=== PATIENT | female | born 1965 | race Caucasian/White ===

== ENCOUNTER → 2016-10-10 | Outpatient (CLI) | payer OTHER ==
[~2016-10-10] MED LIST: ADVAIR INH; ALBU17IN INH; ALBUTEROL NEB NEB; ALEVE OR; AMBI10TA OR; BACLOFEN; BENA25CA2 PO; BENA5TA PO; BREO1INH INH; CLAR10CA3 PO; CLAR5CHW OR; CYCL10TA PO; DARV100T OR; DARVOCET; DICL13PA TD; DIPHENHYDRAMINE HCL OR; FERROUS SULFATE; FLEX10TA2 PO; FLEXERIL PO; FLON0.05; FLON1SPR; FLOV50AE; GABA300C2 PO; HYDR-3716 PO; NEUR600T PO; OMEP40CA2 PO; PERCOCET PO; PROV90AE INH; SING10TA31 OR; SING10TA32 PO; SKEL800T5; SKEL800T5 OR; VICO5TAB PO; VICO5TAB16 PO; VITA-113 SC; VOLT1GEL EX; VOLT1GEL24 TOP; ZANA4CAP OR; talwin OR
--- NOTE | 2016-10-10 16:32 | REP ---
MRI left hip and femur without and with IV gadolinium: History: Dense foot drop clinically since ipsilateral left-sided hip replacement. MRI lumbar spine shows only minimal changes. 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 Visualization of the sciatic nerves requested. Technique: The scan range is from the presacral soft-tissues to the fibular head in the left lower extremity. Axial, sagittal, and coronal imaging planes are utilized. T1 and T2-weighted scans were obtained. Sequences include spin echo and STIR imaging sequences. MRI findings: There is some magnetic field susceptibility artifact emanating from the metallic prosthetic hip components. However, despite this, axial T1 and T2-weighted scans show good visualization of the sciatic nerve coursing through the sciatic notch and posterior to the left hip and femur. There is no visible nerve impingement or accessory muscle in the left hip or thigh region. On axial T2-weighted scans just beyond the sciatic notch at the level of the ischium there is equivocal increased signal intensity in the sciatic nerve. There is still magnetic field susceptibility artifact in the images at this level and this is an equivocal finding as a result. Otherwise signal intensity and contour and caliber of the nerve are felt to be normal. In the distal thigh there is abnormal signal intensity in the distal portion of the biceps femoris muscle just above its insertion. There is abnormal edematous signal intensity in the muscles in the proximal calf involving the anterolateral compartment. These are consistent with denervation changes. Peroneal nerve distribution. Also noted is a para meniscal cyst at the medial aspect of the knee on the left side. This cyst measures 3.7 cm x 2.2 cm. Post-contrast enhanced study shows no abnormal gadolinium enhancement. Impression: Abnormal skeletal muscle signal intensity in the distal belly of the biceps femoris as well as in the anterolateral compartment musculature of the proximal calf on the left side consistent with peroneal nerve distribution denervation change. No nerve impingement or compression is appreciated. Equivocal increased signal intensity in the sciatic nerve at the level of the ischium. There is some magnetic field susceptibility artifact here attributable to the left hip prosthesis. Signed by Melchor Rolon MD 10/11/2016 07:59 A
== END ==
LOC: M RAD 10:00
PROVIDERS: ATTEND Neurological Surgery
DX: M21.372 Foot drop, left foot (principal); G60.3 Idiopathic progressive neuropathy
CPT/HCPCS: 73723; A9576

== ENCOUNTER → 2016-10-11 | Day surgery (SDC) | payer OTHER ==
[~2016-10-11] VITALS: Ht 172.7 cm; Wt 111.0 kg
[~2016-10-11] MED LIST changes: +CLINDAMYCIN 900 MG in APPROPRIATE DILUENT 1 EA IV ONE; +CLINDAMYCIN 900 MG/50 ML PREMIX BAG As Ordered ONE; +LIDOCAINE 1% SDV INJ 30 ML VIAL As Ordered ONE; +LIDOCAINE 2% INJ 100 MG/5 ML SDV (FOR ANES.) As Ordered ONE; +LR 1,000 ML IV SCH; +MIDAZOLAM INJ 2 MG/2 ML VIAL (J2250) As Ordered ONE; +ONDANSETRON 4MG/2ML VIAL (J2405) As Ordered ONE; +ONDANSETRON 4MG/2ML VIAL (J2405) IV PRN; +PERCOCET 5MG/325MG TAB PO PRN; +PROPOFOL 200 MG/20 ML VIAL As Ordered ONE; +ROCURONIUM BROMIDE 50 MG/5 ML VIAL As Ordered ONE; +SUCCINYLCHOLINE 100 MG/5 ML SYRINGE (J0330) As Ordered ONE; +dexameTHASONE 4 MG/ML 1ML VIAL (J1100) As Ordered ONE; +fentaNYL 100 MCG/2 ML INJECTION (J3010) As Ordered ONE; +fentaNYL 100 MCG/2 ML INJECTION (J3010) IV PRN; +methylPREDNISolone SUSP 40 MG/ML (DEPO-medrol) VIAL (J1030) As Ordered ONE; +methylPREDNISolone SUSP 40 MG/ML (DEPO-medrol) VIAL (J1030) XX ONE
[2016-10-11] MEDS: LR 1,000 ML IV SCH ×2 (07:10→07:39)
[2016-10-11 12:00] VITALS: BP 119/82
--- NOTE | 2016-10-11 12:26 | RO ---
DATE OF PROCEDURE: 10/11/2016 PREOPERATIVE DIAGNOSES: Left peroneal neuropathy, neuropathy, lumbar spondylosis with radiculopathy, morbid obesity. POSTOPERATIVE DIAGNOSES: Left peroneal neuropathy, neuropathy, lumbar spondylosis with radiculopathy, morbid obesity. PROCEDURE: Release of left peroneal nerve at the fibular head and the knee with external neurolysis. SURGEON: Cynthia Bergman MD POLISHER DIAL: ANESTHESIA: General. FINDINGS: Please see my office notes for detailed preoperative evaluation and discussions. The patient was seen in the preoperative area, and there was no change in dense footdrop on the left. Workup suggested peroneal neuropathy, including the MRI, which showed pertinent changes in the peroneal nerve in the muscles. Further workup suggested peripheral neuropathy, as well as lumbar radiculopathy, as well as lumbar spondylosis, although it was difficult to explain her dense footdrop on any of the above abnormalities. She understood the salvage nature of the procedure and understood that at best she has only 10% chance of getting any benefit. By any benefit, she clearly understands I clearly meant less symptoms and/or deficits. She once again stated there is no way she can live with this footdrop and is ready to take any risks for any possible or remote chance of getting any improvement. She understood the risk of surgery includes but not limited to , paralysis, persistence or worsening of symptoms, development of reflex sympathetic dystrophy, infection, bleeding, failure of surgery, need for multiple surgeries, loss of vital bodily function, deep venous thrombosis (DVT), myocardial infarction (OK), and/or any catastrophic sequelae. Once again, she wished to proceed with the salvage surgery; and after all matters pertaining to surgery, anesthesia, and followup care had been discussed with her, she wished to proceed with surgery. DESCRIPTION OF PROCEDURE: Once in the operating room, general anesthesia was given by the anesthesia service, and the patient was positioned in a semilateral position. After adequate prep and drape, a skin incision was given medial to the fibular head. Alveolar layer was reached and incised. Cut edges of the blood vessels were coagulated with bipolar cautery and plasma blade. The deep fascia was opened, and peroneal nerve was then identified. It had significant peroneal scarring. External neurolysis of the nerve was achieved several centimeters proximally to the fibular head and near the medial border of the biceps femoris, where it appeared to be compressed by the edge of the biceps femoris near its insertion. Further compression was seen between the two heads of the peroneus longus muscle. The septum between the two heads were quite thick. Complete decompression of the peroneal nerve was achieved. Also, external neurolysis was performed on the proximal sural nerve. Blood loss was negligible. At this time, the wound was closed in two layers, and a sterile 1-inch band-aid was applied at site of surgery. The patient tolerated the procedure well and was sent to the recovery room in stable condition. Operative finding was discussed with her son, who had the followup instructions, as well.
== END | disposition home or self-care (01) ==
LOC: M SDC 06:34
PROVIDERS: ATTEND Neurological Surgery
DX: G57.32 Lesion of lateral popliteal nerve, left lower limb (principal); G62.9 Polyneuropathy, unspecified; M47.26 Other spondylosis with radiculopathy, lumbar region; I10 Essential (primary) hypertension; J45.909 Unspecified asthma, uncomplicated; M54.2 Cervicalgia; M79.603 Pain in arm, unspecified; M79.605 Pain in left leg; R20.2 Paresthesia of skin; D64.9 Anemia, unspecified; M12.9 Arthropathy, unspecified; E78.5 Hyperlipidemia, unspecified; G43.909 Migraine, unspecified, not intractable, without status migrainosus; G89.29 Other chronic pain; R06.83 Snoring; K21.9 Gastro-esophageal reflux disease without esophagitis; Z91.040 Latex allergy status; Z88.1 Allergy status to other antibiotic agents; Z88.6 Allergy status to analgesic agent; Z79.899 Other long term (current) drug therapy; Z96.642 Presence of left artificial hip joint; Z90.710 Acquired absence of both cervix and uterus; Z96.659 Presence of unspecified artificial knee joint; Z98.51 Tubal ligation status
CPT/HCPCS: 64708; J0330; J1030; J1100; J2250; J2405; J3010

== ENCOUNTER → 2016-10-30 | Outpatient (REF) | payer OTHER ==
[~2016-10-30] MED LIST changes: -CLINDAMYCIN 900 MG in APPROPRIATE DILUENT 1 EA IV ONE; -CLINDAMYCIN 900 MG/50 ML PREMIX BAG As Ordered ONE; -LIDOCAINE 1% SDV INJ 30 ML VIAL As Ordered ONE; -LIDOCAINE 2% INJ 100 MG/5 ML SDV (FOR ANES.) As Ordered ONE; -LR 1,000 ML IV SCH; -MIDAZOLAM INJ 2 MG/2 ML VIAL (J2250) As Ordered ONE; -ONDANSETRON 4MG/2ML VIAL (J2405) As Ordered ONE; -ONDANSETRON 4MG/2ML VIAL (J2405) IV PRN; -PERCOCET 5MG/325MG TAB PO PRN; -PROPOFOL 200 MG/20 ML VIAL As Ordered ONE; -ROCURONIUM BROMIDE 50 MG/5 ML VIAL As Ordered ONE; -SUCCINYLCHOLINE 100 MG/5 ML SYRINGE (J0330) As Ordered ONE; -dexameTHASONE 4 MG/ML 1ML VIAL (J1100) As Ordered ONE; -fentaNYL 100 MCG/2 ML INJECTION (J3010) As Ordered ONE; -fentaNYL 100 MCG/2 ML INJECTION (J3010) IV PRN; -methylPREDNISolone SUSP 40 MG/ML (DEPO-medrol) VIAL (J1030) As Ordered ONE; -methylPREDNISolone SUSP 40 MG/ML (DEPO-medrol) VIAL (J1030) XX ONE
== END ==
LOC: M SFHCPLAZ 09:30
PROVIDERS: ATTEND Physician Assistant Medical
DX: E78.2 Mixed hyperlipidemia (principal); E55.9 Vitamin D deficiency, unspecified; E53.8 Deficiency of other specified B group vitamins

== ENCOUNTER → 2016-11-01 | Outpatient (CLI) | payer OTHER ==
--- NOTE | 2016-11-14 01:44 | ECWPNPC ---
PATIENT NAME: AKBAR MOODY : 1965 GENDER: FEMALE VISIT DATE: 11/01/2016 DISCHARGE DATE: 11/01/16 1612 VISIT LOCKED DATE TIME: PHYSICIAN: RABIA WATTERS RESOURCE: RABIA WATTERS REASON FOR APPOINTMENT 1. UPPER NECK & LOW BACK HISTORY OF PRESENT ILLNESS HISTORY OF PRESENT ILLNESS: HERE FOR F/U OF NECK AND LOW BACK PAIN.LAST VISIT WAS IN DECEMBER.WAS DOING WELL AFTER TPI UNTIL ABOUT ONE MONTH AGO.HAD LEFT HIP REPLACEMENT IN JANUARY AND DEVELOPED COMPLICATIONS.DR BARNETT DID A MUSCLE RELEASE TO TRY TO FIX PROBLEM ON 10-11-16 BUT THIS FAILED.PATIENT SUFFERS FROM LEFT HIP PAIN AND LEFT LEG PARATHESIAS WORSE AFTER SURGERY.UPPER BACK AND NECK PEREIRA RSTED 3/10 VAS.DESCRIBES PAIN INTERMITTENT ACHING AND TENDERNESS. FALL RISK SCREENING: SCREENING :NO FALLS IN THE PAST YEAR CURRENT MEDICATIONS TAKING NYSTATIN 466654 UNIT/GM CREAM 1 APPLICATION TO AFFECTED AREA EXTERNALLY UNDER BREASTS TWICE DAILY NEEDED, NOTES: 2 MONTHS AGO TAKING VENTOLIN HFA 108 (90 BASE) MCG/ACT AEROSOL SOLUTION 2 PUFFS NEEDED INHALATION EVERY 4 HRS, NOTES: 01/25 TAKING FLONASE 50 MCG/ACT SUSPENSION 2 SPRAYS IN EACH NOSTRIL NASALLY ONCE DAILY NEEDED, NOTES: 01/26 7AM TAKING LORATADINE 10 MG TABLET 1 TABLET ORALLY ONCE A DAY, NOTES: 01/26 7AM TAKING SINGULAIR 10 MG TABLET 1 TABLET IN THE EVENING ORALLY ONCE A DAY, NOTES: 01/26 9PM TAKING BREO ELLIPTA 100 MCG/25 MCG INHALATION POWDER ONE INHALATION ORALLY ONCE DAILY, NOTES: 01/26 9PM TAKING BENADRYL 25 MG CAPSULE 1 CAPSULE NEEDED ORALLY EVERY 6 HRS/ NEEDED FOR HIVES, NOTES: 1 MONTH AGO TAKING NEBULIZER/TUBING/MOUTHPIECE _ KIT DIRECTED DX:[id number] DIRECTED TAKING OMEPRAZOLE 40 MG CAPSULE DELAYED RELEASE 1 CAPSULE ORALLY BID, NOTES: 01/26 7AM TAKING DRISDOL 16446 UNIT CAPSULE 1 CAPSULE ORALLY WEEKLY TAKING CYCLOBENZAPRINE HCL 10 MG TABLET 1 TABLET ORALLY THREE TIMES A DAY, NOTES: 01/27 9PM TAKING HYDROCODONE-ACETAMINOPHEN 5-325 MG TABLET 1 TABLET NEEDED ORALLY EVERY 6 HRS, NOTES: 01/26 9PM TAKING GABAPENTIN 600 MG TABLET 1 CAPSULE ORALLY BID, NOTES: 4/29 M9PM TAKING TYLENOL EXTRA STRENGTH 500 MG TABLET 2 TABLETS NEEDED ORALLY EVERY 6 HRS TAKING ALBUTEROL SULFATE (2.5 MG/3ML) 0.083% NEBULIZATION SOLUTION 3 ML INHALATION THREE TIMES A DAY NEEDED TAKING BENAZEPRIL HCL 5 MG TABLET DIRECTED ORALLY DAILY TAKING VITAMIN B-12 1000 MCG/ML SOLUTION 1 ML INJECTION MONTHLY TAKING MIRALAX SUSPENSION 17 GRAMS ORALLY 1 TO 3X/DAY PRN NOT-TAKING ALEVE 220 MG TABLET 1 TABLET NEEDED ORALLY EVERY 12 HRS, NOTES: 01/26 0700 DISCONTINUED BREO ELLIPTA 100-25 MCG/INH AEROSOL POWDER BREATH ACTIVATED INHALE ONE PUFF BY MOUTH EVERY DAY DISCONTINUED VITAMIN B1-B12 MEDICATION LIST REVIEWED AND RECONCILED WITH THE PATIENT PAST MEDICAL HISTORY ASTHMA, MILD INTERMITTENT OSTEOARTHRITIS - DDD - FOLLOWS WITH NCOG ENVIRONMENTAL ALLERGIES HYPERLIPIDEMIA VIT D DEF OBESITY B HIP OA S/P COLONOSCOPY NEG. 01/07/2016-DR. CHAPMAN F/U 10YR.S ALLERGIES LATEX (FOR ALLERGY USE ONLY): HIVES: ALLERGY KEFLEX: ANAPHYLAXIS: ALLERGY NSAIDS: KIDNEY ISSUES: ALLERGY SOCIAL HISTORY GENERAL: TOBACCO USE ARE YOU A:NONSMOKER LEARNING BARRIERS / SPECIAL NEEDS ORIENTED TO PLAN OF CARE: PATIENT, PAIN MANAGEMENT PATIENT, ORIENTED TO PLAN OF CARE: PATIENT, PAIN MANAGEMENT PATIENT. NEW PATIENT PAIN DIARY TODAY'S VISITNOTES FROM 0-10, WHAT LEVEL IS YOUR PAIN TODAY?0 PAIN CLINIC PFS, CLERGY, PUBLIC HEALTH REFERRALS PFS REFERRAL NEEDED?NO CLERGY REFERRAL NEEDED?NO PUBLIC HEALTH REFERRAL NEEDED?NO WAS THE PROVIDER NOTIFIED OF ANY PERTINENT INFO?NO PFS REFERRAL NEEDED?NO CLERGY REFERRAL NEEDED?NO PUBLIC HEALTH REFERRAL NEEDED?NO WAS THE PROVIDER NOTIFIED OF ANY PERTINENT INFO?NO REVIEW OF SYSTEMS CONSTITUTIONAL: ANY CHANGE IN YOUR MEDICAL CONDITION? YES TOTAL LEFT HIP 01/2016 , WITH COMPLICATIONS(THE NEW HIP PINCHED NERVES AFFECTING THE MUSCLES--SHE NUMBNESS FROM HER KNEE DOWN. 10/11/16 DR. BARNETT RELEASED NERVES LOWER LEFT LEG--FROM KNEE DOWN . CHILLS NO . FEVER NO . INFECTION: DO YOU HAVE NEW INFECTIONS? NO . DO YOU HAVE HISTORY OF MRSA? NO . MUSCULOSKELETAL: ANY NEW PATTERNS OF PAIN OR NUMBNESS? YES LEFT LEG DUE TO COMPLICATIONS FROM SURGERY LEFT HIP . GASTROENTEROLOGY: ANY NEW CHANGE IN BOWEL CONTROL? NO . GENITOURINARY: ANY NEW CHANGE IN BLADDER CONTROL? NO . IS THERE A CHANCE YOU COULD BE ? NO . HEMATOLOGY/LYMPH: DO YOU TAKE ANY BLOOD THINNERS? (FOR EXAMPLE- COUMADIN, PLAVIX, AGGRENOX, PLATEL, PRADAXA, OR XARELTO) NO . WHEN WAS YOUR LAST DOSE? DATE: TIME: . NEUROLOGY: HAVE YOU FALLEN IN THE PAST 6 MONTHS? NO . ANY NEW EXTREMITY NUMBNESS OR WEAKNESS? NO . CARDIOLOGY: DO YOU HAVE A PACEMAKER OR DEFIBRILLATOR? NO . RESPIRATORY: HAVE YOU BEEN SICK IN THE PAST WEEK? NO . FEVER NO . FLU LIKE SYMPTOMS? NO . COUGH NO . INTEGUMENTARY: DO YOU HAVE ANY RASHES OR OPEN SORES? YES SCAB LEFT OUT LEG JUST BELOW KNEE--FROM SURGERY 10/11/16 . ALLERGIC/IMMUNO: ARE YOU ALLERGIC TO SHELLFISH OR IV DYE? NO . ANY NEW ALLERGIES? NO . PSYCHIATRIC: DO YOU HAVE THOUGHTS OF HURTING YOURSELF OR SOMEONE ELSE? NO . ARE YOU ABUSED, NEGLECTED, OR IN AN UNSAFE ENVIRONMENT? NO . ENDOCRINOLOGY: ARE YOU DIABETIC? NO . OTHER: DO YOU NEED ANY PRESCRIPTIONS? YES FLEXERIL . IF YES, PLEASE LIST: ____ . ANY NEW PROBLEMS WITH YOUR MEDICATIONS? NO . WHEN DID YOU LAST EAT? ____ . WHEN DID YOU LAST DRINK? ____ . WHAT DID YOU LAST DRINK? ____ . NAME OF PERSON DRIVING YOU HOME? ____ . DO YOU HAVE ANY OTHER QUESTIONS OR CONCERNS NO . REVIEWED BY: PROVIDER: RABIA CARRERO . VITAL SIGNS WT 245 LBS, HT 68 IN, BMI 37.25 INDEX, BP 126/88 MM HG, HR 87 /MIN, RR 16 /MIN, TEMP 98.5 F, OXYGEN SAT % 98, REVIEWED BY: AD. EXAMINATION GENERAL EXAMINATION: LUNGS:LUNG SOUNDS ARE CLEAR. HEART:HEART RATE REGULAR. MUSCULOSKELETAL:*, TRIGGER POINTS:, ELICITED WITH PALPATION OVER CERVICAL SPINOUS PROCESSES AND ACROSS THE TRAPEZIUS MUSCLES BILATERALLY. RESTRICTION OF ROM IS NOTED. , MUSCLE STRENGTH TESTING 5/5 BILATERAL UPPER EXTREMITIES. ASSESSMENTS CERVICALGIA - M54.2 (PRIMARY) MYALGIA - M79.1 TREATMENT CERVICALGIA REFILL CYCLOBENZAPRINE HCL TABLET, 10 MG, 1 TABLET, ORALLY, THREE TIMES A DAY, 30 DAY(S), 90 TABLET, REFILLS 2, NOTES: 01/27 9PM TRIGGER POINT 1-2 AREAS MYALGIA TRIGGER POINT 1-2 AREAS PROCEDURE CODES FA211 ESTABILISHED PATIENT [facility] CHARGE FOLLOW UP 2WK POST (REASON: TPI UPPER BACK /NECK) ELECTRONICALLY SIGNED BY MAGAN ESCALANTE ON 11/13/2016 AT 07:21 PM EST DISCLAIMER : THIS IS A VISIT SUMMARY EXTRACTED FROM THE [employer] CHART. IT IS NOT A COPY OF THE [employer] PROGRESS NOTE. GEGE
== END ==
LOC: M PAIN 14:40
PROVIDERS: ATTEND Nurse Practitioner Family
DX: M54.2 Cervicalgia (principal); M79.1 Myalgia; M54.5 Low back pain; G89.29 Other chronic pain; M25.552 Pain in left hip; Z79.891 Long term (current) use of opiate analgesic; Z79.899 Other long term (current) drug therapy; M19.90 Unspecified osteoarthritis, unspecified site; E55.9 Vitamin D deficiency, unspecified; E66.9 Obesity, unspecified; Z91.040 Latex allergy status; Z88.1 Allergy status to other antibiotic agents; Z88.8 Allergy status to other drugs, medicaments and biological substances

== ENCOUNTER → 2016-11-29 | Outpatient (CLI) | payer OTHER ==
--- NOTE | 2016-11-29 23:59 | ECWPNPC ---
PATIENT NAME: AKBAR MOODY : 1965 GENDER: FEMALE VISIT DATE: 11/29/2016 DISCHARGE DATE: 11/29/16 1009 VISIT LOCKED DATE TIME: PHYSICIAN: RABIA WATTERS RESOURCE: RABIA WATTERS REASON FOR APPOINTMENT 1. POST PROCEDURE HISTORY OF PRESENT ILLNESS HISTORY OF PRESENT ILLNESS: HERE FOR FOR POST PROC. F/U.HAD TPI NECK/OCCIPITAL REGION ON 11-15-16.REPORTS 2WK IMPROVEMENT IN PAIN AND HEADACHES POST PROCEDURE.PAIN HAS RETURNED.RATING PAIN VAS 2/10.DESCRIBES PAIN SORE AND TENDERNESS BASE OF NECK THAT EVOLVES INTO HEADACHE.DISCUSSED TREATMENT OPTIONS. FALL RISK SCREENING: SCREENING :NO FALLS IN THE PAST YEAR CURRENT MEDICATIONS TAKING DRISDOL 70225 UNIT CAPSULE 1 CAPSULE ORALLY WEEKLY TAKING POLYETHYLENE GLYCOL 3350 - POWDER 17G IN 8 OZ OF WATER ORALLY 1-2 TIMES DAILY NEEDED TAKING LIPITOR 10 MG TABLET 1 TABLET ORALLY ONCE A DAY TAKING OMEPRAZOLE 40 MG CAPSULE DELAYED RELEASE 1 CAPSULE ORALLY BID TAKING NYSTATIN [id number] UNIT/GM CREAM 1 APPLICATION TO AFFECTED AREA EXTERNALLY UNDER BREASTS TWICE DAILY NEEDED TAKING FLONASE 50 MCG/ACT SUSPENSION 2 SPRAYS IN EACH NOSTRIL NASALLY ONCE DAILY NEEDED TAKING BREO ELLIPTA 100 MCG/25 MCG INHALATION POWDER ONE INHALATION ORALLY ONCE DAILY TAKING BENADRYL 25 MG CAPSULE 1 CAPSULE NEEDED ORALLY EVERY 6 HRS/ NEEDED FOR HIVES TAKING NEBULIZER/TUBING/MOUTHPIECE _ KIT DIRECTED DX:[id number] DIRECTED TAKING HYDROCODONE-ACETAMINOPHEN 5-325 MG TABLET 1 TABLET NEEDED ORALLY EVERY 6 HRS, NOTES: 11/14/162329 TAKING GABAPENTIN 600 MG TABLET 1 CAPSULE ORALLY BID, NOTES: 11/14/162329 TAKING TYLENOL EXTRA STRENGTH 500 MG TABLET 2 TABLETS NEEDED ORALLY EVERY 6 HRS, NOTES: 11/13/16 0800 TAKING ALBUTEROL SULFATE (2.5 MG/3ML) 0.083% NEBULIZATION SOLUTION 3 ML INHALATION THREE TIMES A DAY NEEDED, NOTES: 2 WEEKS AGO TAKING BENAZEPRIL HCL 5 MG TABLET DIRECTED ORALLY DAILY, NOTES: 11/14/16 0830 TAKING CYCLOBENZAPRINE HCL 10 MG TABLET 1 TABLET ORALLY THREE TIMES A DAY, NOTES: 11/14/16 233 TAKING VITAMIN B-12 1000 MCG/ML SOLUTION 1 ML INJECTION ONCE A MONTH, NOTES: 11/01/16 TAKING SINGULAIR 10 MG TABLET 1 TABLET IN THE EVENING ORALLY ONCE A DAY TAKING LORATADINE 10 MG TABLET 1 TABLET ORALLY ONCE A DAY TAKING VENTOLIN HFA 108 (90 BASE) MCG/ACT AEROSOL SOLUTION 2 PUFFS NEEDED INHALATION EVERY 4 HRS NOT-TAKING ALEVE 220 MG TABLET 1 TABLET NEEDED ORALLY EVERY 12 HRS, NOTES: 01/26 0700 MEDICATION LIST REVIEWED AND RECONCILED WITH THE PATIENT PAST MEDICAL HISTORY ASTHMA, MILD INTERMITTENT OSTEOARTHRITIS - DDD - FOLLOWS WITH NCOG ENVIRONMENTAL ALLERGIES HYPERLIPIDEMIA VIT D DEF OBESITY B HIP OA S/P COLONOSCOPY NEG. 01/07/2016-DR. CHAPMAN F/U 10YR.S ALLERGIES LATEX (FOR ALLERGY USE ONLY): HIVES: ALLERGY KEFLEX: ANAPHYLAXIS: ALLERGY NSAIDS: KIDNEY ISSUES: ALLERGY SOCIAL HISTORY GENERAL: TOBACCO USE ARE YOU A:NONSMOKER LEARNING BARRIERS / SPECIAL NEEDS ORIENTED TO PLAN OF CARE: PATIENT, PAIN MANAGEMENT PATIENT, ORIENTED TO PLAN OF CARE: PATIENT, PAIN MANAGEMENT PATIENT. NEW PATIENT PAIN DIARY TODAY'S VISITNOTES FROM 0-10, WHAT LEVEL IS YOUR PAIN TODAY?0 PAIN CLINIC PFS, CLERGY, PUBLIC HEALTH REFERRALS PFS REFERRAL NEEDED?NO CLERGY REFERRAL NEEDED?NO PUBLIC HEALTH REFERRAL NEEDED?NO WAS THE PROVIDER NOTIFIED OF ANY PERTINENT INFO?NO PFS REFERRAL NEEDED?NO CLERGY REFERRAL NEEDED?NO PUBLIC HEALTH REFERRAL NEEDED?NO WAS THE PROVIDER NOTIFIED OF ANY PERTINENT INFO?NO REVIEW OF SYSTEMS CONSTITUTIONAL: ANY CHANGE IN YOUR MEDICAL CONDITION? NO . CHILLS NO . FEVER NO . INFECTION: DO YOU HAVE NEW INFECTIONS? NO . DO YOU HAVE HISTORY OF MRSA? NO . MUSCULOSKELETAL: ANY NEW PATTERNS OF PAIN OR NUMBNESS? NO . GASTROENTEROLOGY: ANY NEW CHANGE IN BOWEL CONTROL? NO . GENITOURINARY: ANY NEW CHANGE IN BLADDER CONTROL? NO . IS THERE A CHANCE YOU COULD BE ? NO . HEMATOLOGY/LYMPH: DO YOU TAKE ANY BLOOD THINNERS? (FOR EXAMPLE- COUMADIN, PLAVIX, AGGRENOX, PLATEL, PRADAXA, OR XARELTO) NO . WHEN WAS YOUR LAST DOSE? DATE: TIME: . NEUROLOGY: HAVE YOU FALLEN IN THE PAST 6 MONTHS? NO . ANY NEW EXTREMITY NUMBNESS OR WEAKNESS? NO . CARDIOLOGY: DO YOU HAVE A PACEMAKER OR DEFIBRILLATOR? NO . RESPIRATORY: HAVE YOU BEEN SICK IN THE PAST WEEK? NO . FEVER NO . FLU LIKE SYMPTOMS? NO . COUGH NO . INTEGUMENTARY: DO YOU HAVE ANY RASHES OR OPEN SORES? NO . ALLERGIC/IMMUNO: ARE YOU ALLERGIC TO SHELLFISH OR IV DYE? NO . ANY NEW ALLERGIES? NO . PSYCHIATRIC: DO YOU HAVE THOUGHTS OF HURTING YOURSELF OR SOMEONE ELSE? NO . ARE YOU ABUSED, NEGLECTED, OR IN AN UNSAFE ENVIRONMENT? NO . ENDOCRINOLOGY: ARE YOU DIABETIC? NO . OTHER: DO YOU NEED ANY PRESCRIPTIONS? NO . IF YES, PLEASE LIST: ____ . ANY NEW PROBLEMS WITH YOUR MEDICATIONS? NO . WHEN DID YOU LAST EAT? ____ . WHEN DID YOU LAST DRINK? ____ . WHAT DID YOU LAST DRINK? ____ . NAME OF PERSON DRIVING YOU HOME? ____ . DO YOU HAVE ANY OTHER QUESTIONS OR CONCERNS NO . REVIEWED BY: PROVIDER: RABIA CARRERO . VITAL SIGNS WT 256 LBS, HT 68 IN, BMI 38.92 INDEX, BP 147/93 MM HG, HR 93 /MIN, RR 16 /MIN, TEMP 98.1 F, OXYGEN SAT % 96, NA INITIALS TL 0914. EXAMINATION GENERAL EXAMINATION: LUNGS:LUNG SOUNDS ARE CLEAR. HEART:HEART RATE REGULAR. MUSCULOSKELETAL:*, TRIGGER POINTS:, ELICITED WITH PALPATION OVER CERVICAL SPINOUS PROCESSES AND ACROSS THE TRAPEZIUS MUSCLES BILATERALLY. RESTRICTION OF ROM IS NOTED. , MUSCLE STRENGTH TESTING 5/5 BILATERAL UPPER EXTREMITIES. ASSESSMENTS CERVICALGIA - M54.2 (PRIMARY) MYALGIA - M79.1 TREATMENT CERVICALGIA TRIGGER POINT 1-2 AREAS PROCEDURE CODES FA211 ESTABILISHED PATIENT [facility] CHARGE DISPOSITION & COMMUNICATION FOLLOW UP 2WK POST (REASON: TRIGGER POINT CERVICAL) ELECTRONICALLY SIGNED BY MAGAN ESCALANTE ON 11/29/2016 AT 01:21 PM EST DISCLAIMER : THIS IS A VISIT SUMMARY EXTRACTED FROM THE [employer] CHART. IT IS NOT A COPY OF THE [employer] PROGRESS NOTE. GEGE
== END ==
LOC: M PAIN 09:00
PROVIDERS: ATTEND Nurse Practitioner Family
DX: M54.2 Cervicalgia (principal); M79.1 Myalgia; Z79.899 Other long term (current) drug therapy; Z79.891 Long term (current) use of opiate analgesic; I10 Essential (primary) hypertension; M47.816 Spondylosis without myelopathy or radiculopathy, lumbar region; M47.817 Spondylosis without myelopathy or radiculopathy, lumbosacral region; K21.9 Gastro-esophageal reflux disease without esophagitis; J45.20 Mild intermittent asthma, uncomplicated; E66.01 Morbid (severe) obesity due to excess calories; E55.9 Vitamin D deficiency, unspecified; E78.2 Mixed hyperlipidemia; E53.8 Deficiency of other specified B group vitamins; Z96.642 Presence of left artificial hip joint

== ENCOUNTER → 2016-12-27 | Outpatient (CLI) | payer OTHER ==
[~2016-12-27] MED LIST changes: +BUPIVACAINE HCL 0.25% 10 ML VIAL As Ordered ONE; +BUPIVACAINE HCL 0.25% 30 ML VIAL As Ordered ONE; +TRIAMCINOLONE ACETONIDE SUSP 40 MG/ML VIAL (J3301) As Ordered ONE
--- NOTE | 2017-01-03 01:53 | ECWPNPC ---
PATIENT NAME: AKBAR MOODY : 1965 GENDER: FEMALE VISIT DATE: 12/27/2016 DISCHARGE DATE: 12/27/16 1439 VISIT LOCKED DATE TIME: PHYSICIAN: HAIDER COSTELLO RESOURCE: HAIDER COSTELLO REASON FOR APPOINTMENT 1. CERVICAL, TPI HISTORY OF PRESENT ILLNESS HISTORY OF PRESENT ILLNESS: PAIN THE PATIENT DESCRIBES THE PAIN... FALL RISK SCREENING: SCREENING :NO FALLS IN THE PAST YEAR CURRENT MEDICATIONS TAKING NYSTATIN [id number] UNIT/GM CREAM 1 APPLICATION TO AFFECTED AREA EXTERNALLY UNDER BREASTS TWICE DAILY NEEDED, NOTES: NONE RECENT TAKING BREO ELLIPTA 100 MCG/25 MCG INHALATION POWDER ONE INHALATION ORALLY ONCE DAILY, NOTES: 12/25/162229 TAKING BENADRYL 25 MG CAPSULE 1 CAPSULE NEEDED ORALLY EVERY 6 HRS/ NEEDED FOR HIVES, NOTES: NONE RECENT TAKING NEBULIZER/TUBING/MOUTHPIECE _ KIT DIRECTED DX:493 DIRECTED TAKING HYDROCODONE-ACETAMINOPHEN 5-325 MG TABLET 1 TABLET NEEDED ORALLY EVERY 6 HRS, NOTES: 12/27/16699 TAKING GABAPENTIN 600 MG TABLET 1 CAPSULE ORALLY BID, NOTES: 12/27/16699 TAKING TYLENOL EXTRA STRENGTH 500 MG TABLET 2 TABLETS NEEDED ORALLY EVERY 6 HRS, NOTES: 12/24/16 TAKING CYCLOBENZAPRINE HCL 10 MG TABLET 1 TABLET ORALLY THREE TIMES A DAY, NOTES: 11/2916 TAKING LORATADINE 10 MG TABLET 1 TABLET ORALLY ONCE A DAY, NOTES: 12/27/16699 TAKING VENTOLIN HFA 108 (90 BASE) MCG/ACT AEROSOL SOLUTION 2 PUFFS NEEDED INHALATION EVERY 4 HRS, NOTES: 12/21/16 TAKING FLONASE 50 MCG/ACT SUSPENSION 2 SPRAYS IN EACH NOSTRIL NASALLY ONCE A DAY, NOTES: 12/23/16 TAKING SINGULAIR 10 MG TABLET 1 TABLET IN THE EVENING ORALLY ONCE A DAY, NOTES: 12/26/16 220 TAKING OMEPRAZOLE 40 MG CAPSULE DELAYED RELEASE 1 CAPSULE ORALLY BID, NOTES: 12/27/16699 TAKING LIPITOR 10 MG TABLET 1 TABLET ORALLY ONCE A DAY, NOTES: 12/27/16699 TAKING POLYETHYLENE GLYCOL 3350 - POWDER 17G IN 8 OZ OF WATER ORALLY 1-2 TIMES DAILY NEEDED, NOTES: 1 WEEK AGO TAKING DRISDOL 08919 UNIT CAPSULE 1 CAPSULE ORALLY WEEKLY, NOTES: 12/25/16 TAKING BENAZEPRIL HCL 5 MG TABLET 1 TAB ORALLY DAILY, NOTES: 12/27/16 0700 TAKING ALBUTEROL SULFATE (2.5 MG/3ML) 0.083% NEBULIZATION SOLUTION 3 ML INHALATION THREE TIMES A DAY NEEDED, NOTES: NONE RECENT TAKING CYANOCOBALAMIN 1000 MCG/ML SOLUTION 1 ML INJECTION MONTHLY, NOTES: HASN'T STARTED NOT-TAKING ALEVE 220 MG TABLET 1 TABLET NEEDED ORALLY EVERY 12 HRS, NOTES: 01/26 0700 MEDICATION LIST REVIEWED AND RECONCILED WITH THE PATIENT PAST MEDICAL HISTORY ASTHMA, MILD INTERMITTENT OSTEOARTHRITIS - DDD - [facility] HYPERLIPIDEMIA VIT D DEF OBESITY B HIP OA S/P COLONOSCOPY NEG. 01/07/2016-DR. CHAPMAN F/U 10YR.S ALLERGIES LATEX (FOR ALLERGY USE ONLY): HIVES: ALLERGY KEFLEX: ANAPHYLAXIS: ALLERGY NSAIDS: KIDNEY ISSUES: CONTRAINDICATION REVIEW OF SYSTEMS CONSTITUTIONAL: ANY CHANGE IN YOUR MEDICAL CONDITION? NO . CHILLS NO . FEVER NO . INFECTION: DO YOU HAVE NEW INFECTIONS? NO . DO YOU HAVE HISTORY OF MRSA? NO . MUSCULOSKELETAL: ANY NEW PATTERNS OF PAIN OR NUMBNESS? NO . GASTROENTEROLOGY: ANY NEW CHANGE IN BOWEL CONTROL? NO . GENITOURINARY: ANY NEW CHANGE IN BLADDER CONTROL? NO . IS THERE A CHANCE YOU COULD BE ? NO . HEMATOLOGY/LYMPH: DO YOU TAKE ANY BLOOD THINNERS? (FOR EXAMPLE- COUMADIN, PLAVIX, AGGRENOX, PLATEL, PRADAXA, OR XARELTO) NO . WHEN WAS YOUR LAST DOSE? DATE: TIME: . NEUROLOGY: HAVE YOU FALLEN IN THE PAST 6 MONTHS? YES 12/08/16 WAS SEEN [facility] . ANY NEW EXTREMITY NUMBNESS OR WEAKNESS? NO . CARDIOLOGY: DO YOU HAVE A PACEMAKER OR DEFIBRILLATOR? NO . RESPIRATORY: HAVE YOU BEEN SICK IN THE PAST WEEK? NO . FEVER NO . FLU LIKE SYMPTOMS? NO . COUGH NO . INTEGUMENTARY: DO YOU HAVE ANY RASHES OR OPEN SORES? NO . ALLERGIC/IMMUNO: ARE YOU ALLERGIC TO SHELLFISH OR IV DYE? NO . ANY NEW ALLERGIES? NO . PSYCHIATRIC: DO YOU HAVE THOUGHTS OF HURTING YOURSELF OR SOMEONE ELSE? NO . ARE YOU ABUSED, NEGLECTED, OR IN AN UNSAFE ENVIRONMENT? NO . ENDOCRINOLOGY: ARE YOU DIABETIC? NO . OTHER: DO YOU NEED ANY PRESCRIPTIONS? NO . IF YES, PLEASE LIST: ____ . ANY NEW PROBLEMS WITH YOUR MEDICATIONS? NO . WHEN DID YOU LAST EAT? ____12/26/16 1900 . WHEN DID YOU LAST DRINK? ____12/27/16 0700 . WHAT DID YOU LAST DRINK? ____SIP OF WATER WITH MEDS . NAME OF PERSON DRIVING YOU HOME? ____DAUGHTER, CARLA . DO YOU HAVE ANY OTHER QUESTIONS OR CONCERNS NO . REVIEWED BY: PROVIDER: . VITAL SIGNS WT 261.0 LBS, HT 68 IN, BMI 39.68 INDEX, BP 137/86 MM HG, HR 98 /MIN, RR 16 /MIN, TEMP 98.4 F, OXYGEN SAT % 98%, NA INITIALS TL 1315, REVIEWED BY: AD. ASSESSMENTS MYALGIA - M79.1 (PRIMARY) PROCEDURES PN TRIGGER POINT INJECTION WITH STEROIDS PRE PROCEDURE DIAGNOSIS 1. MYALGIA 2. PAIN AT BILATERAL NECK AREA, BILATERAL SHOULDER AREA, AND BILATERAL THORACIC AREA. POST PROCEDURE DIAGNOSIS 1. MYALGIA 2. PAIN AT BILATERAL NECK AREA, BILATERAL SHOULDER AREA, AND BILATERAL THORACIC AREA. PROCEDURE TRIGGER POINT INJECTION AT BILATERAL NECK AREA, BILATERAL SHOULDER AREA, AND BILATERAL THORACIC AREA. SURGEON DR. HAIDER COSTELLO TUCK POINTER NONE ANESTHESIA LOCAL PRE PROCEDURE NOTE THE PATIENT HAS A HISTORY OF CHRONIC PAIN AT THE RIGHT AND LEFT NECK AREA, RIGHT AND LEFT SHOULDER AREA, AND RIGHT AND LEFT THORACIC AREA. I EVALUATE THE PATIENT AND REVIEWED THE CHART. THERE IS EVIDENCE OF BANDS OF TISSUE WITH RESTRICTION OF MOVEMENT AND PRESENCE OF TRIGGER POINT AT THE AFFECTED AREA. I WENT OVER THE RISKS, ALTERNATIVES, AND BENEFITS ASSOCIATED WITH THIS PROCEDURE. THE PATIENT WOULD LIKE TO PROCEED AND GIVE CONSENT TO PERFORMED THE PROCEDURE. THE PATIENT DENIES UNEXPLAINABLE WEIGHT LOSS, FEVER, CHILLS, OR NEW CHANGES IN URINARY OR BOWEL CONTROL DESCRIPTION OF PROCEDURE THE PATIENT WAS BROUGHT TO THE PROCEDURE ROOM AND PLACED IN THE SITTING POSITION. THE AREA WAS CLEANED WITH ALCOHOL. THE PROCEDURE WAS DONE USING ASEPTIC STERILE TECHNIQUE. I CHECKED LATERALITY AND THE LEVEL WHERE THE PROCEDURE WAS GOING TO BE PERFORMED WITH THE PATIENT AND THE SUPPORTING STAFF AT THE MOMENT OF THE TIME OUT IN THE PROCEDURE ROOM. USING A 25-GAUGE NEEDLE, TRIGGER POINTS WERE INJECTED AT THE RIGHT AND LEFT NECK AREA, RIGHT AND LEFT SHOULDER AREA, AND RIGHT AND LEFT THORACIC AREA WITH A TOTAL OF 40 ML OF BUPIVACAINE 0.25% AND KENALOG 40 MG. THERE WAS NO EVIDENCE OF BLOOD, PARESTHESIA OR CEREBROSPINAL FLUID DURING THE PROCEDURE. THE PATIENT WAS SENT TO THE RECOVERY ROOM. THE PATIENT WAS MOVING THE EXTREMITIES AND DOING WELL. THERE WAS NO COMPLICATION DURING THE PROCEDURE POST PROCEDURE NOTE THE PATIENT WILL BE SEEN IN A FOLLOW UP IN THE NEXT FEW WEEKS. INSTRUCTIONS WERE GIVEN, QUESTIONS WERE ANSWERED, AND THE PATIENT EXPRESSED UNDERSTANDING AND AGREES WITH THE PLAN. I, TRACI POLANCO, DOCUMENTED THE ABOVE INFORMATION ACTING A SCRIBE FOR DR. COSTELLO. I HAVE REVIEWED THE ABOVE DOCUMENT, WRITTEN BY TRACI POLANCO SCRIBMickie AND I VERIFY THAT IT IS ACCURATE. PROCEDURE CODES 44003 INJECT TRIGGER POINTS 3/> DISPOSITION & COMMUNICATION FOLLOW UP 3 WEEKS ELECTRONICALLY SIGNED BY HAIDER COSTELLO MD ON 01/02/2017 AT 01:02 PM EDT DISCLAIMER : THIS IS A VISIT SUMMARY EXTRACTED FROM THE [employer] CHART. IT IS NOT A COPY OF THE [employer] PROGRESS NOTE. [email or web address]
== END ==
LOC: M PAIN 13:20
PROVIDERS: ATTEND Anesthesiology
DX: G89.29 Other chronic pain (principal); M79.1 Myalgia; M54.2 Cervicalgia; M25.511 Pain in right shoulder; M25.512 Pain in left shoulder; M54.6 Pain in thoracic spine; J45.909 Unspecified asthma, uncomplicated; M47.819 Spondylosis without myelopathy or radiculopathy, site unspecified; E55.9 Vitamin D deficiency, unspecified; E78.5 Hyperlipidemia, unspecified; E66.9 Obesity, unspecified; Z68.39 Body mass index [BMI] 39.0-39.9, adult; M16.0 Bilateral primary osteoarthritis of hip; Z91.040 Latex allergy status; Z88.8 Allergy status to other drugs, medicaments and biological substances; Z88.6 Allergy status to analgesic agent; Z79.51 Long term (current) use of inhaled steroids; Z79.899 Other long term (current) drug therapy
CPT/HCPCS: 20553; J3301

== ENCOUNTER → 2017-01-23 | Outpatient (CLI) | payer OTHER ==
[~2017-01-23] MED LIST changes: -BUPIVACAINE HCL 0.25% 10 ML VIAL As Ordered ONE; -BUPIVACAINE HCL 0.25% 30 ML VIAL As Ordered ONE; -TRIAMCINOLONE ACETONIDE SUSP 40 MG/ML VIAL (J3301) As Ordered ONE
--- NOTE | 2017-01-30 01:25 | ECWPNPC ---
PATIENT NAME: AKBAR MOODY : 1965 GENDER: FEMALE VISIT DATE: 01/23/2017 DISCHARGE DATE: 01/23/17 1155 VISIT LOCKED DATE TIME: PHYSICIAN: RABIA WATTERS RESOURCE: RABIA WATTERS REASON FOR APPOINTMENT 1. POST PROCEDURE HISTORY OF PRESENT ILLNESS HISTORY OF PRESENT ILLNESS: HERE FOR POST PROCEDURE F/U.HAD TPI NECK AND UPPER BACK ON 12-27-16.RATING PAIN VAS 3/10.STATES SHE HASNT HAD ANY PAIN UNTIL LAST NIGHT.SHE SLEPT FUNNY ON COUCH LAST NIGHT AND RAIN AGGREVATES PAIN.REPORTS IMPROVED ACTIVITY TOLERANCE SINCE INJECTIONS.COMPLAINING OF LOW BACK PAIN.CURRENTLY USING HYDROCODONE 5/325 TWO TAB BID AND CYCLOBENZAPRINE 10MG PRN.DISCUSSED MEDICATION MANAGEMENT AND WE WILL BE TAKING OVER HER MEDICATION MANAGEMENT. PAIN THE PATIENT DESCRIBES THE PAIN... FALL RISK SCREENING: SCREENING :NO FALLS IN THE PAST YEAR CURRENT MEDICATIONS TAKING NYSTATIN 000230 UNIT/GM CREAM 1 APPLICATION TO AFFECTED AREA EXTERNALLY UNDER BREASTS TWICE DAILY NEEDED TAKING BREO ELLIPTA 100 MCG/25 MCG INHALATION POWDER ONE INHALATION ORALLY ONCE DAILY TAKING BENADRYL 25 MG CAPSULE 1 CAPSULE NEEDED ORALLY EVERY 6 HRS/ NEEDED FOR HIVES TAKING NEBULIZER/TUBING/MOUTHPIECE _ KIT DIRECTED DX:493 DIRECTED TAKING HYDROCODONE-ACETAMINOPHEN 5-325 MG TABLET 1 TABLET NEEDED ORALLY EVERY 6 HRS TAKING GABAPENTIN 600 MG TABLET 1 CAPSULE ORALLY BID TAKING TYLENOL EXTRA STRENGTH 500 MG TABLET 2 TABLETS NEEDED ORALLY EVERY 6 HRS TAKING CYCLOBENZAPRINE HCL 10 MG TABLET 1 TABLET ORALLY THREE TIMES A DAY TAKING LORATADINE 10 MG TABLET 1 TABLET ORALLY ONCE A DAY TAKING VENTOLIN HFA 108 (90 BASE) MCG/ACT AEROSOL SOLUTION 2 PUFFS NEEDED INHALATION EVERY 4 HRS TAKING FLONASE 50 MCG/ACT SUSPENSION 2 SPRAYS IN EACH NOSTRIL NASALLY ONCE A DAY TAKING SINGULAIR 10 MG TABLET 1 TABLET IN THE EVENING ORALLY ONCE A DAY TAKING OMEPRAZOLE 40 MG CAPSULE DELAYED RELEASE 1 CAPSULE ORALLY BID TAKING LIPITOR 10 MG TABLET 1 TABLET ORALLY ONCE A DAY TAKING POLYETHYLENE GLYCOL 3350 - POWDER 17G IN 8 OZ OF WATER ORALLY 1-2 TIMES DAILY NEEDED TAKING DRISDOL 48726 UNIT CAPSULE 1 CAPSULE ORALLY WEEKLY TAKING BENAZEPRIL HCL 5 MG TABLET 1 TAB ORALLY DAILY TAKING ALBUTEROL SULFATE (2.5 MG/3ML) 0.083% NEBULIZATION SOLUTION 3 ML INHALATION THREE TIMES A DAY NEEDED TAKING CYANOCOBALAMIN 1000 MCG/ML SOLUTION 1 ML INJECTION MONTHLY NOT-TAKING ALEVE 220 MG TABLET 1 TABLET NEEDED ORALLY EVERY 12 HRS, NOTES: 01/26 0700 MEDICATION LIST REVIEWED AND RECONCILED WITH THE PATIENT PAST MEDICAL HISTORY ASTHMA, MILD INTERMITTENT OSTEOARTHRITIS - DDD - FOLLOWS WITH [facility] ENVIRONMENTAL ALLERGIES HYPERLIPIDEMIA VIT D DEF OBESITY B HIP OA S/P COLONOSCOPY NEG. 01/07/2016-DR. CHAPMAN F/U 10YR.S ALLERGIES LATEX (FOR ALLERGY USE ONLY): HIVES: ALLERGY KEFLEX: ANAPHYLAXIS: ALLERGY NSAIDS: KIDNEY ISSUES: CONTRAINDICATION SURGICAL HISTORY MADHAV DUE TO BLEEDING--- 07/2008 ARTHROSCOPIC KNEE SURGERY LEFT X 3 ARTHROSCOPIC KNEE SURGERY RIGHT X 1 CARPAL TUNNEL RELEASE BILATERAL ARTHROSCOPY SHOULDER RIGHT SHOULDER SURGERY LEFT BIOPSY MOLE- BACK LEFT HIP SURGERY 01/2016 TUBAL LIGATION HERNIA REPAIR X 5 ABDOMINAL SURGERY FOR GANGRENOUS INFECTION POST BTL BELLY [place]TON REMOVED LEFT LEG SURGERY- RELEASED NERVES 10/11/16 SOCIAL HISTORY GENERAL: PAIN CLINIC PFS, CLERGY, PUBLIC HEALTH REFERRALS CLERGY REFERRAL NEEDED?NO WAS THE PROVIDER NOTIFIED OF ANY PERTINENT INFO?NO PFS REFERRAL NEEDED?NO PUBLIC HEALTH REFERRAL NEEDED?NO PATIENT: ____. HOSPITALIZATION/MAJOR DIAGNOSTIC PROCEDURE SURGERY CHILDBIRTH X 6 REVIEW OF SYSTEMS CONSTITUTIONAL: ANY CHANGE IN YOUR MEDICAL CONDITION? NO . CHILLS NO . FEVER NO . INFECTION: DO YOU HAVE NEW INFECTIONS? NO . DO YOU HAVE HISTORY OF MRSA? NO . MUSCULOSKELETAL: ANY NEW PATTERNS OF PAIN OR NUMBNESS? NO . GASTROENTEROLOGY: ANY NEW CHANGE IN BOWEL CONTROL? NO . GENITOURINARY: ANY NEW CHANGE IN BLADDER CONTROL? NO . IS THERE A CHANCE YOU COULD BE ? NO . HEMATOLOGY/LYMPH: DO YOU TAKE ANY BLOOD THINNERS? (FOR EXAMPLE- COUMADIN, PLAVIX, AGGRENOX, PLATEL, PRADAXA, OR XARELTO) NO . WHEN WAS YOUR LAST DOSE? DATE: TIME: . NEUROLOGY: HAVE YOU FALLEN IN THE PAST 6 MONTHS? YES, NOT SINCE SHE WAS HERE LAST IN NOVEMBER . ANY NEW EXTREMITY NUMBNESS OR WEAKNESS? NO . CARDIOLOGY: DO YOU HAVE A PACEMAKER OR DEFIBRILLATOR? NO . RESPIRATORY: HAVE YOU BEEN SICK IN THE PAST WEEK? NO . FEVER NO . FLU LIKE SYMPTOMS? NO . COUGH NO . INTEGUMENTARY: DO YOU HAVE ANY RASHES OR OPEN SORES? NO . ALLERGIC/IMMUNO: ARE YOU ALLERGIC TO SHELLFISH OR IV DYE? NO . ANY NEW ALLERGIES? NO . PSYCHIATRIC: DO YOU HAVE THOUGHTS OF HURTING YOURSELF OR SOMEONE ELSE? NO . ARE YOU ABUSED, NEGLECTED, OR IN AN UNSAFE ENVIRONMENT? NO . ENDOCRINOLOGY: ARE YOU DIABETIC? NO . OTHER: DO YOU NEED ANY PRESCRIPTIONS? YES . IF YES, PLEASE LIST: FLEXERIL . ANY NEW PROBLEMS WITH YOUR MEDICATIONS? NO . WHEN DID YOU LAST EAT? ____ . WHEN DID YOU LAST DRINK? ____ . WHAT DID YOU LAST DRINK? ____ . NAME OF PERSON DRIVING YOU HOME? ____ . DO YOU HAVE ANY OTHER QUESTIONS OR CONCERNS NO . REVIEWED BY: PROVIDER: RABIA CARRERO . VITAL SIGNS WT 260 LBS, HT 68 IN, BMI 39.53 INDEX, BP 127/58 MM HG, HR 92 /MIN, RR 18 /MIN, TEMP 98.7 F, OXYGEN SAT % 94, SAFE IN ENV? (Y/N) Y, REVIEWED BY: KG. EXAMINATION GENERAL EXAMINATION: LUNGS:LUNG SOUNDS ARE CLEAR. HEART:HEART RATE REGULAR. MUSCULOSKELETAL:*, TRIGGER POINTS:, ELICITED WITH PALPATION OVER CERVICAL SPINOUS PROCESSES AND ACROSS THE TRAPEZIUS MUSCLES BILATERALLY. RESTRICTION OF ROM IS NOTED. , MUSCLE STRENGTH TESTING 5/5 BILATERAL UPPER EXTREMITIES. ASSESSMENTS CERVICALGIA - M54.2 (PRIMARY) MYALGIA - M79.1 SPONDYLOSIS OF LUMBAR REGION WITHOUT MYELOPATHY OR RADICULOPATHY - M47.816 TREATMENT CERVICALGIA REFILL HYDROCODONE-ACETAMINOPHEN TABLET, 5-325 MG, 1-2, ORALLY, EVERY 6 HRS MDD4, 30 DAY(S), 120, REFILLS 0 CONTINUE GABAPENTIN TABLET, 600 MG, 1 CAPSULE, ORALLY, BID, 30 DAY(S), 60 CAPSULE, REFILLS 2 REFILL CYCLOBENZAPRINE HCL TABLET, 10 MG, 1 TABLET, ORALLY, THREE TIMES A DAY, 30 DAY(S), 90 TABLET, REFILLS 2 NOTES: TRIGGER POINT INJECTION: YOUR EXPERIENCE MATERIAL WAS PRINTED,TRIGGER POINT INJECTION MATERIAL WAS PRINTED. MYALGIA TRIGGER POINT 1-2 RABIA NORTH 01/23/2017 11:46:02 AM > TRIGGER POINT INJECTIONS LOW BACK SPONDYLOSIS OF LUMBAR REGION WITHOUT MYELOPATHY OR RADICULOPATHY TRIGGER POINT 1-2 RABIA NORTH 01/23/2017 11:46:02 AM > TRIGGER POINT INJECTIONS LOW BACK PREVENTIVE MEDICINE DISCUSSED TPI AND PREPROCEDURE CARE. DISCUSSED NARCOTIC AGREEMENT WITH PT UNDERSTANDING EXPRESSED. PROCEDURE CODES FA211 ESTABILISHED PATIENT [facility] FACILITY CHARGE DISPOSITION & COMMUNICATION FOLLOW UP 2WK POST (REASON: TPI LOW BACK) ELECTRONICALLY SIGNED BY MAGAN ESCALANTE ON 01/29/2017 AT 02:37 PM EDT DISCLAIMER : THIS IS A VISIT SUMMARY EXTRACTED FROM THE [employer] CHART. IT IS NOT A COPY OF THE [employer] PROGRESS NOTE. GEGE
== END ==
LOC: M PAIN 10:40
PROVIDERS: ATTEND Nurse Practitioner Family
DX: G89.29 Other chronic pain (principal); M54.2 Cervicalgia; M79.1 Myalgia; M47.816 Spondylosis without myelopathy or radiculopathy, lumbar region; J45.20 Mild intermittent asthma, uncomplicated; E78.2 Mixed hyperlipidemia; E55.9 Vitamin D deficiency, unspecified; E66.9 Obesity, unspecified; Z68.39 Body mass index [BMI] 39.0-39.9, adult; M16.4 Bilateral post-traumatic osteoarthritis of hip; Z91.040 Latex allergy status; Z88.6 Allergy status to analgesic agent; Z88.8 Allergy status to other drugs, medicaments and biological substances; Z79.51 Long term (current) use of inhaled steroids; Z79.899 Other long term (current) drug therapy

== ENCOUNTER → 2017-01-29 | Outpatient (REF) | payer OTHER | LOC: M SFHCPLAZ 09:48 | PROVIDERS: ATTEND Physician Assistant Medical | DX: E78.5 Hyperlipidemia, unspecified (principal); E55.9 Vitamin D deficiency, unspecified; E53.8 Deficiency of other specified B group vitamins ==

== ENCOUNTER → 2017-01-30 | Outpatient (CLI) | payer OTHER ==
[~2017-01-30] MED LIST changes: +BUPIVACAINE HCL 0.25% 10 ML VIAL As Ordered ONE; +BUPIVACAINE HCL 0.25% 30 ML VIAL As Ordered ONE; +TRIAMCINOLONE ACETONIDE SUSP 40 MG/ML VIAL (J3301) As Ordered ONE
--- NOTE | 2017-02-04 23:40 | ECWPNPC ---
PATIENT NAME: AKBAR MOODY : 1965 GENDER: FEMALE VISIT DATE: 01/30/2017 DISCHARGE DATE: 01/30/17 1532 VISIT LOCKED DATE TIME: PHYSICIAN: HAIDER COSTELLO RESOURCE: HAIDER COSTELLO REASON FOR APPOINTMENT 1. TPI LOW BACK HISTORY OF PRESENT ILLNESS HISTORY OF PRESENT ILLNESS: PAIN THE PATIENT DESCRIBES THE PAIN... FALL RISK SCREENING: SCREENING :NO FALLS IN THE PAST YEAR CURRENT MEDICATIONS TAKING NYSTATIN [id number] UNIT/GM CREAM 1 APPLICATION TO AFFECTED AREA EXTERNALLY UNDER BREASTS TWICE DAILY NEEDED, NOTES: MONTHS AGO TAKING BREO ELLIPTA 100 MCG/25 MCG INHALATION POWDER ONE INHALATION ORALLY ONCE DAILY, NOTES: 01/29 10PM TAKING BENADRYL 25 MG CAPSULE 1 CAPSULE NEEDED ORALLY EVERY 6 HRS/ NEEDED FOR HIVES, NOTES: MONTHS AGO TAKING NEBULIZER/TUBING/MOUTHPIECE _ KIT DIRECTED DX:493 DIRECTED, NOTES: 2 MONTHS TAKING TYLENOL EXTRA STRENGTH 500 MG TABLET 2 TABLETS NEEDED ORALLY EVERY 6 HRS, NOTES: 2 WEEKS TAKING LORATADINE 10 MG TABLET 1 TABLET ORALLY ONCE A DAY, NOTES: 01/29 7AM TAKING VENTOLIN HFA 108 (90 BASE) MCG/ACT AEROSOL SOLUTION 2 PUFFS NEEDED INHALATION EVERY 4 HRS, NOTES: 01/28 TAKING FLONASE 50 MCG/ACT SUSPENSION 2 SPRAYS IN EACH NOSTRIL NASALLY ONCE A DAY, NOTES: 2 WEEKS TAKING SINGULAIR 10 MG TABLET 1 TABLET IN THE EVENING ORALLY ONCE A DAY, NOTES: 01/29 11PM TAKING OMEPRAZOLE 40 MG CAPSULE DELAYED RELEASE 1 CAPSULE ORALLY BID, NOTES: 01/29 11PM TAKING LIPITOR 10 MG TABLET 1 TABLET ORALLY ONCE A DAY, NOTES: 01/29 7AM TAKING POLYETHYLENE GLYCOL 3350 - POWDER 17G IN 8 OZ OF WATER ORALLY 1-2 TIMES DAILY NEEDED, NOTES: 3 DAYS AGO TAKING DRISDOL 21219 UNIT CAPSULE 1 CAPSULE ORALLY WEEKLY, NOTES: 01/29 7AM TAKING BENAZEPRIL HCL 5 MG TABLET 1 TAB ORALLY DAILY, NOTES: 01/29 7AM TAKING ALBUTEROL SULFATE (2.5 MG/3ML) 0.083% NEBULIZATION SOLUTION 3 ML INHALATION THREE TIMES A DAY NEEDED, NOTES: 2 WEEKS TAKING CYANOCOBALAMIN 1000 MCG/ML SOLUTION 1 ML INJECTION MONTHLY, NOTES: 01/29 1200 TAKING HYDROCODONE-ACETAMINOPHEN 5-325 MG TABLET 1-2 ORALLY EVERY 6 HRS MDD4, NOTES: 01/29 11PM TAKING GABAPENTIN 600 MG TABLET 1 CAPSULE ORALLY BID, NOTES: 01/29 11PM TAKING CYCLOBENZAPRINE HCL 10 MG TABLET 1 TABLET ORALLY THREE TIMES A DAY, NOTES: 01/29 11PM TAKING ALEVE 220 MG TABLET 1 TABLET NEEDED ORALLY EVERY 12 HRS, NOTES: 01/29 1200 MEDICATION LIST REVIEWED AND RECONCILED WITH THE PATIENT PAST MEDICAL HISTORY ASTHMA, MILD INTERMITTENT OSTEOARTHRITIS - DDD - FOLLOWS WITH [facility] ENVIRONMENTAL ALLERGIES HYPERLIPIDEMIA VIT D DEF OBESITY B HIP OA S/P COLONOSCOPY NEG. 01/07/2016-DR. CHAPMAN F/U 10YR.S ALLERGIES LATEX (FOR ALLERGY USE ONLY): HIVES: ALLERGY KEFLEX: ANAPHYLAXIS: ALLERGY NSAIDS: KIDNEY ISSUES: CONTRAINDICATION REVIEW OF SYSTEMS CONSTITUTIONAL: ANY CHANGE IN YOUR MEDICAL CONDITION? NO . CHILLS NO . FEVER NO . INFECTION: DO YOU HAVE NEW INFECTIONS? NO . DO YOU HAVE HISTORY OF MRSA? NO . MUSCULOSKELETAL: ANY NEW PATTERNS OF PAIN OR NUMBNESS? NO . GASTROENTEROLOGY: ANY NEW CHANGE IN BOWEL CONTROL? NO . GENITOURINARY: ANY NEW CHANGE IN BLADDER CONTROL? NO . IS THERE A CHANCE YOU COULD BE ? NO . HEMATOLOGY/LYMPH: DO YOU TAKE ANY BLOOD THINNERS? (FOR EXAMPLE- COUMADIN, PLAVIX, AGGRENOX, PLATEL, PRADAXA, OR XARELTO) NO . WHEN WAS YOUR LAST DOSE? DATE: TIME: . NEUROLOGY: HAVE YOU FALLEN IN THE PAST 6 MONTHS? NO . ANY NEW EXTREMITY NUMBNESS OR WEAKNESS? NO . CARDIOLOGY: DO YOU HAVE A PACEMAKER OR DEFIBRILLATOR? NO . RESPIRATORY: HAVE YOU BEEN SICK IN THE PAST WEEK? NO . FEVER NO . FLU LIKE SYMPTOMS? NO . COUGH NO . INTEGUMENTARY: DO YOU HAVE ANY RASHES OR OPEN SORES? NO . ALLERGIC/IMMUNO: ARE YOU ALLERGIC TO SHELLFISH OR IV DYE? NO . ANY NEW ALLERGIES? NO . PSYCHIATRIC: DO YOU HAVE THOUGHTS OF HURTING YOURSELF OR SOMEONE ELSE? NO . ARE YOU ABUSED, NEGLECTED, OR IN AN UNSAFE ENVIRONMENT? NO . ENDOCRINOLOGY: ARE YOU DIABETIC? YES, NO . OTHER: DO YOU NEED ANY PRESCRIPTIONS? NO . IF YES, PLEASE LIST: ____ . ANY NEW PROBLEMS WITH YOUR MEDICATIONS? NO . WHEN DID YOU LAST EAT? 01/29 7PM . WHEN DID YOU LAST DRINK? 01/29 11:30PM . WHAT DID YOU LAST DRINK? PEPSI . NAME OF PERSON DRIVING YOU HOME? DAUGHTER . DO YOU HAVE ANY OTHER QUESTIONS OR CONCERNS NO . REVIEWED BY: PROVIDER: . VITAL SIGNS WT 150.0 LBS, HT 68 IN, BMI 22.80 INDEX, BP 109/80 MM HG, HR 98 /MIN, RR 18 /MIN, TEMP 97.3 F, OXYGEN SAT % 100%, SAFE IN ENV? (Y/N) Y, NA INITIALS TL 1435, REVIEWED BY: DS. ASSESSMENTS MYALGIA - M79.1 (PRIMARY) PROCEDURES PN TRIGGER POINT INJECTION WITH STEROIDS PRE PROCEDURE DIAGNOSIS 1. MYALGIA 2. PAIN AT BILATERAL LOWER BACK AREA POST PROCEDURE DIAGNOSIS 1. MYALGIA 2. PAIN AT BILATERAL LOWER BACK AREA PROCEDURE TRIGGER POINT INJECTION AT BILATERAL LOW BACK AREA SURGEON DR. HAIDER COSTELLO CLINICAL LABORATORY TECHNICIAN NONE ANESTHESIA LOCAL PRE PROCEDURE NOTE THE PATIENT HAS A HISTORY OF CHRONIC PAIN AT THE RIGHT AND LEFT LOW BACK AREA. I EVALUATE THE PATIENT AND REVIEWED THE CHART. THERE IS EVIDENCE OF BANDS OF TISSUE WITH RESTRICTION OF MOVEMENT AND PRESENCE OF TRIGGER POINT AT THE AFFECTED AREA. I WENT OVER THE RISKS, ALTERNATIVES, AND BENEFITS ASSOCIATED WITH THIS PROCEDURE. THE PATIENT WOULD LIKE TO PROCEED AND GIVE CONSENT TO PERFORMED THE PROCEDURE. THE PATIENT DENIES UNEXPLAINABLE WEIGHT LOSS, FEVER, CHILLS, OR NEW CHANGES IN URINARY OR BOWEL CONTROL DESCRIPTION OF PROCEDURE THE PATIENT WAS BROUGHT TO THE PROCEDURE ROOM AND PLACED IN THE SITTING POSITION. THE AREA WAS CLEANED WITH ALCOHOL. THE PROCEDURE WAS DONE USING [employer] STERILE TECHNIQUE. I CHECKED LATERALITY AND THE LEVEL WHERE THE PROCEDURE WAS GOING TO BE PERFORMED WITH THE PATIENT AND THE SUPPORTING STAFF AT THE MOMENT OF THE TIME OUT IN THE PROCEDURE ROOM. USING A 25-GAUGE NEEDLE, TRIGGER POINTS WERE INJECTED AT THE RIGHT AND LEFT LOW BACK AREA WITH A TOTAL OF 40 ML OF BUPIVACAINE 0.25% AND KENALOG 40 MG. THERE WAS NO EVIDENCE OF BLOOD, PARESTHESIA OR CEREBROSPINAL FLUID DURING THE PROCEDURE. THE PATIENT WAS SENT TO THE RECOVERY ROOM. THE PATIENT WAS MOVING THE EXTREMITIES AND DOING WELL. THERE WAS NO COMPLICATION DURING THE PROCEDURE POST PROCEDURE NOTE THE PATIENT WILL BE SEEN IN A FOLLOW UP IN THE NEXT FEW WEEKS. INSTRUCTIONS WERE GIVEN, QUESTIONS WERE ANSWERED, AND THE PATIENT EXPRESSED UNDERSTANDING AND AGREES WITH THE PLAN. I, TRACI POLANCO, DOCUMENTED THE ABOVE INFORMATION ACTING A SCRIBE FOR DR. COSTELLO. I HAVE REVIEWED THE ABOVE DOCUMENT, WRITTEN BY TRACI MCKEE AND I VERIFY THAT IT IS ACCURATE. PROCEDURE CODES 69843 INJ TRIGGER POINT / MUSCL DISPOSITION & COMMUNICATION FOLLOW UP 3 WEEKS ELECTRONICALLY SIGNED BY HAIDER COSTELLO MD ON 02/04/2017 AT 05:36 PM EDT DISCLAIMER : THIS IS A VISIT SUMMARY EXTRACTED FROM THE [employer] CHART. IT IS NOT A COPY OF THE [employer] PROGRESS NOTE. GEGE
== END ==
LOC: M PAIN 14:40
PROVIDERS: ATTEND Anesthesiology
DX: G89.29 Other chronic pain (principal); M79.1 Myalgia; M54.5 Low back pain; E78.2 Mixed hyperlipidemia; E55.9 Vitamin D deficiency, unspecified; M16.0 Bilateral primary osteoarthritis of hip; Z91.040 Latex allergy status; Z88.6 Allergy status to analgesic agent; Z88.8 Allergy status to other drugs, medicaments and biological substances; Z79.51 Long term (current) use of inhaled steroids; Z79.891 Long term (current) use of opiate analgesic; Z79.899 Other long term (current) drug therapy; K21.9 Gastro-esophageal reflux disease without esophagitis; J45.20 Mild intermittent asthma, uncomplicated; E66.01 Morbid (severe) obesity due to excess calories; E53.8 Deficiency of other specified B group vitamins
CPT/HCPCS: 20552; J3301

== ENCOUNTER → 2017-02-27 | Outpatient (CLI) | payer OTHER ==
[~2017-02-27] MED LIST changes: -BUPIVACAINE HCL 0.25% 10 ML VIAL As Ordered ONE; -BUPIVACAINE HCL 0.25% 30 ML VIAL As Ordered ONE; -TRIAMCINOLONE ACETONIDE SUSP 40 MG/ML VIAL (J3301) As Ordered ONE
--- NOTE | 2017-02-28 00:02 | ECWPNPC ---
PATIENT NAME: AKBAR MOODY : 1965 GENDER: FEMALE VISIT DATE: 02/27/2017 DISCHARGE DATE: 02/27/17 1232 VISIT LOCKED DATE TIME: PHYSICIAN: RABIA WATTERS RESOURCE: RABIA WATTERS REASON FOR APPOINTMENT 1. MEDS HISTORY OF PRESENT ILLNESS HISTORY OF PRESENT ILLNESS: HERE FOR POST PROCEDURE F/U.HAD TPI BILAT. LOW BACK ON 01-30-17.REPORTS WAS DOING WELL UNTIL 2 DAYS AGO.HAS BEEN OVERDOING.CHIEF AREA OF PAIN IS LEFT HIP.RATING PAIN VAS 8/10.FORGOT HYDROCODONE TODAY.REVIEWED NEED TO EVALUATE BEFORE PRESCRIBING.AGAIN REVIEWED CLINIC RULES REGARDING SAFE OPIOD USE. PAIN THE PATIENT DESCRIBES THE PAIN... FALL RISK SCREENING: SCREENING :NO FALLS IN THE PAST YEAR CURRENT MEDICATIONS TAKING VITAMIN B-12 2500 MCG TABLET SUBLINGUAL 1 ML SUBLINGUAL ONCE DAILY TAKING CYANOCOBALAMIN 1000 MCG/ML SOLUTION 1 ML INJECTION Q 2 WEEKS, NOTES: 01/29 1200 TAKING VITAMIN D-3 1000 UNIT CAPSULE 1 CAPSULE---ERROR ON EARLIER REFILL OF DRISOL ORALLY ONCE A DAY TAKING LIPITOR 10 MG TABLET 1 TABLET ORALLY ONCE A DAY TAKING POLYETHYLENE GLYCOL 3350 - POWDER 17G IN 8 OZ OF WATER ORALLY 1-2 TIMES DAILY NEEDED TAKING OMEPRAZOLE 40 MG CAPSULE DELAYED RELEASE 1 CAPSULE ORALLY BID TAKING BENAZEPRIL HCL 5 MG TABLET 1 TAB ORALLY DAILY, NOTES: 01/29 7AM TAKING BREO ELLIPTA 100 MCG/25 MCG INHALATION POWDER ONE INHALATION ORALLY ONCE DAILY, NOTES: 01/29 10PM TAKING NEBULIZER/TUBING/MOUTHPIECE _ KIT DIRECTED DX:493 DIRECTED, NOTES: 2 MONTHS TAKING VENTOLIN HFA 108 (90 BASE) MCG/ACT AEROSOL SOLUTION 2 PUFFS NEEDED INHALATION EVERY 4 HRS, NOTES: 01/28 TAKING ALBUTEROL SULFATE (2.5 MG/3ML) 0.083% NEBULIZATION SOLUTION 3 ML INHALATION THREE TIMES A DAY NEEDED, NOTES: 2 WEEKS TAKING FLONASE 50 MCG/ACT SUSPENSION 2 SPRAYS IN EACH NOSTRIL NASALLY ONCE A DAY, NOTES: 2 WEEKS TAKING SINGULAIR 10 MG TABLET 1 TABLET IN THE EVENING ORALLY ONCE A DAY, NOTES: 01/29 11PM TAKING BENADRYL 25 MG CAPSULE 1 CAPSULE NEEDED ORALLY EVERY 6 HRS/ NEEDED FOR HIVES, NOTES: MONTHS AGO TAKING LORATADINE 10 MG TABLET 1 TABLET ORALLY ONCE A DAY, NOTES: 01/29 7AM TAKING HYDROCODONE-ACETAMINOPHEN 5-325 MG TABLET 1-2 ORALLY EVERY 6 HRS MDD4, NOTES: 01/29 11PM TAKING GABAPENTIN 600 MG TABLET 1 CAPSULE ORALLY BID, NOTES: 01/29 11PM TAKING CYCLOBENZAPRINE HCL 10 MG TABLET 1 TABLET ORALLY THREE TIMES A DAY, NOTES: 01/29 11PM TAKING ALEVE 220 MG TABLET 1 TABLET NEEDED ORALLY EVERY 12 HRS, NOTES: 01/29 1200 MEDICATION LIST REVIEWED AND RECONCILED WITH THE PATIENT PAST MEDICAL HISTORY ASTHMA, MILD INTERMITTENT OSTEOARTHRITIS - DDD - FOLL[place] WITH [facility] [place] [facility] ALL[facility] HYPERLIPIDEMIA VIT D DEF OBESITY B HIP OA S/P COLONOSCOPY NEG. 01/07/2016-DR. CHAPMAN F/U 10.S ALLERGIES LATEX (FOR ALLERGY USE ONLY): HIVES: ALLERGY KEFLEX: ANAPHYLAXIS: ALLERGY NSAIDS: KIDNEY ISSUES: CONTRAINDICATION SURGICAL HISTORY MADHAV DUE TO BLEEDING--- 07/2008 MADHAV DUE TO BLEEDING--- 07/2008 ARTHROSCOPIC KNEE SURGERY LEFT X 3 ARTHROSCOPIC KNEE SURGERY LEFT X 3 ARTHROSCOPIC KNEE SURGERY RIGHT X 1 ARTHROSCOPIC KNEE SURGERY RIGHT X 1 CARPAL TUNNEL RELEASE BILATERAL CARPAL TUNNEL RELEASE BILATERAL ARTHROSCOPY SHOULDER RIGHT ARTHROSCOPY SHOULDER RIGHT SHOULDER SURGERY LEFT SHOULDER SURGERY LEFT BIOPSY MOLE- BACK BIOPSY MOLE- BACK LEFT HIP SURGERY 01/2016 LEFT HIP SURGERY 01/2016 TUBAL LIGATION TUBAL LIGATION HERNIA REPAIR X 5 HERNIA REPAIR X 5 ABDOMINAL SURGERY FOR GANGRENOUS INFECTION POST BTL ABDOMINAL SURGERY FOR GANGRENOUS INFECTION POST BTL BELLY BUTTON REMOVED BELLY BUTTON REMOVED LEFT LEG SURGERY- RELEASED NERVES 10/11/16 LEFT LEG SURGERY- RELEASED NERVES 10/11/16 HOSPITALIZATION/MAJOR DIAGNOSTIC PROCEDURE SURGERY SURGERY CHILDBIRTH X 6 CHILDBIRTH X 6 REVIEW OF SYSTEMS CONSTITUTIONAL: ANY CHANGE IN YOUR MEDICAL CONDITION? NO . CHILLS NO . FEVER NO . INFECTION: DO YOU HAVE NEW INFECTIONS? NO . DO YOU HAVE HISTORY OF MRSA? NO . MUSCULOSKELETAL: ANY NEW PATTERNS OF PAIN OR NUMBNESS? NO. PT STATTES TPI DONE TO LOWER BACK 01/30/17. PT STATES PAIN PRE PROCEDURE WAS 6-7/10. POST PROCEDURE PAIN WAS 2-3/10. PT STATES PAIN IS PRIMARILY TO LEFT HIP, NUMBNESS IN LEFT LEG, PT STATES LEFT FOOT DROP FOOT. PT STATES THIS ALL STARTED AFTER LEFT HIP REPLACEMENT 01/2016. . GASTROENTEROLOGY: ANY NEW CHANGE IN BOWEL CONTROL? NO . GENITOURINARY: ANY NEW CHANGE IN BLADDER CONTROL? NO . IS THERE A CHANCE YOU COULD BE ? NO . HEMATOLOGY/LYMPH: DO YOU TAKE ANY BLOOD THINNERS? (FOR EXAMPLE- COUMADIN, PLAVIX, AGGRENOX, PLATEL, PRADAXA, OR XARELTO) NO . WHEN WAS YOUR LAST DOSE? DATE: TIME: . NEUROLOGY: HAVE YOU FALLEN IN THE PAST 6 MONTHS? YES, PT REPORTS THAT SHE STUMBLES ON A REGULAR BASIS. STUMBLING OVER LEFT FOOT. . ANY NEW EXTREMITY NUMBNESS OR WEAKNESS? NO . CARDIOLOGY: DO YOU HAVE A PACEMAKER OR DEFIBRILLATOR? NO . RESPIRATORY: HAVE YOU BEEN SICK IN THE PAST WEEK? NO . FEVER NO . FLU LIKE SYMPTOMS? NO . COUGH NO . INTEGUMENTARY: DO YOU HAVE ANY RASHES OR OPEN SORES? NO . ALLERGIC/IMMUNO: ARE YOU ALLERGIC TO SHELLFISH OR IV DYE? NO . ANY NEW ALLERGIES? NO . PSYCHIATRIC: DO YOU HAVE THOUGHTS OF HURTING YOURSELF OR SOMEONE ELSE? NO . ARE YOU ABUSED, NEGLECTED, OR IN AN UNSAFE ENVIRONMENT? NO . ENDOCRINOLOGY: ARE YOU DIABETIC? NO . OTHER: DO YOU NEED ANY PRESCRIPTIONS? YES, VICODIN . IF YES, PLEASE LIST: ____ . ANY NEW PROBLEMS WITH YOUR MEDICATIONS? NO . WHEN DID YOU LAST EAT? ____ . WHEN DID YOU LAST DRINK? ____ . WHAT DID YOU LAST DRINK? ____ . NAME OF PERSON DRIVING YOU HOME? ____ . DO YOU HAVE ANY OTHER QUESTIONS OR CONCERNS NO . REVIEWED BY: PROVIDER: RABIA CARRERO . VITAL SIGNS WT 268 LBS, HT 68 IN, BMI 40.74 INDEX, BP 129/78 MM HG, HR 93 /MIN, RR 16 /MIN, TEMP 98.0 F, OXYGEN SAT % 95, NA INITIALS Y, LMP: EM. EXAMINATION GENERAL EXAMINATION: GENERAL APPEARANCE:UNCOMFORTABLE. LUNGS:LUNG HANNAH ARE CLEAR TO AUSCULTATION BILATERALLY. GOOD MOVEMENT OF AIR. HEART:S1, S2 IN A REGULAR RATE AND RHYTHM. NO SIGNIFICANT MURMURS, RUBS OR GALLOPS NOTED. LUMBAR SPINE/LOWER BACK: PALPATION:VERTEBRAL SPINE TENDERNESS, PARASPINAL TENDERNESS.. MOTOR SYSTEM:5/5 RIGHT /3/5LEFT. SENSORY EXAM:NORMAL. ASSESSMENTS CERVICALGIA - M54.2 (PRIMARY) MYALGIA - M79.1 SPONDYLOSIS OF LUMBAR REGION WITHOUT MYELOPATHY OR RADICULOPATHY - M47.816 TREATMENT CERVICALGIA REFILL HYDROCODONE-ACETAMINOPHEN TABLET, 5-325 MG, 1-2, ORALLY, EVERY 6 HRS MDD4, 30 DAY(S), 120, REFILLS 0, NOTES: 01/29 11PM CONTINUE GABAPENTIN TABLET, 600 MG, 1 CAPSULE, ORALLY, BID, NOTES: 01/29 11PM CONTINUE CYCLOBENZAPRINE HCL TABLET, 10 MG, 1 TABLET, ORALLY, THREE TIMES A DAY, 30 DAY(S), 90 TABLET, REFILLS 2, NOTES: 01/29 11PM NOTES: TRIGGER POINT NECK. PROCEDURE CODES FA211 ESTABILISHED PATIENT [facility] CHARGE DISPOSITION & COMMUNICATION FOLLOW UP 2 WEEKS MED VISIT AND 2WK POST (REASON: TRIGGER POINT NECK) ELECTRONICALLY SIGNED BY MAGAN ESCALANTE ON 02/27/2017 AT 05:02 PM EDT DISCLAIMER : THIS IS A VISIT SUMMARY EXTRACTED FROM THE [facility] CHART. IT IS NOT A COPY OF THE [employer] PROGRESS NOTE. MTDD
== END ==
LOC: M PAIN 11:00
PROVIDERS: ATTEND Nurse Practitioner Family
DX: M54.2 Cervicalgia (principal); M79.1 Myalgia; M47.816 Spondylosis without myelopathy or radiculopathy, lumbar region; Z79.891 Long term (current) use of opiate analgesic; Z91.040 Latex allergy status; J30.9 Allergic rhinitis, unspecified; Z88.1 Allergy status to other antibiotic agents; Z88.8 Allergy status to other drugs, medicaments and biological substances

== ENCOUNTER → 2017-03-07 | Outpatient (CLI) | payer OTHER ==
[~2017-03-07] MED LIST changes: +BUPIVACAINE HCL 0.25% 10 ML VIAL As Ordered ONE; +BUPIVACAINE HCL 0.25% 30 ML VIAL As Ordered ONE; +TRIAMCINOLONE ACETONIDE SUSP 40 MG/ML VIAL (J3301) As Ordered ONE
--- NOTE | 2017-03-18 23:36 | ECWPNPC ---
PATIENT NAME: AKBAR MOODY : 1965 GENDER: FEMALE VISIT DATE: 03/07/2017 DISCHARGE DATE: 03/07/17 1210 VISIT LOCKED DATE TIME: PHYSICIAN: HAIDER COSTELLO RESOURCE: HAIDER COSTELLO REASON FOR APPOINTMENT 1. TPI,NECK HISTORY OF PRESENT ILLNESS HISTORY OF PRESENT ILLNESS: PAIN THE PATIENT DESCRIBES THE PAIN... FALL RISK SCREENING: SCREENING :NO FALLS IN THE PAST YEAR CURRENT MEDICATIONS TAKING VITAMIN B-12 2500 MCG TABLET SUBLINGUAL 1 ML SUBLINGUAL ONCE DAILY, NOTES: 03/06/17799 TAKING CYANOCOBALAMIN 1000 MCG/ML SOLUTION 1 ML INJECTION Q 2 WEEKS, NOTES: 03/06/17799 TAKING VITAMIN D-3 1000 UNIT CAPSULE 1 CAPSULE---ERROR ON EARLIER REFILL OF DRISOL ORALLY ONCE A DAY, NOTES: 03/06/17799 TAKING LIPITOR 10 MG TABLET 1 TABLET ORALLY ONCE A DAY, NOTES: 03/06/17799 TAKING POLYETHYLENE GLYCOL 3350 - POWDER 17G IN 8 OZ OF WATER ORALLY 1-2 TIMES DAILY NEEDED, NOTES: > 1 MONTH TAKING OMEPRAZOLE 40 MG CAPSULE DELAYED RELEASE 1 CAPSULE ORALLY BID, NOTES: 03/06/171999 TAKING BENAZEPRIL HCL 5 MG TABLET 1 TAB ORALLY DAILY, NOTES: 03/06/17799 TAKING BREO ELLIPTA 100 MCG/25 MCG INHALATION POWDER ONE INHALATION ORALLY ONCE DAILY, NOTES: 03/06/171999 TAKING NEBULIZER/TUBING/MOUTHPIECE _ KIT DIRECTED DX:493 DIRECTED, NOTES: 3 WEEKS TAKING VENTOLIN HFA 108 (90 BASE) MCG/ACT AEROSOL SOLUTION 2 PUFFS NEEDED INHALATION EVERY 4 HRS, NOTES: 03/07/17799 TAKING ALBUTEROL SULFATE (2.5 MG/3ML) 0.083% NEBULIZATION SOLUTION 3 ML INHALATION THREE TIMES A DAY NEEDED, NOTES: 3 WEEKS TAKING FLONASE 50 MCG/ACT SUSPENSION 2 SPRAYS IN EACH NOSTRIL NASALLY ONCE A DAY, NOTES: 03/03/171399 TAKING SINGULAIR 10 MG TABLET 1 TABLET IN THE EVENING ORALLY ONCE A DAY, NOTES: 03/06/171999 TAKING BENADRYL 25 MG CAPSULE 1 CAPSULE NEEDED ORALLY EVERY 6 HRS/ NEEDED FOR HIVES, NOTES: > 1 MONTH TAKING LORATADINE 10 MG TABLET 1 TABLET ORALLY ONCE A DAY, NOTES: 03/06/17 0800 TAKING ALEVE 220 MG TABLET 1 TABLET NEEDED ORALLY EVERY 12 HRS, NOTES: > 1 MONTH TAKING HYDROCODONE-ACETAMINOPHEN 5-325 MG TABLET 1-2 ORALLY EVERY 6 HRS MDD4, NOTES: 03/06/171999 TAKING GABAPENTIN 600 MG TABLET 1 CAPSULE ORALLY BID, NOTES: 03/06/171999 TAKING CYCLOBENZAPRINE HCL 10 MG TABLET 1 TABLET ORALLY THREE TIMES A DAY, NOTES: 03/06/171999 MEDICATION LIST REVIEWED AND RECONCILED WITH THE PATIENT PAST MEDICAL HISTORY ASTHMA, MILD INTERMITTENT OSTEOARTHRITIS - DDD - FOLLOWS WITH [facility] ENVIRONMENTAL ALLERGIES HYPERLIPIDEMIA VIT D DEF OBESITY B HIP OA S/P COLONOSCOPY NEG. 01/07/2016-DR. CHAPMAN F/U 10YR.S ALLERGIES LATEX (FOR ALLERGY USE ONLY): HIVES: ALLERGY KEFLEX: ANAPHYLAXIS: ALLERGY NSAIDS: KIDNEY ISSUES: CONTRAINDICATION ENVIRONMENTAL: COUGH: ALLERGY REVIEW OF SYSTEMS CONSTITUTIONAL: ANY CHANGE IN YOUR MEDICAL CONDITION? NO . CHILLS NO . FEVER NO . INFECTION: DO YOU HAVE NEW INFECTIONS? NO . DO YOU HAVE HISTORY OF MRSA? NO . MUSCULOSKELETAL: ANY NEW PATTERNS OF PAIN OR NUMBNESS? YES PT REPORTS NEW PAIN IN RIGHT HIP OVER PAST 4-5 DAYS . GASTROENTEROLOGY: ANY NEW CHANGE IN BOWEL CONTROL? NO . GENITOURINARY: ANY NEW CHANGE IN BLADDER CONTROL? NO . IS THERE A CHANCE YOU COULD BE ? NO . HEMATOLOGY/LYMPH: DO YOU TAKE ANY BLOOD THINNERS? (FOR EXAMPLE- COUMADIN, PLAVIX, AGGRENOX, PLATEL, PRADAXA, OR XARELTO) NO . WHEN WAS YOUR LAST DOSE? DATE: TIME: . NEUROLOGY: HAVE YOU FALLEN IN THE PAST 6 MONTHS? NO . ANY NEW EXTREMITY NUMBNESS OR WEAKNESS? NO . CARDIOLOGY: DO YOU HAVE A PACEMAKER OR DEFIBRILLATOR? NO . RESPIRATORY: HAVE YOU BEEN SICK IN THE PAST WEEK? NO . FEVER NO . FLU LIKE SYMPTOMS? NO . COUGH NO . INTEGUMENTARY: DO YOU HAVE ANY RASHES OR OPEN SORES? NO . ALLERGIC/IMMUNO: ARE YOU ALLERGIC TO SHELLFISH OR IV DYE? NO . ANY NEW ALLERGIES? NO . PSYCHIATRIC: DO YOU HAVE THOUGHTS OF HURTING YOURSELF OR SOMEONE ELSE? NO . ARE YOU ABUSED, NEGLECTED, OR IN AN UNSAFE ENVIRONMENT? NO . ENDOCRINOLOGY: ARE YOU DIABETIC? NO . OTHER: DO YOU NEED ANY PRESCRIPTIONS? NO . IF YES, PLEASE LIST: ____ . ANY NEW PROBLEMS WITH YOUR MEDICATIONS? NO . WHEN DID YOU LAST EAT? ____03/06/171999 . WHEN DID YOU LAST DRINK? ____03/07/17 0130 . WHAT DID YOU LAST DRINK? ____WATER . NAME OF PERSON DRIVING YOU HOME? ____DAUGHTER CARLA . DO YOU HAVE ANY OTHER QUESTIONS OR CONCERNS NO . REVIEWED BY: PROVIDER: . VITAL SIGNS WT 255 LBS, HT 68 IN, BMI 38.77 INDEX, BP 122/81 MM HG, HR 93 /MIN, RR 16 /MIN, TEMP 97.0 F, OXYGEN SAT % 99%, SAFE IN ENV? (Y/N) YES, NA INITIALS AW 1054, REVIEWED BY: ASSESSMENTS MYALGIA - M79.1 (PRIMARY) PROCEDURES PN TRIGGER POINT INJECTION WITH STEROIDS PRE PROCEDURE DIAGNOSIS 1. MYALGIA 2. PAIN AT BILATERAL NECK AREA, BILATERAL SHOULDER AREA, AND BILATERAL THORACIC AREA POST PROCEDURE DIAGNOSIS 1. MYALGIA 2. PAIN AT BILATERAL NECK AREA, BILATERAL SHOULDER AREA, AND BILATERAL THORACIC AREA PROCEDURE TRIGGER POINT INJECTION AT BILATERAL NECK AREA, BILATERAL SHOULDER AREA, AND BILATERAL THORACIC AREA SURGEON DR. HAIDER COSTELLO ALCOHOL STILL OPERATOR NONE ANESTHESIA LOCAL PRE PROCEDURE NOTE THE PATIENT HAS A HISTORY OF CHRONIC PAIN AT THE RIGHT AND LEFT NECK AREA, RIGHT AND LEFT SHOULDER AREA, AND RIGHT AND LEFT THORACIC AREA. I EVALUATE THE PATIENT AND REVIEWED THE CHART. THERE IS EVIDENCE OF BANDS OF TISSUE WITH RESTRICTION OF MOVEMENT AND PRESENCE OF TRIGGER POINT AT THE AFFECTED AREA. I WENT OVER THE RISKS, ALTERNATIVES, AND BENEFITS ASSOCIATED WITH THIS PROCEDURE. THE PATIENT WOULD LIKE TO PROCEED AND GIVE CONSENT TO PERFORMED THE PROCEDURE. THE PATIENT DENIES UNEXPLAINABLE WEIGHT LOSS, FEVER, CHILLS, OR NEW CHANGES IN URINARY OR BOWEL CONTROL DESCRIPTION OF PROCEDURE THE PATIENT WAS BROUGHT TO THE PROCEDURE ROOM AND PLACED IN THE SITTING POSITION. THE AREA WAS CLEANED WITH ALCOHOL. THE PROCEDURE WAS DONE USING ASEPTIC STERILE TECHNIQUE. I CHECKED LATERALITY AND THE LEVEL WHERE THE PROCEDURE WAS GOING TO BE PERFORMED WITH THE PATIENT AND THE SUPPORTING STAFF AT THE MOMENT OF THE TIME OUT IN THE PROCEDURE ROOM. USING A 25-GAUGE NEEDLE, TRIGGER POINTS WERE INJECTED AT THE RIGHT AND LEFT AREA WITH A TOTAL OF 40 ML OF BUPIVACAINE 0.25% AND KENALOG 40 MG. THERE WAS NO EVIDENCE OF BLOOD, PARESTHESIA OR CEREBROSPINAL FLUID DURING THE PROCEDURE. THE PATIENT WAS SENT TO THE RECOVERY ROOM. THE PATIENT WAS MOVING THE EXTREMITIES AND DOING WELL. THERE WAS NO COMPLICATION DURING THE PROCEDURE POST PROCEDURE NOTE THE PATIENT WILL BE SEEN IN A FOLLOW UP IN THE NEXT FEW WEEKS. INSTRUCTIONS WERE GIVEN, QUESTIONS WERE ANSWERED, AND THE PATIENT EXPRESSED UNDERSTANDING AND AGREES WITH THE PLAN. I, TRACI POLANCO, DOCUMENTED THE ABOVE INFORMATION ACTING A SCRIBE FOR DR. COSTELLO. I HAVE REVIEWED THE ABOVE DOCUMENT, WRITTEN BY TRACI POLANCO SCRIBE AND I VERIFY THAT IT IS ACCURATE PROCEDURE CODES 53054 INJECT TRIGGER POINTS 3/> DISPOSITION & COMMUNICATION FOLLOW UP 3 WEEKS ELECTRONICALLY SIGNED BY HAIDER COSTELLO MD ON 03/18/2017 AT 03:44 PM EDT DISCLAIMER : THIS IS A VISIT SUMMARY EXTRACTED FROM THE [employer] CHART. IT IS NOT A COPY OF THE [employer] PROGRESS NOTE. GEGE
== END ==
LOC: M PAIN 10:20
PROVIDERS: ATTEND Anesthesiology
DX: G89.29 Other chronic pain (principal); M79.1 Myalgia; M54.2 Cervicalgia; M25.511 Pain in right shoulder; M25.512 Pain in left shoulder; J45.20 Mild intermittent asthma, uncomplicated; M51.9 Unspecified thoracic, thoracolumbar and lumbosacral intervertebral disc disorder; E78.2 Mixed hyperlipidemia; E55.9 Vitamin D deficiency, unspecified; E66.9 Obesity, unspecified; Z68.38 Body mass index [BMI] 38.0-38.9, adult; M16.0 Bilateral primary osteoarthritis of hip; Z91.040 Latex allergy status; I10 Essential (primary) hypertension; E53.8 Deficiency of other specified B group vitamins; K59.00 Constipation, unspecified; Z88.6 Allergy status to analgesic agent; Z88.8 Allergy status to other drugs, medicaments and biological substances; K21.9 Gastro-esophageal reflux disease without esophagitis; Z79.51 Long term (current) use of inhaled steroids; Z79.891 Long term (current) use of opiate analgesic; Z79.899 Other long term (current) drug therapy

== ENCOUNTER → 2017-03-13 | Outpatient (CLI) | payer OTHER ==
[~2017-03-13] MED LIST changes: -BUPIVACAINE HCL 0.25% 10 ML VIAL As Ordered ONE; -BUPIVACAINE HCL 0.25% 30 ML VIAL As Ordered ONE; -TRIAMCINOLONE ACETONIDE SUSP 40 MG/ML VIAL (J3301) As Ordered ONE
--- NOTE | 2017-03-15 00:13 | ECWPNPC ---
PATIENT NAME: AKBAR MOODY : 1965 GENDER: FEMALE VISIT DATE: 03/13/2017 DISCHARGE DATE: 03/13/17 1156 VISIT LOCKED DATE TIME: PHYSICIAN: RABIA WATTERS RESOURCE: RABIA WATTERS REASON FOR APPOINTMENT 1. MEDS HISTORY OF PRESENT ILLNESS FALL RISK SCREENING: HERE FOR POST PROCEDURE F/U.HAD TPI NECK AND SHOULDERS ON 03-07-17.REPORTS >50% IMPROVEMENT IN PAIN POST PROCEDURE THAT CONTINUES TODAY.RATING PAIN PAIN VAS 2-4/10 GENERALIZED BACK PAIN.REPORTING POOR SLEEP DUE TO REDUCTION OF HYDROCODONE 5/325 FROM 6 PER DAY TO 4.HAS TRIALED MULTIPLE DIFFERENT MEDICATIONS FOR CHRONIC INFLAMMATORY ARTHROPATHY OVER THE YEARS WITH EITHER SIDE EFFECTS OR NO RELIEF OF PAIN. SCREENING :NO FALLS IN THE PAST YEAR PAIN SCREENING: PATIENT HAS A COMPLAINT OF ACUTE OR CHRONIC PAIN :YES CURRENT MEDICATIONS TAKING VITAMIN B-12 2500 MCG TABLET SUBLINGUAL 1 ML SUBLINGUAL ONCE DAILY, NOTES: 03/06/17799 TAKING CYANOCOBALAMIN 1000 MCG/ML SOLUTION 1 ML INJECTION Q 2 WEEKS, NOTES: 03/06/17799 TAKING VITAMIN D-3 1000 UNIT CAPSULE 1 CAPSULE---ERROR ON EARLIER REFILL OF DRISOL ORALLY ONCE A DAY, NOTES: 03/06/17799 TAKING LIPITOR 10 MG TABLET 1 TABLET ORALLY ONCE A DAY, NOTES: 03/06/17799 TAKING POLYETHYLENE GLYCOL 3350 - POWDER 17G IN 8 OZ OF WATER ORALLY 1-2 TIMES DAILY NEEDED, NOTES: > 1 MONTH TAKING BENAZEPRIL HCL 5 MG TABLET 1 TAB ORALLY DAILY, NOTES: 03/06/17799 TAKING BREO ELLIPTA 100 MCG/25 MCG INHALATION POWDER ONE INHALATION ORALLY ONCE DAILY, NOTES: 03/06/171999 TAKING NEBULIZER/TUBING/MOUTHPIECE _ KIT DIRECTED DX:493 DIRECTED, NOTES: 3 WEEKS TAKING VENTOLIN HFA 108 (90 BASE) MCG/ACT AEROSOL SOLUTION 2 PUFFS NEEDED INHALATION EVERY 4 HRS, NOTES: 03/07/17 08 TAKING ALBUTEROL SULFATE (2.5 MG/3ML) 0.083% NEBULIZATION SOLUTION 3 ML INHALATION THREE TIMES A DAY NEEDED, NOTES: 3 WEEKS TAKING FLONASE 50 MCG/ACT SUSPENSION 2 SPRAYS IN EACH NOSTRIL NASALLY ONCE A DAY, NOTES: 03/03/17 1400 TAKING SINGULAIR 10 MG TABLET 1 TABLET IN THE EVENING ORALLY ONCE A DAY, NOTES: 03/06/171999 TAKING BENADRYL 25 MG CAPSULE 1 CAPSULE NEEDED ORALLY EVERY 6 HRS/ NEEDED FOR HIVES, NOTES: > 1 MONTH TAKING LORATADINE 10 MG TABLET 1 TABLET ORALLY ONCE A DAY, NOTES: 03/06/17 0800 TAKING ALEVE 220 MG TABLET 1 TABLET NEEDED ORALLY EVERY 12 HRS, NOTES: > 1 MONTH TAKING HYDROCODONE-ACETAMINOPHEN 5-325 MG TABLET 1-2 ORALLY EVERY 6 HRS MDD4, NOTES: 03/06/171999 TAKING GABAPENTIN 600 MG TABLET 1 CAPSULE ORALLY BID, NOTES: 03/06/171999 TAKING CYCLOBENZAPRINE HCL 10 MG TABLET 1 TABLET ORALLY THREE TIMES A DAY, NOTES: 03/06/171999 TAKING OMEPRAZOLE 40 MG CAPSULE DELAYED RELEASE 1 CAPSULE ORALLY BID, NOTES: 03/06/171999 MEDICATION LIST REVIEWED AND RECONCILED WITH THE PATIENT PAST MEDICAL HISTORY ASTHMA, MILD INTERMITTENT OSTEOARTHRITIS - DDD - FOLLOWS WITH [facility]ON[facility] ALLERGIES HYPERLIPIDEMIA VIT D DEF OBESITY B HIP OA S/P COLONOSCOPY NEG. 01/07/2016-DR. CHAPMAN F/U 10.S ALLERGIES LATEX (FOR ALLERGY USE ONLY): HIVES: ALLERGY KEFLEX: ANAPHYLAXIS: ALLERGY NSAIDS: KIDNEY ISSUES: CONTRAINDICATION ENVIRONMENTAL: COUGH: ALLERGY SURGICAL HISTORY MADHAV DUE TO BLEEDING--- 07/2008 MADHAV DUE TO BLEEDING--- 07/2008 ARTHROSCOPIC KNEE SURGERY LEFT X 3 ARTHROSCOPIC KNEE SURGERY LEFT X 3 ARTHROSCOPIC KNEE SURGERY RIGHT X 1 ARTHROSCOPIC KNEE SURGERY RIGHT X 1 CARPAL TUNNEL RELEASE BILATERAL CARPAL TUNNEL RELEASE BILATERAL ARTHROSCOPY SHOULDER RIGHT ARTHROSCOPY SHOULDER RIGHT SHOULDER SURGERY LEFT SHOULDER SURGERY LEFT BIOPSY MOLE- BACK BIOPSY MOLE- BACK LEFT HIP SURGERY 01/2016 LEFT HIP SURGERY 01/2016 TUBAL LIGATION TUBAL LIGATION HERNIA REPAIR X 5 HERNIA REPAIR X 5 ABDOMINAL SURGERY FOR GANGRENOUS INFECTION POST BTL ABDOMINAL SURGERY FOR GANGRENOUS INFECTION POST BTL BELLY BUTTON REMOVED BELLY BUTTON REMOVED LEFT LEG SURGERY- RELEASED NERVES 10/11/16 LEFT LEG SURGERY- RELEASED NERVES 10/11/16 FAMILY HISTORY FATHER: 60 YRS, DIAGNOSED WITH CANCER MOTHER: ALIVE 64 YRS, DIAGNOSED WITH HYPERTENSION 4 BROTHER(S) , 1 SISTER(S) - HEALTHY. 2 SON(S) , 3 DAUGHTER(S) - HEALTHY. SOCIAL HISTORY GENERAL: TOBACCO USE ARE YOU A:FORMER SMOKER HOW LONG HAS IT BEEN SINCE YOU LAST SMOKED?5-10 YEARS ARE YOU A:NONSMOKER BMI CARE GOAL FOLLOW-UP ABOVE NORMAL BMI FOLLOW-UPGIVING ENCOURAGEMENT TO EXERCISE ALCOHOL SCREENING DID YOU HAVE A DRINK CONTAINING ALCOHOL IN THE PAST YEAR?YES HOW OFTEN DID YOU HAVE A DRINK CONTAINING ALCOHOL IN THE PAST YEAR?TWO TO FOUR TIMES A MONTH (2 POINTS) HOW MANY DRINKS DID YOU HAVE ON A TYPICAL DAY WHEN YOU WERE DRINKING IN THE PAST YEAR?7 TO 9 (3 POINTS) HOW OFTEN DID YOU HAVE SIX OR MORE DRINKS ON ONE OCCASION IN THE PAST YEAR?NEVER (0 POINTS) POINTS5 INTERPRETATIONPOSITIVE RECREATIONAL DRUG USE DRUG USE?NO CAFFEINE CAFFEINE USE? 1 SODA SEXUAL HX HAD SEX IN THE LAST 12 MONTHS (VAGINAL, ORAL, OR ANAL)?YES WITHMEN ONLY USE PROTECTION?YES HIV / HEP-C SCREENING HIV TEST OFFERED TO PATIENT:YES DATE OFFERED:10/09/2016 TEST ACCEPTED:NO REASON:PATIENT DECLINED HEP-C TEST OFFERED TO PATIENT:NO N/A OCCUPATION: UNEMPLOYED. DIET: REGULAR. MARITAL STATUS: SINGLE. PETS: DOG. ALEVISM [id number] NONE LANGUAGE LANGUAGES SPOKEN:KHMER EDUCATION LEVEL OF EDUCATION:NOT FINISHED HIGH SCHOOL LEARNING BARRIERS / SPECIAL NEEDS BARRIERS TO LEARNING?NO HEARING IMPAIRED?NO VISION IMPAIRED?YES :CORRECTIVE LENSES READING BARRIERS TO LEARNING?NO HEARING IMPAIRED?NO VISION IMPAIRED?YES :CORRECTIVE LENSES READING NEW PATIENT PAIN DIARY TODAY'S VISITNOTES FROM 0-10, WHAT LEVEL IS YOUR PAIN TODAY?0 PAIN CLINIC PFS, CLERGY, PUBLIC HEALTH REFERRALS PFS REFERRAL NEEDED?NO CLERGY REFERRAL NEEDED?NO PUBLIC HEALTH REFERRAL NEEDED?NO WAS THE PROVIDER NOTIFIED OF ANY PERTINENT INFO?YES HAS THE PATIENT BEEN EDUCATED REGARDING HIS/HER PLAN OF CARE?YES HAS THE PATIENT BEEN EDUCATED REGARDING PAIN, THE RISK FOR PAIN, THE IMPORTANCE OF EFFECTIVE PAIN MANAGEMENT, AND THE PAIN ASSESSMENT PROCESS?YES REVIEWED BY: DS. IS GOING TO GET LEFT HIP REPLACEMENT ON January. IS GOING TO GET LEFT HIP REPLACEMENT ON January. HOSPITALIZATION/MAJOR DIAGNOSTIC PROCEDURE SURGERY SURGERY CHILDBIRTH X 6 CHILDBIRTH X 6 REVIEW OF SYSTEMS CONSTITUTIONAL: ANY CHANGE IN YOUR MEDICAL CONDITION? NO . CHILLS NO . FEVER NO . INFECTION: DO YOU HAVE NEW INFECTIONS? NO . DO YOU HAVE HISTORY OF MRSA? NO . MUSCULOSKELETAL: ANY NEW PATTERNS OF PAIN OR NUMBNESS? NO . SYTEMIC LUPUS NO . GASTROENTEROLOGY: ANY NEW CHANGE IN BOWEL CONTROL? NO . BARRETTS ESOPHAGUS NO . CIRRHOSIS NO . HEPATITIS NO . LIVER FAILURE NO . ACID REFLUX NO . UNEXPLAINED WEIGHT LOSS NO . GENITOURINARY: ANY NEW CHANGE IN BLADDER CONTROL? NO . IS THERE A CHANCE YOU COULD BE ? NO . HEMATOLOGY/LYMPH: DO YOU TAKE ANY BLOOD THINNERS? (FOR EXAMPLE- COUMADIN, PLAVIX, AGGRENOX, PLATEL, PRADAXA, OR XARELTO) NO . WHEN WAS YOUR LAST DOSE? DATE: TIME: . LOW PLATELET COUNT NO . SICKLE CELL DISEASE NO . VON WILLIEBRANDS NO . FACTOR V LEIDEN NO . THALLASEMIA NO . ANEMIA NO . EASY BRUISING NO . NEUROLOGY: HAVE YOU FALLEN IN THE PAST 6 MONTHS? YES, PT STATES THAT SHE FELL ONE WEEK AGO AT DAUGHTERS HOUSE, TRIPPED OVER OWN FOOT, NO REPORT TO ED, NO INJURY. . ANY NEW EXTREMITY NUMBNESS OR WEAKNESS? NO . HEAD INJURY NO . DEMENTIA NO . CEREBRAL PALSY NO . MULTIPLE SCLEROSIS NO . DIZZINESS NO . HEADACHE NO . STROKES NO . VERTIGO NO . CARDIOLOGY: DO YOU HAVE A PACEMAKER OR DEFIBRILLATOR? NO . ANGINA NO . HEART ATTACK NO . HEART SURGERY NO . CONGESTIVE HEART FAILURE/FLUID OVERLOAD NO . CHEST PAIN NO . HIGH BLOOD PRESSURE NO . IRREGULAR HEART BEAT NO . RESPIRATORY: HAVE YOU BEEN SICK IN THE PAST WEEK? NO . FEVER NO . FLU LIKE SYMPTOMS? NO . CPAP NO . BYPAP NO . ASTHMA NO . EMPHYSEMA NO . CHRONIC LUNG DISEASES NO . SHORTNESS OF BREATH ON EXERTION NO . COUGH NO . SNORING NO . INTEGUMENTARY: DO YOU HAVE ANY RASHES OR OPEN SORES? NO . ALLERGIC/IMMUNO: ARE YOU ALLERGIC TO SHELLFISH OR IV DYE? NO . ANY NEW ALLERGIES? NO . PSYCHIATRIC: DO YOU HAVE THOUGHTS OF HURTING YOURSELF OR SOMEONE ELSE? NO . ARE YOU ABUSED, NEGLECTED, OR IN AN UNSAFE ENVIRONMENT? NO . ENDOCRINOLOGY: ARE YOU DIABETIC? NO . THYROID DISORDER NO . OTHER: DO YOU NEED ANY PRESCRIPTIONS? NO . IF YES, PLEASE LIST: ____ . ANY NEW PROBLEMS WITH YOUR MEDICATIONS? NO . WHEN DID YOU LAST EAT? ____ . WHEN DID YOU LAST DRINK? ____ . WHAT DID YOU LAST DRINK? ____ . NAME OF PERSON DRIVING YOU HOME? ____ . DO YOU HAVE ANY OTHER QUESTIONS OR CONCERNS NO . REVIEWED BY: PROVIDER: RABIA CARRERO . VITAL SIGNS WT 260 LBS, HT 68 IN, BMI 39.53 INDEX, BP 147/83 MM HG, HR 96 /MIN, RR 18 /MIN, TEMP 98.7 F, OXYGEN SAT % 94%, SAFE IN ENV? (Y/N) Y, NA INITIALS MA 10:58, REVIEWED BY: PRASHANT. EXAMINATION GENERAL EXAMINATION: GENERAL APPEARANCE:UNCOMFORTABLE. LUNGS:LUNG HANNAH ARE CLEAR TO AUSCULTATION BILATERALLY. GOOD MOVEMENT OF AIR. HEART:S1, S2 IN A REGULAR RATE AND RHYTHM. NO SIGNIFICANT MURMURS, RUBS OR GALLOPS NOTED. LUMBAR SPINE/LOWER BACK: PALPATION:VERTEBRAL SPINE TENDERNESS, PARASPINAL TENDERNESS. MOTOR SYSTEM:5/5 RIGHT-3/5LEFT. SENSORY EXAM:PARATHESIAS NOTED OVER LEFT LEG. ASSESSMENTS CERVICALGIA - M54.2 (PRIMARY) MYALGIA - M79.1 SPONDYLOSIS OF LUMBAR REGION WITHOUT MYELOPATHY OR RADICULOPATHY - M47.816 CHRONIC PRESCRIPTION OPIATE USE - Z79.891 TREATMENT CERVICALGIA INCREASE HYDROCODONE-ACETAMINOPHEN TABLET, 5-325 MG, 1-2, ORALLY, 1-2 TAB Q4-6HR PRN MDD6, 30 DAY(S), 180, REFILLS 0, NOTES: 03/06/171999 REFILL CYCLOBENZAPRINE HCL TABLET, 10 MG, 1 TABLET, ORALLY, THREE TIMES A DAY, 30 DAY(S), 90 TABLET, REFILLS 2, NOTES: 03/06/171999 NOTES: ISTOP REGISTRY REVIEWED AND DEMNOSTRATES COMPLLIANCE. BRINGS IN MEDICATIONS WHICH IS APPROPRIATE FOR WHAT WAS DISPENSED. URINE TOX TODAY., RISKS AND BENEFITS OF NARCOTIC/OPIOD MEDICATIONS WERE REVIEWED WITH PATIENT - THIS INCLUDES BUT IS NOT LIMITED TO RISK OF DEPENDANCE/DEVELOPMENT OF ADDICTION, MOOD DISTURBANCE AND DEPRESSION, OSTEOPOROSIS, HORMONAL AND LABIDAL CHANGES, RESPIRATORY DEPRESSION AND . PATIENT IS ADVISED NOT TO DRIVE WHILE ON THESE MEDICATIONSTPI LOW BACK. PROCEDURE CODES FA211 ESTABILISHED PATIENT [facility] CHARGE DISPOSITION & COMMUNICATION FOLLOW UP 2WK POST (REASON: TPI LOW BACK) ELECTRONICALLY SIGNED BY MAGAN ESCALANTE ON 03/14/2017 AT 03:46 PM EDT DISCLAIMER : THIS IS A VISIT SUMMARY EXTRACTED FROM THE [employer] CHART. IT IS NOT A COPY OF THE [employer] PROGRESS NOTE. MTDD
== END ==
LOC: M PAIN 10:40
PROVIDERS: ATTEND Nurse Practitioner Family
DX: G89.29 Other chronic pain (principal); M54.2 Cervicalgia; M79.1 Myalgia; M47.816 Spondylosis without myelopathy or radiculopathy, lumbar region; J45.20 Mild intermittent asthma, uncomplicated; M51.9 Unspecified thoracic, thoracolumbar and lumbosacral intervertebral disc disorder; E78.5 Hyperlipidemia, unspecified; E55.9 Vitamin D deficiency, unspecified; E66.9 Obesity, unspecified; Z68.39 Body mass index [BMI] 39.0-39.9, adult; M16.0 Bilateral primary osteoarthritis of hip; Z91.040 Latex allergy status; Z88.6 Allergy status to analgesic agent; Z88.8 Allergy status to other drugs, medicaments and biological substances; Z79.1 Long term (current) use of non-steroidal anti-inflammatories (NSAID); Z79.891 Long term (current) use of opiate analgesic; Z79.899 Other long term (current) drug therapy; Z87.891 Personal history of nicotine dependence

== ENCOUNTER → 2017-04-10 | Outpatient (CLI) | payer OTHER ==
[~2017-04-10] MED LIST changes: +ATOR1TAB19 PO; +BUPIVACAINE HCL 0.25% 10 ML VIAL As Ordered ONE; +BUPIVACAINE HCL 0.25% 30 ML VIAL As Ordered ONE; +TIZA4CAP3 PO; +TRIAMCINOLONE ACETONIDE SUSP 40 MG/ML VIAL (J3301) As Ordered ONE; +VOLT1GEL15 TOP; -VOLT1GEL24 TOP
--- NOTE | 2017-04-15 23:49 | ECWPNPC ---
PATIENT NAME: AKBAR MOODY : 1965 GENDER: FEMALE VISIT DATE: 04/10/2017 DISCHARGE DATE: 04/10/171654 VISIT LOCKED DATE TIME: PHYSICIAN: HAIDER COSTELLO RESOURCE: HAIDER COSTELLO REASON FOR APPOINTMENT 1. LOW BACK HISTORY OF PRESENT ILLNESS HISTORY OF PRESENT ILLNESS: PAIN THE PATIENT DESCRIBES THE PAIN... FALL RISK SCREENING: SCREENING :NO FALLS IN THE PAST YEAR CURRENT MEDICATIONS TAKING VITAMIN B-12 2500 MCG TABLET SUBLINGUAL 1 ML SUBLINGUAL ONCE DAILY, NOTES: 04-10-17799 TAKING CYANOCOBALAMIN 1000 MCG/ML SOLUTION 1 ML INJECTION Q 2 WEEKS, NOTES: 03-31-17 TAKING VITAMIN D-3 1000 UNIT CAPSULE 1 CAPSULE---ERROR ON EARLIER REFILL OF DRISOL ORALLY ONCE A DAY, NOTES: 04-10-17799 TAKING LIPITOR 10 MG TABLET 1 TABLET ORALLY ONCE A DAY, NOTES: 04-10-17799 TAKING POLYETHYLENE GLYCOL 3350 - POWDER 17G IN 8 OZ OF WATER ORALLY 1-2 TIMES DAILY NEEDED, NOTES: 2 WEEKS TAKING BENAZEPRIL HCL 5 MG TABLET 1 TAB ORALLY DAILY, NOTES: 04-10-17799 TAKING BREO ELLIPTA 100 MCG/25 MCG INHALATION POWDER ONE INHALATION ORALLY ONCE DAILY, NOTES: 04-09-172099 TAKING NEBULIZER/TUBING/MOUTHPIECE _ KIT DIRECTED DX:493 DIRECTED, NOTES: 3 WEEKS TAKING VENTOLIN HFA 108 (90 BASE) MCG/ACT AEROSOL SOLUTION 2 PUFFS NEEDED INHALATION EVERY 4 HRS, NOTES: 04-09-17 AM TAKING ALBUTEROL SULFATE (2.5 MG/3ML) 0.083% NEBULIZATION SOLUTION 3 ML INHALATION THREE TIMES A DAY NEEDED, NOTES: 3 WEEKS TAKING FLONASE 50 MCG/ACT SUSPENSION 2 SPRAYS IN EACH NOSTRIL NASALLY ONCE A DAY, NOTES: COUPLE DAYS AGO TAKING SINGULAIR 10 MG TABLET 1 TABLET IN THE EVENING ORALLY ONCE A DAY, NOTES: 04-09-17 2100 TAKING BENADRYL 25 MG CAPSULE 1 CAPSULE NEEDED ORALLY EVERY 6 HRS/ NEEDED FOR HIVES, NOTES: > 1 MONTH TAKING LORATADINE 10 MG TABLET 1 TABLET ORALLY ONCE A DAY, NOTES: 04-10-17 0800 TAKING ALEVE 220 MG TABLET 1 TABLET NEEDED ORALLY EVERY 12 HRS, NOTES: 04-10-17 1200 TAKING GABAPENTIN 600 MG TABLET 1 CAPSULE ORALLY BID, NOTES: 04-10-17 08 TAKING OMEPRAZOLE 40 MG CAPSULE DELAYED RELEASE 1 CAPSULE ORALLY BID, NOTES: 04-10-17799 TAKING HYDROCODONE-ACETAMINOPHEN 5-325 MG TABLET 1-2 ORALLY 1-2 TAB Q4-6HR PRN MDD6, NOTES: 04-10-17799 TAKING CYCLOBENZAPRINE HCL 10 MG TABLET 1 TABLET ORALLY THREE TIMES A DAY, NOTES: 04-10-17799 MEDICATION LIST REVIEWED AND RECONCILED WITH THE PATIENT PAST MEDICAL HISTORY ASTHMA, MILD INTERMITTENT OSTEOARTHRITIS - DDD - FOLLOWS WITH [facility] ENVIRONMENTAL ALLERGIES HYPERLIPIDEMIA VIT D DEF OBESITY B HIP OA S/P COLONOSCOPY NEG. 01/07/2016-DR. CHAPMAN F/U 10YR.S ALLERGIES LATEX (FOR ALLERGY USE ONLY): HIVES: ALLERGY KEFLEX: ANAPHYLAXIS: ALLERGY NSAIDS: KIDNEY ISSUES: CONTRAINDICATION ENVIRONMENTAL: COUGH: ALLERGY REVIEW OF SYSTEMS REVIEWED BY: PROVIDER: . CONSTITUTIONAL: ANY CHANGE IN YOUR MEDICAL CONDITION? NO . CHILLS NO . FEVER NO . INFECTION: DO YOU HAVE NEW INFECTIONS? NO . DO YOU HAVE HISTORY OF MRSA? NO . MUSCULOSKELETAL: ANY NEW PATTERNS OF PAIN OR NUMBNESS? NO . GASTROENTEROLOGY: ANY NEW CHANGE IN BOWEL CONTROL? NO . GENITOURINARY: ANY NEW CHANGE IN BLADDER CONTROL? NO . IS THERE A CHANCE YOU COULD BE ? NO . HEMATOLOGY/LYMPH: DO YOU TAKE ANY BLOOD THINNERS? (FOR EXAMPLE- COUMADIN, PLAVIX, AGGRENOX, PLATEL, PRADAXA, OR XARELTO) NO . WHEN WAS YOUR LAST DOSE? DATE: TIME: . NEUROLOGY: HAVE YOU FALLEN IN THE PAST 6 MONTHS? YES . ANY NEW EXTREMITY NUMBNESS OR WEAKNESS? NO . CARDIOLOGY: DO YOU HAVE A PACEMAKER OR DEFIBRILLATOR? NO . RESPIRATORY: HAVE YOU BEEN SICK IN THE PAST WEEK? NO . FEVER NO . FLU LIKE SYMPTOMS? NO . COUGH NO . INTEGUMENTARY: DO YOU HAVE ANY RASHES OR OPEN SORES? NO . ALLERGIC/IMMUNO: ARE YOU ALLERGIC TO SHELLFISH OR IV DYE? NO . ANY NEW ALLERGIES? NO . PSYCHIATRIC: DO YOU HAVE THOUGHTS OF HURTING YOURSELF OR SOMEONE ELSE? NO . ARE YOU ABUSED, NEGLECTED, OR IN AN UNSAFE ENVIRONMENT? NO . ENDOCRINOLOGY: ARE YOU DIABETIC? NO . OTHER: DO YOU NEED ANY PRESCRIPTIONS? NO . IF YES, PLEASE LIST: ____ . ANY NEW PROBLEMS WITH YOUR MEDICATIONS? NO . WHEN DID YOU LAST EAT? 04-09-17 8:30 PM . WHEN DID YOU LAST DRINK? 04-10-17 0600 . WHAT DID YOU LAST DRINK? WATER . NAME OF PERSON DRIVING YOU HOME? CARLA WILMA . DO YOU HAVE ANY OTHER QUESTIONS OR CONCERNS NO . VITAL SIGNS WT 250 LBS, HT 68 IN, BMI 38.01 INDEX, BP 127/83 MM HG, HR 96 /MIN, RR 16 /MIN, TEMP 98.3 F, OXYGEN SAT % 96%, NA INITIALS SC 14:45, REVIEWED BY: CM. ASSESSMENTS MYALGIA - M79.1 (PRIMARY) PROCEDURES PN TRIGGER POINT INJECTION WITH STEROIDS PRE PROCEDURE DIAGNOSIS 1. MYALGIA 2. PAIN AT BILATERAL LOWER BACK AREA POST PROCEDURE DIAGNOSIS 1. MYALGIA 2. PAIN AT BILATERAL LOWER BACK AREA PROCEDURE TRIGGER POINT INJECTION AT BILATERAL LOWER BACK AREA SURGEON DR. HAIDER COSTELLO PRECINCT I POLICE SERGEANT NONE ANESTHESIA LOCAL PRE PROCEDURE NOTE THE PATIENT HAS A HISTORY OF CHRONIC PAIN AT THE RIGHT AND LEFT LOWER BACK AREA. I EVALUATE THE PATIENT AND REVIEWED THE CHART. THERE IS EVIDENCE OF BANDS OF TISSUE WITH RESTRICTION OF MOVEMENT AND PRESENCE OF TRIGGER POINT AT THE AFFECTED AREA. I WENT OVER THE RISKS, ALTERNATIVES, AND BENEFITS ASSOCIATED WITH THIS PROCEDURE. THE PATIENT WOULD LIKE TO PROCEED AND GIVE CONSENT TO PERFORMED THE PROCEDURE. THE PATIENT DENIES UNEXPLAINABLE WEIGHT LOSS, FEVER, CHILLS, OR NEW CHANGES IN URINARY OR BOWEL CONTROL DESCRIPTION OF PROCEDURE THE PATIENT WAS BROUGHT TO THE PROCEDURE ROOM AND PLACED IN THE SITTING POSITION. THE AREA WAS CLEANED WITH ALCOHOL. THE PROCEDURE WAS DONE USING ASEPTIC STERILE TECHNIQUE. I CHECKED LATERALITY AND THE LEVEL WHERE THE PROCEDURE WAS GOING TO BE PERFORMED WITH THE PATIENT AND THE SUPPORTING STAFF AT THE MOMENT OF THE TIME OUT IN THE PROCEDURE ROOM. USING A 25-GAUGE NEEDLE, TRIGGER POINTS WERE INJECTED AT THE RIGHT AND LEFT LOWER BACK AREA WITH A TOTAL OF 40 ML OF BUPIVACAINE 0.25% AND KENALOG 40 MG. THERE WAS NO EVIDENCE OF BLOOD, PARESTHESIA OR CEREBROSPINAL FLUID DURING THE PROCEDURE. THE PATIENT WAS SENT TO THE RECOVERY ROOM. THE PATIENT WAS MOVING THE EXTREMITIES AND DOING WELL. THERE WAS NO COMPLICATION DURING THE PROCEDURE POST PROCEDURE NOTE THE PATIENT WILL BE SEEN IN A FOLLOW UP IN THE NEXT FEW WEEKS. INSTRUCTIONS WERE GIVEN, QUESTIONS WERE ANSWERED, AND THE PATIENT EXPRESSED UNDERSTANDING AND AGREES WITH THE PLAN. I, PAT BENZ, DOCUMENTED THE ABOVE INFORMATION ACTING A SCRIBE FOR DR. COSTELLO. I HAVE REVIEWED THE ABOVE DOCUMENT, WRITTEN BY PAT MCKEE AND I VERIFY THAT IT IS ACCURATE PROCEDURE CODES 33016 INJ TRIGGER POINT 1/2 MUSC DISPOSITION & COMMUNICATION FOLLOW UP 3 WEEKS ELECTRONICALLY SIGNED BY HAIDER COSTELLO MD ON 04/15/2017 AT 09:33 PM EDT DISCLAIMER : THIS IS A VISIT SUMMARY EXTRACTED FROM THE [employer] CHART. IT IS NOT A COPY OF THE [employer] PROGRESS NOTE. MAXXD
== END ==
LOC: M PAIN 14:40
PROVIDERS: ATTEND Anesthesiology
DX: G89.29 Other chronic pain (principal); M79.1 Myalgia; M54.5 Low back pain; J45.20 Mild intermittent asthma, uncomplicated; E55.9 Vitamin D deficiency, unspecified; E66.9 Obesity, unspecified; Z68.38 Body mass index [BMI] 38.0-38.9, adult; M16.0 Bilateral primary osteoarthritis of hip; Z91.040 Latex allergy status; Z88.6 Allergy status to analgesic agent; Z88.8 Allergy status to other drugs, medicaments and biological substances; Z79.51 Long term (current) use of inhaled steroids; Z79.1 Long term (current) use of non-steroidal anti-inflammatories (NSAID); Z79.891 Long term (current) use of opiate analgesic; Z79.899 Other long term (current) drug therapy

== ENCOUNTER → 2017-05-02 | Outpatient (CLI) | payer OTHER ==
[~2017-05-02] MED LIST changes: -BUPIVACAINE HCL 0.25% 10 ML VIAL As Ordered ONE; -BUPIVACAINE HCL 0.25% 30 ML VIAL As Ordered ONE; -TRIAMCINOLONE ACETONIDE SUSP 40 MG/ML VIAL (J3301) As Ordered ONE
--- NOTE | 2017-05-03 00:27 | ECWPNPC ---
PATIENT NAME: AKBAR MOODY : 1965 GENDER: FEMALE VISIT DATE: 05/02/2017 DISCHARGE DATE: 05/02/17 0952 VISIT LOCKED DATE TIME: PHYSICIAN: RABIA WATTERS RESOURCE: RABIA WATTERS REASON FOR APPOINTMENT 1. POST TPI HISTORY OF PRESENT ILLNESS GENERAL: HERE FOR POST PROCEDURE F/U.HAD TPI OF LOW BACK TWO WEEKS AGO.REPORTS SIGNIFICANT REDUCTION OF PAIN POST PROCEDURE WHICH CONTINUES TODAY.CHIEF AREA OF PAIN IS LEFT HIP ,LOW BACK AND LEG.RATING PAIN VAS 8/10.HISTORY OF LEFT HIP REPLACEMENT IN JANUARY 2016.DESCRIBES PAIN CONSTANT THROBBING AND SHOOTING PAIN. HISTORY OF PRESENT ILLNESS: PAIN THE PATIENT DESCRIBES THE PAIN... FALL RISK SCREENING: SCREENING :NO FALLS IN THE PAST YEAR CURRENT MEDICATIONS TAKING VITAMIN B-12 2500 MCG TABLET SUBLINGUAL 1 ML SUBLINGUAL ONCE DAILY TAKING CYANOCOBALAMIN 1000 MCG/ML SOLUTION 1 ML INJECTION Q 2 WEEKS TAKING VITAMIN D-3 1000 UNIT CAPSULE 1 CAPSULE---ERROR ON EARLIER REFILL OF DRISOL ORALLY ONCE A DAY TAKING LIPITOR 10 MG TABLET 1 TABLET ORALLY ONCE A DAY TAKING POLYETHYLENE GLYCOL 3350 - POWDER 17G IN 8 OZ OF WATER ORALLY 1-2 TIMES DAILY NEEDED TAKING BENAZEPRIL HCL 5 MG TABLET 1 TAB ORALLY DAILY TAKING BREO ELLIPTA 100 MCG/25 MCG INHALATION POWDER ONE INHALATION ORALLY ONCE DAILY TAKING NEBULIZER/TUBING/MOUTHPIECE _ KIT DIRECTED DX:493 DIRECTED TAKING VENTOLIN HFA 108 (90 BASE) MCG/ACT AEROSOL SOLUTION 2 PUFFS NEEDED INHALATION EVERY 4 HRS TAKING ALBUTEROL SULFATE (2.5 MG/3ML) 0.083% NEBULIZATION SOLUTION 3 ML INHALATION THREE TIMES A DAY NEEDED TAKING FLONASE 50 MCG/ACT SUSPENSION 2 SPRAYS IN EACH NOSTRIL NASALLY ONCE A DAY TAKING SINGULAIR 10 MG TABLET 1 TABLET IN THE EVENING ORALLY ONCE A DAY TAKING BENADRYL 25 MG CAPSULE 1 CAPSULE NEEDED ORALLY EVERY 6 HRS/ NEEDED FOR HIVES TAKING LORATADINE 10 MG TABLET 1 TABLET ORALLY ONCE A DAY TAKING ALEVE 220 MG TABLET 1 TABLET NEEDED ORALLY EVERY 12 HRS TAKING GABAPENTIN 600 MG TABLET 1 CAPSULE ORALLY BID TAKING OMEPRAZOLE 40 MG CAPSULE DELAYED RELEASE 1 CAPSULE ORALLY BID TAKING CYCLOBENZAPRINE HCL 10 MG TABLET 1 TABLET ORALLY THREE TIMES A DAY TAKING HYDROCODONE-ACETAMINOPHEN 5-325 MG TABLET 1-2 ORALLY 1-2 TAB Q4-6HR PRN MDD6 MEDICATION LIST REVIEWED AND RECONCILED WITH THE PATIENT PAST MEDICAL HISTORY ASTHMA, MILD INTERMITTENT OSTEOARTHRITIS - DDD - FOLLOWS WITH [facility] ENVIRONMENTAL ALLERGIES HYPERLIPIDEMIA VIT D DEF OBESITY B HIP OA S/P COLONOSCOPY NEG. 01/07/2016-DR. CHAPMAN F/U 10YR.S ALLERGIES LATEX (FOR ALLERGY USE ONLY): HIVES: ALLERGY KEFLEX: ANAPHYLAXIS: ALLERGY NSAIDS: KIDNEY ISSUES: CONTRAINDICATION ENVIRONMENTAL: COUGH: ALLERGY SURGICAL HISTORY MADHAV DUE TO BLEEDING--- 07/2008 MADHAV DUE TO BLEEDING--- 07/2008 ARTHROSCOPIC KNEE SURGERY LEFT X 3 ARTHROSCOPIC KNEE SURGERY LEFT X 3 ARTHROSCOPIC KNEE SURGERY RIGHT X 1 ARTHROSCOPIC KNEE SURGERY RIGHT X 1 CARPAL TUNNEL RELEASE BILATERAL CARPAL TUNNEL RELEASE BILATERAL ARTHROSCOPY SHOULDER RIGHT ARTHROSCOPY SHOULDER RIGHT SHOULDER SURGERY LEFT SHOULDER SURGERY LEFT BIOPSY MOLE- BACK BIOPSY MOLE- BACK LEFT HIP SURGERY 01/2016 LEFT HIP SURGERY 01/2016 TUBAL LIGATION TUBAL LIGATION HERNIA REPAIR X 5 HERNIA REPAIR X 5 ABDOMINAL SURGERY FOR GANGRENOUS INFECTION POST BTL ABDOMINAL SURGERY FOR GANGRENOUS INFECTION POST BTL BELLY BUTTON REMOVED BELLY BUTTON REMOVED LEFT LEG SURGERY- RELEASED NERVES 10/11/16 LEFT LEG SURGERY- RELEASED NERVES 10/11/16 HOSPITALIZATION/MAJOR DIAGNOSTIC PROCEDURE SURGERY SURGERY CHILDBIRTH X 6 CHILDBIRTH X 6 REVIEW OF SYSTEMS REVIEWED BY: PROVIDER: RABIA CARRERO . CONSTITUTIONAL: ANY CHANGE IN YOUR MEDICAL CONDITION? NO . CHILLS NO . FEVER NO . INFECTION: DO YOU HAVE NEW INFECTIONS? NO . DO YOU HAVE HISTORY OF MRSA? NO . MUSCULOSKELETAL: ANY NEW PATTERNS OF PAIN OR NUMBNESS? NO . GASTROENTEROLOGY: ANY NEW CHANGE IN BOWEL CONTROL? NO . GENITOURINARY: ANY NEW CHANGE IN BLADDER CONTROL? NO . IS THERE A CHANCE YOU COULD BE ? NO . HEMATOLOGY/LYMPH: DO YOU TAKE ANY BLOOD THINNERS? (FOR EXAMPLE- COUMADIN, PLAVIX, AGGRENOX, PLATEL, PRADAXA, OR XARELTO) NO . WHEN WAS YOUR LAST DOSE? DATE: TIME: . NEUROLOGY: HAVE YOU FALLEN IN THE PAST 6 MONTHS? NO . ANY NEW EXTREMITY NUMBNESS OR WEAKNESS? NO . CARDIOLOGY: DO YOU HAVE A PACEMAKER OR DEFIBRILLATOR? NO . RESPIRATORY: HAVE YOU BEEN SICK IN THE PAST WEEK? NO . FEVER NO . FLU LIKE SYMPTOMS? NO . COUGH NO . INTEGUMENTARY: DO YOU HAVE ANY RASHES OR OPEN SORES? NO . ALLERGIC/IMMUNO: ARE YOU ALLERGIC TO SHELLFISH OR IV DYE? NO . ANY NEW ALLERGIES? NO . PSYCHIATRIC: DO YOU HAVE THOUGHTS OF HURTING YOURSELF OR SOMEONE ELSE? NO . ARE YOU ABUSED, NEGLECTED, OR IN AN UNSAFE ENVIRONMENT? NO . ENDOCRINOLOGY: ARE YOU DIABETIC? NO . OTHER: DO YOU NEED ANY PRESCRIPTIONS? NO . IF YES, PLEASE LIST: ____ . ANY NEW PROBLEMS WITH YOUR MEDICATIONS? NO . WHEN DID YOU LAST EAT? ____ . WHEN DID YOU LAST DRINK? ____ . WHAT DID YOU LAST DRINK? ____ . NAME OF PERSON DRIVING YOU HOME? ____ . DO YOU HAVE ANY OTHER QUESTIONS OR CONCERNS NO . VITAL SIGNS WT 252 LBS, HT 68 IN, BMI 38.31 INDEX, BP 127/75 MM HG, HR 75 /MIN, RR 16 /MIN, TEMP 98.3 F, OXYGEN SAT % 98%, SAFE IN ENV? (Y/N) Y, NA INITIALS FL 09:10, REVIEWED BY: CECELIA. EXAMINATION GENERAL EXAMINATION: GENERAL APPEARANCE:UNCOMFORTABLE. LUNGS:LUNG HANNAH ARE CLEAR TO AUSCULTATION BILATERALLY. GOOD MOVEMENT OF AIR. HEART:S1, S2 IN A REGULAR RATE AND RHYTHM. NO SIGNIFICANT MURMURS, RUBS OR GALLOPS NOTED. LUMBAR SPINE/LOWER BACK: PALPATION:VERTEBRAL SPINE TENDERNESS, PARASPINAL TENDERNESS.SPECIFIC POINT TENDERNESS OVER LEFT SIJ. MOTOR SYSTEM:5/5 RIGHT-3/5LEFT. SENSORY EXAM:PARATHESIAS NOTED OVER LEFT LEG. ASSESSMENTS SACROILIAC INFLAMMATION - M46.1 (PRIMARY) MYALGIA - M79.1 (PRIMARY) TREATMENT SACROILIAC INFLAMMATION CONTINUE HYDROCODONE-ACETAMINOPHEN TABLET, 5-325 MG, 1-2, ORALLY, 1-2 TAB Q4-6HR PRN MDD6, 30 DAY(S), 180, REFILLS 0 NOTES: LEFT SIJ, ISTOP REGISTRY REVIEWED AND DEMNOSTRATES COMPLLIANCE. BRINGS IN MEDICATIONS WHICH IS APPROPRIATE FOR WHAT WAS DISPENSED. RECENT URINE TOXICOLOGY REVIEWED. NO UNAUTHORIZED MEDICATIONS. NO ILLICIT SUBSTANCES AND PRESCRIBED MEDICATIONS WERE PRESENT. , RISKS AND BENEFITS OF NARCOTIC/OPIOD MEDICATIONS WERE REVIEWED WITH PATIENT - THIS INCLUDES BUT IS NOT LIMITED TO RISK OF DEPENDANCE/DEVELOPMENT OF ADDICTION, MOOD DISTURBANCE AND DEPRESSION, OSTEOPOROSIS, HORMONAL AND LABIDAL CHANGES, RESPIRATORY DEPRESSION AND . PATIENT IS ADVISED NOT TO DRIVE WHILE ON THESE MEDICATIONS. PROCEDURE CODES FA211 ESTABILISHED PATIENT [facility] CHARGE DISPOSITION & COMMUNICATION FOLLOW UP POST PROCEDURE (REASON: LEFT SIJ) ELECTRONICALLY SIGNED BY MAGAN ESCALANTE ON 05/02/2017 AT 10:03 AM EDT DISCLAIMER : THIS IS A VISIT SUMMARY EXTRACTED FROM THE [employer] CHART. IT IS NOT A COPY OF THE [employer] PROGRESS NOTE. GEGE
== END ==
LOC: M PAIN 09:00
PROVIDERS: ATTEND Nurse Practitioner Family
DX: G89.29 Other chronic pain (principal); M46.1 Sacroiliitis, not elsewhere classified; M79.1 Myalgia; M19.90 Unspecified osteoarthritis, unspecified site; J45.20 Mild intermittent asthma, uncomplicated; E78.2 Mixed hyperlipidemia; I10 Essential (primary) hypertension; E55.9 Vitamin D deficiency, unspecified; E53.8 Deficiency of other specified B group vitamins; E11.9 Type 2 diabetes mellitus without complications; K21.9 Gastro-esophageal reflux disease without esophagitis; E66.01 Morbid (severe) obesity due to excess calories; Z68.38 Body mass index [BMI] 38.0-38.9, adult; Z91.040 Latex allergy status; Z88.6 Allergy status to analgesic agent; Z88.8 Allergy status to other drugs, medicaments and biological substances; Z79.51 Long term (current) use of inhaled steroids; Z79.891 Long term (current) use of opiate analgesic; Z79.899 Other long term (current) drug therapy

== ENCOUNTER → 2017-05-03 | Outpatient (REF) | payer OTHER ==
[2017-05-03 12:48] LABS: ALBUMIN 3.3 GM/DL (3.2-5.2); ALBUMIN/GLOBULIN RATIO 0.92 (1.00-1.93); ALKALINE PHOSPHATASE 107 U/L (45-117); ALT/SGPT 18 U/L (12-78); ANION GAP 7 MEQ/L (8-16); AST/SGOT 11 U/L (15-37); BILIRUBIN,DIRECT 0.1 MG/DL (0.0-0.2); BILIRUBIN,TOTAL 0.4 MG/DL (0.2-1.0); BLOOD UREA NITROGEN 13 MG/DL (7-18); CALCIUM LEVEL 8.6 MG/DL (8.5-10.1); CARBON DIOXIDE LEVEL 29 MEQ/L (21-32); CHLORIDE LEVEL 105 MEQ/L (98-107); CREATININE FOR GFR 0.75 MG/DL (0.55-1.02); GLOMERULAR FILTRATION RATE > 60.0 (>58); GLUCOSE, FASTING 91 MG/DL (70-105); POTASSIUM SERUM 4.1 MEQ/L (3.5-5.1); SODIUM LEVEL 141 MEQ/L (136-145); TOTAL PROTEIN 6.9 GM/DL (6.4-8.2)
[2017-05-03 13:11] LABS: VITAMIN B12 LEVEL 1963 PG/ML (247-911)
== END ==
LOC: M SFHCPLAZ 08:47
PROVIDERS: ATTEND Physician Assistant Medical
DX: E78.5 Hyperlipidemia, unspecified (principal); I10 Essential (primary) hypertension; E55.9 Vitamin D deficiency, unspecified; E53.8 Deficiency of other specified B group vitamins

== ENCOUNTER → 2017-05-10 | Outpatient (CLI) | payer OTHER ==
[~2017-05-10] MED LIST changes: +BUPIVACAINE HCL 0.25% 30 ML VIAL As Ordered ONE; +ISOVUE-M 300 61% 15ML VIAL (Q9967) As Ordered ONE; +LIDOCAINE 1% SDV INJ 30 ML VIAL As Ordered ONE; +TRIAMCINOLONE ACETONIDE SUSP 40 MG/ML VIAL (J3301) As Ordered ONE; +diazePAM 5 MG TAB As Ordered ONE; +oxyCODONE 5MG TAB As Ordered ONE
--- NOTE | 2017-05-10 19:20 | REP ---
FLUOROSCOPIC GUIDANCE: The images were reviewed with Dr. Kilgore. The patient has a history of low back pain. The portable C-Arm was provided in the OR for Dr. Conde for fluoroscopic guidance. One intraoperative fluoroscopic spot film was obtained for needle placement verification for left sacroiliac joint injection. The film is on the PACs system and is available for review. 11 seconds of fluoroscopy time was utilized for this procedure. Reviewed by KATARZYNA Arguelles 05/11/2017 05:13 PEdited and Signed by Max Kilgore MD 05/11/2017 05:19 P
--- NOTE | 2017-05-20 23:49 | ECWPNPC ---
PATIENT NAME: AKBAR MOODY : 1965 GENDER: FEMALE VISIT DATE: 05/10/2017 DISCHARGE DATE: 05/10/17 1231 VISIT LOCKED DATE TIME: PHYSICIAN: HAIDER COSTELLO RESOURCE: HAIDER COSTELLO REASON FOR APPOINTMENT 1. LEFT SIJ HISTORY OF PRESENT ILLNESS HISTORY OF PRESENT ILLNESS: PAIN THE PATIENT DESCRIBES THE PAIN... FALL RISK SCREENING: SCREENING :NO FALLS IN THE PAST YEAR CURRENT MEDICATIONS TAKING VITAMIN B-12 2500 MCG TABLET SUBLINGUAL 1 ML SUBLINGUAL ONCE DAILY, NOTES: 05/10 800 TAKING CYANOCOBALAMIN 1000 MCG/ML SOLUTION 1 ML INJECTION Q 2 WEEKS, NOTES: 05/08 TAKING VITAMIN D-3 1000 UNIT CAPSULE 1 CAPSULE---ERROR ON EARLIER REFILL OF DRISOL ORALLY ONCE A DAY, NOTES: 05/10 800 TAKING LIPITOR 10 MG TABLET 1 TABLET ORALLY ONCE A DAY, NOTES: 05/10 800 TAKING POLYETHYLENE GLYCOL 3350 - POWDER 17G IN 8 OZ OF WATER ORALLY 1-2 TIMES DAILY NEEDED, NOTES: 1 WEEK AGO TAKING BENAZEPRIL HCL 5 MG TABLET 1 TAB ORALLY DAILY, NOTES: 05/10 800 TAKING BREO ELLIPTA 100 MCG/25 MCG INHALATION POWDER ONE INHALATION ORALLY ONCE DAILY, NOTES: 05/09 2200 TAKING NEBULIZER/TUBING/MOUTHPIECE _ KIT DIRECTED DX:493 DIRECTED TAKING VENTOLIN HFA 108 (90 BASE) MCG/ACT AEROSOL SOLUTION 2 PUFFS NEEDED INHALATION EVERY 4 HRS, NOTES: 05/09 2300 TAKING ALBUTEROL SULFATE (2.5 MG/3ML) 0.083% NEBULIZATION SOLUTION 3 ML INHALATION THREE TIMES A DAY NEEDED, NOTES: NONE RECENT TAKING FLONASE 50 MCG/ACT SUSPENSION 2 SPRAYS IN EACH NOSTRIL NASALLY ONCE A DAY, NOTES: 1 WEEK AGO TAKING SINGULAIR 10 MG TABLET 1 TABLET IN THE EVENING ORALLY ONCE A DAY, NOTES: 05/09 2200 TAKING BENADRYL 25 MG CAPSULE 1 CAPSULE NEEDED ORALLY EVERY 6 HRS/ NEEDED FOR HIVES, NOTES: NONE RECENT TAKING LORATADINE 10 MG TABLET 1 TABLET ORALLY ONCE A DAY, NOTES: 05/10 800 TAKING ALEVE 220 MG TABLET 1 TABLET NEEDED ORALLY EVERY 12 HRS, NOTES: 05/10 800 TAKING GABAPENTIN 600 MG TABLET 1 CAPSULE ORALLY BID, NOTES: 05/10 800 TAKING OMEPRAZOLE 40 MG CAPSULE DELAYED RELEASE 1 CAPSULE ORALLY BID, NOTES: 05/10 800 TAKING HYDROCODONE-ACETAMINOPHEN 5-325 MG TABLET 1-2 ORALLY 1-2 TAB Q4-6HR PRN MDD6, NOTES: 05/09 2200 TAKING TIZANIDINE HCL 4 MG TABLET 1 TABLET NEEDED ORALLY THREE TIMES A DAY, NOTES: 05/10 800 NOT-TAKING CYCLOBENZAPRINE HCL 10 MG TABLET 1 TABLET ORALLY THREE TIMES A DAY MEDICATION LIST REVIEWED AND RECONCILED WITH THE PATIENT PAST MEDICAL HISTORY ASTHMA, MILD INTERMITTENT OSTEOARTHRITIS - DDD - FOLLOWS WITH [facility] ENVIRONMENTAL ALLERGIES HYPERLIPIDEMIA VIT D DEF OBESITY B HIP OA S/P COLONOSCOPY NEG. 01/07/2016-DR. CHAPMAN F/U 10YR.S ALLERGIES LATEX (FOR ALLERGY USE ONLY): HIVES: ALLERGY KEFLEX: ANAPHYLAXIS: ALLERGY NSAIDS: KIDNEY ISSUES: CONTRAINDICATION ENVIRONMENTAL: COUGH: ALLERGY REVIEW OF SYSTEMS REVIEWED BY: PROVIDER: . CONSTITUTIONAL: ANY CHANGE IN YOUR MEDICAL CONDITION? NO . CHILLS NO . FEVER NO . INFECTION: DO YOU HAVE NEW INFECTIONS? NO . DO YOU HAVE HISTORY OF MRSA? NO . MUSCULOSKELETAL: ANY NEW PATTERNS OF PAIN OR NUMBNESS? NO . GASTROENTEROLOGY: ANY NEW CHANGE IN BOWEL CONTROL? NO . GENITOURINARY: ANY NEW CHANGE IN BLADDER CONTROL? NO . IS THERE A CHANCE YOU COULD BE ? NO . HEMATOLOGY/LYMPH: DO YOU TAKE ANY BLOOD THINNERS? (FOR EXAMPLE- COUMADIN, PLAVIX, AGGRENOX, PLATEL, PRADAXA, OR XARELTO) NO . WHEN WAS YOUR LAST DOSE? DATE: TIME: . NEUROLOGY: HAVE YOU FALLEN IN THE PAST 6 MONTHS? NO . ANY NEW EXTREMITY NUMBNESS OR WEAKNESS? NO . CARDIOLOGY: DO YOU HAVE A PACEMAKER OR DEFIBRILLATOR? NO . RESPIRATORY: HAVE YOU BEEN SICK IN THE PAST WEEK? NO . FEVER NO . FLU LIKE SYMPTOMS? NO . COUGH NO . INTEGUMENTARY: DO YOU HAVE ANY RASHES OR OPEN SORES? NO . ALLERGIC/IMMUNO: ARE YOU ALLERGIC TO SHELLFISH OR IV DYE? NO . ANY NEW ALLERGIES? NO . PSYCHIATRIC: DO YOU HAVE THOUGHTS OF HURTING YOURSELF OR SOMEONE ELSE? NO . ARE YOU ABUSED, NEGLECTED, OR IN AN UNSAFE ENVIRONMENT? NO . ENDOCRINOLOGY: ARE YOU DIABETIC? NO . OTHER: DO YOU NEED ANY PRESCRIPTIONS? NO . IF YES, PLEASE LIST: ____ . ANY NEW PROBLEMS WITH YOUR MEDICATIONS? NO . WHEN DID YOU LAST EAT? 05/09/170 . WHEN DID YOU LAST DRINK? 05/10 0800 . WHAT DID YOU LAST DRINK? SIP OF WATER WITH MEDS . NAME OF PERSON DRIVING YOU HOME? MOM--MARTI . DO YOU HAVE ANY OTHER QUESTIONS OR CONCERNS NO . VITAL SIGNS WT 252 LBS, HT 68 IN, BMI 38.31 INDEX, BP 131/62 MM HG, HR 77 /MIN, RR 16 /MIN, TEMP 98.5 F, OXYGEN SAT % 98%, NA INITIALS SC 11:12, REVIEWED BY: AD. ASSESSMENTS SACROILIITIS, NOT ELSEWHERE CLASSIFIED - M46.1 (PRIMARY) PROCEDURES PN SI PRE PROCEDURE DIAGNOSIS SACROILIITIS, SACROILIAC JOINT DYSFUNCTION POST PROCEDURE DIAGNOSIS SACROILIITIS, SACROILIAC JOINT DYSFUNCTION PROCEDURE LEFT SACROILIAC JOINT BLOCK SURGEON DR. HAIDER COSTELLO MUSIC PROFESSOR NONE ANESTHESIA LOCAL PRE PROCEDURE NOTE PATIENT WITH HISTORY OF CHRONIC LOW BACK PAIN. I EVALUATED THE PATIENT AND REVIEWED THE CHART. I WENT OVER THE RISKS, ALTERNATIVES, AND BENEFITS ASSOCIATED WITH THIS PROCEDURE. THE PATIENT WOULD LIKE TO PROCEED AND GAVE CONSENT TO PERFORM THE PROCEDURE. THE PATIENT DENIES UNEXPLAINABLE WEIGHT LOSS, FEVER, CHILLS, OR NEW CHANGES IN URINARY OR BOWEL CONTROL DESCRIPTION OF PROCEDURE THE PATIENT WAS BROUGHT TO THE PROCEDURE ROOM AND PLACED IN THE PRONE POSITION. THE LUMBOSACRAL AREA WAS CLEANED WITH CHLORAPREP SOLUTION AND DRAPED ASEPTICALLY. THE PROCEDURE WAS DONE UNDER STERILE CONDITIONS. I CHECKED LATERALITY AND THE LEVEL WHERE THE PROCEDURE WAS GOING TO BE PERFORMED WITH THE PATIENT AND THE SUPPORTING STAFF AT THE MOMENT OF THE TIME OUT IN THE PROCEDURE ROOM. UNDER FLUOROSCOPIC GUIDANCE, TARGET POINT WAS SELECTED AT THE LOWER BORDER OF THE LEFT SACROILIAC JOINT. TARGET POINT WAS SELECTED AFTER MEDIAL ROTATION AND TILT OF THE MAGNIFIER OF THE C-ARM. LIDOCAINE WAS USED TO NUMB THE SKIN AND SUBCUTANEOUS TISSUE BELOW IT. A SPINAL NEEDLE, 22-GAUGE, WAS ADVANCED UNDER FLUOROSCOPIC GUIDANCE AND FOLLOWING PATIENT FEEDBACK UNTIL THE TARGET AREA WAS TOUCHED. THE POSITION OF THE NEEDLE WAS VERIFIED WITH AP AND LATERAL VIEWS. AFTER PROPER POSITION OF THE NEEDLE WAS ACHIEVED, ISOVUE M DYE 30%, 0.25 ML, WAS INJECTED SHOWING SPREAD OF THE DYE. THEN, A SOLUTION OF 20 MG OF KENALOG WAS INJECTED IN RIGHT JOINT WITH 3 ML OF BUPIVACAINE 0.125%. THERE WAS NO EVIDENCE OF BLOOD, PARESTHESIA OR CEREBROSPINAL FLUID DURING THE PROCEDURE. THE PATIENT WAS SENT TO THE RECOVERY ROOM. THE PATIENT WAS MOVING THE EXTREMITIES AND DOING WELL. THERE WAS NO COMPLICATION DURING THE PROCEDURE. FLUOROSCOPY TIME WAS 11 SECONDS POST PROCEDURE NOTE THE PATIENT WILL BE SEEN IN A FOLLOW UP IN THE NEXT FEW WEEKS. INSTRUCTIONS WERE GIVEN, QUESTIONS WERE ANSWERED, AND THE PATIENT EXPRESSED UNDERSTANDING AND AGREED WITH THE PLAN. I, PAT BENZ, DOCUMENTED THE ABOVE INFORMATION ACTING A SCRIBE FOR DR. COSTELLO. I HAVE REVIEWED THE ABOVE DOCUMENT, WRITTEN BY PAT BENZ SCRIBE AND I VERIFY THAT IT IS [facility] FLUORO GUIDANCE (PAIN)[id number] PROCEDURE CODES 31574 INJECT SACROILIAC JOINT 6045F RADXPS IN END [id number] PXD DISPOSITION & COMMUNICATION FOLLOW UP 3 WEEKS ELECTRONICALLY SIGNED BY HAIDER COSTELLO MD ON 05/20/2017 AT 07:13 PM EDT DISCLAIMER : THIS IS A VISIT SUMMARY EXTRACTED FROM THE [employer] CHART. IT IS NOT A COPY OF THE [employer] PROGRESS NOTE. MTDD
== END ==
LOC: M PAIN 11:15
PROVIDERS: ATTEND Anesthesiology
DX: G89.29 Other chronic pain (principal); M46.1 Sacroiliitis, not elsewhere classified; J45.20 Mild intermittent asthma, uncomplicated; E78.2 Mixed hyperlipidemia; E55.9 Vitamin D deficiency, unspecified; E53.8 Deficiency of other specified B group vitamins; E66.01 Morbid (severe) obesity due to excess calories; Z68.38 Body mass index [BMI] 38.0-38.9, adult; I10 Essential (primary) hypertension; M16.0 Bilateral primary osteoarthritis of hip; K21.9 Gastro-esophageal reflux disease without esophagitis; Z91.040 Latex allergy status; Z88.6 Allergy status to analgesic agent; Z88.8 Allergy status to other drugs, medicaments and biological substances; Z79.51 Long term (current) use of inhaled steroids; Z79.891 Long term (current) use of opiate analgesic; Z79.899 Other long term (current) drug therapy
CPT/HCPCS: 27096; J3301; Q9967

== ENCOUNTER → 2017-06-20 | Outpatient (CLI) | payer OTHER ==
[~2017-06-20] MED LIST changes: -BUPIVACAINE HCL 0.25% 30 ML VIAL As Ordered ONE; -ISOVUE-M 300 61% 15ML VIAL (Q9967) As Ordered ONE; -LIDOCAINE 1% SDV INJ 30 ML VIAL As Ordered ONE; -TRIAMCINOLONE ACETONIDE SUSP 40 MG/ML VIAL (J3301) As Ordered ONE; -diazePAM 5 MG TAB As Ordered ONE; -oxyCODONE 5MG TAB As Ordered ONE
--- NOTE | 2017-06-20 23:45 | ECWPNPC ---
PATIENT NAME: AKBAR MOODY : 1965 GENDER: FEMALE VISIT DATE: 06/20/2017 DISCHARGE DATE: 06/20/17918 VISIT LOCKED DATE TIME: PHYSICIAN: RABIA WATTERS RESOURCE: RABIA WATTERS REASON FOR APPOINTMENT 1. POST SIJ HISTORY OF PRESENT ILLNESS HISTORY OF PRESENT ILLNESS: PAIN THE PATIENT DESCRIBES THE PAIN... FALL RISK SCREENING: SCREENING :NO FALLS IN THE PAST YEAR GENERAL: HERE FOR POST PROCEDURE F/U.HAD LEFT SIJ ON 05-10-17.REPORTS SIGNIFICANT REDUCTION OF PAIN POST PROCEDURE FOR ONE MONTH THEN PAIN HAS RETURNED.REPORTING SEVERE INCREASE IN PAIN IN LEFT LOW BACK AND LEFT ANTERIOR THIGH.RATING PAIN VAS 10/10 HISTORY OF LEFT HIP REPLACEMENT IN JANUARY 2016.DESCRIBES PAIN CONSTANT THROBBING AND SHOOTING PAIN.STATES SHE IS BEING REFERRD TO [place] BY [facility] FOR LEFT HIP PAIN.CURRENTLY TAKING GABAPENTIN 300MG BID , TIZANIDINE AND HYDROCODONE 5/325 UP TO 6 TAB PER DAY.FINDS MEDICATION HELPFUL WITHOUT SIDE EFFECTS.ALSO HAS CHRONIC NECK PAIN WHICH HAS BEEN INCREASED LATELY AND RESPONDS TO TPI. CURRENT MEDICATIONS TAKING TIZANIDINE HCL 4 MG TABLET 1 TABLET NEEDED ORALLY THREE TIMES A DAY TAKING CYANOCOBALAMIN 1000 MCG/ML SOLUTION 1 ML INJECTION Q 2 WEEKS TAKING VITAMIN D-3 1000 UNIT CAPSULE 1 CAPSULE---ERROR ON EARLIER REFILL OF DRISOL ORALLY ONCE A DAY TAKING LIPITOR 10 MG TABLET 1 TABLET ORALLY ONCE A DAY TAKING POLYETHYLENE GLYCOL 3350 - POWDER 17G IN 8 OZ OF WATER ORALLY 1-2 TIMES DAILY NEEDED TAKING BENAZEPRIL HCL 5 MG TABLET 1 TAB ORALLY DAILY TAKING BREO ELLIPTA 100 MCG/25 MCG INHALATION POWDER ONE INHALATION ORALLY ONCE DAILY TAKING NEBULIZER/TUBING/MOUTHPIECE _ KIT DIRECTED DX:493 DIRECTED TAKING ALBUTEROL SULFATE (2.5 MG/3ML) 0.083% NEBULIZATION SOLUTION 3 ML INHALATION THREE TIMES A DAY NEEDED TAKING BENADRYL 25 MG CAPSULE 1 CAPSULE NEEDED ORALLY EVERY 6 HRS/ NEEDED FOR HIVES TAKING ALEVE 220 MG TABLET 1 TABLET NEEDED ORALLY EVERY 12 HRS TAKING GABAPENTIN 600 MG TABLET 1 CAPSULE ORALLY BID TAKING OMEPRAZOLE 40 MG CAPSULE DELAYED RELEASE 1 CAPSULE ORALLY BID TAKING VENTOLIN HFA 108 (90 BASE) MCG/ACT AEROSOL SOLUTION 2 PUFFS NEEDED INHALATION EVERY 4 HRS TAKING SINGULAIR 10 MG TABLET 1 TABLET IN THE EVENING ORALLY ONCE A DAY TAKING BREO ELLIPTA 100-25 MCG/INH AEROSOL POWDER BREATH ACTIVATED INHALE ONE PUFF BY MOUTH EVERY DAY TAKING LORATADINE 10 MG TABLET 1 TABLET ORALLY ONCE A DAY TAKING HYDROCODONE-ACETAMINOPHEN 5-325 MG TABLET 1-2 ORALLY 1-2 TAB Q4-6HR PRN MDD6 TAKING FLONASE 50 MCG/ACT SUSPENSION 2 SPRAYS IN EACH NOSTRIL NASALLY ONCE A DAY NOT-TAKING VITAMIN D 2000 UNIT CAPSULE 1 CAPSULE ORALLY ONCE DAILY NOT-TAKING VITAMIN B-12 2500 MCG TABLET SUBLINGUAL 1 ML SUBLINGUAL ONCE DAILY NOT-TAKING TIZANIDINE HCL 4 MG TABLET 1 TABLET NEEDED ORALLY THREE TIMES A DAY NOT-TAKING CYCLOBENZAPRINE HCL 10 MG TABLET 1 TABLET ORALLY THREE TIMES A DAY MEDICATION LIST REVIEWED AND RECONCILED WITH THE PATIENT PAST MEDICAL HISTORY ASTHMA, MILD INTERMITTENT OSTEOARTHRITIS - DDD - FOLLOWS WITH [facility] ENVIRONMENTAL ALLERGIES HYPERLIPIDEMIA VIT D DEF OBESITY B HIP OA S/P COLONOSCOPY NEG. 01/07/2016-DR. CHAPMAN F/U .S ALLERGIES LATEX (FOR ALLERGY USE ONLY): HIVES: ALLERGY KEFLEX: ANAPHYLAXIS: ALLERGY NSAIDS: KIDNEY ISSUES: CONTRAINDICATION ENVIRONMENTAL: COUGH: ALLERGY SOCIAL HISTORY GENERAL: TOBACCO USE ARE YOU A:FORMER SMOKER HOW LONG HAS IT BEEN SINCE YOU LAST SMOKED?5-10 YEARS ARE YOU A:FORMER SMOKER HOW LONG HAS IT BEEN SINCE YOU LAST SMOKED?5-10 YEARS ARE YOU A:NONSMOKER BMI CARE GOAL FOLLOW-UP ABOVE NORMAL BMI FOLLOW-UPGIVING ENCOURAGEMENT TO EXERCISE ABOVE NORMAL BMI FOLLOW-UPGIVING ENCOURAGEMENT TO EXERCISE ALCOHOL SCREENING DID YOU HAVE A DRINK CONTAINING ALCOHOL IN THE PAST YEAR?YES HOW OFTEN DID YOU HAVE A DRINK CONTAINING ALCOHOL IN THE PAST YEAR?TWO TO FOUR TIMES A MONTH (2 POINTS) HOW MANY DRINKS DID YOU HAVE ON A TYPICAL DAY WHEN YOU WERE DRINKING IN THE PAST YEAR?7 TO 9 (3 POINTS) HOW OFTEN DID YOU HAVE SIX OR MORE DRINKS ON ONE OCCASION IN THE PAST YEAR?NEVER (0 POINTS) POINTS5 INTERPRETATIONPOSITIVE DID YOU HAVE A DRINK CONTAINING ALCOHOL IN THE PAST YEAR?YES HOW OFTEN DID YOU HAVE A DRINK CONTAINING ALCOHOL IN THE PAST YEAR?TWO TO FOUR TIMES A MONTH (2 POINTS) HOW MANY DRINKS DID YOU HAVE ON A TYPICAL DAY WHEN YOU WERE DRINKING IN THE PAST YEAR?7 TO 9 (3 POINTS) HOW OFTEN DID YOU HAVE SIX OR MORE DRINKS ON ONE OCCASION IN THE PAST YEAR?NEVER (0 POINTS) POINTS5 INTERPRETATIONPOSITIVE RECREATIONAL DRUG USE DRUG USE?NO DRUG USE?NO CAFFEINE CAFFEINE USE? 1 SODA CAFFEINE USE? 1 SODA SEXUAL HX HAD SEX IN THE LAST 12 MONTHS (VAGINAL, ORAL, OR ANAL)?YES WITHMEN ONLY USE PROTECTION?YES HAD SEX IN THE LAST 12 MONTHS (VAGINAL, ORAL, OR ANAL)?YES WITHMEN ONLY USE PROTECTION?YES HIV / HEP-C SCREENING HIV TEST OFFERED TO PATIENT:YES DATE OFFERED:10/09/2016 TEST ACCEPTED:NO REASON:PATIENT DECLINED HEP-C TEST OFFERED TO PATIENT:NO N/A HIV TEST OFFERED TO PATIENT:YES DATE OFFERED:10/09/2016 TEST ACCEPTED:NO REASON:PATIENT DECLINED HEP-C TEST OFFERED TO PATIENT:NO N/A OCCUPATION: UNEMPLOYED, UNEMPLOYED. DIET: REGULAR, REGULAR. MARITAL STATUS: SINGLE, SINGLE. PETS: DOG, DOG. 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 IS GOING TO GET LEFT HIP REPLACEMENT ON January. IS GOING TO GET LEFT HIP REPLACEMENT ON January. IS GOING TO GET LEFT HIP REPLACEMENT ON January. IS GOING TO GET LEFT HIP REPLACEMENT ON January. REVIEW OF SYSTEMS REVIEWED BY: PROVIDER: RABIA CARRERO . CONSTITUTIONAL: ANY CHANGE IN YOUR MEDICAL CONDITION? NO . CHILLS NO . FEVER NO . INFECTION: DO YOU HAVE NEW INFECTIONS? NO . DO YOU HAVE HISTORY OF MRSA? NO . MUSCULOSKELETAL: ANY NEW PATTERNS OF PAIN OR NUMBNESS? NO . GASTROENTEROLOGY: ANY NEW CHANGE IN BOWEL CONTROL? NO . GENITOURINARY: ANY NEW CHANGE IN BLADDER CONTROL? NO . IS THERE A CHANCE YOU COULD BE ? NO . HEMATOLOGY/LYMPH: DO YOU TAKE ANY BLOOD THINNERS? (FOR EXAMPLE- COUMADIN, PLAVIX, AGGRENOX, PLATEL, PRADAXA, OR XARELTO) NO . WHEN WAS YOUR LAST DOSE? DATE: TIME: . NEUROLOGY: HAVE YOU FALLEN IN THE PAST 6 MONTHS? NO . ANY NEW EXTREMITY NUMBNESS OR WEAKNESS? NO . CARDIOLOGY: DO YOU HAVE A PACEMAKER OR DEFIBRILLATOR? NO . RESPIRATORY: HAVE YOU BEEN SICK IN THE PAST WEEK? NO . FEVER NO . FLU LIKE SYMPTOMS? NO . COUGH NO . INTEGUMENTARY: DO YOU HAVE ANY RASHES OR OPEN SORES? NO . ALLERGIC/IMMUNO: ARE YOU ALLERGIC TO SHELLFISH OR IV DYE? NO . ANY NEW ALLERGIES? NO . PSYCHIATRIC: DO YOU HAVE THOUGHTS OF HURTING YOURSELF OR SOMEONE ELSE? NO . ARE YOU ABUSED, NEGLECTED, OR IN AN UNSAFE ENVIRONMENT? NO . ENDOCRINOLOGY: ARE YOU DIABETIC? NO . OTHER: DO YOU NEED ANY PRESCRIPTIONS? NO . IF YES, PLEASE LIST: ____ . ANY NEW PROBLEMS WITH YOUR MEDICATIONS? NO . WHEN DID YOU LAST EAT? ____ . WHEN DID YOU LAST DRINK? ____ . WHAT DID YOU LAST DRINK? ____ . NAME OF PERSON DRIVING YOU HOME? ____ . DO YOU HAVE ANY OTHER QUESTIONS OR CONCERNS NO . VITAL SIGNS WT 255 LBS, HT 68 IN, BMI 38.77 INDEX, BP 132/78 MM HG, HR 75 /MIN, RR 16 /MIN, TEMP 98.1 F, OXYGEN SAT % 965, NA INITIALS SC 08:57, REVIEWED BY: CS. EXAMINATION GENERAL EXAMINATION: GENERAL APPEARANCE:UNCOMFORTABLE. LUNGS:LUNG HANNAH ARE CLEAR TO AUSCULTATION BILATERALLY. GOOD MOVEMENT OF AIR. HEART:S1, S2 IN A REGULAR RATE AND RHYTHM. NO SIGNIFICANT MURMURS, RUBS OR GALLOPS NOTED. LUMBAR SPINE/LOWER BACK: PALPATION:VERTEBRAL SPINE TENDERNESS, PARASPINAL TENDERNESS.SPECIFIC POINT TENDERNESS OVER LEFT SIJ. MOTOR SYSTEM:5/5 RIGHT-3/5LEFT. SENSORY EXAM:PARATHESIAS NOTED OVER LEFT LEG. CERVICAL SPINE/NECK: TRAPEZIUS TENDERNESS:PRESENT BILATERALLY. MYOFASCIAL TRIGGER POINTS:BILAT. TRAPEZIUS. ASSESSMENTS SACROILIAC INFLAMMATION - M46.1 (PRIMARY) MYOFASCIAL PAIN - M79.1 CERVICALGIA - M54.2 CHRONIC PRESCRIPTION OPIATE USE - Z79.891 TREATMENT SACROILIAC INFLAMMATION NOTES: LEFT SIJ/TPI NECK. PREVENTIVE MEDICINE PAIN CLINIC TEACHING: PROCEDURE TEACHING PRE-PROCEDURE TEACHING DONE AND PATIENT VERBALIZES UNDERSTANDING.. PROCEDURE CODES FA211 ESTABILISHED PATIENT [facility] CHARGE DISPOSITION & COMMUNICATION FOLLOW UP 2WK POST (REASON: LEFT SIJ/TPI NECK) ELECTRONICALLY SIGNED BY MAGAN ESCALANTE ON 06/20/2017 AT 10:12 AM EDT DISCLAIMER : THIS IS A VISIT SUMMARY EXTRACTED FROM THE [employer] CHART. IT IS NOT A COPY OF THE [employer] PROGRESS NOTE. GEGE
== END ==
LOC: M PAIN 08:30
PROVIDERS: ATTEND Nurse Practitioner Family
DX: G89.29 Other chronic pain (principal); M46.1 Sacroiliitis, not elsewhere classified; M79.1 Myalgia; M54.2 Cervicalgia; J45.20 Mild intermittent asthma, uncomplicated; E78.2 Mixed hyperlipidemia; E55.9 Vitamin D deficiency, unspecified; M16.0 Bilateral primary osteoarthritis of hip; Z91.040 Latex allergy status; Z88.6 Allergy status to analgesic agent; Z88.8 Allergy status to other drugs, medicaments and biological substances; Z79.51 Long term (current) use of inhaled steroids; Z88.1 Allergy status to other antibiotic agents; Z79.899 Other long term (current) drug therapy; Z87.891 Personal history of nicotine dependence

== ENCOUNTER 2017-06-21 14:08 | Emergency (ER) | payer OTHER ==
[~2017-06-21] VITALS: Ht 172.7 cm; Wt 113.6 kg
--- NOTE | 2017-06-21 13:46 | REP ---
Single PA view of the chest: Comparison is 09/27/2016. The lung ballard are clear. The cardiac size is normal The jazlyn, mediastinum, and bony thorax are unremarkable. Impression: Negative PA chest. Signed by Max Mckeon MD 06/21/2017 01:37 P
[~2017-06-21 14:08] MED LIST changes: -BUPIVACAINE HCL 0.25% 30 ML VIAL As Ordered ONE; -ISOVUE-M 300 61% 15ML VIAL (Q9967) As Ordered ONE; -LIDOCAINE 1% SDV INJ 30 ML VIAL As Ordered ONE; -TRIAMCINOLONE ACETONIDE SUSP 40 MG/ML VIAL (J3301) As Ordered ONE; -diazePAM 5 MG TAB As Ordered ONE; -oxyCODONE 5MG TAB As Ordered ONE
[2017-06-21 14:57] LABS: BASO % 0.3 % (0.0-1.0); EOS % 0.9 % (0.0-3.0); LARGE UNSTAINED CELL % 1.3 % (0.0-4.0); LYMPH % 22.4 % (24.0-44.0); MEAN CORPUSCULAR HEMOGLOBIN 31.1 pg (27.0-33.0); MEAN CORPUSCULAR HGB CONC 34.1 g/dl (32.0-36.5); MONO % 4.6 % (0.0-5.0); NEUTROPHILS % 70.4 % (36.0-66.0); PLATELET COUNT, AUTOMATED 199 k/mm3 (150-450); WHITE BLOOD COUNT 6.8 K/mm3 (4.0-10.0)
[2017-06-21 14:58] LABS: ADD MANUAL DIFFER NO; ADD MORPHOLOGY? NO; DIFF SLIDE NUMBER 258; EOS # 0.1 K/mm3 (0.0-0.50); INR 0.98; LARGE UNSTAINED CELL # 0.1 K/mm3 (0.0-0.4); LYMPH # 1.5 K/mm3 (1.5-4.5); MONO # 0.3 K/mm3 (0.0-0.8); NEUTROPHILS # 4.8 K/mm3 (1.8-7.7)
[2017-06-21 14:59] LABS: ANION GAP 7 MEQ/L (8-16); BLOOD UREA NITROGEN 12 MG/DL (7-18); CALCIUM LEVEL 9.3 MG/DL (8.5-10.1); CARBON DIOXIDE LEVEL 30 MEQ/L (21-32); CHLORIDE LEVEL 106 MEQ/L (98-107); CREATININE FOR GFR 0.74 MG/DL (0.55-1.02); GLOMERULAR FILTRATION RATE > 60.0 (>51); GLUCOSE, FASTING 87 MG/DL (70-105); POTASSIUM SERUM 3.9 MEQ/L (3.5-5.1); SODIUM LEVEL 143 MEQ/L (136-145)
[2017-06-21 15:00] LABS: MAGNESIUM LEVEL 1.9 MG/DL (1.8-2.4)
[2017-06-21 16:00] VITALS: BP 125/62
--- NOTE | 2017-06-21 16:12 | REP ---
Head CT without contrast: History: Syncopal episode. Comparison study: No comparison study. CT findings: Bone window settings demonstrate an intact bony calvarium. There is no evidence of skull fracture or incidental bony calvarial lesion. The visualized paranasal sinuses appear clear. No intraorbital abnormality is seen. On soft tissue window setting images; the lateral, third, and fourth ventricles are normal in size and position. Kilgore-white differentiation pattern is normal above and below the tentorium. There are is no evidence of intracranial hemorrhage. No mass, edema, infarction, or midline shift is seen. No extra-axial fluid collection is appreciated. Impression: Negative noncontrast head CT. Signed by Melchor Rolon MD 06/21/2017 03:50 P
== END 2017-06-21 16:00 | disposition home or self-care (01) ==
LOC: M ED 14:08
DX: I49.3 Ventricular premature depolarization (principal); R55 Syncope and collapse

== ENCOUNTER → 2017-06-21 | Outpatient (CLI) | payer OTHER ==
[~2017-06-21] MED LIST changes: +BUPIVACAINE HCL 0.25% 30 ML VIAL As Ordered ONE; +ISOVUE-M 300 61% 15ML VIAL (Q9967) As Ordered ONE; +LIDOCAINE 1% SDV INJ 30 ML VIAL As Ordered ONE; +TRIAMCINOLONE ACETONIDE SUSP 40 MG/ML VIAL (J3301) As Ordered ONE; +diazePAM 5 MG TAB As Ordered ONE; +oxyCODONE 5MG TAB As Ordered ONE
--- NOTE | 2017-06-21 17:02 | REP ---
Left SI joint series: Two views. History: Left SI joint injection for pain. 16 seconds of fluoroscopy time is reported. Findings: A sequence of two last image hold fluoroscopic spot radiographs of the left SI joint document needle position for injection procedure. Signed by Melchor Rolon MD 06/21/2017 06:03 P
--- NOTE | 2017-06-21 23:31 | ECWPNPC ---
PATIENT NAME: AKBAR MOODY : 1965 GENDER: FEMALE VISIT DATE: 06/21/2017 DISCHARGE DATE: 06/21/17 0000 VISIT LOCKED DATE TIME: PHYSICIAN: HAIDER COSTELLO RESOURCE: HAIDER COSTELLO REASON FOR APPOINTMENT 1. LEFT SIJ HISTORY OF PRESENT ILLNESS HISTORY OF PRESENT ILLNESS: PAIN THE PATIENT DESCRIBES THE PAIN... FALL RISK SCREENING: SCREENING :NO FALLS IN THE PAST YEAR CURRENT MEDICATIONS TAKING TIZANIDINE HCL 4 MG TABLET 1 TABLET NEEDED ORALLY THREE TIMES A DAY, NOTES: 06-21-17699 TAKING CYANOCOBALAMIN 1000 MCG/ML SOLUTION 1 ML INJECTION Q 2 WEEKS, NOTES: 3 DAYS AGO TAKING LIPITOR 10 MG TABLET 1 TABLET ORALLY ONCE A DAY, NOTES: 06-21-17699 TAKING POLYETHYLENE GLYCOL 3350 - POWDER 17G IN 8 OZ OF WATER ORALLY 1-2 TIMES DAILY NEEDED, NOTES: NONE RECENT TAKING BENAZEPRIL HCL 5 MG TABLET 1 TAB ORALLY DAILY, NOTES: 06-21-17699 TAKING BREO ELLIPTA 100 MCG/25 MCG INHALATION POWDER ONE INHALATION ORALLY ONCE DAILY, NOTES: 06-20-172099 TAKING NEBULIZER/TUBING/MOUTHPIECE _ KIT DIRECTED DX:493 DIRECTED TAKING ALBUTEROL SULFATE (2.5 MG/3ML) 0.083% NEBULIZATION SOLUTION 3 ML INHALATION THREE TIMES A DAY NEEDED, NOTES: WEEK AGO TAKING BENADRYL 25 MG CAPSULE 1 CAPSULE NEEDED ORALLY EVERY 6 HRS/ NEEDED FOR HIVES, NOTES: NONE TAKING ALEVE 220 MG TABLET 1 TABLET NEEDED ORALLY EVERY 12 HRS, NOTES: 06-21-17699 TAKING GABAPENTIN 600 MG TABLET 1 CAPSULE ORALLY BID, NOTES: 06-21-17699 TAKING OMEPRAZOLE 40 MG CAPSULE DELAYED RELEASE 1 CAPSULE ORALLY BID, NOTES: 06-21-17699 TAKING VENTOLIN HFA 108 (90 BASE) MCG/ACT AEROSOL SOLUTION 2 PUFFS NEEDED INHALATION EVERY 4 HRS, NOTES: 3 DAYS AGO TAKING SINGULAIR 10 MG TABLET 1 TABLET IN THE EVENING ORALLY ONCE A DAY, NOTES: 06-20-172099 TAKING LORATADINE 10 MG TABLET 1 TABLET ORALLY ONCE A DAY, NOTES: 06-21-17699 TAKING HYDROCODONE-ACETAMINOPHEN 5-325 MG TABLET 1-2 ORALLY 1-2 TAB Q4-6HR PRN MDD6, NOTES: 06-20-172099 TAKING FLONASE 50 MCG/ACT SUSPENSION 2 SPRAYS IN EACH NOSTRIL NASALLY ONCE A DAY, NOTES: 06-20-172099 NOT-TAKING VITAMIN D-3 1000 UNIT CAPSULE 1 CAPSULE---ERROR ON EARLIER REFILL OF DRISOL ORALLY ONCE A DAY NOT-TAKING VITAMIN D 2000 UNIT CAPSULE 1 CAPSULE ORALLY ONCE DAILY NOT-TAKING VITAMIN B-12 2500 MCG TABLET SUBLINGUAL 1 ML SUBLINGUAL ONCE DAILY NOT-TAKING TIZANIDINE HCL 4 MG TABLET 1 TABLET NEEDED ORALLY THREE TIMES A DAY NOT-TAKING CYCLOBENZAPRINE HCL 10 MG TABLET 1 TABLET ORALLY THREE TIMES A DAY DISCONTINUED BREO ELLIPTA 100-25 MCG/INH AEROSOL POWDER BREATH ACTIVATED INHALE ONE PUFF BY MOUTH EVERY DAY MEDICATION LIST REVIEWED AND RECONCILED WITH THE PATIENT PAST MEDICAL HISTORY ASTHMA, MILD INTERMITTENT OSTEOARTHRITIS - DDD - FOLLOWS WITH [facility] ENVIRONMENTAL ALLERGIES HYPERLIPIDEMIA VIT D DEF OBESITY B HIP OA S/P COLONOSCOPY NEG. 01/07/2016-DR. CHAPMAN F/U 10YR.S ALLERGIES LATEX (FOR ALLERGY USE ONLY): HIVES: ALLERGY KEFLEX: ANAPHYLAXIS: ALLERGY NSAIDS: KIDNEY ISSUES: CONTRAINDICATION ENVIRONMENTAL: COUGH: ALLERGY SOCIAL HISTORY GENERAL: TOBACCO USE ARE YOU A:FORMER SMOKER HOW LONG HAS IT BEEN SINCE YOU LAST SMOKED?5-10 YEARS BMI CARE GOAL FOLLOW-UP ABOVE NORMAL BMI FOLLOW-UPGIVING ENCOURAGEMENT TO EXERCISE ALCOHOL SCREENING DID YOU HAVE A DRINK CONTAINING ALCOHOL IN THE PAST YEAR?YES HOW OFTEN DID YOU HAVE A DRINK CONTAINING ALCOHOL IN THE PAST YEAR?TWO TO FOUR TIMES A MONTH (2 POINTS) HOW MANY DRINKS DID YOU HAVE ON A TYPICAL DAY WHEN YOU WERE DRINKING IN THE PAST YEAR?7 TO 9 (3 POINTS) HOW OFTEN DID YOU HAVE SIX OR MORE DRINKS ON ONE OCCASION IN THE PAST YEAR?NEVER (0 POINTS) POINTS5 INTERPRETATIONPOSITIVE RECREATIONAL DRUG USE DRUG USE?NO CAFFEINE CAFFEINE USE? 1 SODA SEXUAL HX HAD SEX IN THE LAST 12 MONTHS (VAGINAL, ORAL, OR ANAL)?YES WITHMEN ONLY USE PROTECTION?YES HIV / HEP-C SCREENING HIV TEST OFFERED TO PATIENT:YES DATE OFFERED:10/09/2016 TEST ACCEPTED:NO REASON:PATIENT DECLINED HEP-C TEST OFFERED TO PATIENT:NO N/A OCCUPATION: UNEMPLOYED, UNEMPLOYED. DIET: REGULAR, REGULAR. MARITAL STATUS: SINGLE, SINGLE. PETS: DOG, DOG. 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 0, TODAY'S VISIT NOTES, FROM 0-10, WHAT LEVEL IS YOUR PAIN TODAY? 0, TODAY'S VISIT NOTES, FROM 0-10, WHAT LEVEL IS YOUR PAIN TODAY? 0, TODAY'S VISIT NOTES, FROM 0-10, WHAT LEVEL IS YOUR PAIN TODAY? 0. PAIN CLINIC PFS, CLERGY, PUBLIC HEALTH REFERRALS PFS REFERRAL NEEDED?NO CLERGY REFERRAL NEEDED?NO PUBLIC HEALTH REFERRAL NEEDED?NO WAS THE PROVIDER NOTIFIED OF ANY PERTINENT INFO?NO HAS THE PATIENT BEEN EDUCATED REGARDING HIS/HER PLAN OF CARE?YES HAS THE PATIENT BEEN EDUCATED REGARDING PAIN, THE RISK FOR PAIN, THE IMPORTANCE OF EFFECTIVE PAIN MANAGEMENT, AND THE PAIN ASSESSMENT PROCESS?YES REVIEWED BY: DS. IS GOING TO GET LEFT HIP REPLACEMENT ON January. IS GOING TO GET LEFT HIP REPLACEMENT ON January. IS GOING TO GET LEFT HIP REPLACEMENT ON January. IS GOING TO GET LEFT HIP REPLACEMENT ON January. REVIEW OF SYSTEMS REVIEWED BY: PROVIDER: . CONSTITUTIONAL: ANY CHANGE IN YOUR MEDICAL CONDITION? NO . CHILLS NO . FEVER NO . INFECTION: DO YOU HAVE NEW INFECTIONS? NO . DO YOU HAVE HISTORY OF MRSA? NO . MUSCULOSKELETAL: ANY NEW PATTERNS OF PAIN OR NUMBNESS? NO . GASTROENTEROLOGY: ANY NEW CHANGE IN BOWEL CONTROL? NO . GENITOURINARY: ANY NEW CHANGE IN BLADDER CONTROL? NO . IS THERE A CHANCE YOU COULD BE ? NO . HEMATOLOGY/LYMPH: DO YOU TAKE ANY BLOOD THINNERS? (FOR EXAMPLE- COUMADIN, PLAVIX, AGGRENOX, PLATEL, PRADAXA, OR XARELTO) NO . WHEN WAS YOUR LAST DOSE? DATE: TIME: . NEUROLOGY: HAVE YOU FALLEN IN THE PAST 6 MONTHS? NO . ANY NEW EXTREMITY NUMBNESS OR WEAKNESS? NO . CARDIOLOGY: DO YOU HAVE A PACEMAKER OR DEFIBRILLATOR? NO . RESPIRATORY: HAVE YOU BEEN SICK IN THE PAST WEEK? NO . FEVER NO . FLU LIKE SYMPTOMS? NO . COUGH NO . INTEGUMENTARY: DO YOU HAVE ANY RASHES OR OPEN SORES? NO . ALLERGIC/IMMUNO: ARE YOU ALLERGIC TO SHELLFISH OR IV DYE? NO . ANY NEW ALLERGIES? NO . PSYCHIATRIC: DO YOU HAVE THOUGHTS OF HURTING YOURSELF OR SOMEONE ELSE? NO . ARE YOU ABUSED, NEGLECTED, OR IN AN UNSAFE ENVIRONMENT? NO . ENDOCRINOLOGY: ARE YOU DIABETIC? NO . OTHER: DO YOU NEED ANY PRESCRIPTIONS? NO . IF YES, PLEASE LIST: ____ . ANY NEW PROBLEMS WITH YOUR MEDICATIONS? NO . WHEN DID YOU LAST EAT? 06-20-17 7:30 PM . WHEN DID YOU LAST DRINK? 06-20-17 0630 . WHAT DID YOU LAST DRINK? WATER . NAME OF PERSON DRIVING YOU HOME? MARTI YOUSAMANTHA . DO YOU HAVE ANY OTHER QUESTIONS OR CONCERNS NO . VITAL SIGNS WT 255 LBS, HT 68 IN, BMI 38.77 INDEX, BP 117/68 MM HG, HR 62 /MIN, RR 16 /MIN, TEMP 97.2 F, OXYGEN SAT % 99%, NA INITIALS AW 0915. ASSESSMENTS SACROILIITIS, NOT ELSEWHERE CLASSIFIED - M46.1 (PRIMARY) PROCEDURES PN SI PRE PROCEDURE DIAGNOSIS SACROILIITIS, SACROILIAC JOINT DYSFUNCTION POST PROCEDURE DIAGNOSIS SACROILIITIS, SACROILIAC JOINT DYSFUNCTION PROCEDURE LEFT SACROILIAC JOINT BLOCK SURGEON DR. 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 I EVALUATED THE PATIENT AND REVIEWED THE CHART. I WENT OVER THE RISKS, ALTERNATIVES, AND BENEFITS ASSOCIATED WITH THIS PROCEDURE. THE PATIENT WOULD LIKE TO PROCEED AND GAVE CONSENT TO PERFORM THE PROCEDURE. THE PATIENT DENIES UNEXPLAINABLE WEIGHT LOSS, FEVER, CHILLS, OR NEW CHANGES IN URINARY OR BOWEL CONTROL DESCRIPTION OF PROCEDURE THE PATIENT WAS BROUGHT TO THE PROCEDURE ROOM AND PLACED IN THE PRONE POSITION. THE LUMBOSACRAL AREA WAS CLEANED WITH CHLORAPREP SOLUTION AND DRAPED ASEPTICALLY. THE PROCEDURE WAS DONE UNDER STERILE CONDITIONS. I CHECKED LATERALITY AND THE LEVEL WHERE THE PROCEDURE WAS GOING TO BE PERFORMED WITH THE PATIENT AND THE SUPPORTING STAFF AT THE MOMENT OF THE TIME OUT IN THE PROCEDURE ROOM. UNDER FLUOROSCOPIC GUIDANCE, TARGET POINT WAS SELECTED AT THE LOWER BORDER OF THE LEFT SACROILIAC JOINT. TARGET POINT WAS SELECTED AFTER MEDIAL ROTATION AND TILT OF THE MAGNIFIER OF THE C-ARM. LIDOCAINE WAS USED TO NUMB THE SKIN AND SUBCUTANEOUS TISSUE BELOW IT. A SPINAL NEEDLE, 22-GAUGE, WAS ADVANCED UNDER FLUOROSCOPIC GUIDANCE AND FOLLOWING PATIENT FEEDBACK UNTIL THE TARGET AREA WAS TOUCHED. THE POSITION OF THE NEEDLE WAS VERIFIED WITH AP AND LATERAL VIEWS. AFTER PROPER POSITION OF THE NEEDLE WAS ACHIEVED, ISOVUE M DYE 30%, 0.25 ML, WAS INJECTED SHOWING SPREAD OF THE DYE. THEN, A SOLUTION OF 20 MG OF KENALOG WAS INJECTED IN RIGHT JOINT WITH 3 ML OF BUPIVACAINE 0.125%. THERE WAS NO EVIDENCE OF BLOOD, PARESTHESIA OR CEREBROSPINAL FLUID DURING THE PROCEDURE. THE PATIENT WAS SENT TO THE RECOVERY ROOM. THE PATIENT WAS MOVING THE EXTREMITIES AND DOING WELL. PATIENT DEVELOPED PVC'S DURING PROCEDURE. PATIENT WAS SENT TO ED FOR FURTHER OBSERVATION. FLUOROSCOPY TIME WAS 16 SECONDS POST PROCEDURE NOTE THE PATIENT WILL BE SEEN IN A FOLLOW UP IN THE NEXT FEW WEEKS. INSTRUCTIONS WERE GIVEN, QUESTIONS WERE ANSWERED, AND THE PATIENT EXPRESSED UNDERSTANDING AND AGREED WITH THE PLAN. I, PAT BENZ, DOCUMENTED THE ABOVE INFORMATION ACTING A SCRIBE FOR DR. COSTELLO. I HAVE REVIEWED THE ABOVE DOCUMENT, WRITTEN BY PAT MCKEE AND I VERIFY THAT IT IS ACCURATE DIAGNOSTIC IMAG[facility] FLUORO GUIDANCE (PAIN)[id number] PROCEDURE CODES 16065 INJECT SACROILIAC JOINT 6045F RADXPS IN END [id number] PXD DISPOSITION & COMMUNICATION FOLLOW UP 3 WEEKS ELECTRONICALLY SIGNED BY HAIDER COSTELLO MD ON 06/21/2017 AT 05:10 PM EDT DISCLAIMER : THIS IS A VISIT SUMMARY EXTRACTED FROM THE [employer] CHART. IT IS NOT A COPY OF THE [employer] PROGRESS NOTE. MTDD
== END ==
LOC: M PAIN 09:30
PROVIDERS: ATTEND Anesthesiology
DX: G89.29 Other chronic pain (principal); M46.1 Sacroiliitis, not elsewhere classified; M53.88 Other specified dorsopathies, sacral and sacrococcygeal region; I49.3 Ventricular premature depolarization; J45.20 Mild intermittent asthma, uncomplicated; E78.2 Mixed hyperlipidemia; E55.9 Vitamin D deficiency, unspecified; M16.0 Bilateral primary osteoarthritis of hip; Z87.891 Personal history of nicotine dependence; Z91.040 Latex allergy status; Z88.6 Allergy status to analgesic agent; Z88.8 Allergy status to other drugs, medicaments and biological substances; Z79.51 Long term (current) use of inhaled steroids; Z79.891 Long term (current) use of opiate analgesic; Z79.899 Other long term (current) drug therapy
CPT/HCPCS: 27096; J3301; Q9967

== ENCOUNTER → 2017-07-04 | Outpatient (CLI) | payer OTHER ==
[~2017-07-04] MED LIST changes: +BUPIVACAINE HCL 0.25% 10 ML VIAL As Ordered ONE; +BUPIVACAINE HCL 0.25% 30 ML VIAL As Ordered ONE; +TRIAMCINOLONE ACETONIDE SUSP 40 MG/ML VIAL (J3301) As Ordered ONE; +diazePAM 5 MG TAB As Ordered ONE; +oxyCODONE 5MG TAB As Ordered ONE
--- NOTE | 2017-07-13 00:49 | ECWPNPC ---
PATIENT NAME: AKBAR MOODY : 1965 GENDER: FEMALE VISIT DATE: 07/04/2017 DISCHARGE DATE: 07/04/17 1343 VISIT LOCKED DATE TIME: PHYSICIAN: HAIDER COSTELLO RESOURCE: HAIDER COSTELLO REASON FOR APPOINTMENT 1. TPI-NECK HISTORY OF PRESENT ILLNESS HISTORY OF PRESENT ILLNESS: PAIN THE PATIENT DESCRIBES THE PAIN... FALL RISK SCREENING: SCREENING :NO FALLS IN THE PAST YEAR CURRENT MEDICATIONS TAKING VITAMIN D-3 1000 UNIT CAPSULE 1 CAPSULE---ERROR ON EARLIER REFILL OF DRISOL ORALLY ONCE A DAY, NOTES: 07/04/17 08 TAKING TIZANIDINE HCL 4 MG TABLET 1 TABLET NEEDED ORALLY THREE TIMES A DAY, NOTES: 07/04/17899 TAKING CYANOCOBALAMIN 1000 MCG/ML SOLUTION 1 ML INJECTION Q 2 WEEKS, NOTES: 06/16/17 TAKING LIPITOR 10 MG TABLET 1 TABLET ORALLY ONCE A DAY, NOTES: 07/04/17899 TAKING POLYETHYLENE GLYCOL 3350 - POWDER 17G IN 8 OZ OF WATER ORALLY 1-2 TIMES DAILY NEEDED, NOTES: NONE RECENT TAKING BENAZEPRIL HCL 5 MG TABLET 1 TAB ORALLY DAILY, NOTES: 07/04/17899 TAKING BREO ELLIPTA 100 MCG/25 MCG INHALATION POWDER ONE INHALATION ORALLY ONCE DAILY, NOTES: 07/03/172099 TAKING NEBULIZER/TUBING/MOUTHPIECE _ KIT DIRECTED DX:493 DIRECTED TAKING ALBUTEROL SULFATE (2.5 MG/3ML) 0.083% NEBULIZATION SOLUTION 3 ML INHALATION THREE TIMES A DAY NEEDED, NOTES: 06/30/17 TAKING BENADRYL 25 MG CAPSULE 1 CAPSULE NEEDED ORALLY EVERY 6 HRS/ NEEDED FOR HIVES, NOTES: > 2 MONTHS TAKING ALEVE 220 MG TABLET 1 TABLET NEEDED ORALLY EVERY 12 HRS, NOTES: 07/04/17899 TAKING GABAPENTIN 600 MG TABLET 1 CAPSULE ORALLY BID, NOTES: 07/04/17899 TAKING OMEPRAZOLE 40 MG CAPSULE DELAYED RELEASE 1 CAPSULE ORALLY BID, NOTES: 07/04/17899 TAKING VENTOLIN HFA 108 (90 BASE) MCG/ACT AEROSOL SOLUTION 2 PUFFS NEEDED INHALATION EVERY 4 HRS, NOTES: 3 DAYS AGO TAKING SINGULAIR 10 MG TABLET 1 TABLET IN THE EVENING ORALLY ONCE A DAY, NOTES: 07/03/172099 TAKING LORATADINE 10 MG TABLET 1 TABLET ORALLY ONCE A DAY, NOTES: 07/04/17 0900 TAKING HYDROCODONE-ACETAMINOPHEN 5-325 MG TABLET 1-2 ORALLY 1-2 TAB Q4-6HR PRN MDD6, NOTES: 07/03/17 2100 TAKING FLONASE 50 MCG/ACT SUSPENSION 2 SPRAYS IN EACH NOSTRIL NASALLY ONCE A DAY, NOTES: 07/03/17 09 TAKING ROPINIROLE HCL 0.5 MG TABLET TAKE ONE TABLET BY MOUTH THREE TIMES A DAY ORAL , NOTES: 07/04/17899 NOT-TAKING TIZANIDINE HCL 4 MG TABLET 1 TABLET NEEDED ORALLY THREE TIMES A DAY, NOTES: 07/04/17 09 NOT-TAKING CYCLOBENZAPRINE HCL 10 MG TABLET 1 TABLET ORALLY THREE TIMES A DAY NOT-TAKING VITAMIN D 2000 UNIT CAPSULE 1 CAPSULE ORALLY ONCE DAILY NOT-TAKING VITAMIN B-12 2500 MCG TABLET SUBLINGUAL 1 ML SUBLINGUAL ONCE DAILY NOT-TAKING AUGMENTIN 875-125 MG TABLET 1 TABLET ORALLY EVERY 12 HRS, NOTES: HAS NOT STARTED MEDICATION LIST REVIEWED AND RECONCILED WITH THE PATIENT PAST MEDICAL HISTORY ASTHMA, MILD INTERMITTENT OSTEOARTHRITIS - DDD - FOLLOWS WITH [facility]COG ENVIRONMENTAL ALLERGIES HYPERLIPIDEMIA VIT D DEF OBESITY B HIP OA S/P COLONOSCOPY NEG. 01/07/2016-DR. CHAPMAN F/U 10YR.S ALLERGIES LATEX (FOR ALLERGY USE ONLY): HIVES: ALLERGY KEFLEX: ANAPHYLAXIS: ALLERGY NSAIDS: KIDNEY ISSUES: CONTRAINDICATION ENVIRONMENTAL: COUGH: ALLERGY REVIEW OF SYSTEMS REVIEWED BY: PROVIDER: . CONSTITUTIONAL: ANY CHANGE IN YOUR MEDICAL CONDITION? NO . CHILLS NO . FEVER NO . INFECTION: DO YOU HAVE NEW INFECTIONS? NO . DO YOU HAVE HISTORY OF MRSA? NO . MUSCULOSKELETAL: ANY NEW PATTERNS OF PAIN OR NUMBNESS? NO . GASTROENTEROLOGY: ANY NEW CHANGE IN BOWEL CONTROL? NO . GENITOURINARY: ANY NEW CHANGE IN BLADDER CONTROL? NO . IS THERE A CHANCE YOU COULD BE ? NO . HEMATOLOGY/LYMPH: DO YOU TAKE ANY BLOOD THINNERS? (FOR EXAMPLE- COUMADIN, PLAVIX, AGGRENOX, PLATEL, PRADAXA, OR XARELTO) NO . WHEN WAS YOUR LAST DOSE? DATE: TIME: . NEUROLOGY: HAVE YOU FALLEN IN THE PAST 6 MONTHS? NO . ANY NEW EXTREMITY NUMBNESS OR WEAKNESS? NO . CARDIOLOGY: DO YOU HAVE A PACEMAKER OR DEFIBRILLATOR? NO . RESPIRATORY: HAVE YOU BEEN SICK IN THE PAST WEEK? NO . FEVER NO . FLU LIKE SYMPTOMS? NO . COUGH NO . INTEGUMENTARY: DO YOU HAVE ANY RASHES OR OPEN SORES? NO . ALLERGIC/IMMUNO: ARE YOU ALLERGIC TO SHELLFISH OR IV DYE? NO . ANY NEW ALLERGIES? NO . PSYCHIATRIC: DO YOU HAVE THOUGHTS OF HURTING YOURSELF OR SOMEONE ELSE? NO . ARE YOU ABUSED, NEGLECTED, OR IN AN UNSAFE ENVIRONMENT? NO . ENDOCRINOLOGY: ARE YOU DIABETIC? NO . OTHER: DO YOU NEED ANY PRESCRIPTIONS? NO . IF YES, PLEASE LIST: ____ . ANY NEW PROBLEMS WITH YOUR MEDICATIONS? NO . WHEN DID YOU LAST EAT? ____ . WHEN DID YOU LAST DRINK? ____ . WHAT DID YOU LAST DRINK? ____ . NAME OF PERSON DRIVING YOU HOME? ____ . DO YOU HAVE ANY OTHER QUESTIONS OR CONCERNS NO . VITAL SIGNS WT 266 LBS, HT 68 IN, BMI 40.44 INDEX, BP 123/78 MM HG, HR 77 /MIN, RR 18 /MIN, TEMP 98.5 F, OXYGEN SAT % 97, REVIEWED BY: NL. ASSESSMENTS MYALGIA - M79.1 (PRIMARY) PROCEDURES PN TRIGGER POINT INJECTION WITH STEROIDS PRE PROCEDURE DIAGNOSIS 1. MYALGIA 2. PAIN AT BILATERAL NECK AREA, BILATERAL SHOULDER AREA, AND BILATERAL THORACIC AREA POST PROCEDURE DIAGNOSIS 1. MYALGIA 2. PAIN AT BILATERAL NECK AREA, BILATERAL SHOULDER AREA, AND BILATERAL THORACIC AREA PROCEDURE TRIGGER POINT INJECTION AT BILATERAL NECK AREA, BILATERAL SHOULDER AREA, AND BILATERAL THORACIC AREA SURGEON DR. 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 I EVALUATE THE PATIENT AND REVIEWED THE CHART. THERE IS EVIDENCE OF BANDS OF TISSUE WITH RESTRICTION OF MOVEMENT AND PRESENCE OF TRIGGER POINT AT THE AFFECTED AREA. I WENT OVER THE RISKS, ALTERNATIVES, AND BENEFITS ASSOCIATED WITH THIS PROCEDURE. THE PATIENT WOULD LIKE TO PROCEED AND GIVE CONSENT TO PERFORMED THE PROCEDURE. THE PATIENT DENIES UNEXPLAINABLE WEIGHT LOSS, FEVER, CHILLS, OR NEW CHANGES IN URINARY OR BOWEL CONTROL DESCRIPTION OF PROCEDURE THE PATIENT WAS BROUGHT TO THE PROCEDURE ROOM AND PLACED IN THE SITTING POSITION. THE AREA WAS CLEANED WITH ALCOHOL. THE PROCEDURE WAS DONE USING ASEPTIC STERILE TECHNIQUE. I CHECKED LATERALITY AND THE LEVEL WHERE THE PROCEDURE WAS GOING TO BE PERFORMED WITH THE PATIENT AND THE SUPPORTING STAFF AT THE MOMENT OF THE TIME OUT IN THE PROCEDURE ROOM. USING A 25-GAUGE NEEDLE, TRIGGER POINTS WERE INJECTED AT THE RIGHT AND LEFT NECK AREA, RIGHT AND LEFT SHOULDER AREA, AND RIGHT AND LEFT THORACIC AREA WITH A TOTAL OF 40 ML OF BUPIVACAINE 0.25% AND KENALOG 40 MG. THERE WAS NO EVIDENCE OF BLOOD, PARESTHESIA OR CEREBROSPINAL FLUID DURING THE PROCEDURE. THE PATIENT WAS SENT TO THE RECOVERY ROOM. THE PATIENT WAS MOVING THE EXTREMITIES AND DOING WELL. THERE WAS NO COMPLICATION DURING THE PROCEDURE POST PROCEDURE NOTE THE PATIENT WILL BE SEEN IN A FOLLOW UP IN THE NEXT FEW WEEKS. INSTRUCTIONS WERE GIVEN, QUESTIONS WERE ANSWERED, AND THE PATIENT EXPRESSED UNDERSTANDING AND AGREES WITH THE PLAN. I, PAT BENZ, DOCUMENTED THE ABOVE INFORMATION ACTING A SCRIBE FOR DR. COSTELLO. I, DR. COSTELLO, HAVE REVIEWED THE ABOVE DOCUMENT, SCRIBED BY PAT BENZ, AND I VERIFY THAT IT IS ACCURATE PROCEDURE CODES 76886 INJECT TRIGGER POINTS 3/> DISPOSITION & COMMUNICATION FOLLOW UP 3 WEEKS ELECTRONICALLY SIGNED BY HAIDER COSTELLO MD ON 07/12/2017 AT 12:52 PM EDT DISCLAIMER : THIS IS A VISIT SUMMARY EXTRACTED FROM THE [facility] CHART. IT IS NOT A COPY OF THE [facility] PROGRESS NOTE. GEGE
== END ==
LOC: M PAIN 11:45
PROVIDERS: ATTEND Anesthesiology
DX: G89.29 Other chronic pain (principal); M79.1 Myalgia; Z79.891 Long term (current) use of opiate analgesic; Z79.899 Other long term (current) drug therapy; Z91.040 Latex allergy status; J30.9 Allergic rhinitis, unspecified; Z88.8 Allergy status to other drugs, medicaments and biological substances
CPT/HCPCS: 20553; J3301

== ENCOUNTER → 2017-07-23 | Outpatient (CLI) | payer OTHER ==
[~2017-07-23] MED LIST changes: -BUPIVACAINE HCL 0.25% 10 ML VIAL As Ordered ONE; -BUPIVACAINE HCL 0.25% 30 ML VIAL As Ordered ONE; -TRIAMCINOLONE ACETONIDE SUSP 40 MG/ML VIAL (J3301) As Ordered ONE; -diazePAM 5 MG TAB As Ordered ONE; -oxyCODONE 5MG TAB As Ordered ONE
--- NOTE | 2017-08-16 01:47 | ECWPNPC ---
PATIENT NAME: AKBAR MOODY : 1965 GENDER: FEMALE VISIT DATE: 07/23/2017 DISCHARGE DATE: 07/23/17 1102 VISIT LOCKED DATE TIME: PHYSICIAN: RABIA WATTERS RESOURCE: RABIA WATTERS REASON FOR APPOINTMENT 1. POST PROCEDURE HISTORY OF PRESENT ILLNESS GENERAL: HERE FOR POST PROCEDURE F/U.HAD TPI ,SHOULDERS AND THORACIC AREA WITH STEROIDS ON 07-04-17.REPORTS SIGNIFICANT REDUCTION OF PAIN POST PROCEDURE FOR ONE MONTH THEN PAIN HAS RETURNED.REPORTING SEVERE INCREASE IN PAIN IN LEFT LOW BACK AND LEFT ANTERIOR THIGH.RATING PAIN VAS 8/10 HISTORY OF LEFT HIP REPLACEMENT IN JANUARY 2016.DESCRIBES PAIN CONSTANT THROBBING.CURRENTLY TAKING GABAPENTIN 300MG BID , TIZANIDINE 4MG BID TO TID PRN AND HYDROCODONE 5/325 UP TO 6 TAB PER DAY.DR. LEVI IS PRESCRIBING THE GABAPENTIN AND TIZANIDINE. HISTORY OF PRESENT ILLNESS: PAIN THE PATIENT DESCRIBES THE PAIN... FALL RISK SCREENING: SCREENING :NO FALLS IN THE PAST YEAR CURRENT MEDICATIONS TAKING VITAMIN D-3 1000 UNIT CAPSULE 1 CAPSULE---ERROR ON EARLIER REFILL OF DRISOL ORALLY ONCE A DAY TAKING TIZANIDINE HCL 4 MG TABLET 1 TABLET NEEDED ORALLY THREE TIMES A DAY TAKING CYANOCOBALAMIN 1000 MCG/ML SOLUTION 1 ML INJECTION Q 2 WEEKS TAKING POLYETHYLENE GLYCOL 3350 - POWDER 17G IN 8 OZ OF WATER ORALLY 1-2 TIMES DAILY NEEDED TAKING BENAZEPRIL HCL 5 MG TABLET 1 TAB ORALLY DAILY TAKING BREO ELLIPTA 100 MCG/25 MCG INHALATION POWDER ONE INHALATION ORALLY ONCE DAILY TAKING NEBULIZER/TUBING/MOUTHPIECE _ KIT DIRECTED DX:493 DIRECTED TAKING ALBUTEROL SULFATE (2.5 MG/3ML) 0.083% NEBULIZATION SOLUTION 3 ML INHALATION THREE TIMES A DAY NEEDED TAKING BENADRYL 25 MG CAPSULE 1 CAPSULE NEEDED ORALLY EVERY 6 HRS/ NEEDED FOR HIVES TAKING ALEVE 220 MG TABLET 1 TABLET NEEDED ORALLY EVERY 12 HRS TAKING GABAPENTIN 600 MG TABLET 1 CAPSULE ORALLY BID TAKING VENTOLIN HFA 108 (90 BASE) MCG/ACT AEROSOL SOLUTION 2 PUFFS NEEDED INHALATION EVERY 4 HRS TAKING SINGULAIR 10 MG TABLET 1 TABLET IN THE EVENING ORALLY ONCE A DAY TAKING LORATADINE 10 MG TABLET 1 TABLET ORALLY ONCE A DAY TAKING ROPINIROLE HCL 0.5 MG TABLET TAKE ONE TABLET BY MOUTH THREE TIMES A DAY ORAL TAKING HYDROCODONE-ACETAMINOPHEN 5-325 MG TABLET 1-2 ORALLY 1-2 TAB Q4-6HR PRN MDD6 TAKING OMEPRAZOLE 40 MG CAPSULE DELAYED RELEASE 1 CAPSULE ORALLY BID TAKING LIPITOR 10 MG TABLET 1 TABLET ORALLY ONCE A DAY TAKING FLONASE 50 MCG/ACT SUSPENSION 2 SPRAYS IN EACH NOSTRIL NASALLY ONCE A DAY NOT-TAKING TIZANIDINE HCL 4 MG TABLET 1 TABLET NEEDED ORALLY THREE TIMES A DAY NOT-TAKING CYCLOBENZAPRINE HCL 10 MG TABLET 1 TABLET ORALLY THREE TIMES A DAY NOT-TAKING VITAMIN D 2000 UNIT CAPSULE 1 CAPSULE ORALLY ONCE DAILY NOT-TAKING VITAMIN B-12 2500 MCG TABLET SUBLINGUAL 1 ML SUBLINGUAL ONCE DAILY NOT-TAKING AUGMENTIN 875-125 MG TABLET 1 TABLET ORALLY EVERY 12 HRS, NOTES: HAS NOT STARTED MEDICATION LIST REVIEWED AND RECONCILED WITH THE PATIENT PAST MEDICAL HISTORY ASTHMA, MILD INTERMITTENT OSTEOARTHRITIS - DDD - FOLL[facility] WITH [facility] ALL[facility]GIES HYPERLIPIDEMIA VIT D DEF OBESITY B HIP OA S/P COLONOSCOPY NEG. 01/07/2016-DR. CHAPMAN F/U 10YR.S ALLERGIES LATEX (FOR ALLERGY USE ONLY): HIVES: ALLERGY KEFLEX: ANAPHYLAXIS: ALLERGY NSAIDS: KIDNEY ISSUES: CONTRAINDICATION ENVIRONMENTAL: COUGH: ALLERGY SURGICAL HISTORY MADHAV DUE TO BLEEDING--- 07/2008 ARTHROSCOPIC KNEE SURGERY LEFT X 3 ARTHROSCOPIC KNEE SURGERY RIGHT X 1 CARPAL TUNNEL RELEASE BILATERAL ARTHROSCOPY SHOULDER RIGHT SHOULDER SURGERY LEFT BIOPSY MOLE- BACK LEFT HIP SURGERY 01/2016 CARPAL TUNNEL RELEASE BILATERAL LEFT HIP SURGERY 01/2016 HERNIA REPAIR X 5 ABDOMINAL SURGERY FOR GANGRENOUS INFECTION POST BTL SHOULDER SURGERY LEFT BIOPSY MOLE- BACK LEFT LEG SURGERY- RELEASED NERVES 10/11/16 BIOPSY MOLE- BACK LEFT HIP SURGERY 01/2016 TUBAL LIGATION HERNIA REPAIR X 5 ABDOMINAL SURGERY FOR GANGRENOUS INFECTION POST BTL BELLY BUTTON REMOVED LEFT LEG SURGERY- RELEASED NERVES 10/11/16 HOSPITALIZATION/MAJOR DIAGNOSTIC PROCEDURE SURGERY CHILDBIRTH X 6 REVIEW OF SYSTEMS REVIEWED BY: PROVIDER: RABIA CARRERO . CONSTITUTIONAL: ANY CHANGE IN YOUR MEDICAL CONDITION? NO . CHILLS NO . FEVER NO . INFECTION: DO YOU HAVE NEW INFECTIONS? NO . DO YOU HAVE HISTORY OF MRSA? NO . MUSCULOSKELETAL: ANY NEW PATTERNS OF PAIN OR NUMBNESS? NO . GASTROENTEROLOGY: ANY NEW CHANGE IN BOWEL CONTROL? NO . GENITOURINARY: ANY NEW CHANGE IN BLADDER CONTROL? NO . IS THERE A CHANCE YOU COULD BE ? NO . HEMATOLOGY/LYMPH: DO YOU TAKE ANY BLOOD THINNERS? (FOR EXAMPLE- COUMADIN, PLAVIX, AGGRENOX, PLATEL, PRADAXA, OR XARELTO) NO . WHEN WAS YOUR LAST DOSE? DATE: TIME: . NEUROLOGY: HAVE YOU FALLEN IN THE PAST 6 MONTHS? NO . ANY NEW EXTREMITY NUMBNESS OR WEAKNESS? NO . CARDIOLOGY: DO YOU HAVE A PACEMAKER OR DEFIBRILLATOR? NO . RESPIRATORY: HAVE YOU BEEN SICK IN THE PAST WEEK? NO . FEVER NO . FLU LIKE SYMPTOMS? NO . COUGH NO . INTEGUMENTARY: DO YOU HAVE ANY RASHES OR OPEN SORES? NO . ALLERGIC/IMMUNO: ARE YOU ALLERGIC TO SHELLFISH OR IV DYE? NO . ANY NEW ALLERGIES? NO . PSYCHIATRIC: DO YOU HAVE THOUGHTS OF HURTING YOURSELF OR SOMEONE ELSE? NO . ARE YOU ABUSED, NEGLECTED, OR IN AN UNSAFE ENVIRONMENT? NO . ENDOCRINOLOGY: ARE YOU DIABETIC? NO . OTHER: DO YOU NEED ANY PRESCRIPTIONS? NO . IF YES, PLEASE LIST: ____ . ANY NEW PROBLEMS WITH YOUR MEDICATIONS? NO . WHEN DID YOU LAST EAT? ____ . WHEN DID YOU LAST DRINK? ____ . WHAT DID YOU LAST DRINK? ____ . NAME OF PERSON DRIVING YOU HOME? ____ . DO YOU HAVE ANY OTHER QUESTIONS OR CONCERNS NO . VITAL SIGNS WT 266 LBS, HT 68 IN, BMI 40.44 INDEX, BP 145/86 MM HG, HR 77 /MIN, RR 18 /MIN, TEMP 96.5 F, OXYGEN SAT % 97%, NA INITIALS SC 10:18, REVIEWED BY: NL. EXAMINATION GENERAL EXAMINATION: GENERAL APPEARANCE:UNCOMFORTABLE. LUNGS:LUNG HANNAH ARE CLEAR TO AUSCULTATION BILATERALLY. GOOD MOVEMENT OF AIR. HEART:S1, S2 IN A REGULAR RATE AND RHYTHM. NO SIGNIFICANT MURMURS, RUBS OR GALLOPS NOTED. LUMBAR SPINE/LOWER BACK: PALPATION:VERTEBRAL SPINE TENDERNESS, PARASPINAL TENDERNESS.SPECIFIC POINT TENDERNESS OVER LEFT SIJ. MOTOR SYSTEM:5/5 RIGHT-3/5LEFT. SENSORY EXAM:PARATHESIAS NOTED OVER LEFT LEG. CERVICAL SPINE/NECK: TRAPEZIUS TENDERNESS:PRESENT BILATERALLY. MYOFASCIAL TRIGGER POINTS:BILAT. TRAPEZIUS. ASSESSMENTS SACROILIAC INFLAMMATION - M46.1 (PRIMARY) MYOFASCIAL PAIN - M79.1 CERVICALGIA - M54.2 CHRONIC PRESCRIPTION OPIATE USE - Z79.891 TREATMENT SACROILIAC INFLAMMATION CONTINUE HYDROCODONE-ACETAMINOPHEN TABLET, 5-325 MG, 1-2, ORALLY, 1-2 TAB Q4-6HR PRN MDD6 NOTES: ISTOP REGISTRY REVIEWED [id number] RISKS AND BENEFITS OF NARCOTIC/OPIOD MEDICATIONS WERE REVIEWED WITH PATIENT - THIS INCLUDES BUT IS NOT LIMITED TO RISK OF DEPENDANCE/DEVELOPMENT OF ADDICTION, MOOD DISTURBANCE AND DEPRESSION, OSTEOPOROSIS, HORMONAL AND LABIDAL CHANGES, RESPIRATORY DEPRESSION AND . PATIENT IS ADVISED NOT TO DRIVE WHILE ON THESE MEDICATIONS, AND DEMNOSTRATES COMPLLIANCE. BRINGS IN MEDICATIONS WHICH IS APPROPRIATE FOR WHAT WAS DISPENSED. RECENT URINE TOXICOLOGY REVIEWED. NO UNAUTHORIZED MEDICATIONS. NO ILLICIT SUBSTANCES AND PRESCRIBED MEDICATIONS WERE PRESENT. LEFT SIJ. PROCEDURE CODES FA211 ESTABILISHED PATIENT [facility] FACILITY CHARGE DISPOSITION & COMMUNICATION FOLLOW UP 2WK POST (REASON: LEFT SIJ) ELECTRONICALLY SIGNED BY MAGAN ESCALANTE ON 08/15/2017 AT 05:08 PM EST DISCLAIMER : THIS IS A VISIT SUMMARY EXTRACTED FROM THE [employer] CHART. IT IS NOT A COPY OF THE [employer] PROGRESS NOTE. EGGE
== END ==
LOC: M PAIN 08:30
PROVIDERS: ATTEND Nurse Practitioner Family
DX: M46.1 Sacroiliitis, not elsewhere classified (principal); M79.1 Myalgia; M54.2 Cervicalgia; J45.909 Unspecified asthma, uncomplicated; E78.5 Hyperlipidemia, unspecified; I10 Essential (primary) hypertension; E55.9 Vitamin D deficiency, unspecified; Z79.891 Long term (current) use of opiate analgesic; Z79.899 Other long term (current) drug therapy; Z91.040 Latex allergy status; Z88.8 Allergy status to other drugs, medicaments and biological substances

== ENCOUNTER → 2017-08-13 | Outpatient (CLI) | payer OTHER ==
--- NOTE | 2017-08-14 00:39 | ECWPNPC ---
PATIENT NAME: AKBAR MOODY : 1965 GENDER: FEMALE VISIT DATE: 08/13/2017 DISCHARGE DATE: 08/13/17 0951 VISIT LOCKED DATE TIME: PHYSICIAN: RABIA WATTERS RESOURCE: RABIA WATTERS REASON FOR APPOINTMENT 1. POST SIJ HISTORY OF PRESENT ILLNESS HISTORY OF PRESENT ILLNESS: PAIN THE PATIENT DESCRIBES THE PAIN... FALL RISK SCREENING: SCREENING :NO FALLS IN THE PAST YEAR GENERAL: HERE FOR POST PROCEDURE F/U.HAD LEFT SIJ ON 07-25-17.REPORTS SIGNIFICANT REDUCTION OF PAIN POST PROCEDURE THAT CONTINUES TODAY.RATING PAIN VAS 3/10 .CHIEF AREA OF PAIN IS NECK AND SHOULDERS.CURRENTLY TAKING GABAPENTIN 300MG BID , TIZANIDINE 4MG BID TO TID PRN AND HYDROCODONE 5/325 UP TO 6 TAB PER DAY.DR. LEVI IS PRESCRIBING THE GABAPENTIN AND TIZANIDINE. CURRENT MEDICATIONS TAKING VITAMIN D-3 1000 UNIT CAPSULE 1 CAPSULE---ERROR ON EARLIER REFILL OF DRISOL ORALLY ONCE A DAY TAKING TIZANIDINE HCL 4 MG TABLET 1 TABLET NEEDED ORALLY THREE TIMES A DAY TAKING CYANOCOBALAMIN 1000 MCG/ML SOLUTION 1 ML INJECTION Q 2 WEEKS TAKING POLYETHYLENE GLYCOL 3350 - POWDER 17G IN 8 OZ OF WATER ORALLY 1-2 TIMES DAILY NEEDED TAKING BENAZEPRIL HCL 5 MG TABLET 1 TAB ORALLY DAILY TAKING BREO ELLIPTA 100 MCG/25 MCG INHALATION POWDER ONE INHALATION ORALLY ONCE DAILY TAKING NEBULIZER/TUBING/MOUTHPIECE _ KIT DIRECTED DX:493 DIRECTED TAKING ALBUTEROL SULFATE (2.5 MG/3ML) 0.083% NEBULIZATION SOLUTION 3 ML INHALATION THREE TIMES A DAY NEEDED TAKING BENADRYL 25 MG CAPSULE 1 CAPSULE NEEDED ORALLY EVERY 6 HRS/ NEEDED FOR HIVES TAKING ALEVE 220 MG TABLET 1 TABLET NEEDED ORALLY EVERY 12 HRS TAKING GABAPENTIN 600 MG TABLET 1 CAPSULE ORALLY BID TAKING VENTOLIN HFA 108 (90 BASE) MCG/ACT AEROSOL SOLUTION 2 PUFFS NEEDED INHALATION EVERY 4 HRS TAKING SINGULAIR 10 MG TABLET 1 TABLET IN THE EVENING ORALLY ONCE A DAY TAKING LORATADINE 10 MG TABLET 1 TABLET ORALLY ONCE A DAY TAKING ROPINIROLE HCL 0.5 MG TABLET TAKE ONE TABLET BY MOUTH THREE TIMES A DAY ORAL TAKING OMEPRAZOLE 40 MG CAPSULE DELAYED RELEASE 1 CAPSULE ORALLY BID TAKING LIPITOR 10 MG TABLET 1 TABLET ORALLY ONCE A DAY TAKING FLONASE 50 MCG/ACT SUSPENSION 2 SPRAYS IN EACH NOSTRIL NASALLY ONCE A DAY TAKING HYDROCODONE-ACETAMINOPHEN 5-325 MG TABLET 1-2 ORALLY 1-2 TAB Q4-6HR PRN MDD6 MEDICATION LIST REVIEWED AND RECONCILED WITH THE PATIENT PAST MEDICAL HISTORY ASTHMA, MILD INTERMITTENT OSTEOARTHRITIS - DDD - FOLLOWS WITH [facility] ENVIRONMENTAL ALLERGIES HYPERLIPIDEMIA VIT D DEF OBESITY B HIP OA S/P COLONOSCOPY NEG. 01/07/2016-DR. CHAPMAN F/U 10.S ALLERGIES LATEX (FOR ALLERGY USE ONLY): HIVES: ALLERGY KEFLEX: ANAPHYLAXIS: ALLERGY NSAIDS: KIDNEY ISSUES: CONTRAINDICATION ENVIRONMENTAL: COUGH: ALLERGY SURGICAL HISTORY MADHAV DUE TO BLEEDING--- 07/2008 ARTHROSCOPIC KNEE SURGERY LEFT X 3 ARTHROSCOPIC KNEE SURGERY RIGHT X 1 CARPAL TUNNEL RELEASE BILATERAL ARTHROSCOPY SHOULDER RIGHT SHOULDER SURGERY LEFT BIOPSY MOLE- BACK LEFT HIP SURGERY 01/2016 CARPAL TUNNEL RELEASE BILATERAL LEFT HIP SURGERY 01/2016 HERNIA REPAIR X 5 ABDOMINAL SURGERY FOR GANGRENOUS INFECTION POST BTL SHOULDER SURGERY LEFT BIOPSY MOLE- BACK LEFT LEG SURGERY- RELEASED NERVES 10/11/16 BIOPSY MOLE- BACK LEFT HIP SURGERY 01/2016 TUBAL LIGATION HERNIA REPAIR X 5 ABDOMINAL SURGERY FOR GANGRENOUS INFECTION POST BTL BELLY BUTTON REMOVED LEFT LEG SURGERY- RELEASED NERVES 10/11/16 SOCIAL HISTORY GENERAL: TOBACCO USE ARE YOU A:FORMER SMOKER HOW LONG HAS IT BEEN SINCE YOU LAST SMOKED?5-10 YEARS BMI CARE GOAL FOLLOW-UP ABOVE NORMAL BMI FOLLOW-UPGIVING ENCOURAGEMENT TO EXERCISE ALCOHOL SCREENING DID YOU HAVE A DRINK CONTAINING ALCOHOL IN THE PAST YEAR?YES HOW OFTEN DID YOU HAVE A DRINK CONTAINING ALCOHOL IN THE PAST YEAR?TWO TO FOUR TIMES A MONTH (2 POINTS) HOW MANY DRINKS DID YOU HAVE ON A TYPICAL DAY WHEN YOU WERE DRINKING IN THE PAST YEAR?7 TO 9 (3 POINTS) HOW OFTEN DID YOU HAVE SIX OR MORE DRINKS ON ONE OCCASION IN THE PAST YEAR?NEVER (0 POINTS) POINTS5 INTERPRETATIONPOSITIVE RECREATIONAL DRUG USE DRUG USE?NO CAFFEINE CAFFEINE USE? 1 SODA SEXUAL HX HAD SEX IN THE LAST 12 MONTHS (VAGINAL, ORAL, OR ANAL)?YES WITHMEN ONLY USE PROTECTION?YES HIV / HEP-C SCREENING HIV TEST OFFERED TO PATIENT:YES DATE OFFERED:10/09/2016 TEST ACCEPTED:NO REASON:PATIENT DECLINED HEP-C TEST OFFERED TO PATIENT:NO N/A OCCUPATION: UNEMPLOYED, UNEMPLOYED. DIET: REGULAR, REGULAR. MARITAL STATUS: SINGLE, SINGLE. PETS: DOG, DOG. 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 0, TODAY'S VISIT NOTES, FROM 0-10, WHAT LEVEL IS YOUR PAIN TODAY? 0, TODAY'S VISIT NOTES, FROM 0-10, WHAT LEVEL IS YOUR PAIN TODAY? 0, TODAY'S VISIT NOTES, FROM 0-10, WHAT LEVEL IS YOUR PAIN TODAY? 0. PAIN CLINIC PFS, CLERGY, PUBLIC HEALTH REFERRALS PFS REFERRAL NEEDED?NO CLERGY REFERRAL NEEDED?NO PUBLIC HEALTH REFERRAL NEEDED?NO WAS THE PROVIDER NOTIFIED OF ANY PERTINENT INFO?NO HAS THE PATIENT BEEN EDUCATED REGARDING HIS/HER PLAN OF CARE?YES HAS THE PATIENT BEEN EDUCATED REGARDING PAIN, THE RISK FOR PAIN, THE IMPORTANCE OF EFFECTIVE PAIN MANAGEMENT, AND THE PAIN ASSESSMENT PROCESS?YES REVIEWED BY: 07/25 111 AD. DOMESTIC VIOLENCE DO YOU FEEL SAFE IN YOUR ENVIRONMENT?YES IS GOING TO GET LEFT HIP REPLACEMENT ON January. IS GOING TO GET LEFT HIP REPLACEMENT ON January. IS GOING TO GET LEFT HIP REPLACEMENT ON January. IS GOING TO GET LEFT HIP REPLACEMENT ON January. HOSPITALIZATION/MAJOR DIAGNOSTIC PROCEDURE SURGERY CHILDBIRTH X 6 REVIEW OF SYSTEMS REVIEWED BY: PROVIDER: RABIA CARRERO . CONSTITUTIONAL: ANY CHANGE IN YOUR MEDICAL CONDITION? NO . CHILLS NO . FEVER NO . INFECTION: DO YOU HAVE NEW INFECTIONS? NO . DO YOU HAVE HISTORY OF MRSA? NO . MUSCULOSKELETAL: ANY NEW PATTERNS OF PAIN OR NUMBNESS? NO, PT REPORTS L SIJ DONE 07/25/17, PRE PROCEDURE PAIN WAS 8/10, TODAY PAIN IS 4/10 . GASTROENTEROLOGY: ANY NEW CHANGE IN BOWEL CONTROL? NO . GENITOURINARY: ANY NEW CHANGE IN BLADDER CONTROL? NO . IS THERE A CHANCE YOU COULD BE ? NO . HEMATOLOGY/LYMPH: DO YOU TAKE ANY BLOOD THINNERS? (FOR EXAMPLE- COUMADIN, PLAVIX, AGGRENOX, PLATEL, PRADAXA, OR XARELTO) NO . WHEN WAS YOUR LAST DOSE? DATE: TIME: . NEUROLOGY: HAVE YOU FALLEN IN THE PAST 6 MONTHS? NO . ANY NEW EXTREMITY NUMBNESS OR WEAKNESS? NO . CARDIOLOGY: DO YOU HAVE A PACEMAKER OR DEFIBRILLATOR? NO . RESPIRATORY: HAVE YOU BEEN SICK IN THE PAST WEEK? NO . FEVER NO . FLU LIKE SYMPTOMS? NO . COUGH NO . INTEGUMENTARY: DO YOU HAVE ANY RASHES OR OPEN SORES? NO . ALLERGIC/IMMUNO: ARE YOU ALLERGIC TO SHELLFISH OR IV DYE? NO . ANY NEW ALLERGIES? NO . PSYCHIATRIC: DO YOU HAVE THOUGHTS OF HURTING YOURSELF OR SOMEONE ELSE? NO . ARE YOU ABUSED, NEGLECTED, OR IN AN UNSAFE ENVIRONMENT? NO . ENDOCRINOLOGY: ARE YOU DIABETIC? NO . OTHER: DO YOU NEED ANY PRESCRIPTIONS? NO . IF YES, PLEASE LIST: ____ . ANY NEW PROBLEMS WITH YOUR MEDICATIONS? NO . WHEN DID YOU LAST EAT? ____ . WHEN DID YOU LAST DRINK? ____ . WHAT DID YOU LAST DRINK? ____ . NAME OF PERSON DRIVING YOU HOME? ____ . DO YOU HAVE ANY OTHER QUESTIONS OR CONCERNS NO . VITAL SIGNS WT 255.0 LBS, HT 68 IN, BMI 38.77 INDEX, BP 127/73 MM HG, HR 81 /MIN, RR 16 /MIN, TEMP 96.4 F, OXYGEN SAT % 98%, NA INITIALS TL 0858, REVIEWED BY: VERENICE. EXAMINATION GENERAL EXAMINATION: GENERAL APPEARANCE:UNCOMFORTABLE. LUNGS:LUNG HANNAH ARE CLEAR TO AUSCULTATION BILATERALLY. GOOD MOVEMENT OF AIR. HEART:S1, S2 IN A REGULAR RATE AND RHYTHM. NO SIGNIFICANT MURMURS, RUBS OR GALLOPS NOTED. CERVICAL SPINE/NECK: TRAPEZIUS TENDERNESS:PRESENT BILATERALLY. MYOFASCIAL TRIGGER POINTS:BILAT. TRAPEZIUS. 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 PROCEDURE CODES FA211 ESTABILISHED PATIENT [facility] FACILITY CHARGE DISPOSITION & COMMUNICATION FOLLOW UP 2WK POST (REASON: CRIS) ELECTRONICALLY SIGNED BY MAGAN ESCALANTE ON 08/13/2017 AT 09:42 AM EST DISCLAIMER : THIS IS A VISIT SUMMARY EXTRACTED FROM THE [employer] CHART. IT IS NOT A COPY OF THE [employer] PROGRESS NOTE. MTDD
== END ==
LOC: M PAIN 09:00
PROVIDERS: ATTEND Nurse Practitioner Family
DX: M46.1 Sacroiliitis, not elsewhere classified (principal); M50.20 Other cervical disc displacement, unspecified cervical region; E55.9 Vitamin D deficiency, unspecified; E78.5 Hyperlipidemia, unspecified; M16.12 Unilateral primary osteoarthritis, left hip; J45.909 Unspecified asthma, uncomplicated; Z79.891 Long term (current) use of opiate analgesic; Z79.899 Other long term (current) drug therapy; Z87.891 Personal history of nicotine dependence; Z91.040 Latex allergy status; Z88.1 Allergy status to other antibiotic agents; Z88.8 Allergy status to other drugs, medicaments and biological substances

== ENCOUNTER → 2017-08-16 | Outpatient (CLI) | payer OTHER ==
[~2017-08-16] MED LIST changes: +ISOVUE-M 300 61% 15ML VIAL (Q9967) As Ordered ONE; +LIDOCAINE 1% SDV INJ 30 ML VIAL As Ordered ONE; +diazePAM 5 MG TAB As Ordered ONE; +methylPREDNISolone SUSP 40 MG/ML (DEPO-medrol) VIAL (J1030) As Ordered ONE
--- NOTE | 2017-08-16 16:17 | REP ---
FLUOROSCOPIC GUIDED SPINAL INJECTION: The films were reviewed with Dr. Kilgore. The patient has a history of neck pain. The portable C-Arm is provided in the OR for Dr. Conde for fluoroscopic guidance. Four intraoperative fluoroscopic last minute hold films were obtained for needle placement verification for cervical epidural injection. The films are on the PACs system and are available for review. 21 seconds of fluoroscopy time was utilized for this procedure. Reviewed by KATARZYNA Arguelles 08/17/2017 03:45 PEdited and Signed by Max Kilgore MD 08/17/2017 03:54 P
--- NOTE | 2017-08-28 00:30 | ECWPNPC ---
PATIENT NAME: AKBAR MOODY : 1965 GENDER: FEMALE VISIT DATE: 08/16/2017 DISCHARGE DATE: 08/16/17 1435 VISIT LOCKED DATE TIME: PHYSICIAN: HAIDER COSTELLO RESOURCE: HAIDER COSTELLO REASON FOR APPOINTMENT 1. CRIS HISTORY OF PRESENT ILLNESS HISTORY OF PRESENT ILLNESS: PAIN THE PATIENT DESCRIBES THE PAIN... FALL RISK SCREENING: SCREENING :NO FALLS IN THE PAST YEAR CURRENT MEDICATIONS TAKING TIZANIDINE HCL 4 MG TABLET 1 TABLET NEEDED ORALLY THREE TIMES A DAY, NOTES: 0800 TAKING POLYETHYLENE GLYCOL 3350 - POWDER 17G IN 8 OZ OF WATER ORALLY 1-2 TIMES DAILY NEEDED, NOTES: 1 WEEK AGO TAKING BENADRYL 25 MG CAPSULE 1 CAPSULE NEEDED ORALLY EVERY 6 HRS/ NEEDED FOR HIVES, NOTES: NONE RECENTLY TAKING ALEVE 220 MG TABLET 1 TABLET NEEDED ORALLY EVERY 12 HRS, NOTES: 08/15/17@2100 TAKING GABAPENTIN 600 MG TABLET 1 CAPSULE ORALLY BID, NOTES: 0800 TAKING LORATADINE 10 MG TABLET 1 TABLET ORALLY ONCE A DAY, NOTES: 0800 TAKING ROPINIROLE HCL 0.5 MG TABLET TAKE ONE TABLET BY MOUTH THREE TIMES A DAY ORAL , NOTES: 0800 TAKING HYDROCODONE-ACETAMINOPHEN 5-325 MG TABLET 1-2 ORALLY 1-2 TAB Q4-6HR PRN MDD6, NOTES: 0800 TAKING FLONASE 50 MCG/ACT SUSPENSION 2 SPRAYS IN EACH NOSTRIL NASALLY ONCE A DAY, NOTES: 3-4 DAYS AGO TAKING BENAZEPRIL HCL 5 MG TABLET 1 TAB ORALLY DAILY, NOTES: 0800 TAKING LIPITOR 10 MG TABLET 1 TABLET ORALLY ONCE A DAY, NOTES: 0800 TAKING OMEPRAZOLE 40 MG CAPSULE DELAYED RELEASE 1 CAPSULE ORALLY BID, NOTES: 0800 TAKING CYANOCOBALAMIN 1000 MCG/ML SOLUTION 1 ML INJECTION Q 2 WEEKS, NOTES: 08/04/17@1600 TAKING VITAMIN D-3 1000 UNIT CAPSULE 2CAPSULE---ERROR ON EARLIER REFILL OF DRISOL ORALLY ONCE A DAY, NOTES: 0800 TAKING BREO ELLIPTA 100 MCG/25 MCG INHALATION POWDER ONE INHALATION ORALLY ONCE DAILY, NOTES: 08/15/17@2200 TAKING NEBULIZER/TUBING/MOUTHPIECE _ KIT DIRECTED DX:493 DIRECTED TAKING ALBUTEROL SULFATE (2.5 MG/3ML) 0.083% NEBULIZATION SOLUTION 3 ML INHALATION THREE TIMES A DAY NEEDED, NOTES: 1 WEEK AGO TAKING SINGULAIR 10 MG TABLET 1 TABLET IN THE EVENING ORALLY ONCE A DAY, NOTES: 08/15/17@2200 TAKING VENTOLIN HFA 108 (90 BASE) MCG/ACT AEROSOL SOLUTION 2 PUFFS NEEDED INHALATION EVERY 4 HRS, NOTES: 08/14/17@1730 DISCONTINUED AUGMENTIN 875-125 MG TABLET 1 TABLET ORALLY EVERY 12 HRS DISCONTINUED MIRALAX - POWDER DIRECTED ORALLY DAILY PAST MEDICAL HISTORY ASTHMA, MILD INTERMITTENT OSTEOARTHRITIS - DDD - FOLLOWS WITH [facility] ENVIRONMENTAL ALLERGIES HYPERLIPIDEMIA VIT D DEF OBESITY B HIP OA S/P COLONOSCOPY NEG. 01/07/2016-DR. CHAPMAN F/U 10YR.S ALLERGIES LATEX (FOR ALLERGY USE ONLY): HIVES: ALLERGY KEFLEX: ANAPHYLAXIS: ALLERGY NSAIDS: KIDNEY ISSUES: CONTRAINDICATION ENVIRONMENTAL: COUGH: ALLERGY REVIEW OF SYSTEMS REVIEWED BY: PROVIDER: . CONSTITUTIONAL: ANY CHANGE IN YOUR MEDICAL CONDITION? NO . CHILLS NO . FEVER NO . INFECTION: DO YOU HAVE NEW INFECTIONS? NO . DO YOU HAVE HISTORY OF MRSA? NO . MUSCULOSKELETAL: ANY NEW PATTERNS OF PAIN OR NUMBNESS? NO . GASTROENTEROLOGY: ANY NEW CHANGE IN BOWEL CONTROL? NO . GENITOURINARY: ANY NEW CHANGE IN BLADDER CONTROL? NO . IS THERE A CHANCE YOU COULD BE ? NO . HEMATOLOGY/LYMPH: DO YOU TAKE ANY BLOOD THINNERS? (FOR EXAMPLE- COUMADIN, PLAVIX, AGGRENOX, PLATEL, PRADAXA, OR XARELTO) NO . WHEN WAS YOUR LAST DOSE? DATE: TIME: . NEUROLOGY: HAVE YOU FALLEN IN THE PAST 6 MONTHS? NO . ANY NEW EXTREMITY NUMBNESS OR WEAKNESS? NO . CARDIOLOGY: DO YOU HAVE A PACEMAKER OR DEFIBRILLATOR? NO . RESPIRATORY: HAVE YOU BEEN SICK IN THE PAST WEEK? NO . FEVER NO . FLU LIKE SYMPTOMS? NO . COUGH NO . INTEGUMENTARY: DO YOU HAVE ANY RASHES OR OPEN SORES? NO . ALLERGIC/IMMUNO: ARE YOU ALLERGIC TO SHELLFISH OR IV DYE? NO . ANY NEW ALLERGIES? NO . PSYCHIATRIC: DO YOU HAVE THOUGHTS OF HURTING YOURSELF OR SOMEONE ELSE? NO . ARE YOU ABUSED, NEGLECTED, OR IN AN UNSAFE ENVIRONMENT? NO . ENDOCRINOLOGY: ARE YOU DIABETIC? NO . OTHER: DO YOU NEED ANY PRESCRIPTIONS? YES . IF YES, PLEASE LIST: VICODIN . ANY NEW PROBLEMS WITH YOUR MEDICATIONS? NO . WHEN DID YOU LAST EAT? 2029 . WHEN DID YOU LAST DRINK? 2329 . WHAT DID YOU LAST DRINK? WATER . NAME OF PERSON DRIVING YOU HOME? MARTI ALVARENGA - MOM . DO YOU HAVE ANY OTHER QUESTIONS OR CONCERNS NO . VITAL SIGNS WT 275.4 LBS, HT 68 IN, BMI 41.87 INDEX, BP 144/71 MM HG, HR 79 /MIN, RR 18 /MIN, TEMP 97.8 F, OXYGEN SAT % 96%, NA INITIALS TL 1115, REVIEWED BY: LS. 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 HAIDER COSTELLO DATA PROCESSING MANAGER NONE ANESTHESIA LOCAL PRE PROCEDURE NOTE THE PATIENT HAS A HISTORY OF CHRONIC CERVICAL PAIN. I EVALUATE THE PATIENT AND REVIEWED THE CHART. I WENT OVER THE RISKS, ALTERNATIVES, AND BENEFITS ASSOCIATED WITH THIS PROCEDURE. THE PATIENT WOULD LIKE TO PROCEED AND GIVE CONSENT TO PERFORMED THE PROCEDURE. THE PATIENT DENIES UNEXPLAINABLE WEIGHT LOSS, FEVER, CHILLS, OR NEW CHANGES IN URINARY OR BOWEL CONTROL DESCRIPTION OF PROCEDURE THE PATIENT WAS BROUGHT TO THE PROCEDURE ROOM AND PLACED IN THE PRONE POSITION. THE CERVICOTHORACIC AREA WAS CLEANED WITH BETADINE SOLUTION AND DRAPED ASEPTICALLY. THE PROCEDURE WAS DONE UNDER STERILE CONDITIONS. I CHECKED LATERALITY AND THE LEVEL WHERE THE PROCEDURE WAS GOING TO BE PERFORMED WITH THE PATIENT AND THE SUPPORTING STAFF AT THE MOMENT OF THE TIME OUT IN THE PROCEDURE ROOM. UNDER FLUOROSCOPIC GUIDANCE, THE TARGET WAS SELECTED AT THE INTERLAMINAR LEVEL OF C7-T1. LIDOCAINE WAS USED TO NUMB THE SKIN AND THE SUBCUTANEOUS TISSUE BELOW IT. EPIDURAL TUOHY NEEDLE 17-GAUGE WAS ADVANCED UNDER FLUOROSCOPIC GUIDANCE AND FOLLOWING PATIENT FEEDBACK UNTIL THE EPIDURAL SPACE WAS REACHED 6 CM DEEP INTO THE SKIN BY THE LOSS OF RESISTANCE TECHNIQUE. ISOVUE M DYE 30%, 0.25 ML, WAS INJECTED SHOWING ADEQUATE SPREAD OF THE DYE. THEN, A SOLUTION OF 3 ML OF NORMAL SALINE WITH DEPO-MEDROL 60 MG WAS INJECTED SLOWLY FOLLOWING PATIENT FEEDBACK. THERE WAS NO EVIDENCE OF BLOOD, PARESTHESIA OR CEREBROSPINAL FLUID DURING THE PROCEDURE. THE PATIENT WAS SENT TO THE RECOVERY ROOM. THE PATIENT WAS MOVING THE EXTREMITIES AND DOING WELL. THERE WAS NO COMPLICATION DURING THE PROCEDURE. FLUOROSCOPY TIME WAS 23 SECONDS POST PROCEDURE NOTE THE PATIENT WILL BE SEEN IN A FOLLOW UP IN THE NEXT FEW WEEKS. INSTRUCTIONS WERE GIVEN, QUESTIONS WERE ANSWERED, AND THE PATIENT EXPRESSED UNDERSTANDING AND AGREES WITH THE PLAN. I, PAT BENZ, DOCUMENTED THE ABOVE INFORMATION ACTING A SCRIBE FOR DR. COSTELLO. I, DR. COSTELLO, HAVE REVIEWED THE ABOVE DOCUMENT, SCRIBED BY PAT BENZ, AND I VERIFY THAT IT IS [facility] DI[facility]NOST[facility] IM[facility] FLUORO GUIDE SPINE INJECTION (PAIN)[id number] PROCEDURE CODES 36848 CERVICAL/THORACIC W/ IMAGING 6045F RADXPS IN END [id number] PXD DISPOSITION & COMMUNICATION FOLLOW UP 3 WEEKS ELECTRONICALLY SIGNED BY HAIDER COSTELLO MD ON 08/27/2017 AT 02:34 PM EST DISCLAIMER : THIS IS A VISIT SUMMARY EXTRACTED FROM THE [employer] CHART. IT IS NOT A COPY OF THE [employer] PROGRESS NOTE. MTDD
== END ==
LOC: M PAIN 11:15
PROVIDERS: ATTEND Anesthesiology
DX: M50.13 Cervical disc disorder with radiculopathy, cervicothoracic region (principal)
CPT/HCPCS: 62321; J1030; Q9967

== ENCOUNTER → 2017-09-11 | Outpatient (CLI) | payer OTHER | LOC: M PAIN 08:45 | DX: M46.1 Sacroiliitis, not elsewhere classified (principal); M50.20 Other cervical disc displacement, unspecified cervical region; J45.20 Mild intermittent asthma, uncomplicated; M16.0 Bilateral primary osteoarthritis of hip; E78.5 Hyperlipidemia, unspecified; E55.9 Vitamin D deficiency, unspecified; E66.9 Obesity, unspecified; Z68.41 Body mass index [BMI] 40.0-44.9, adult; Z79.1 Long term (current) use of non-steroidal anti-inflammatories (NSAID); Z79.51 Long term (current) use of inhaled steroids; Z79.891 Long term (current) use of opiate analgesic; Z79.899 Other long term (current) drug therapy; Z87.891 Personal history of nicotine dependence | CPT/HCPCS: G0463 ==

== ENCOUNTER → 2017-09-26 | Outpatient (CLI) | payer OTHER ==
[~2017-09-26] MED LIST changes: -ADVAIR INH; -ALBU17IN INH; -ALBUTEROL NEB NEB; -ALEVE OR; -AMBI10TA OR; -ATOR1TAB19 PO; -BACLOFEN; -BENA25CA2 PO; -BENA5TA PO; -BREO1INH INH; +BUPIVACAINE HCL 0.25% 30 ML VIAL As Ordered; -CLAR10CA3 PO; -CLAR5CHW OR; -CYCL10TA PO; -DARV100T OR; -DARVOCET; -DICL13PA TD; -DIPHENHYDRAMINE HCL OR; -FERROUS SULFATE; -FLEX10TA2 PO; -FLEXERIL PO; -FLON0.05; -FLON1SPR; -FLOV50AE; -GABA300C2 PO; -HYDR-3716 PO; +ISOVUE-M 300 61% 15ML VIAL (Q9967) As Ordered; -ISOVUE-M 300 61% 15ML VIAL (Q9967) As Ordered ONE; +LIDOCAINE 1% SDV INJ 30 ML VIAL As Ordered; -LIDOCAINE 1% SDV INJ 30 ML VIAL As Ordered ONE; -NEUR600T PO; -OMEP40CA2 PO; -PERCOCET PO; -PROV90AE INH; -SING10TA31 OR; -SING10TA32 PO; -SKEL800T5; -SKEL800T5 OR; -TIZA4CAP3 PO; +TRIAMCINOLONE ACETONIDE SUSP 40 MG/ML VIAL (J3301) As Ordered; -VICO5TAB PO; -VICO5TAB16 PO; -VITA-113 SC; -VOLT1GEL EX; -VOLT1GEL15 TOP; -ZANA4CAP OR; +diazePAM 5 MG TAB As Ordered; -diazePAM 5 MG TAB As Ordered ONE; -methylPREDNISolone SUSP 40 MG/ML (DEPO-medrol) VIAL (J1030) As Ordered ONE; -talwin OR
== END ==
LOC: M PAIN 08:45
DX: G89.29 Other chronic pain (principal); M46.1 Sacroiliitis, not elsewhere classified; M53.88 Other specified dorsopathies, sacral and sacrococcygeal region; J45.30 Mild persistent asthma, uncomplicated; M16.0 Bilateral primary osteoarthritis of hip; E55.9 Vitamin D deficiency, unspecified; E78.2 Mixed hyperlipidemia; E66.01 Morbid (severe) obesity due to excess calories; Z68.41 Body mass index [BMI] 40.0-44.9, adult; Z91.040 Latex allergy status; Z88.6 Allergy status to analgesic agent; Z88.8 Allergy status to other drugs, medicaments and biological substances; Z79.1 Long term (current) use of non-steroidal anti-inflammatories (NSAID); Z79.51 Long term (current) use of inhaled steroids; Z79.899 Other long term (current) drug therapy; Z87.891 Personal history of nicotine dependence
CPT/HCPCS: J3301

== ENCOUNTER → 2017-10-22 | Outpatient (CLI) | payer OTHER | LOC: M PAIN 08:30 | DX: M46.1 Sacroiliitis, not elsewhere classified (principal); Z79.891 Long term (current) use of opiate analgesic; Z79.899 Other long term (current) drug therapy; J45.909 Unspecified asthma, uncomplicated; E78.5 Hyperlipidemia, unspecified; E55.9 Vitamin D deficiency, unspecified; Z91.040 Latex allergy status; Z88.8 Allergy status to other drugs, medicaments and biological substances; Z87.891 Personal history of nicotine dependence | CPT/HCPCS: G0463 ==

== ENCOUNTER → 2017-11-07 | Outpatient (CLI) | payer OTHER | LOC: M PAIN 10:45 | DX: M46.1 Sacroiliitis, not elsewhere classified (principal); M47.816 Spondylosis without myelopathy or radiculopathy, lumbar region; M47.817 Spondylosis without myelopathy or radiculopathy, lumbosacral region; G89.29 Other chronic pain; J45.909 Unspecified asthma, uncomplicated; E55.9 Vitamin D deficiency, unspecified; E78.5 Hyperlipidemia, unspecified; Z79.891 Long term (current) use of opiate analgesic; Z79.899 Other long term (current) drug therapy; Z91.040 Latex allergy status; Z88.8 Allergy status to other drugs, medicaments and biological substances | CPT/HCPCS: G0463 ==

== ENCOUNTER → 2017-11-07 | Outpatient (CLI) | payer OTHER ==
[~2017-11-07] MED LIST changes: -BUPIVACAINE HCL 0.25% 30 ML VIAL As Ordered; -TRIAMCINOLONE ACETONIDE SUSP 40 MG/ML VIAL (J3301) As Ordered; -diazePAM 5 MG TAB As Ordered; +methylPREDNISolone SUSP 40 MG/ML (DEPO-medrol) VIAL (J1030) As Ordered
== END ==
LOC: M PAIN 08:30
DX: G89.29 Other chronic pain (principal); M50.13 Cervical disc disorder with radiculopathy, cervicothoracic region; J45.909 Unspecified asthma, uncomplicated; M16.0 Bilateral primary osteoarthritis of hip; E78.5 Hyperlipidemia, unspecified; E55.9 Vitamin D deficiency, unspecified; E66.01 Morbid (severe) obesity due to excess calories; Z68.39 Body mass index [BMI] 39.0-39.9, adult; Z79.51 Long term (current) use of inhaled steroids; Z79.891 Long term (current) use of opiate analgesic; Z79.899 Other long term (current) drug therapy; Z88.8 Allergy status to other drugs, medicaments and biological substances; Z88.6 Allergy status to analgesic agent; Z91.040 Latex allergy status; Z87.891 Personal history of nicotine dependence
CPT/HCPCS: J1030

== ENCOUNTER → 2017-11-13 | Outpatient (CLI) | payer OTHER ==
[~2017-11-13] MED LIST changes: +BUPIVACAINE HCL 0.25% 30 ML VIAL As Ordered; +TRIAMCINOLONE ACETONIDE SUSP 40 MG/ML VIAL (J3301) As Ordered; +diazePAM 5 MG TAB As Ordered; -methylPREDNISolone SUSP 40 MG/ML (DEPO-medrol) VIAL (J1030) As Ordered; +oxyCODONE 5MG TAB As Ordered
== END ==
LOC: M PAIN 14:00
DX: G89.29 Other chronic pain (principal); M46.1 Sacroiliitis, not elsewhere classified; M53.88 Other specified dorsopathies, sacral and sacrococcygeal region; J45.20 Mild intermittent asthma, uncomplicated; J30.89 Other allergic rhinitis; E78.5 Hyperlipidemia, unspecified; E55.9 Vitamin D deficiency, unspecified; M16.0 Bilateral primary osteoarthritis of hip; E66.01 Morbid (severe) obesity due to excess calories; Z68.41 Body mass index [BMI] 40.0-44.9, adult; Z79.51 Long term (current) use of inhaled steroids; Z79.891 Long term (current) use of opiate analgesic; Z79.899 Other long term (current) drug therapy; Z88.6 Allergy status to analgesic agent; Z88.8 Allergy status to other drugs, medicaments and biological substances; Z91.030 Bee allergy status
CPT/HCPCS: J3301

== ENCOUNTER → 2017-11-28 | Outpatient (CLI) | payer OTHER | LOC: M PAIN 09:30 | DX: G57.92 Unspecified mononeuropathy of left lower limb (principal); M46.1 Sacroiliitis, not elsewhere classified; J45.909 Unspecified asthma, uncomplicated; E78.5 Hyperlipidemia, unspecified; E55.9 Vitamin D deficiency, unspecified; Z79.891 Long term (current) use of opiate analgesic; Z79.899 Other long term (current) drug therapy; Z91.040 Latex allergy status; Z88.8 Allergy status to other drugs, medicaments and biological substances | CPT/HCPCS: G0463 ==

== ENCOUNTER → 2017-11-30 | Outpatient (REF) | payer OTHER ==
[2017-11-30 14:08] LABS: TOTAL 25(OH) VITAMIN D 33.2 NG/ML (30.0-100.0); VITAMIN B12 LEVEL 478 PG/ML (247-911)
[2017-11-30 14:10] LABS: ALBUMIN 3.4 GM/DL (3.2-5.2); ALBUMIN/GLOBULIN RATIO 0.92 (1.00-1.93); ALKALINE PHOSPHATASE 109 U/L (45-117); ALT/SGPT 21 U/L (12-78); ANION GAP 6 MEQ/L (8-16); AST/SGOT 8 U/L (7-37); BILIRUBIN,TOTAL 0.3 MG/DL (0.2-1.0); BLOOD UREA NITROGEN 15 MG/DL (7-18); CALCIUM LEVEL 8.4 MG/DL (8.5-10.1); CARBON DIOXIDE LEVEL 29 MEQ/L (21-32); CHLORIDE LEVEL 107 MEQ/L (98-107); CHOLESTEROL LEVEL 193 MG/DL (<200); CHOLESTEROL RISK RATIO 2.797 (<5); CPK CREATINE PHOSPHOKINASE 72 U/L (26-192); CREATININE FOR GFR 0.73 MG/DL (0.55-1.30); FREE T4 1.01 NG/DL (0.76-1.46); GLOMERULAR FILTRATION RATE > 60.0 (>51); GLUCOSE, FASTING 96 MG/DL (70-100); HDL CHOLESTEROL 69 MG/DL (>40); NON-HDL-C 124 MG/DL; SODIUM LEVEL 142 MEQ/L (136-145); TOTAL PROTEIN 7.1 GM/DL (6.4-8.2); TRIGLYCERIDES LEVEL 100 MG/DL (<150)
== END ==
LOC: M SFHCPLAZ 10:19
DX: E53.8 Deficiency of other specified B group vitamins (principal); E55.9 Vitamin D deficiency, unspecified; E66.01 Morbid (severe) obesity due to excess calories; E78.5 Hyperlipidemia, unspecified

== ENCOUNTER → 2018-01-07 | Outpatient (CLI) | payer OTHER ==
[~2018-01-07] MED LIST changes: -ISOVUE-M 300 61% 15ML VIAL (Q9967) As Ordered
== END ==
LOC: M PAIN 11:15
DX: G57.82 Other specified mononeuropathies of left lower limb (principal); J45.909 Unspecified asthma, uncomplicated; E78.5 Hyperlipidemia, unspecified; M16.0 Bilateral primary osteoarthritis of hip; E66.01 Morbid (severe) obesity due to excess calories; Z68.41 Body mass index [BMI] 40.0-44.9, adult; Z79.51 Long term (current) use of inhaled steroids; Z79.899 Other long term (current) drug therapy; Z88.6 Allergy status to analgesic agent; Z88.8 Allergy status to other drugs, medicaments and biological substances; Z91.040 Latex allergy status; Z87.891 Personal history of nicotine dependence
CPT/HCPCS: J3301

== ENCOUNTER → 2018-01-29 | Outpatient (CLI) | payer OTHER | LOC: M PAIN 09:45 | DX: G89.29 Other chronic pain (principal); M46.1 Sacroiliitis, not elsewhere classified; G57.92 Unspecified mononeuropathy of left lower limb; J45.20 Mild intermittent asthma, uncomplicated; M17.0 Bilateral primary osteoarthritis of knee; J30.2 Other seasonal allergic rhinitis; E78.5 Hyperlipidemia, unspecified; E55.9 Vitamin D deficiency, unspecified; E66.9 Obesity, unspecified; Z68.41 Body mass index [BMI] 40.0-44.9, adult; Z79.899 Other long term (current) drug therapy; Z91.040 Latex allergy status; Z88.6 Allergy status to analgesic agent; Z88.1 Allergy status to other antibiotic agents | CPT/HCPCS: G0463 ==

== ENCOUNTER → 2018-02-05 | Outpatient (CLI) | payer OTHER ==
[~2018-02-05] MED LIST changes: +ISOVUE-M 300 61% 15ML VIAL (Q9967) As Ordered
== END | disposition home or self-care (01) ==
LOC: M PAIN 08:45
DX: G89.29 Other chronic pain (principal); M46.1 Sacroiliitis, not elsewhere classified; J45.909 Unspecified asthma, uncomplicated; M19.90 Unspecified osteoarthritis, unspecified site; E78.5 Hyperlipidemia, unspecified; E55.9 Vitamin D deficiency, unspecified; E66.9 Obesity, unspecified; Z79.899 Other long term (current) drug therapy; Z79.51 Long term (current) use of inhaled steroids; Z88.8 Allergy status to other drugs, medicaments and biological substances; Z91.040 Latex allergy status; Z87.891 Personal history of nicotine dependence
CPT/HCPCS: J3301

== ENCOUNTER → 2018-03-07 | Outpatient (REF) | payer OTHER ==
[2018-03-07 16:21] LABS: BASO % 0.3 % (0.0-1.0); EOS # 0.1 10^3/uL (0.0-0.50); EOS % 1.8 % (0.0-3.0); HEMATOCRIT 35.7 % (36.0-47.0); IMMATURE GRANULOCYTE % 0.3 % (0-3.0); LYMPH # 1.9 10^3/uL (1.5-4.5); LYMPH % 25.7 % (24.0-44.0); MEAN CORPUSCULAR HEMOGLOBIN 28.6 pg (27.0-33.0); MEAN CORPUSCULAR HGB CONC 30.8 g/dl (32.0-36.5); MEAN CORPUSCULAR VOLUME 92.7 fl (80.0-96.0); MONO # 0.5 10^3/uL (0.0-0.8); MONO % 7.3 % (0.0-5.0); NEUTROPHILS # 4.7 10^3/uL (1.8-7.7); NEUTROPHILS % 64.6 % (36.0-66.0); PLATELET COUNT, AUTOMATED 230 10^3/uL (150-450); RED BLOOD COUNT 3.85 10^6/uL (4.00-5.40); RED CELL DISTRIBUTION WIDTH 14.6 % (11.5-14.5); WHITE BLOOD COUNT 7.2 10^3/uL (4.0-10.0)
[2018-03-07 16:30] LABS: ALBUMIN 3.5 GM/DL (3.2-5.2); ALKALINE PHOSPHATASE 116 U/L (45-117); ALT/SGPT 28 U/L (12-78); ANION GAP 6 MEQ/L (8-16); AST/SGOT 14 U/L (7-37); BILIRUBIN,TOTAL 0.3 MG/DL (0.2-1.0); BLOOD UREA NITROGEN 12 MG/DL (7-18); CARBON DIOXIDE LEVEL 31 MEQ/L (21-32); CHLORIDE LEVEL 106 MEQ/L (98-107); CREATININE FOR GFR 0.88 MG/DL (0.55-1.30); GLOMERULAR FILTRATION RATE > 60.0 (>51); GLUCOSE, FASTING 91 MG/DL (70-100); POTASSIUM SERUM 3.8 MEQ/L (3.5-5.1); SODIUM LEVEL 143 MEQ/L (136-145)
[2018-03-07 17:03] LABS: INR 0.93; PROTHROMBIN TIME 12.5 SECONDS (12.4-14.5)
[2018-03-07 17:20] LABS: AMORPHOUS SEDIMENT MODERATE (NEGATIVE); APPEARANCE, URINE CLOUDY (CLEAR); BACTERIA, URINE AUTO NEGATIVE (NEGATIVE); BILIRUBIN, URINE AUTO NEGATIVE (NEGATIVE); BLOOD, URINE BLOOD NEGATIVE (NEGATIVE); CALCIUM OXALATE CRYSTALS MODERATE; COLOR, URINE YELLOW (YELLOW); GLUCOSE, URINE (UA) AUTO NEGATIVE (NEGATIVE); KETONE, URINE AUTO NEGATIVE (NEGATIVE); LEUKOCYTE ESTERASE, URINE AUTO NEGATIVE (NEGATIVE); MUCUS, URINE SMALL (NEGATIVE); NITRITE, URINE AUTO NEGATIVE (NEGATIVE); PROTEIN, URINE AUTO NEGATIVE (NEGATIVE); RBC, URINE AUTO 2 /HPF (0-3); SQUAMOUS EPITHELIAL CELL UR AU 4 /HPF (0-6); WBC, URINE AUTO 1 /HPF (0-3)
== END ==
LOC: M SFHCPLAZ 14:39
DX: R33.9 Retention of urine, unspecified (principal); R63.5 Abnormal weight gain

== ENCOUNTER → 2018-03-15 | Outpatient (CLI) | payer OTHER ==
[~2018-03-15] MED LIST changes: -BUPIVACAINE HCL 0.25% 30 ML VIAL As Ordered; +GASTROGRAFIN SOLUTION 30ML (Q9963) As Ordered; +ISOVUE-370 76% 100ML VIAL (Q9967) As Ordered; -ISOVUE-M 300 61% 15ML VIAL (Q9967) As Ordered; -LIDOCAINE 1% SDV INJ 30 ML VIAL As Ordered; -TRIAMCINOLONE ACETONIDE SUSP 40 MG/ML VIAL (J3301) As Ordered; -diazePAM 5 MG TAB As Ordered; -oxyCODONE 5MG TAB As Ordered
== END ==
LOC: M RAD 13:45
DX: K57.30 Diverticulosis of large intestine without perforation or abscess without bleeding (principal); R33.9 Retention of urine, unspecified; K59.00 Constipation, unspecified; R63.5 Abnormal weight gain; R60.9 Edema, unspecified
CPT/HCPCS: Q9963

== ENCOUNTER → 2018-03-26 | Outpatient (CLI) | payer OTHER ==
[~2018-03-26] MED LIST changes: +BUPIVACAINE HCL 0.25% 30 ML VIAL As Ordered; -GASTROGRAFIN SOLUTION 30ML (Q9963) As Ordered; -ISOVUE-370 76% 100ML VIAL (Q9967) As Ordered; +ISOVUE-M 300 61% 15ML VIAL (Q9967) As Ordered; +LIDOCAINE 1% SDV INJ 30 ML VIAL As Ordered; +TRIAMCINOLONE ACETONIDE SUSP 40 MG/ML VIAL (J3301) As Ordered; +diazePAM 5 MG TAB As Ordered; +oxyCODONE 5MG TAB As Ordered
== END ==
LOC: M PAIN 10:00
DX: G89.29 Other chronic pain (principal); M46.1 Sacroiliitis, not elsewhere classified; M53.88 Other specified dorsopathies, sacral and sacrococcygeal region; J45.20 Mild intermittent asthma, uncomplicated; M16.0 Bilateral primary osteoarthritis of hip; E78.5 Hyperlipidemia, unspecified; E66.01 Morbid (severe) obesity due to excess calories; Z68.41 Body mass index [BMI] 40.0-44.9, adult; Z79.51 Long term (current) use of inhaled steroids; Z79.891 Long term (current) use of opiate analgesic; Z79.899 Other long term (current) drug therapy; Z88.6 Allergy status to analgesic agent; Z88.8 Allergy status to other drugs, medicaments and biological substances; Z91.040 Latex allergy status; Z87.891 Personal history of nicotine dependence
CPT/HCPCS: J3301

== ENCOUNTER → 2018-05-15 | Outpatient (CLI) | payer OTHER | LOC: M PAIN 09:30 | DX: M46.1 Sacroiliitis, not elsewhere classified (principal); J45.909 Unspecified asthma, uncomplicated; E78.5 Hyperlipidemia, unspecified; M16.0 Bilateral primary osteoarthritis of hip; E66.01 Morbid (severe) obesity due to excess calories; Z68.41 Body mass index [BMI] 40.0-44.9, adult; Z79.51 Long term (current) use of inhaled steroids; Z79.891 Long term (current) use of opiate analgesic; Z79.899 Other long term (current) drug therapy; Z88.6 Allergy status to analgesic agent; Z88.8 Allergy status to other drugs, medicaments and biological substances; Z91.040 Latex allergy status | CPT/HCPCS: G0463 ==

== ENCOUNTER → 2018-05-16 | Outpatient (REF) | payer OTHER ==
[2018-05-16 17:06] LABS: ESTIMATED AVERAGE GLUCOSE 108 MG/DL (60-110); HEMOGLOBIN A1c 5.4 %
== END ==
LOC: M SFHCPLAZ 12:15
DX: E66.01 Morbid (severe) obesity due to excess calories (principal)
CPT/HCPCS: 83036

== ENCOUNTER → 2018-05-29 | Outpatient (CLI) | payer OTHER | LOC: M PAIN 08:45 | DX: G89.29 Other chronic pain (principal); M46.1 Sacroiliitis, not elsewhere classified; M53.88 Other specified dorsopathies, sacral and sacrococcygeal region; J45.909 Unspecified asthma, uncomplicated; M16.0 Bilateral primary osteoarthritis of hip; E78.5 Hyperlipidemia, unspecified; E66.01 Morbid (severe) obesity due to excess calories; Z68.41 Body mass index [BMI] 40.0-44.9, adult; Z79.51 Long term (current) use of inhaled steroids; Z79.899 Other long term (current) drug therapy; Z91.040 Latex allergy status; Z88.6 Allergy status to analgesic agent; Z88.8 Allergy status to other drugs, medicaments and biological substances; Z87.891 Personal history of nicotine dependence | CPT/HCPCS: J3301 ==

== ENCOUNTER → 2018-06-04 | Outpatient (CLI) | payer OTHER | LOC: M PAIN 10:00 | DX: G57.92 Unspecified mononeuropathy of left lower limb (principal); M46.1 Sacroiliitis, not elsewhere classified; J45.20 Mild intermittent asthma, uncomplicated; M16.0 Bilateral primary osteoarthritis of hip; E78.5 Hyperlipidemia, unspecified; E55.9 Vitamin D deficiency, unspecified; Z79.51 Long term (current) use of inhaled steroids; Z79.891 Long term (current) use of opiate analgesic; Z79.899 Other long term (current) drug therapy; Z88.6 Allergy status to analgesic agent; Z88.8 Allergy status to other drugs, medicaments and biological substances; Z91.040 Latex allergy status | CPT/HCPCS: G0463 ==

== ENCOUNTER → 2018-06-11 | Outpatient (CLI) | payer OTHER ==
[~2018-06-11] MED LIST changes: -BUPIVACAINE HCL 0.25% 30 ML VIAL As Ordered; -TRIAMCINOLONE ACETONIDE SUSP 40 MG/ML VIAL (J3301) As Ordered; +methylPREDNISolone SUSP 40 MG/ML (DEPO-medrol) VIAL (J1030) As Ordered
== END ==
LOC: M PAIN 10:45
DX: G89.29 Other chronic pain (principal); M50.10 Cervical disc disorder with radiculopathy, unspecified cervical region; J45.20 Mild intermittent asthma, uncomplicated; M16.0 Bilateral primary osteoarthritis of hip; J30.2 Other seasonal allergic rhinitis; E55.9 Vitamin D deficiency, unspecified; Z79.51 Long term (current) use of inhaled steroids; Z79.891 Long term (current) use of opiate analgesic; Z79.899 Other long term (current) drug therapy; Z88.6 Allergy status to analgesic agent; Z88.8 Allergy status to other drugs, medicaments and biological substances; Z91.040 Latex allergy status; Z87.891 Personal history of nicotine dependence
CPT/HCPCS: J1030

== ENCOUNTER → 2018-06-24 | Outpatient (CLI) | payer OTHER ==
[~2018-06-24] MED LIST changes: +BUPIVACAINE HCL 0.25% 30 ML VIAL As Ordered; +TRIAMCINOLONE ACETONIDE SUSP 40 MG/ML VIAL (J3301) As Ordered; -methylPREDNISolone SUSP 40 MG/ML (DEPO-medrol) VIAL (J1030) As Ordered
== END ==
LOC: M PAIN 10:15
DX: G57.82 Other specified mononeuropathies of left lower limb (principal); J45.20 Mild intermittent asthma, uncomplicated; E78.5 Hyperlipidemia, unspecified; E55.9 Vitamin D deficiency, unspecified; E66.9 Obesity, unspecified; Z68.41 Body mass index [BMI] 40.0-44.9, adult; M17.0 Bilateral primary osteoarthritis of knee; Z87.891 Personal history of nicotine dependence; Z79.891 Long term (current) use of opiate analgesic; Z79.899 Other long term (current) drug therapy; Z91.040 Latex allergy status; Z88.1 Allergy status to other antibiotic agents; Z88.6 Allergy status to analgesic agent
CPT/HCPCS: J3301

== ENCOUNTER → 2018-07-08 | Outpatient (CLI) | payer OTHER | LOC: M PAIN 10:45 | DX: G57.82 Other specified mononeuropathies of left lower limb (principal); M46.1 Sacroiliitis, not elsewhere classified; M50.20 Other cervical disc displacement, unspecified cervical region; J45.909 Unspecified asthma, uncomplicated; E78.5 Hyperlipidemia, unspecified; E55.9 Vitamin D deficiency, unspecified; M16.0 Bilateral primary osteoarthritis of hip; Z79.51 Long term (current) use of inhaled steroids; Z79.891 Long term (current) use of opiate analgesic; Z79.899 Other long term (current) drug therapy; Z88.6 Allergy status to analgesic agent; Z88.8 Allergy status to other drugs, medicaments and biological substances; Z91.040 Latex allergy status; Z87.891 Personal history of nicotine dependence | CPT/HCPCS: G0463 ==

== ENCOUNTER → 2018-07-26 | Outpatient (CLI) | payer OTHER | LOC: M PLARAD 12:42 | DX: M25.512 Pain in left shoulder (principal); M75.82 Other shoulder lesions, left shoulder; M75.81 Other shoulder lesions, right shoulder; M85.412 Solitary bone cyst, left shoulder; M19.011 Primary osteoarthritis, right shoulder | CPT/HCPCS: 73221 ==

== ENCOUNTER → 2018-11-18 | Outpatient (REF) | payer OTHER ==
[~2018-11-18] MED LIST changes: +ADVAIR INH; +ALBU17IN INH; +ALBUTEROL NEB NEB; +ALEVE OR; +AMBI10TA OR; +ATOR1TAB19 PO; +BACLOFEN; +BENA25CA2 PO; +BENA5TA PO; +BREO1INH INH; -BUPIVACAINE HCL 0.25% 30 ML VIAL As Ordered; +CLAR10CA3 PO; +CLAR5CHW OR; +CYCL10TA PO; +DARV100T OR; +DARVOCET; +DICL13PA TD; +DIPHENHYDRAMINE HCL OR; +FERROUS SULFATE; +FLEX10TA2 PO; +FLEXERIL PO; +FLON0.05; +FLON1SPR; +FLOV50AE; +GABA300C2 PO; +HYDR-3716 PO; -ISOVUE-M 300 61% 15ML VIAL (Q9967) As Ordered; -LIDOCAINE 1% SDV INJ 30 ML VIAL As Ordered; +NEUR600T PO; +OMEP40CA2 PO; +PERCOCET PO; +PROV90AE INH; +SING10TA31 OR; +SING10TA32 PO; +SKEL800T5; +SKEL800T5 OR; +TIZA4CAP PO; -TRIAMCINOLONE ACETONIDE SUSP 40 MG/ML VIAL (J3301) As Ordered; +VICO5TAB PO; +VICO5TAB16 PO; +VITA-113 SC; +VOLT1GEL EX; +VOLT1GEL15 TOP; +ZANA4CAP OR; -diazePAM 5 MG TAB As Ordered; -oxyCODONE 5MG TAB As Ordered; +talwin OR
[2018-11-18 16:01] LABS: BASO % 0.4 % (0.0-1.0); EOS % 0.2 % (0.0-3.0); HEMATOCRIT 38.8 % (36.0-47.0); HEMOGLOBIN 12.2 g/dl (12.0-15.5); LYMPH # 1.6 10^3/uL (1.5-4.5); LYMPH % 19.4 % (24.0-44.0); MEAN CORPUSCULAR HEMOGLOBIN 27.9 pg (27.0-33.0); MEAN CORPUSCULAR HGB CONC 31.4 g/dl (32.0-36.5); MEAN CORPUSCULAR VOLUME 88.8 fl (80.0-96.0); MONO # 0.6 10^3/uL (0.0-0.8); MONO % 7.6 % (0.0-5.0); NEUTROPHILS % 71.9 % (36.0-66.0); PLATELET COUNT, AUTOMATED 270 10^3/uL (150-450); RED BLOOD COUNT 4.37 10^6/uL (4.00-5.40); WHITE BLOOD COUNT 8.3 10^3/uL (4.0-10.0)
[2018-11-18 16:29] LABS: ALBUMIN 3.5 GM/DL (3.2-5.2); ALT/SGPT 12 U/L (12-78); BILIRUBIN,TOTAL 0.4 MG/DL (0.2-1.0); BLOOD UREA NITROGEN 5 MG/DL (7-18); CARBON DIOXIDE LEVEL 28 MEQ/L (21-32); CHLORIDE LEVEL 104 MEQ/L (98-107); CHOLESTEROL LEVEL 169 MG/DL (<200); CHOLESTEROL RISK RATIO 4.121 (<5); CREATININE FOR GFR 0.72 MG/DL (0.55-1.30); FREE T4 1.05 NG/DL (0.76-1.46); GLOMERULAR FILTRATION RATE > 60.0 (>51); GLUCOSE, FASTING 105 MG/DL (70-100); HDL CHOLESTEROL 41 MG/DL (>40); LDL CHOLESTEROL 75 MG/DL (<100); NON-HDL-C 128 MG/DL; SODIUM LEVEL 142 MEQ/L (136-145); TOTAL PROTEIN 7.4 GM/DL (6.4-8.2); TRIGLYCERIDES LEVEL 265 MG/DL (<150)
[2018-11-18 16:30] LABS: PTH INTACT 56.9 PG/ML (18.5-88.0); TOTAL 25(OH) VITAMIN D 45.2 NG/ML (30.0-100.0); VITAMIN B12 LEVEL 674 PG/ML (247-911)
== END ==
LOC: M SFHCPLAZ 14:23
PROVIDERS: ATTEND Physician Assistant Medical
DX: E78.2 Mixed hyperlipidemia (principal); I10 Essential (primary) hypertension; E53.8 Deficiency of other specified B group vitamins; E55.9 Vitamin D deficiency, unspecified; E66.01 Morbid (severe) obesity due to excess calories

== ENCOUNTER → 2018-12-26 | Outpatient (REF) | payer OTHER ==
[2018-12-26 14:49] LABS: BASO % 0.5 % (0.0-1.0); EOS # 0.1 10^3/uL (0.0-0.50); EOS % 1.4 % (0.0-3.0); LYMPH # 1.8 10^3/uL (1.5-4.5); MEAN CORPUSCULAR HEMOGLOBIN 28.4 pg (27.0-33.0); MEAN CORPUSCULAR HGB CONC 31.6 g/dl (32.0-36.5); MEAN CORPUSCULAR VOLUME 89.8 fl (80.0-96.0); MONO # 0.5 10^3/uL (0.0-0.8); NEUTROPHILS # 4.1 10^3/uL (1.8-7.7); NEUTROPHILS % 62.9 % (36.0-66.0); PLATELET COUNT, AUTOMATED 227 10^3/uL (150-450); RED BLOOD COUNT 4.23 10^6/uL (4.00-5.40); WHITE BLOOD COUNT 6.5 10^3/uL (4.0-10.0)
[2018-12-26 14:52] LABS: RHEUMATOID FACTOR QUANT < 10.0 IU/ML (<15.0)
[2018-12-26 15:35] LABS: ERYTHROCYTE SEDIMENTATION RATE 66 mm/hr (0-30)
[2018-12-31 14:53] LABS: HLA-B27 Negative (.); Lyme Disease IgG/IgM Antibodie <0.91 ISR (0.00-0.90); Lyme Disease IgM Ab Quantitati <0.80 index (0.00-0.79)
== END ==
LOC: M LABDRAW1 13:52
PROVIDERS: ATTEND Physician Assistant
DX: M17.0 Bilateral primary osteoarthritis of knee (principal)

== ENCOUNTER → 2019-03-20 | Outpatient (CLI) | payer OTHER ==
[~2019-03-20] MED LIST changes: +OXYC1TAB23 PO; -PERCOCET PO; -VICO5TAB16 PO; +VICO5TAB17 PO
--- NOTE | 2019-04-08 02:11 | ECWPNPC ---
PATIENT NAME: AKBAR MOODY : 1965 GENDER: FEMALE VISIT DATE: 03/20/2019 DISCHARGE DATE: 03/20/19 1048 VISIT LOCKED DATE TIME: PHYSICIAN: RABIA WATTERS RESOURCE: RABIA WATTERS REASON FOR APPOINTMENT 1. MEDS/ CHRONIC PAIN HISTORY OF PRESENT ILLNESS HISTORY OF PRESENT ILLNESS: HERE FOR F/U OF CHRONIC LBP,LEFT GROIN AND NECK PAIN.CHIEF AREA OF PAIN IS LEFT GROIN.RATING PAIN VAS 8/10.HAS BENEFITED FROM ILEOINGUINAL BLOCKS IN PAST.PATIENT DID NOT BRING IN MEDICATION TODAY.STATES THEY ARE IN PILL BOX AT HOME. PAIN THE PATIENT DESCRIBES THE PAIN... THE PATIENT DESCRIBES THE PAIN... FALL RISK SCREENING: SCREENING :NO FALLS REPORTED IN THE LAST YEAR :NO FALLS REPORTED IN THE LAST YEAR SCREENING :NO FALLS REPORTED IN THE LAST YEAR :NO FALLS REPORTED IN THE LAST YEAR CURRENT MEDICATIONS TAKING ALEVE 220 MG TABLET 1-2 TABLETS NEEDED ORALLY EVERY 12 HRS TAKING NEBULIZER/TUBING/MOUTHPIECE _ KIT DIRECTED DX:493 DIRECTED TAKING ROPINIROLE HCL 0.5 MG TABLET TAKE ONE TABLET BY MOUTH THREE TIMES A DAY ORAL TAKING HM VITAMIN D3 2000 UNIT CAPSULE 2 CAPSULES ORALLY ONCE A DAY TAKING POLYETHYLENE GLYCOL 3350 - POWDER 17G IN 8 OZ OF WATER ORALLY 1-2 TIMES DAILY NEEDED, NOTES: DUPLICATE TAKING HYDROCODONE-ACETAMINOPHEN 5-325 MG TABLET 1-2 ORALLY 1-2 TAB Q4-6HR PRN MDD6 TAKING MAY HAVE - - TENS UNIT PADS TOPICALLY DAILY PRN TAKING GABAPENTIN 800 MG TABLET 1 CAPSULE ORALLY THREE TIMES A DAY TAKING DOXYCYCLINE HYCLATE 100 MG CAPSULE 1 CAPSULE ORALLY TWICE A DAY TAKING MIRALAX - POWDER 1-2 CAPFULS DAILY ORALLY DAILY TAKING LIPITOR 10 MG TABLET 1 TABLET ORALLY ONCE A DAY TAKING OMEPRAZOLE 40 MG CAPSULE DELAYED RELEASE 1 CAPSULE ORALLY BID TAKING CYANOCOBALAMIN 1000 MCG/ML SOLUTION 1 ML INJECTION ONCE MONTHLY TAKING ALBUTEROL SULFATE (2.5 MG/3ML) 0.083% NEBULIZATION SOLUTION 3 ML INHALATION THREE TIMES A DAY NEEDED TAKING SINGULAIR 10 MG TABLET 1 TABLET IN THE EVENING ORALLY ONCE A DAY TAKING LORATADINE 10 MG TABLET 1 TABLET ORALLY ONCE A DAY TAKING VENTOLIN HFA 108 (90 BASE) MCG/ACT AEROSOL SOLUTION 2 PUFFS NEEDED INHALATION EVERY 4 HRS TAKING METHOCARBAMOL 500 MG TABLET 1 TABLETS ORALLY EVERY 6 HRS TAKING AIRDUO RESPICLICK 113/14 113-14 MCG/ACT AEROSOL POWDER BREATH ACTIVATED 1 PUFF INHALATION TWICE A DAY TAKING FLONASE 50 MCG/ACT SUSPENSION 2 SPRAYS IN EACH NOSTRIL NASALLY ONCE A DAY TAKING LASIX 20 MG TABLET 1 TABLET ORALLY ONCE A DAY TAKING POTASSIUM CHLORIDE ER 10 MEQ TABLET EXTENDED RELEASE 1 TABLET WITH FOOD ORALLY DAILY MEDICATION LIST REVIEWED AND RECONCILED WITH THE PATIENT PAST MEDICAL HISTORY ASTHMA, MILD INTERMITTENT OSTEOARTHRITIS - DDD - FOLLOWS WITH [facility] ENVIRONMENTAL ALLERGIES HYPERLIPIDEMIA VIT D DEF OBESITY B HIP OA S/P COLONOSCOPY NEG. 01/07/2016-DR. CHAPMAN F/U 10YR.S SWELLING ON LEGS ALLERGIES LATEX (FOR ALLERGY USE ONLY): HIVES - ALLERGY KEFLEX: ANAPHYLAXIS - ALLERGY NSAIDS: KIDNEY ISSUES - CONTRAINDICATION ENVIRONMENTAL: COUGH - ALLERGY SURGICAL HISTORY MADHAV DUE TO BLEEDING--- 07/2008 ARTHROSCOPIC KNEE SURGERY LEFT X 3 ARTHROSCOPIC KNEE SURGERY RIGHT X 1 CARPAL TUNNEL RELEASE BILATERAL ARTHROSCOPY SHOULDER RIGHT SHOULDER SURGERY LEFT BIOPSY MOLE- BACK LEFT HIP SURGERY 01/2016 CARPAL TUNNEL RELEASE BILATERAL LEFT HIP SURGERY 01/2016 HERNIA REPAIR X 5 ABDOMINAL SURGERY FOR GANGRENOUS INFECTION POST BTL SHOULDER SURGERY LEFT BIOPSY MOLE- BACK LEFT LEG SURGERY- RELEASED NERVES 10/11/16 BIOPSY MOLE- BACK LEFT HIP SURGERY 01/2016 TUBAL LIGATION HERNIA REPAIR X 5 ABDOMINAL SURGERY FOR GANGRENOUS INFECTION POST BTL BELLY BUTTON REMOVED LEFT LEG SURGERY- RELEASED NERVES 10/11/16 FAMILY HISTORY FATHER: 60 YRS, DIAGNOSED WITH CANCER MOTHER: ALIVE 64 YRS, HYPERTENSION 4 BROTHER(S) , 1 SISTER(S) - HEALTHY. 2 SON(S) , 3 DAUGHTER(S) - HEALTHY. SOCIAL HISTORY GENERAL: TOBACCO USE ARE YOU A:FORMER SMOKER HOW LONG HAS IT BEEN SINCE YOU LAST SMOKED?> 10 YEARS HIV / HEP-C SCREENING HIV TEST OFFERED TO PATIENT:YES DATE OFFERED:03/19/2019 TEST ACCEPTED:NO HEP-C TEST OFFERED TO PATIENT:YES N/A DATE OFFERED:03/19/2019 REASON:PATIENT DECLINED TEST ACCEPTED:NO REASON:PATIENT DECLINED BROCHURE PROVIDED TO PATIENTYES EDUCATION LEVEL OF EDUCATION:NOT FINISHED HIGH SCHOOL DIET: REGULAR. LANGUAGE LANGUAGES SPOKEN:NAURUAN DOMESTIC VIOLENCE DO YOU FEEL SAFE IN YOUR ENVIRONMENT?YES BMI CARE GOAL FOLLOW-UP ABOVE NORMAL BMI FOLLOW-UPDIETARY MANAGEMENT EDUCATION, GUIDANCE, AND COUNSELING RECREATIONAL DRUG USE DRUG USE?NO LEARNING BARRIERS / SPECIAL NEEDS CHANGE FROM LAST VISIT?NO BARRIERS TO LEARNING?NO HEARING IMPAIRED?NO VISION IMPAIRED?YES COGNITIVELY IMPAIRED?NO :CORRECTIVE LENSES READING READINESS TO LEARN?YES LEARNING PREFERENCES?NO LEARNING CAPABILITIES PRESENT?YES EMOTIONAL BARRIERS?NO SPECIAL DEVICES?YES :WALKER QUALITY ASSURANCE NEEDED?NO PAIN CLINIC PFS, CLERGY, PUBLIC HEALTH REFERRALS PFS REFERRAL NEEDED?NO CLERGY REFERRAL NEEDED?NO PUBLIC HEALTH REFERRAL NEEDED?NO WAS THE PROVIDER NOTIFIED OF ANY PERTINENT INFO?YES NA HAS THE PATIENT BEEN EDUCATED REGARDING HIS/HER PLAN OF CARE?YES HAS THE PATIENT BEEN EDUCATED REGARDING PAIN, THE RISK FOR PAIN, THE IMPORTANCE OF EFFECTIVE PAIN MANAGEMENT, AND THE PAIN ASSESSMENT PROCESS?YES LATEX QUESTIONNAIRE LATEX ALLERGY : HAVE YOU EVER DEVELOPED ANY TYPE OF REACTION AFTER HANDLING LATEX PRODUCTS SUCH RUBBER GLOVES, CONDOMS, DIAPHRAGMS, BALLOONS, SOCKS, OR UNDERWEAR?YES - PLEASE INDICATE :RUBBER GLOVES LATEX ALLERGY : HAVE YOU EVER DEVELOPED ANY TYPE OF REACTION DURING OR AFTER DENTAL APPOINTMENT, VAGINAL/RECTAL EXAMINATION, SURGICAL PROCEDURE, OR ANY OTHER EXPOSURE?NO LATEX RISK : HAVE YOU EVER HAD ANY DIFFICULTY BREATHING OR HIVES AFTER EATING OR HANDLING ANY FRUITS, OR VEGETABLES; SUCH KIWI, BANANAS, STONE FRUITS, OR CHESTNUTSNO LATEX RISK : DO YOU HAVE A PREVIOUS PERSONAL HISTORY OF MORE THAN NINE SURGERIES, SPINA BIFIDA, OR REPEATED CATHERTIZATIONS? NO LATEX RISK : ARE YOU FREQUENTLY EXPOSED TO LATEX PRODUCTS IN YOUR OCCUPATION?NO DATE ASKED : 03/19/2019 CAFFEINE CAFFEINE USE?YES 1 SODA ADVANCE DIRECTIVE ADVANCE DIRECTIVE DISCUSSED WITH PATIENT:YES HCP INFORMATION GIVEN 03/20/19 YARSANI [id number] NONE MARITAL STATUS: SINGLE. ALCOHOL SCREENING DID YOU HAVE A DRINK CONTAINING ALCOHOL IN THE PAST YEAR?YES HOW OFTEN DID YOU HAVE SIX OR MORE DRINKS ON ONE OCCASION IN THE PAST YEAR?NEVER (0 POINTS) HOW MANY DRINKS DID YOU HAVE ON A TYPICAL DAY WHEN YOU WERE DRINKING IN THE PAST YEAR?7 TO 9 (3 POINTS) HOW OFTEN DID YOU HAVE A DRINK CONTAINING ALCOHOL IN THE PAST YEAR?TWO TO FOUR TIMES A MONTH (2 POINTS) POINTS5 INTERPRETATIONPOSITIVE OCCUPATION: UNEMPLOYED. SEXUAL HX HAD SEX IN THE LAST 12 MONTHS (VAGINAL, ORAL, OR ANAL)?YES WITHMEN ONLY USE PROTECTION?YES IS GOING TO GET LEFT HIP REPLACEMENT ON January. IS GOING TO GET LEFT HIP REPLACEMENT ON January. 03/07/18 0935 REVIEWED WITH PT. AD03/26/18 1140 RECVIEWED WITH PT. AD IS GOING TO GET LEFT HIP REPLACEMENT ON January. IS GOING TO GET LEFT HIP REPLACEMENT ON January. 03/07/18 0935 REVIEWED WITH PT. AD05/29/18 REVIEWED WITH PT LAS03/20/19 REVIEWED WITH PATIENT NLJREVIEWED WITH PATIENT 07/08/18 1109 JS. HOSPITALIZATION/MAJOR DIAGNOSTIC PROCEDURE SURGERY CHILDBIRTH X 6 REVIEW OF SYSTEMS REVIEWED BY: PROVIDER: , RABIA CARRERO . CONSTITUTIONAL: ANY CHANGE IN YOUR MEDICAL CONDITION? NO, NO . CHILLS NO, NO . FEVER NO, NO . INFECTION: DO YOU HAVE NEW INFECTIONS? NO, NO . DO YOU HAVE HISTORY OF MRSA? NO, NO . MUSCULOSKELETAL: ANY NEW PATTERNS OF PAIN OR NUMBNESS? YES PATIENT REPORTS NUMBNESS AND TINGLING LEFT LEG HAS GOTTEN WORSE . GASTROENTEROLOGY: ANY NEW CHANGE IN BOWEL CONTROL? NO, NO . GENITOURINARY: ANY NEW CHANGE IN BLADDER CONTROL? NO, NO . IS THERE A CHANCE YOU COULD BE ? NO, NO . HEMATOLOGY/LYMPH: DO YOU TAKE ANY BLOOD THINNERS? (FOR EXAMPLE- COUMADIN, PLAVIX, AGGRENOX, PLATEL, PRADAXA, OR XARELTO) NO, NO . WHEN WAS YOUR LAST DOSE? DATE: TIME: , DATE: TIME: . NEUROLOGY: HAVE YOU FALLEN IN THE PAST 12 MONTHS? , YES- PATIENT STATES STUMBLES FREQUENTLY REALTED TO DROP FOOT FROM HIP SURGERY, NO ED VISITS PATIENT DENIES INJURY . ANY NEW EXTREMITY NUMBNESS OR WEAKNESS? NO, NO . CARDIOLOGY: DO YOU HAVE A PACEMAKER OR DEFIBRILLATOR? NO, NO . RESPIRATORY: HAVE YOU BEEN SICK IN THE PAST WEEK? NO, NO . FEVER NO, NO . FLU LIKE SYMPTOMS? NO, NO . COUGH NO, NO . INTEGUMENTARY: DO YOU HAVE ANY RASHES OR OPEN SORES? NO, NO . ALLERGIC/IMMUNO: ARE YOU ALLERGIC TO IV DYE? NO, NO . ANY NEW ALLERGIES? NO, NO . PSYCHIATRIC: DO YOU HAVE THOUGHTS OF HURTING YOURSELF OR SOMEONE ELSE? NO, NO . ARE YOU ABUSED, NEGLECTED, OR IN AN UNSAFE ENVIRONMENT? NO, NO . ENDOCRINOLOGY: ARE YOU DIABETIC? NO, NO . OTHER: DO YOU NEED ANY PRESCRIPTIONS? NO, NO . IF YES, PLEASE LIST: ____, ____ . ANY NEW PROBLEMS WITH YOUR MEDICATIONS? NO, NO . WHEN DID YOU LAST EAT? ____, ____ . WHEN DID YOU LAST DRINK? ____, ____ . WHAT DID YOU LAST DRINK? ____, ____ . NAME OF PERSON DRIVING YOU HOME? ____, ____ . DO YOU HAVE ANY OTHER QUESTIONS OR CONCERNS NO, NO . VITAL SIGNS WT 265 LBS, HT 68 IN, BMI 40.29 INDEX, BP 139/76 MM HG, HR 97 /MIN, RR 18 /MIN, TEMP 96.3 F, OXYGEN SAT % 96%, SAFE IN ENV? (Y/N) YES, NA INITIALS AW 0942, REVIEWED BY: DIAMOND 0948. EXAMINATION GENERAL EXAMINATION: DEPRESSED AFFECTUNCOMFORTABLE . LUNGS:LUNG HANNAH ARE CLEAR TO AUSCULTATION BILATERALLY. GOOD MOVEMENT OF AIR . HEART:S1, S2 IN A REGULAR RATE AND RHYTHM. NO SIGNIFICANT MURMURS, RUBS OR GALLOPS NOTED . LUMBAR SACRAL SPINEMUSCLE STRENGTH TESTING 5/5 BILATERAL.MILD TENDERNESS OVER BILAT. SIJ . NEUROLOGIC EXAM:PAIN WITH PALPATION OVER LEFT ILEOINGUINAL REGION. 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 PREVENTIVE MEDICINE PAIN CLINIC TEACHING: PROCEDURE TEACHING PROCEDURE REVIEWED WITH PT, PRE PROCEDURE INSTRUCTIONS GIVEN. PT VERBALIZES UNDERSTANDING.. PROCEDURE CODES [id number] ESTABILISHED PATIENT [facility] CHARGE DISPOSITION & COMMUNICATION FOLLOW UP POST AND NRSG VISIT PILL Sunday (REASON: LEFT ILEOINGUINAL NERVE BLOCK) ELECTRONICALLY SIGNED BY MAGAN PURI ON 04/07/2019 AT 03:59 PM EDT DISCLAIMER : THIS IS A VISIT SUMMARY EXTRACTED FROM THE [facility] CHART. IT IS NOT A COPY OF THE [facility] PROGRESS NOTE. GEGE
== END ==
LOC: M PAIN 09:30
PROVIDERS: ATTEND Nurse Practitioner Family
DX: G57.82 Other specified mononeuropathies of left lower limb (principal); J45.20 Mild intermittent asthma, uncomplicated; E78.5 Hyperlipidemia, unspecified; E55.9 Vitamin D deficiency, unspecified; E66.9 Obesity, unspecified; M16.0 Bilateral primary osteoarthritis of hip; Z68.41 Body mass index [BMI] 40.0-44.9, adult; Z91.040 Latex allergy status; Z88.1 Allergy status to other antibiotic agents; Z88.5 Allergy status to narcotic agent; Z87.891 Personal history of nicotine dependence; Z79.891 Long term (current) use of opiate analgesic; Z79.899 Other long term (current) drug therapy

== ENCOUNTER → 2019-03-31 | Outpatient (CLI) | payer OTHER ==
[2019-03-31 10:28] LABS: BASO % 0.6 % (0.0-1.0); EOS # 0.1 10^3/uL (0.0-0.50); EOS % 1.1 % (0.0-3.0); HEMATOCRIT 38.7 % (36.0-47.0); HEMOGLOBIN 12.3 g/dl (12.0-15.5); LYMPH # 1.7 10^3/uL (1.5-4.5); LYMPH % 26.1 % (24.0-44.0); MEAN CORPUSCULAR HEMOGLOBIN 28.7 pg (27.0-33.0); MEAN CORPUSCULAR HGB CONC 31.8 g/dl (32.0-36.5); MEAN CORPUSCULAR VOLUME 90.2 fl (80.0-96.0); MONO # 0.4 10^3/uL (0.0-0.8); MONO % 6.6 % (0.0-5.0); NEUTROPHILS # 4.2 10^3/uL (1.8-7.7); NEUTROPHILS % 65.3 % (36.0-66.0); PLATELET COUNT, AUTOMATED 192 10^3/uL (150-450); RED BLOOD COUNT 4.29 10^6/uL (4.00-5.40); WHITE BLOOD COUNT 6.4 10^3/uL (4.0-10.0)
[2019-03-31 11:09] LABS: ALBUMIN 3.6 GM/DL (3.2-5.2); ALT/SGPT 17 U/L (12-78); BILIRUBIN,TOTAL 0.4 MG/DL (0.2-1.0); BLOOD UREA NITROGEN 12 MG/DL (7-18); CARBON DIOXIDE LEVEL 28 MEQ/L (21-32); CHLORIDE LEVEL 109 MEQ/L (98-107); CHOLESTEROL LEVEL 203 MG/DL (<200); FREE T4 0.95 NG/DL (0.76-1.46); GLOMERULAR FILTRATION RATE > 60.0 (>51); GLUCOSE, FASTING 96 MG/DL (70-100); HDL CHOLESTEROL 53 MG/DL (>40); LDL CHOLESTEROL 112 MG/DL (<100); NON-HDL-C 150 MG/DL; POTASSIUM SERUM 3.8 MEQ/L (3.5-5.1); SODIUM LEVEL 143 MEQ/L (136-145); TOTAL PROTEIN 7.2 GM/DL (6.4-8.2); TRIGLYCERIDES LEVEL 192 MG/DL (<150)
[2019-03-31 11:11] LABS: TOTAL 25(OH) VITAMIN D 38.1 NG/ML (30.0-100.0); VITAMIN B12 LEVEL 397 PG/ML (247-911)
== END ==
LOC: M LAB 09:09
PROVIDERS: ATTEND Physician Assistant Medical
DX: L65.9 Nonscarring hair loss, unspecified (principal); I10 Essential (primary) hypertension; E78.2 Mixed hyperlipidemia; E66.01 Morbid (severe) obesity due to excess calories; E55.9 Vitamin D deficiency, unspecified; E53.8 Deficiency of other specified B group vitamins

== ENCOUNTER → 2019-03-31 | Outpatient (CLI) | payer OTHER ==
[2019-03-31 10:28] LABS: BASO % 0.3 % (0.0-1.0); EOS # 0.1 10^3/uL (0.0-0.50); EOS % 1.3 % (0.0-3.0); HEMATOCRIT 39.8 % (36.0-47.0); HEMOGLOBIN 12.6 g/dl (12.0-15.5); LYMPH # 1.6 10^3/uL (1.5-4.5); MEAN CORPUSCULAR HEMOGLOBIN 29.3 pg (27.0-33.0); MEAN CORPUSCULAR HGB CONC 31.7 g/dl (32.0-36.5); MEAN CORPUSCULAR VOLUME 92.6 fl (80.0-96.0); MONO # 0.4 10^3/uL (0.0-0.8); MONO % 5.9 % (0.0-5.0); NEUTROPHILS # 4.2 10^3/uL (1.8-7.7); NEUTROPHILS % 67.2 % (36.0-66.0); PLATELET COUNT, AUTOMATED 186 10^3/uL (150-450); WHITE BLOOD COUNT 6.3 10^3/uL (4.0-10.0)
--- NOTE | 2019-03-31 10:31 | REP ---
Clinical: Chronic back pain. Technique: AP, lateral, bilateral oblique and coned-down views of the lumbosacral spine. Findings: Alignment and lordosis maintained. Mild endplate sclerosis with disc space narrowing and hypertrophic facet changes noted at L4-5 and L5-S1 as well as T12-L1. Remainder examination appears relatively normal. No acute fracture / compression injury or subluxation. Impression: Mild multilevel degenerative changes. Electronically Signed by Alvaro Fontaine MD 03/31/2019 10:23 A
--- NOTE | 2019-03-31 10:32 | REP ---
Clinical: Chronic left hip pain. Technique: Neutral and frog lateral views of the left hip. Findings: Left hip replacement with normal appearance in positioning to the prosthesis. The osseous structures are intact and relatively normal. No overt arthritic or degenerative changes noted. No abnormal calcifications. Surrounding soft tissues normal. Impression: No obvious acute process. Electronically Signed by Alvaro Fontaine MD 03/31/2019 10:24 A
[2019-03-31 11:02] LABS: ALBUMIN 3.5 GM/DL (3.2-5.2); ALT/SGPT 18 U/L (12-78); BILIRUBIN,TOTAL 0.4 MG/DL (0.2-1.0); BLOOD UREA NITROGEN 12 MG/DL (7-18); CALCIUM LEVEL 8.8 MG/DL (8.5-10.1); CARBON DIOXIDE LEVEL 29 MEQ/L (21-32); CHLORIDE LEVEL 110 MEQ/L (98-107); GLOMERULAR FILTRATION RATE > 60.0 (>51); GLUCOSE, FASTING 101 MG/DL (70-100); POTASSIUM SERUM 3.8 MEQ/L (3.5-5.1); SODIUM LEVEL 144 MEQ/L (136-145)
== END ==
LOC: M LAB 09:13
PROVIDERS: ATTEND Psychiatry & Neurology Neurology
DX: M51.36 Other intervertebral disc degeneration, lumbar region (principal); E53.8 Deficiency of other specified B group vitamins; Z96.642 Presence of left artificial hip joint

== ENCOUNTER → 2019-04-29 | Outpatient (CLI) | payer OTHER ==
[~2019-04-29] MED LIST changes: +BUPIVACAINE HCL 0.25% 30 ML VIAL As Ordered ONE; +LIDOCAINE 1% SDV INJ 30 ML VIAL As Ordered ONE; +TRIAMCINOLONE ACETONIDE SUSP 40 MG/ML VIAL (J3301) As Ordered ONE; +diazePAM 5 MG TAB As Ordered ONE; +oxyCODONE 5MG TAB As Ordered ONE
--- NOTE | 2019-05-07 00:48 | ECWPNPC ---
PATIENT NAME: AKBAR MOODY : 1965 GENDER: FEMALE VISIT DATE: 04/29/2019 DISCHARGE DATE: 04/29/19 113 VISIT LOCKED DATE TIME: PHYSICIAN: HAIDER COSTELLO MD RESOURCE: HAIDER COSTELLO MD REASON FOR APPOINTMENT 1. LEFT ILEOINGUINAL NERVE BLOCK HISTORY OF PRESENT ILLNESS HISTORY OF PRESENT ILLNESS: PAIN THE PATIENT DESCRIBES THE PAIN... THE PATIENT DESCRIBES THE PAIN... PAIN THE PATIENT DESCRIBES THE PAIN... THE PATIENT DESCRIBES THE PAIN... FALL RISK SCREENING: SCREENING :NO FALLS REPORTED IN THE LAST YEAR :NO FALLS REPORTED IN THE LAST YEAR SCREENING :NO FALLS REPORTED IN THE LAST YEAR :NO FALLS REPORTED IN THE LAST YEAR CURRENT MEDICATIONS TAKING ALEVE 220 MG TABLET 1-2 TABLETS NEEDED ORALLY EVERY 12 HRS, NOTES: 04/28/192299 TAKING NEBULIZER/TUBING/MOUTHPIECE _ KIT DIRECTED DX:493 DIRECTED TAKING ROPINIROLE HCL 0.5 MG TABLET TAKE ONE TABLET BY MOUTH THREE TIMES A DAY ORAL , NOTES: 04/28/192299 TAKING HM VITAMIN D3 2000 UNIT CAPSULE 2 CAPSULES ORALLY ONCE A DAY, NOTES: 04/28/19 AM TAKING MAY HAVE - - TENS UNIT PADS TOPICALLY DAILY PRN TAKING MIRALAX - POWDER 1-2 CAPFULS DAILY ORALLY DAILY, NOTES: NONE RECENT TAKING LIPITOR 10 MG TABLET 1 TABLET ORALLY ONCE A DAY, NOTES: 04/28/192299 TAKING OMEPRAZOLE 40 MG CAPSULE DELAYED RELEASE 1 CAPSULE ORALLY BID, NOTES: 04/28/192299 TAKING CYANOCOBALAMIN 1000 MCG/ML SOLUTION 1 ML INJECTION ONCE MONTHLY, NOTES: 04/28/19 AM TAKING SINGULAIR 10 MG TABLET 1 TABLET IN THE EVENING ORALLY ONCE A DAY, NOTES: 04/28/192299 TAKING LORATADINE 10 MG TABLET 1 TABLET ORALLY ONCE A DAY, NOTES: 04/28/19 AM TAKING VENTOLIN HFA 108 (90 BASE) MCG/ACT AEROSOL SOLUTION 2 PUFFS NEEDED INHALATION EVERY 4 HRS, NOTES: 2 DAYS AGO TAKING METHOCARBAMOL 500 MG TABLET 1 TABLETS ORALLY EVERY 6 HRS, NOTES: 04/28/192299 TAKING AIRDUO RESPICLICK 113/14 113-14 MCG/ACT AEROSOL POWDER BREATH ACTIVATED 1 PUFF INHALATION TWICE A DAY, NOTES: 04/28/192299 TAKING FLONASE 50 MCG/ACT SUSPENSION 2 SPRAYS IN EACH NOSTRIL NASALLY ONCE A DAY, NOTES: NONE RECENT TAKING LASIX 20 MG TABLET 1 TABLET ORALLY ONCE A DAY, NOTES: 04/28/19 AM TAKING POTASSIUM CHLORIDE ER 10 MEQ TABLET EXTENDED RELEASE 1 TABLET WITH FOOD ORALLY DAILY, NOTES: 04/28/19 AM TAKING LEVOTHYROXINE SODIUM 25 MCG TABLET 1 TABLET ON AN EMPTY STOMACH IN THE MORNING ORALLY ONCE A DAY, NOTES: 04/29/19 0530 TAKING HYDROCODONE-ACETAMINOPHEN 5-325 MG TABLET 1-2 ORALLY 1-2 TAB Q4-6HR PRN MDD6, NOTES: 04/28/19 AM TAKING ALBUTEROL SULFATE (2.5 MG/3ML) 0.083% NEBULIZATION SOLUTION 3 ML INHALATION THREE TIMES A DAY NEEDED, NOTES: NONE RECENT TAKING GABAPENTIN 800 MG TABLET 1 CAPSULE ORALLY THREE TIMES A DAY, NOTES: 04/28/19 2300 TAKING MAY HAVE - - CBD CAPSULE 750MG DAILY NOT-TAKING DOXYCYCLINE HYCLATE 100 MG CAPSULE 1 CAPSULE ORALLY TWICE A DAY DISCONTINUED POLYETHYLENE GLYCOL 3350 - POWDER 17G IN 8 OZ OF WATER ORALLY 1-2 TIMES DAILY NEEDED, NOTES: DUPLICATE NONE RECENT MEDICATION LIST REVIEWED AND RECONCILED WITH THE PATIENT PAST MEDICAL HISTORY ASTHMA, MILD INTERMITTENT OSTEOARTHRITIS - DDD - [facility] HYPERLIPIDEMIA VIT D DEF OBESITY B HIP OA S/P COLONOSCOPY NEG. 01/07/2016-DR. CHAPMAN F/U 10YR.S SWELLING ON LEGS ALLERGIES LATEX (FOR ALLERGY USE ONLY): HIVES - ALLERGY KEFLEX: ANAPHYLAXIS - ALLERGY NSAIDS: KIDNEY ISSUES - CONTRAINDICATION ENVIRONMENTAL: COUGH - ALLERGY SURGICAL HISTORY MADHAV DUE TO BLEEDING--- 07/2008 ARTHROSCOPIC KNEE SURGERY LEFT X 3 ARTHROSCOPIC KNEE SURGERY RIGHT X 1 CARPAL TUNNEL RELEASE BILATERAL ARTHROSCOPY SHOULDER RIGHT SHOULDER SURGERY LEFT BIOPSY MOLE- BACK LEFT HIP SURGERY 01/2016 CARPAL TUNNEL RELEASE BILATERAL LEFT HIP SURGERY 01/2016 HERNIA REPAIR X 5 ABDOMINAL SURGERY FOR GANGRENOUS INFECTION POST BTL SHOULDER SURGERY LEFT BIOPSY MOLE- BACK LEFT LEG SURGERY- RELEASED NERVES 10/11/16 BIOPSY MOLE- BACK LEFT HIP SURGERY 01/2016 TUBAL LIGATION HERNIA REPAIR X 5 ABDOMINAL SURGERY FOR GANGRENOUS INFECTION POST BTL BELLY BUTTON REMOVED LEFT LEG SURGERY- RELEASED NERVES 10/11/16 FAMILY HISTORY FATHER: 60 YRS, DIAGNOSED WITH CANCER MOTHER: ALIVE 64 YRS, HYPERTENSION 4 BROTHER(S) , 1 SISTER(S) - HEALTHY. 2 SON(S) , 3 DAUGHTER(S) - HEALTHY. SOCIAL HISTORY GENERAL: TOBACCO USE ARE YOU A:FORMER SMOKER HOW LONG HAS IT BEEN SINCE YOU LAST SMOKED?> 10 YEARS HIV / HEP-C SCREENING HIV TEST OFFERED TO PATIENT:YES DATE OFFERED:03/19/2019 TEST ACCEPTED:NO HEP-C TEST OFFERED TO PATIENT:YES N/A DATE OFFERED:03/19/2019 REASON:PATIENT DECLINED TEST ACCEPTED:NO REASON:PATIENT DECLINED BROCHURE PROVIDED TO PATIENTYES EDUCATION LEVEL OF EDUCATION:NOT FINISHED HIGH SCHOOL DIET: REGULAR. LANGUAGE LANGUAGES SPOKEN:MAURITANIAN DOMESTIC VIOLENCE DO YOU FEEL SAFE IN YOUR ENVIRONMENT?YES BMI CARE GOAL FOLLOW-UP ABOVE NORMAL BMI FOLLOW-UPDIETARY MANAGEMENT EDUCATION, GUIDANCE, AND COUNSELING RECREATIONAL DRUG USE DRUG USE?NO LEARNING BARRIERS / SPECIAL NEEDS CHANGE FROM LAST VISIT?NO BARRIERS TO LEARNING?NO HEARING IMPAIRED?NO VISION IMPAIRED?YES COGNITIVELY IMPAIRED?NO :CORRECTIVE LENSES READING READINESS TO LEARN?YES LEARNING PREFERENCES?NO LEARNING CAPABILITIES PRESENT?YES EMOTIONAL BARRIERS?NO SPECIAL DEVICES?YES :WALKER DISPATCH LEAD NEEDED?NO PAIN CLINIC PFS, CLERGY, PUBLIC HEALTH REFERRALS PFS REFERRAL NEEDED?NO CLERGY REFERRAL NEEDED?NO PUBLIC HEALTH REFERRAL NEEDED?NO WAS THE PROVIDER NOTIFIED OF ANY PERTINENT INFO?YES NA HAS THE PATIENT BEEN EDUCATED REGARDING HIS/HER PLAN OF CARE?YES HAS THE PATIENT BEEN EDUCATED REGARDING PAIN, THE RISK FOR PAIN, THE IMPORTANCE OF EFFECTIVE PAIN MANAGEMENT, AND THE PAIN ASSESSMENT PROCESS?YES LATEX QUESTIONNAIRE LATEX ALLERGY : HAVE YOU EVER DEVELOPED ANY TYPE OF REACTION AFTER HANDLING LATEX PRODUCTS SUCH RUBBER GLOVES, CONDOMS, DIAPHRAGMS, BALLOONS, SOCKS, OR UNDERWEAR?YES LATEX ALLERGY : HAVE YOU EVER DEVELOPED ANY TYPE OF REACTION DURING OR AFTER DENTAL APPOINTMENT, VAGINAL/RECTAL EXAMINATION, SURGICAL PROCEDURE, OR ANY OTHER EXPOSURE?NO - PLEASE INDICATE :RUBBER GLOVES DATE ASKED : 03/19/2019 LATEX RISK : HAVE YOU EVER HAD ANY DIFFICULTY BREATHING OR HIVES AFTER EATING OR HANDLING ANY FRUITS, OR VEGETABLES; SUCH KIWI, BANANAS, STONE FRUITS, OR CHESTNUTSNO LATEX RISK : DO YOU HAVE A PREVIOUS PERSONAL HISTORY OF MORE THAN NINE SURGERIES, SPINA BIFIDA, OR REPEATED CATHERIZATIONS? NO LATEX RISK : ARE YOU FREQUENTLY EXPOSED TO LATEX PRODUCTS IN YOUR OCCUPATION?NO CAFFEINE CAFFEINE USE?YES 1 SODA ADVANCE DIRECTIVE ADVANCE DIRECTIVE DISCUSSED WITH PATIENT:YES PT DOES NOT HAVE HCP AND DECLINES INFO AT THIS TIME. 04/29/19 CONFUCIANIST [id number] NONE MARITAL STATUS: SINGLE. ALCOHOL SCREENING DID YOU HAVE A DRINK CONTAINING ALCOHOL IN THE PAST YEAR?YES HOW OFTEN DID YOU HAVE SIX OR MORE DRINKS ON ONE OCCASION IN THE PAST YEAR?NEVER (0 POINTS) HOW MANY DRINKS DID YOU HAVE ON A TYPICAL DAY WHEN YOU WERE DRINKING IN THE PAST YEAR?7 TO 9 (3 POINTS) HOW OFTEN DID YOU HAVE A DRINK CONTAINING ALCOHOL IN THE PAST YEAR?TWO TO FOUR TIMES A MONTH (2 POINTS) POINTS5 INTERPRETATIONPOSITIVE OCCUPATION: UNEMPLOYED. SEXUAL HX HAD SEX IN THE LAST 12 MONTHS (VAGINAL, ORAL, OR ANAL)?YES WITHMEN ONLY USE PROTECTION?YES IS GOING TO GET LEFT HIP REPLACEMENT ON January. IS GOING TO GET LEFT HIP REPLACEMENT ON January. 03/07/18 0935 REVIEWED WITH PT. AD03/26/18 1140 RECVIEWED WITH PT. AD IS GOING TO GET LEFT HIP REPLACEMENT ON January. IS GOING TO GET LEFT HIP REPLACEMENT ON January. 03/07/18 0935 REVIEWED WITH PT. AD05/29/18 REVIEWED WITH PT LAS04/29/19 REVIEWED WITH PT 0910 BV03/20/19 REVIEWED WITH PATIENT NLJREVIEWED WITH PATIENT 07/08/18 1109 JS. HOSPITALIZATION/MAJOR DIAGNOSTIC PROCEDURE SURGERY CHILDBIRTH X 6 REVIEW OF SYSTEMS REVIEWED BY: PROVIDER: , . CONSTITUTIONAL: ANY CHANGE IN YOUR MEDICAL CONDITION? NO, NO . CHILLS NO, NO . FEVER NO, NO . INFECTION: DO YOU HAVE NEW INFECTIONS? NO, NO . DO YOU HAVE HISTORY OF MRSA? NO, NO . MUSCULOSKELETAL: ANY NEW PATTERNS OF PAIN OR NUMBNESS? NO, NO . GASTROENTEROLOGY: ANY NEW CHANGE IN BOWEL CONTROL? NO, NO . GENITOURINARY: ANY NEW CHANGE IN BLADDER CONTROL? NO, NO . IS THERE A CHANCE YOU COULD BE ? NO, NO . HEMATOLOGY/LYMPH: DO YOU TAKE ANY BLOOD THINNERS? (FOR EXAMPLE- COUMADIN, PLAVIX, AGGRENOX, PLATEL, PRADAXA, OR XARELTO) NO, NO . WHEN WAS YOUR LAST DOSE? DATE: TIME: , DATE: TIME: . NEUROLOGY: HAVE YOU FALLEN IN THE PAST 12 MONTHS? NO, NO . ANY NEW EXTREMITY NUMBNESS OR WEAKNESS? NO, NO . CARDIOLOGY: DO YOU HAVE A PACEMAKER OR DEFIBRILLATOR? NO, NO . RESPIRATORY: HAVE YOU BEEN SICK IN THE PAST WEEK? NO, NO . FEVER NO, NO . FLU LIKE SYMPTOMS? NO, NO . COUGH NO, NO . INTEGUMENTARY: DO YOU HAVE ANY RASHES OR OPEN SORES? NO, NO . ALLERGIC/IMMUNO: ARE YOU ALLERGIC TO IV DYE? NO, NO . ANY NEW ALLERGIES? NO, NO . PSYCHIATRIC: DO YOU HAVE THOUGHTS OF HURTING YOURSELF OR SOMEONE ELSE? NO, NO . ARE YOU ABUSED, NEGLECTED, OR IN AN UNSAFE ENVIRONMENT? NO, NO . ENDOCRINOLOGY: ARE YOU DIABETIC? NO, NO . OTHER: DO YOU NEED ANY PRESCRIPTIONS? NO, NO . IF YES, PLEASE LIST: ____, ____ . ANY NEW PROBLEMS WITH YOUR MEDICATIONS? NO, NO . WHEN DID YOU LAST EAT? 04/28/192029 . WHEN DID YOU LAST DRINK? 04/28/19 2300 . WHAT DID YOU LAST DRINK? WATER . NAME OF PERSON DRIVING YOU HOME? LATONYA-DAUGHTER . DO YOU HAVE ANY OTHER QUESTIONS OR CONCERNS NO, NO . VITAL SIGNS WT 273.8 LBS, HT 68 IN, BMI 41.63 INDEX, BP 115/79 MM HG, HR 80 /MIN, RR 18 /MIN, TEMP 97.1 F, OXYGEN SAT % 99%, NA INITIALS SC 09:00, REVIEWED BY: YANETH. 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 I REVIEWED THE CHART AND DISCUSSED THE CASE WITH THE PATIENT. AFTER DISCUSSING RISK, ALTERNATIVES AND BENEFITS WE HAVE AGREED ON PROCEEDING WITH THE BLOCK TODAY. THE PATIENT AGREES.PROCEDURE NOTE: AFTER CONSENT WAS SIGNED THE PATIENT WAS TAKEN TO THE PROCEDURE ROOM AND PLACE IN THE SUPINE POSITION. THE LEFT INGUINAL AREA WAS CLEAN WITH CHLORAPREP SOLUTION AND DRAPED ASEPTICALLY. THE PROCEDURE WAS DONE UNDER STERILE STANDARD TECHNIQUES. THE LEFT SUPERIOR ANTERIOR ILIAC SPINE WAS PALPATED. THE ENTRY POINT WAS SELECTED 1 INCH MEDIAL AND CAUDAL. THEN USING A NERVE STIMULATOR APPROPRIATE STIMULATION OF THE NERVE WAS INDUCED PER PATIENTS FEEDBACK FIRST AT 2.0 VOLTS AND THEN AT 0.8 VOLTS. THERE WAS NO EVIDENCE OF BLOOD, PARESTHESIA OR VISCERAL PUNCTURE. THEN A SOLUTION OF 15 CC OF BUPIVACAINE 0.125% AND KENALOG 40 MGS WAS INJECTED SLOWLY APPROXIMATELY 0.5 INCHES DEEP AND WITH THE ASSISTANCE OF THE NERVE STIMULATOR DESCRIBED ABOVE. THE PATIENT TOLERATES THE PROCEDURE WITHOUT COMPLICATIONS AND WAS SENT TO THE RECOVERY ROOM. POST-PROCEDURE NOTE: I WILL SEE THE PATIENT IN A FOLLOW UP IN THE NEXT FEW WEEKS. WE ARE LOOKING FOR LONG LASTING PAIN RELIEVE WITH THIS INTERVENTION. INSTRUCTIONS WERE GIVEN QUESTIONS WERE ANSWERED AND THE PATIENT REPORTS UNDERSTANDING AND AGREES. I, CARLA WARE, DOCUMENTED THE ABOVE INFORMATION ACTING A SCRIBE FOR DR. COSTELLO. I HAVE REVIEWED THE ABOVE DOCUMENT, WRITTEN BY CARLA WARE SCRIBMickie AND I VERIFY THAT IT IS ACCURATE. PROCEDURE CODES 19700 N BLOCK INJ ILIO-ING/HYPOGI, MODIFIERS: LT DISPOSITION & COMMUNICATION FOLLOW UP 3 WEEKS ELECTRONICALLY SIGNED BY HAIDER COSTELLO MD, MD ON 05/06/2019 AT 03:27 PM EDT DISCLAIMER : THIS IS A VISIT SUMMARY EXTRACTED FROM THE [employer] CHART. IT IS NOT A COPY OF THE [employer] PROGRESS NOTE. GEGE
== END ==
LOC: M PAIN 09:30
PROVIDERS: ATTEND Anesthesiology
DX: G57.92 Unspecified mononeuropathy of left lower limb (principal); J45.20 Mild intermittent asthma, uncomplicated; M16.0 Bilateral primary osteoarthritis of hip; E78.5 Hyperlipidemia, unspecified; E55.9 Vitamin D deficiency, unspecified; E66.9 Obesity, unspecified; Z87.891 Personal history of nicotine dependence; Z68.41 Body mass index [BMI] 40.0-44.9, adult; Z91.040 Latex allergy status; Z88.1 Allergy status to other antibiotic agents; Z88.6 Allergy status to analgesic agent; Z79.891 Long term (current) use of opiate analgesic; Z79.899 Other long term (current) drug therapy
CPT/HCPCS: 64425; J3301

== ENCOUNTER → 2019-07-09 | Outpatient (CLI) | payer OTHER ==
[~2019-07-09] MED LIST changes: -BUPIVACAINE HCL 0.25% 30 ML VIAL As Ordered ONE; -LIDOCAINE 1% SDV INJ 30 ML VIAL As Ordered ONE; -TRIAMCINOLONE ACETONIDE SUSP 40 MG/ML VIAL (J3301) As Ordered ONE; -diazePAM 5 MG TAB As Ordered ONE; -oxyCODONE 5MG TAB As Ordered ONE
== END ==
LOC: M PAIN 09:15
PROVIDERS: ATTEND Nurse Practitioner Family
DX: G57.92 Unspecified mononeuropathy of left lower limb (principal); G89.29 Other chronic pain; J45.20 Mild intermittent asthma, uncomplicated; E78.5 Hyperlipidemia, unspecified; Z87.891 Personal history of nicotine dependence; Z88.1 Allergy status to other antibiotic agents; Z88.6 Allergy status to analgesic agent; Z91.040 Latex allergy status; E66.01 Morbid (severe) obesity due to excess calories; Z68.41 Body mass index [BMI] 40.0-44.9, adult; Z79.891 Long term (current) use of opiate analgesic; Z79.899 Other long term (current) drug therapy

== ENCOUNTER → 2019-08-11 | Outpatient (CLI) | payer OTHER ==
[~2019-08-11] MED LIST changes: +CONRAY-43 43% 50ML VIAL (Q9960) As Ordered ONE; +LIDOCAINE 1% MDV 20ML VIAL As Ordered ONE; -OMEP40CA2 PO; +OMEP40CA97 PO; +PROHANCE 279.3MG/ML 5ML VIAL (A9576) As Ordered ONE; +TRIAMCINOLONE ACETONIDE SUSP 40 MG/ML VIAL (J3301) As Ordered ONE
--- NOTE | 2019-08-11 11:17 | REP ---
MRI right shoulder without contrast: History: Synovitis and tendonitis right shoulder. Rule out rotator cuff tear. Comparison study: July 26, 2018. No comparison radiographs. Technique: Axial, oblique coronal, and oblique sagittal imaging planes were utilized. T1 and T2-weighted scans were obtained with and without fat saturation. MRI findings: Glenohumeral and acromioclavicular joints are normally aligned. There is osteoarthritic hypertrophy at the superior margin of the AC joint. There is AC joint fluid visible extending posteriorly adjacent to the distal clavicle. Some subcortical cyst formation is seen. There is increased thickening and increased signal intensity along the course of the supraspinatus tendon consistent with supraspinatus tendonitis tendinosis change. The previously noted distal insertion site linear supraspinatus partial-thickness lesion is somewhat less conspicuous today. No retracted tear is seen. The biceps tendon is unremarkable. There is some tendonitis tendinosis change in the subscapularis tendon. Infraspinatus tendon is unremarkable. There is chondromalacia in the glenohumeral articulation. There is no visible labral cartilage tear. Subcortical cyst formation is again seen in the proximal humeral head. Impression: Changes consistent with progressive supraspinatus and subscapularis tendinosis tendonitis change. AC joint osteoarthritis. Subacromial subdeltoid bursal fluid is noted. Electronically Signed by Melchor Rolon MD 08/11/2019 01:46 P
== END ==
LOC: M RAD 07:28
PROVIDERS: ATTEND Orthopaedic Surgery
DX: M16.11 Unilateral primary osteoarthritis, right hip (principal); M75.91 Shoulder lesion, unspecified, right shoulder
CPT/HCPCS: 73221; J3301; Q9960

== ENCOUNTER → 2019-08-13 | Outpatient (CLI) | payer OTHER ==
[~2019-08-13] MED LIST changes: +BUPIVACAINE HCL 0.25% 30 ML VIAL As Ordered ONE; -CONRAY-43 43% 50ML VIAL (Q9960) As Ordered ONE; +ISOVUE-M 300 61% 15ML VIAL (Q9967) As Ordered ONE; -LIDOCAINE 1% MDV 20ML VIAL As Ordered ONE; +LIDOCAINE 1% SDV INJ 30 ML VIAL As Ordered ONE; -PROHANCE 279.3MG/ML 5ML VIAL (A9576) As Ordered ONE; +diazePAM 5 MG TAB As Ordered ONE; +oxyCODONE 5MG TAB As Ordered ONE
--- NOTE | 2019-08-22 01:19 | ECWPNPC ---
PATIENT NAME: AKBAR MOODY : 1965 GENDER: FEMALE VISIT DATE: 08/13/2019 DISCHARGE DATE: 08/13/19 162 VISIT LOCKED DATE TIME: PHYSICIAN: HAIDER COSTELLO MD RESOURCE: HAIDER COSTELLO MD REASON FOR APPOINTMENT 1. LEFT ILEOINGUINAL NERVE BLOCK HISTORY OF PRESENT ILLNESS HISTORY OF PRESENT ILLNESS: PAIN THE PATIENT DESCRIBES THE PAIN... FALL RISK SCREENING: SCREENING :NO FALLS REPORTED IN THE LAST YEAR CURRENT MEDICATIONS TAKING ALEVE 220 MG TABLET 1-2 TABLETS NEEDED ORALLY EVERY 12 HRS, NOTES: 08/12/192229 TAKING NEBULIZER/TUBING/MOUTHPIECE _ KIT DIRECTED DX:493 DIRECTED TAKING ROPINIROLE HCL 0.5 MG TABLET TAKE ONE TABLET BY MOUTH THREE TIMES A DAY ORAL , NOTES: 08/12/192229 TAKING MAY HAVE - - TENS UNIT PADS TOPICALLY DAILY PRN TAKING MIRALAX - POWDER 1-2 CAPFULS DAILY ORALLY DAILY, NOTES: NOT RECENTLY TAKING LIPITOR 10 MG TABLET 1 TABLET ORALLY ONCE A DAY, NOTES: 08/12/192229 TAKING OMEPRAZOLE 40 MG CAPSULE DELAYED RELEASE 1 CAPSULE ORALLY BID, NOTES: 08/12/192229 TAKING SINGULAIR 10 MG TABLET 1 TABLET IN THE EVENING ORALLY ONCE A DAY, NOTES: 08/12/192229 TAKING LORATADINE 10 MG TABLET 1 TABLET ORALLY ONCE A DAY, NOTES: 08/12/19629 TAKING VENTOLIN HFA 108 (90 BASE) MCG/ACT AEROSOL SOLUTION 2 PUFFS NEEDED INHALATION EVERY 4 HRS, NOTES: COUPLE OF DAYS AGO TAKING METHOCARBAMOL 500 MG TABLET 1 TABLETS ORALLY EVERY 6 HRS, NOTES: 08/12/192229 TAKING AIRDUO RESPICLICK 113/14 113-14 MCG/ACT AEROSOL POWDER BREATH ACTIVATED 1 PUFF INHALATION TWICE A DAY, NOTES: 08/12/192229 TAKING FLONASE 50 MCG/ACT SUSPENSION 2 SPRAYS IN EACH NOSTRIL NASALLY ONCE A DAY, NOTES: A COUPLE OF DAYS AGO TAKING LASIX 20 MG TABLET 1 TABLET ORALLY ONCE A DAY, NOTES: 08/12/19629 TAKING LEVOTHYROXINE SODIUM 25 MCG TABLET 1 TABLET ON AN EMPTY STOMACH IN THE MORNING ORALLY ONCE A DAY, NOTES: 08/13/19429 TAKING ALBUTEROL SULFATE (2.5 MG/3ML) 0.083% NEBULIZATION SOLUTION 3 ML INHALATION THREE TIMES A DAY NEEDED, NOTES: A COUPLE DAYS TAKING GABAPENTIN 800 MG TABLET 1 CAPSULE ORALLY THREE TIMES A DAY, NOTES: 08/12/19 2230 TAKING MAY HAVE - - CBD CAPSULE 750MG DAILY, NOTES: NONE IN LAST 2 MONTHS TAKING HYDROCODONE-ACETAMINOPHEN 5-325 MG TABLET 1-2 ORALLY 1-2 TAB Q4-6HR PRN MDD6, NOTES: 08/12/19 0630 NOT-TAKING HM VITAMIN D3 2000 UNIT CAPSULE 2 CAPSULES ORALLY ONCE A DAY NOT-TAKING CYANOCOBALAMIN 1000 MCG/ML SOLUTION 1 ML INJECTION ONCE MONTHLY NOT-TAKING POTASSIUM CHLORIDE ER 10 MEQ TABLET EXTENDED RELEASE 1 TABLET WITH FOOD ORALLY DAILY NOT-TAKING DOXYCYCLINE HYCLATE 100 MG CAPSULE 1 CAPSULE ORALLY TWICE A DAY MEDICATION LIST REVIEWED AND RECONCILED WITH THE PATIENT PAST MEDICAL HISTORY ASTHMA, MILD INTERMITTENT OSTEOARTHRITIS - DDD - FOLLOWS WITH NCOG ENVIRONMENTAL ALLERGIES HYPERLIPIDEMIA VIT D DEF OBESITY B HIP OA S/P COLONOSCOPY NEG. 01/07/2016-DR. CHAPMAN F/U 12YR.S SWELLING ON LEGS RIGHT SHOULDER PAIN- MRI DONE ON Sunday08/11/19 ALLERGIES LATEX (FOR ALLERGY USE ONLY): HIVES - ALLERGY KEFLEX: ANAPHYLAXIS - ALLERGY NSAIDS: KIDNEY ISSUES - CONTRAINDICATION ENVIRONMENTAL: COUGH - ALLERGY SURGICAL HISTORY MADHAV DUE TO BLEEDING--- 07/2008 ARTHROSCOPIC KNEE SURGERY LEFT X 3 ARTHROSCOPIC KNEE SURGERY RIGHT X 1 CARPAL TUNNEL RELEASE BILATERAL ARTHROSCOPY SHOULDER RIGHT SHOULDER SURGERY LEFT BIOPSY MOLE- BACK LEFT HIP SURGERY 01/2016 CARPAL TUNNEL RELEASE BILATERAL LEFT HIP SURGERY 01/2016 HERNIA REPAIR X 5 ABDOMINAL SURGERY FOR GANGRENOUS INFECTION POST BTL SHOULDER SURGERY LEFT BIOPSY MOLE- BACK LEFT LEG SURGERY- RELEASED NERVES 10/11/16 BIOPSY MOLE- BACK LEFT HIP SURGERY 01/2016 TUBAL LIGATION HERNIA REPAIR X 5 ABDOMINAL SURGERY FOR GANGRENOUS INFECTION POST BTL BELLY BUTTON REMOVED LEFT LEG SURGERY- RELEASED NERVES 10/11/16 FAMILY HISTORY FATHER: 60 YRS, DIAGNOSED WITH OTHER MALIGNANT NEOPLASM OF UNSPECIFIED SITE MOTHER: ALIVE 64 YRS, HYPERTENSION 4 BROTHER(S) , 1 SISTER(S) - HEALTHY. 2 SON(S) , 3 DAUGHTER(S) - HEALTHY. SOCIAL HISTORY GENERAL: TOBACCO USE ARE YOU A:FORMER SMOKER HOW LONG HAS IT BEEN SINCE YOU LAST SMOKED?> 10 YEARS HIV / HEP-C SCREENING HIV TEST OFFERED TO PATIENT:YES DATE OFFERED:03/19/2019 TEST ACCEPTED:NO HEP-C TEST OFFERED TO PATIENT:YES N/A DATE OFFERED:03/19/2019 REASON:PATIENT DECLINED TEST ACCEPTED:NO REASON:PATIENT DECLINED BROCHURE PROVIDED TO PATIENTYES EDUCATION LEVEL OF EDUCATION:NOT FINISHED HIGH SCHOOL DIET: REGULAR. LANGUAGE LANGUAGES SPOKEN:CHILEAN DOMESTIC VIOLENCE DO YOU FEEL SAFE IN YOUR ENVIRONMENT?YES BMI CARE GOAL FOLLOW-UP ABOVE NORMAL BMI FOLLOW-UPDIETARY MANAGEMENT EDUCATION, GUIDANCE, AND COUNSELING RECREATIONAL DRUG USE DRUG USE?NO LEARNING BARRIERS / SPECIAL NEEDS CHANGE FROM LAST VISIT?NO BARRIERS TO LEARNING?NO HEARING IMPAIRED?NO VISION IMPAIRED?YES COGNITIVELY IMPAIRED?NO :CORRECTIVE LENSES READING READINESS TO LEARN?YES LEARNING PREFERENCES?NO LEARNING CAPABILITIES PRESENT?YES EMOTIONAL BARRIERS?NO SPECIAL DEVICES?YES :WALKER TELECOMMUNICATIONS PROFESSIONAL NEEDED?NO PAIN CLINIC PFS, CLERGY, PUBLIC HEALTH REFERRALS PFS REFERRAL NEEDED?NO CLERGY REFERRAL NEEDED?NO PUBLIC HEALTH REFERRAL NEEDED?NO WAS THE PROVIDER NOTIFIED OF ANY PERTINENT INFO?YES NA HAS THE PATIENT BEEN EDUCATED REGARDING HIS/HER PLAN OF CARE?YES HAS THE PATIENT BEEN EDUCATED REGARDING PAIN, THE RISK FOR PAIN, THE IMPORTANCE OF EFFECTIVE PAIN MANAGEMENT, AND THE PAIN ASSESSMENT PROCESS?YES LATEX QUESTIONNAIRE LATEX ALLERGY : HAVE YOU EVER DEVELOPED ANY TYPE OF REACTION AFTER HANDLING LATEX PRODUCTS SUCH RUBBER GLOVES, CONDOMS, DIAPHRAGMS, BALLOONS, SOCKS, OR UNDERWEAR?YES LATEX ALLERGY : HAVE YOU EVER DEVELOPED ANY TYPE OF REACTION DURING OR AFTER DENTAL APPOINTMENT, VAGINAL/RECTAL EXAMINATION, SURGICAL PROCEDURE, OR ANY OTHER EXPOSURE?NO - PLEASE INDICATE :RUBBER GLOVES DATE ASKED : 03/19/2019 LATEX RISK : HAVE YOU EVER HAD ANY DIFFICULTY BREATHING OR HIVES AFTER EATING OR HANDLING ANY FRUITS, OR VEGETABLES; SUCH KIWI, BANANAS, STONE FRUITS, OR CHESTNUTSNO LATEX RISK : DO YOU HAVE A PREVIOUS PERSONAL HISTORY OF MORE THAN NINE SURGERIES, SPINA BIFIDA, OR REPEATED CATHERIZATIONS? NO LATEX RISK : ARE YOU FREQUENTLY EXPOSED TO LATEX PRODUCTS IN YOUR OCCUPATION?NO CAFFEINE CAFFEINE USE?YES 1 SODA ADVANCE DIRECTIVE ADVANCE DIRECTIVE DISCUSSED WITH PATIENT:YES PT DOES NOT HAVE HCP AND DECLINES INFO AT THIS TIME. 04/29/19 EVANGELICAL [id number] NONE MARITAL STATUS: SINGLE. ALCOHOL SCREENING DID YOU HAVE A DRINK CONTAINING ALCOHOL IN THE PAST YEAR?YES HOW OFTEN DID YOU HAVE SIX OR MORE DRINKS ON ONE OCCASION IN THE PAST YEAR?NEVER (0 POINTS) HOW MANY DRINKS DID YOU HAVE ON A TYPICAL DAY WHEN YOU WERE DRINKING IN THE PAST YEAR?7 TO 9 (3 POINTS) HOW OFTEN DID YOU HAVE A DRINK CONTAINING ALCOHOL IN THE PAST YEAR?TWO TO FOUR TIMES A MONTH (2 POINTS) POINTS5 INTERPRETATIONPOSITIVE OCCUPATION: UNEMPLOYED. SEXUAL HX HAD SEX IN THE LAST 12 MONTHS (VAGINAL, ORAL, OR ANAL)?YES WITHMEN ONLY USE PROTECTION?YES IS GOING TO GET LEFT HIP REPLACEMENT ON January. IS GOING TO GET LEFT HIP REPLACEMENT ON January. 03/07/18 0935 REVIEWED WITH PT. AD03/26/18 1140 RECVIEWED WITH PT. AD IS GOING TO GET LEFT HIP REPLACEMENT ON January. IS GOING TO GET LEFT HIP REPLACEMENT ON January. 03/07/18 0935 REVIEWED WITH PT. AD05/29/18 REVIEWED WITH PT LAS04/29/19 REVIEWED WITH PT 0910 BV03/20/19 REVIEWED WITH PATIENT NLJREVIEWED WITH PATIENT 07/08/18 1109 JSREVIEWED WITH PATIENT 07/09/19 0926 NLJREVIEWED WITH PATIENT 08/12/19 1340 NLJ. HOSPITALIZATION/MAJOR DIAGNOSTIC PROCEDURE SURGERY CHILDBIRTH X 6 REVIEW OF SYSTEMS REVIEWED BY: PROVIDER: . CONSTITUTIONAL: ANY CHANGE IN YOUR MEDICAL CONDITION? NO . CHILLS NO . FEVER NO . INFECTION: DO YOU HAVE NEW INFECTIONS? NO . DO YOU HAVE HISTORY OF MRSA? NO . MUSCULOSKELETAL: ANY NEW PATTERNS OF PAIN OR NUMBNESS? NO . GASTROENTEROLOGY: ANY NEW CHANGE IN BOWEL CONTROL? NO . GENITOURINARY: ANY NEW CHANGE IN BLADDER CONTROL? NO . IS THERE A CHANCE YOU COULD BE ? NO . HEMATOLOGY/LYMPH: DO YOU TAKE ANY BLOOD THINNERS? (FOR EXAMPLE- COUMADIN, PLAVIX, AGGRENOX, PLATEL, PRADAXA, OR XARELTO) NO . WHEN WAS YOUR LAST DOSE? DATE: TIME: . NEUROLOGY: HAVE YOU FALLEN IN THE PAST 12 MONTHS? NO . ANY NEW EXTREMITY NUMBNESS OR WEAKNESS? NO . CARDIOLOGY: DO YOU HAVE A PACEMAKER OR DEFIBRILLATOR? NO . RESPIRATORY: HAVE YOU BEEN SICK IN THE PAST WEEK? NO . FEVER NO . FLU LIKE SYMPTOMS? NO . COUGH NO . INTEGUMENTARY: DO YOU HAVE ANY RASHES OR OPEN SORES? NO . ALLERGIC/IMMUNO: ARE YOU ALLERGIC TO IV DYE? NO . ANY NEW ALLERGIES? NO . PSYCHIATRIC: DO YOU HAVE THOUGHTS OF HURTING YOURSELF OR SOMEONE ELSE? NO . ARE YOU ABUSED, NEGLECTED, OR IN AN UNSAFE ENVIRONMENT? NO . ENDOCRINOLOGY: ARE YOU DIABETIC? NO . OTHER: DO YOU NEED ANY PRESCRIPTIONS? NO . IF YES, PLEASE LIST: ____ . ANY NEW PROBLEMS WITH YOUR MEDICATIONS? NO . WHEN DID YOU LAST EAT? 08/12/19 1930 . WHEN DID YOU LAST DRINK? 08/13/19 0530 . WHAT DID YOU LAST DRINK? WATER . NAME OF PERSON DRIVING YOU HOME? CARLA WILMA . DO YOU HAVE ANY OTHER QUESTIONS OR CONCERNS NO . VITAL SIGNS WT 286.0 LBS, HT 68 IN, BMI 43.48 INDEX, BP 162/74 MM HG, HR 91 /MIN, RR 18 /MIN, TEMP 98.2 F, OXYGEN SAT % 98%, SAFE IN ENV? (Y/N) YES, NA INITIALS AW 1336, REVIEWED BY: DIAMOND. 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 I REVIEWED THE CHART AND DISCUSSED THE CASE WITH THE PATIENT. AFTER DISCUSSING RISK, ALTERNATIVES AND BENEFITS WE HAVE AGREED ON PROCEEDING WITH THE BLOCK TODAY. THE PATIENT AGREES.PROCEDURE NOTE: AFTER CONSENT WAS SIGNED THE PATIENT WAS TAKEN TO THE PROCEDURE ROOM AND PLACE IN THE SUPINE POSITION. THE LEFT INGUINAL AREA WAS CLEAN WITH CHLORAPREP SOLUTION AND DRAPED ASEPTICALLY. THE PROCEDURE WAS DONE UNDER STERILE STANDARD TECHNIQUES. THE LEFT SUPERIOR ANTERIOR ILIAC SPINE WAS PALPATED. THE ENTRY POINT WAS SELECTED 1 INCH MEDIAL AND CAUDAL. THEN USING A NERVE STIMULATOR APPROPRIATE STIMULATION OF THE NERVE WAS INDUCED PER PATIENTS FEEDBACK FIRST AT 2.0 VOLTS AND THEN AT 0.8 VOLTS. THERE WAS NO EVIDENCE OF BLOOD, PARESTHESIA OR VISCERAL PUNCTURE. THEN A SOLUTION OF 15 CC OF BUPIVACAINE 0.125% AND KENALOG 40 MGS WAS INJECTED SLOWLY APPROXIMATELY 0.5 INCHES DEEP AND WITH THE ASSISTANCE OF THE NERVE STIMULATOR DESCRIBED ABOVE. THE PATIENT TOLERATED THE PROCEDURE WITHOUT COMPLICATIONS AND WAS SENT TO THE RECOVERY ROOM. POST-PROCEDURE NOTE: I WILL SEE THE PATIENT IN A FOLLOW UP IN THE NEXT FEW WEEKS. WE ARE LOOKING FOR LONG LASTING PAIN RELIEVE WITH THIS INTERVENTION. INSTRUCTIONS WERE GIVEN QUESTIONS WERE ANSWERED AND THE PATIENT REPORTS UNDERSTANDING AND AGREES. I, CARLA WARE, DOCUMENTED THE ABOVE INFORMATION ACTING A SCRIBE FOR DR. COSTELLO. I HAVE REVIEWED THE ABOVE DOCUMENT, WRITTEN BY CARLA ABELIBMickie AND I VERIFY THAT IT IS ACCURATE. PROCEDURE CODES 13594 N BLOCK INJ ILIO-ING/HYPOGI, MODIFIERS: LT DISPOSITION & COMMUNICATION FOLLOW UP 3 WEEKS ELECTRONICALLY SIGNED BY HAIDER COSTELLO MD, MD ON 08/21/2019 AT 12:35 PM EST DISCLAIMER : THIS IS A VISIT SUMMARY EXTRACTED FROM THE [employer] CHART. IT IS NOT A COPY OF THE [employer] PROGRESS NOTE. GEGE
== END ==
LOC: M PAIN 14:30
PROVIDERS: ATTEND Anesthesiology
DX: G57.92 Unspecified mononeuropathy of left lower limb (principal); J45.20 Mild intermittent asthma, uncomplicated; E78.5 Hyperlipidemia, unspecified; Z87.891 Personal history of nicotine dependence; Z88.1 Allergy status to other antibiotic agents; Z88.6 Allergy status to analgesic agent; Z91.040 Latex allergy status; E66.01 Morbid (severe) obesity due to excess calories; Z68.41 Body mass index [BMI] 40.0-44.9, adult; Z79.891 Long term (current) use of opiate analgesic; Z79.899 Other long term (current) drug therapy
CPT/HCPCS: 64425; J3301; Q9967

== ENCOUNTER → 2019-09-04 | Outpatient (CLI) | payer OTHER ==
[~2019-09-04] MED LIST changes: -BUPIVACAINE HCL 0.25% 30 ML VIAL As Ordered ONE; -ISOVUE-M 300 61% 15ML VIAL (Q9967) As Ordered ONE; -LIDOCAINE 1% SDV INJ 30 ML VIAL As Ordered ONE; -TRIAMCINOLONE ACETONIDE SUSP 40 MG/ML VIAL (J3301) As Ordered ONE; -diazePAM 5 MG TAB As Ordered ONE; -oxyCODONE 5MG TAB As Ordered ONE
--- NOTE | 2019-09-23 02:09 | ECWPNPC ---
PATIENT NAME: AKBAR MOODY : 1965 GENDER: FEMALE VISIT DATE: 09/04/2019 DISCHARGE DATE: 09/04/19 1249 VISIT LOCKED DATE TIME: PHYSICIAN: RABIA WATTERS RESOURCE: RABIA WATTERS REASON FOR APPOINTMENT 1. POST PROC HISTORY OF PRESENT ILLNESS HISTORY OF PRESENT ILLNESS: HERE FOR POST PROCEDURE F/U.HAD LEFT ILEOINGUINAL BLOCK ON 06-24-18 AND CRIS C7/T1 ON 06-11-18.REPORTING >50% IMPROVEMENT IN PAIN THAT CONTINUES TODAY.REPORTING IMPROVED ACTIVITY TOLERANCE AND ABILITY TO TOLERATE WALKING FOR LONGER PERIODS.CHIEF AREA OF PAIN IS NECK AND LOW BACK.REVIEWED MRI NECK AND LOW BACK AND DISCUSSED TREATMENT OPTIONS.RATING PAIN VAS 1-4/10. PAIN THE PATIENT DESCRIBES THE PAIN... FALL RISK SCREENING: SCREENING :NO FALLS REPORTED IN THE LAST YEAR CURRENT MEDICATIONS TAKING ALEVE 220 MG TABLET 1-2 TABLETS NEEDED ORALLY EVERY 12 HRS TAKING NEBULIZER/TUBING/MOUTHPIECE _ KIT DIRECTED DX:493 DIRECTED TAKING ROPINIROLE HCL 0.5 MG TABLET TAKE ONE TABLET BY MOUTH THREE TIMES A DAY ORAL TAKING MAY HAVE - - TENS UNIT PADS TOPICALLY DAILY PRN TAKING MIRALAX - POWDER 1-2 CAPFULS DAILY ORALLY DAILY TAKING LIPITOR 10 MG TABLET 1 TABLET ORALLY ONCE A DAY TAKING OMEPRAZOLE 40 MG CAPSULE DELAYED RELEASE 1 CAPSULE ORALLY BID TAKING SINGULAIR 10 MG TABLET 1 TABLET IN THE EVENING ORALLY ONCE A DAY TAKING LORATADINE 10 MG TABLET 1 TABLET ORALLY ONCE A DAY TAKING VENTOLIN HFA 108 (90 BASE) MCG/ACT AEROSOL SOLUTION 2 PUFFS NEEDED INHALATION EVERY 4 HRS TAKING METHOCARBAMOL 500 MG TABLET 1 TABLETS ORALLY EVERY 6 HRS TAKING AIRDUO RESPICLICK 113/14 113-14 MCG/ACT AEROSOL POWDER BREATH ACTIVATED 1 PUFF INHALATION TWICE A DAY TAKING FLONASE 50 MCG/ACT SUSPENSION 2 SPRAYS IN EACH NOSTRIL NASALLY ONCE A DAY TAKING LASIX 20 MG TABLET 1 TABLET ORALLY ONCE A DAY TAKING LEVOTHYROXINE SODIUM 25 MCG TABLET 1 TABLET ON AN EMPTY STOMACH IN THE MORNING ORALLY ONCE A DAY TAKING ALBUTEROL SULFATE (2.5 MG/3ML) 0.083% NEBULIZATION SOLUTION 3 ML INHALATION THREE TIMES A DAY NEEDED TAKING GABAPENTIN 800 MG TABLET 1 CAPSULE ORALLY THREE TIMES A DAY TAKING MAY HAVE - - CBD CAPSULE 750MG DAILY, NOTES: NONE RECENTLY TAKING HYDROCODONE-ACETAMINOPHEN 5-325 MG TABLET 1-2 ORALLY 1-2 TAB Q4-6HR PRN MDD6 NOT-TAKING HM VITAMIN D3 2000 UNIT CAPSULE 2 CAPSULES ORALLY ONCE A DAY NOT-TAKING CYANOCOBALAMIN 1000 MCG/ML SOLUTION 1 ML INJECTION ONCE MONTHLY NOT-TAKING POTASSIUM CHLORIDE ER 10 MEQ TABLET EXTENDED RELEASE 1 TABLET WITH FOOD ORALLY DAILY NOT-TAKING DOXYCYCLINE HYCLATE 100 MG CAPSULE 1 CAPSULE ORALLY TWICE A DAY MEDICATION LIST REVIEWED AND RECONCILED WITH THE PATIENT PAST MEDICAL HISTORY ASTHMA, MILD INTERMITTENT OSTEOARTHRITIS - DDD - FOLLOWS WITH NCOG ENVIRONMENTAL ALLERGIES HYPERLIPIDEMIA VIT D DEF OBESITY B HIP OA S/P COLONOSCOPY NEG. 01/07/2016-DR. CHAPMAN F/U 10YR.S SWELLING ON LEGS RIGHT SHOULDER PAIN- MRI DONE ON Sunday08/11/19 BILATERAL HIP PAIN ALLERGIES LATEX (FOR ALLERGY USE ONLY): HIVES - ALLERGY KEFLEX: ANAPHYLAXIS - ALLERGY NSAIDS: KIDNEY ISSUES - CONTRAINDICATION ENVIRONMENTAL: COUGH - ALLERGY SURGICAL HISTORY MADHAV DUE TO BLEEDING--- 07/2008 ARTHROSCOPIC KNEE SURGERY LEFT X 3 ARTHROSCOPIC KNEE SURGERY RIGHT X 1 CARPAL TUNNEL RELEASE BILATERAL ARTHROSCOPY SHOULDER RIGHT SHOULDER SURGERY LEFT BIOPSY MOLE- BACK LEFT HIP SURGERY 01/2016 CARPAL TUNNEL RELEASE BILATERAL LEFT HIP SURGERY 01/2016 HERNIA REPAIR X 5 ABDOMINAL SURGERY FOR GANGRENOUS INFECTION POST BTL SHOULDER SURGERY LEFT BIOPSY MOLE- BACK LEFT LEG SURGERY- RELEASED NERVES 10/11/16 BIOPSY MOLE- BACK LEFT HIP SURGERY 01/2016 TUBAL LIGATION HERNIA REPAIR X 5 ABDOMINAL SURGERY FOR GANGRENOUS INFECTION POST BTL BELLY BUTTON REMOVED LEFT LEG SURGERY- RELEASED NERVES 10/11/16 FAMILY HISTORY FATHER: 60 YRS, DIAGNOSED WITH OTHER MALIGNANT NEOPLASM OF UNSPECIFIED SITE MOTHER: ALIVE 64 YRS, HYPERTENSION 4 BROTHER(S) , 1 SISTER(S) - HEALTHY. 2 SON(S) , 3 DAUGHTER(S) - HEALTHY. SOCIAL HISTORY GENERAL: TOBACCO USE ARE YOU A:FORMER SMOKER HOW LONG HAS IT BEEN SINCE YOU LAST SMOKED?> 10 YEARS HIV / HEP-C SCREENING HIV TEST OFFERED TO PATIENT:YES DATE OFFERED:03/19/2019 TEST ACCEPTED:NO HEP-C TEST OFFERED TO PATIENT:YES N/A DATE OFFERED:03/19/2019 REASON:PATIENT DECLINED TEST ACCEPTED:NO REASON:PATIENT DECLINED BROCHURE PROVIDED TO PATIENTYES EDUCATION LEVEL OF EDUCATION:NOT FINISHED HIGH SCHOOL DIET: REGULAR. LANGUAGE LANGUAGES SPOKEN:CITIZEN OF [place] AND [place] DOMESTIC VIOLENCE DO YOU FEEL SAFE IN YOUR ENVIRONMENT?YES BMI CARE GOAL FOLLOW-UP ABOVE NORMAL BMI FOLLOW-UPDIETARY MANAGEMENT EDUCATION, GUIDANCE, AND COUNSELING RECREATIONAL DRUG USE DRUG USE?NO LEARNING BARRIERS / SPECIAL NEEDS CHANGE FROM LAST VISIT?NO BARRIERS TO LEARNING?NO HEARING IMPAIRED?NO VISION IMPAIRED?YES COGNITIVELY IMPAIRED?NO :CORRECTIVE LENSES READING READINESS TO LEARN?YES LEARNING PREFERENCES?NO LEARNING CAPABILITIES PRESENT?YES EMOTIONAL BARRIERS?NO SPECIAL DEVICES?YES :WALKER AUTOGLAZIER NEEDED?NO PAIN CLINIC PFS, CLERGY, PUBLIC HEALTH REFERRALS PFS REFERRAL NEEDED?NO CLERGY REFERRAL NEEDED?NO PUBLIC HEALTH REFERRAL NEEDED?NO WAS THE PROVIDER NOTIFIED OF ANY PERTINENT INFO?YES NA HAS THE PATIENT BEEN EDUCATED REGARDING HIS/HER PLAN OF CARE?YES HAS THE PATIENT BEEN EDUCATED REGARDING PAIN, THE RISK FOR PAIN, THE IMPORTANCE OF EFFECTIVE PAIN MANAGEMENT, AND THE PAIN ASSESSMENT PROCESS?YES LATEX QUESTIONNAIRE LATEX ALLERGY : HAVE YOU EVER DEVELOPED ANY TYPE OF REACTION AFTER HANDLING LATEX PRODUCTS SUCH RUBBER GLOVES, CONDOMS, DIAPHRAGMS, BALLOONS, SOCKS, OR UNDERWEAR?YES - PLEASE INDICATE :RUBBER GLOVES LATEX ALLERGY : HAVE YOU EVER DEVELOPED ANY TYPE OF REACTION DURING OR AFTER DENTAL APPOINTMENT, VAGINAL/RECTAL EXAMINATION, SURGICAL PROCEDURE, OR ANY OTHER EXPOSURE?NO LATEX RISK : HAVE YOU EVER HAD ANY DIFFICULTY BREATHING OR HIVES AFTER EATING OR HANDLING ANY FRUITS, OR VEGETABLES; SUCH KIWI, BANANAS, STONE FRUITS, OR CHESTNUTSNO LATEX RISK : DO YOU HAVE A PREVIOUS PERSONAL HISTORY OF MORE THAN NINE SURGERIES, SPINA BIFIDA, OR REPEATED CATHERIZATIONS? NO LATEX RISK : ARE YOU FREQUENTLY EXPOSED TO LATEX PRODUCTS IN YOUR OCCUPATION?NO DATE ASKED : 03/19/2019 ACTIVE LATEX ALLERGY CAFFEINE CAFFEINE USE?YES 1 SODA ADVANCE DIRECTIVE ADVANCE DIRECTIVE DISCUSSED WITH PATIENT:YES HCP CARLA DILLON [phone], DS MORAVIAN [id number] NONE MARITAL STATUS: SINGLE. ALCOHOL SCREENING DID YOU HAVE A DRINK CONTAINING ALCOHOL IN THE PAST YEAR?YES HOW OFTEN DID YOU HAVE SIX OR MORE DRINKS ON ONE OCCASION IN THE PAST YEAR?NEVER (0 POINTS) HOW MANY DRINKS DID YOU HAVE ON A TYPICAL DAY WHEN YOU WERE DRINKING IN THE PAST YEAR?7 TO 9 (3 POINTS) HOW OFTEN DID YOU HAVE A DRINK CONTAINING ALCOHOL IN THE PAST YEAR?TWO TO FOUR TIMES A MONTH (2 POINTS) POINTS5 INTERPRETATIONPOSITIVE OCCUPATION: UNEMPLOYED. SEXUAL HX HAD SEX IN THE LAST 12 MONTHS (VAGINAL, ORAL, OR ANAL)?YES WITHMEN ONLY USE PROTECTION?YES IS GOING TO GET LEFT HIP REPLACEMENT ON January. IS GOING TO GET LEFT HIP REPLACEMENT ON January. 03/07/18 0935 REVIEWED WITH PT. AD03/26/18 1140 RECVIEWED WITH PT. AD IS GOING TO GET LEFT HIP REPLACEMENT ON January. IS GOING TO GET LEFT HIP REPLACEMENT ON January. 03/07/18 0935 REVIEWED WITH PT. AD05/29/18 REVIEWED WITH PT LAS04/29/19 REVIEWED WITH PT 0910 BV03/20/19 REVIEWED WITH PATIENT NLJREVIEWED WITH PATIENT 07/08/18 1109 JSREVIEWED WITH PATIENT 07/09/19 0926 NLJREVIEWED WITH PATIENT 08/12/19 1340 NLJREVIEWED WITH PATIENT 09/04/19 1158 JS. HOSPITALIZATION/MAJOR DIAGNOSTIC PROCEDURE SURGERY CHILDBIRTH X 6 REVIEW OF SYSTEMS REVIEWED BY: PROVIDER: RABIA CARRERO . CONSTITUTIONAL: ANY CHANGE IN YOUR MEDICAL CONDITION? YES, STATES RIGHT HIP PAIN . CHILLS NO . FEVER NO . INFECTION: DO YOU HAVE NEW INFECTIONS? NO . DO YOU HAVE HISTORY OF MRSA? NO . MUSCULOSKELETAL: ANY NEW PATTERNS OF PAIN OR NUMBNESS? NO . GASTROENTEROLOGY: ANY NEW CHANGE IN BOWEL CONTROL? NO . GENITOURINARY: ANY NEW CHANGE IN BLADDER CONTROL? NO . IS THERE A CHANCE YOU COULD BE ? NO . HEMATOLOGY/LYMPH: DO YOU TAKE ANY BLOOD THINNERS? (FOR EXAMPLE- COUMADIN, PLAVIX, AGGRENOX, PLATEL, PRADAXA, OR XARELTO) NO . WHEN WAS YOUR LAST DOSE? DATE: TIME: . NEUROLOGY: HAVE YOU FALLEN IN THE PAST 12 MONTHS? NO . ANY NEW EXTREMITY NUMBNESS OR WEAKNESS? NO . CARDIOLOGY: DO YOU HAVE A PACEMAKER OR DEFIBRILLATOR? NO . RESPIRATORY: HAVE YOU BEEN SICK IN THE PAST WEEK? NO . FEVER NO . FLU LIKE SYMPTOMS? NO . COUGH NO . INTEGUMENTARY: DO YOU HAVE ANY RASHES OR OPEN SORES? NO . ALLERGIC/IMMUNO: ARE YOU ALLERGIC TO IV DYE? NO . ANY NEW ALLERGIES? NO . PSYCHIATRIC: DO YOU HAVE THOUGHTS OF HURTING YOURSELF OR SOMEONE ELSE? NO . ARE YOU ABUSED, NEGLECTED, OR IN AN UNSAFE ENVIRONMENT? NO . ENDOCRINOLOGY: ARE YOU DIABETIC? NO . OTHER: DO YOU NEED ANY PRESCRIPTIONS? NO . IF YES, PLEASE LIST: ____ . ANY NEW PROBLEMS WITH YOUR MEDICATIONS? NO . WHEN DID YOU LAST EAT? ____ . WHEN DID YOU LAST DRINK? ____ . WHAT DID YOU LAST DRINK? ____ . NAME OF PERSON DRIVING YOU HOME? ____ . DO YOU HAVE ANY OTHER QUESTIONS OR CONCERNS YES, WOULD LIKE RIGHT HIP INJECTION . VITAL SIGNS WT 288.4 LBS, HT 68 IN, BMI 43.85 INDEX, BP 158/80 MM HG, HR 104 /MIN, RR 18 /MIN, TEMP 97.9 F, OXYGEN SAT % 96%, SAFE IN ENV? (Y/N) YES, NA INITIALS CT 11:52, REVIEWED BY: [facility]. EXAMINATION GENERAL EXAMINATION: GENERALNO ACUTE DISTRESS, WELL NOURISHED AND HYDRATED. LUNGS: LUNG SOUNDS ARE CLEAR . HEART: HEART RATE REGULAR . MUSCULOSKELETAL:*, MUSCLE STRENGTH TESTING 5/5 BILATERAL UPPER EXTREMITIES. . FOR BILAT. SIJ TENDER WITH PALPATION OVER LEFT SIJ. CERVICAL+ FOR PAIN WITH PALPATION OF CERVICAL SPINE. + FOR PAIN WITH PALPATION OF CERVICAL PARASPINALS. . DIAGNOSTIC TESTS REVIEWED CERVICAL MRI-12/29/17 LUMBAR MRI-12/29/17. ASSESSMENTS CERVICALGIA - M54.2 (PRIMARY) SACROILIITIS, NOT ELSEWHERE CLASSIFIED - M46.1 TREATMENT CERVICALGIA NOTES: LEFT SIJ 2WKS LATTER CRIS C7/T1. PROCEDURE CODES FA211 ESTABILISHED PATIENT [facility] CHARGE DISPOSITION & COMMUNICATION FOLLOW UP POST CRIS (REASON: LEFT SIJ 2WKS LATTER CRIS C7/T1) ELECTRONICALLY SIGNED BY MAGAN PURI ON 09/22/2019 AT 01:56 PM EST DISCLAIMER : THIS IS A VISIT SUMMARY EXTRACTED FROM THE [employer] CHART. IT IS NOT A COPY OF THE [employer] PROGRESS NOTE. GEGE
== END ==
LOC: M PAIN 11:15
PROVIDERS: ATTEND Nurse Practitioner Family
DX: M54.2 Cervicalgia (principal); M46.1 Sacroiliitis, not elsewhere classified; J45.20 Mild intermittent asthma, uncomplicated; E78.5 Hyperlipidemia, unspecified; Z87.891 Personal history of nicotine dependence; Z88.1 Allergy status to other antibiotic agents; Z88.6 Allergy status to analgesic agent; Z91.040 Latex allergy status; E66.01 Morbid (severe) obesity due to excess calories; Z68.41 Body mass index [BMI] 40.0-44.9, adult; Z79.891 Long term (current) use of opiate analgesic; Z79.899 Other long term (current) drug therapy

== ENCOUNTER → 2019-09-09 | Outpatient (REF) | payer OTHER ==
[2019-09-09 13:15] LABS: BASO % 0.3 % (0.0-1.0); EOS # 0.1 10^3/uL (0.0-0.5); EOS % 2.1 % (0.0-3.0); HEMATOCRIT 38.5 % (36.0-47.0); HEMOGLOBIN 11.3 g/dl (12.0-15.5); LYMPH # 1.5 10^3/uL (1.5-5.0); LYMPH % 26.3 % (24.0-44.0); MEAN CORPUSCULAR HEMOGLOBIN 28.3 pg (27.0-33.0); MEAN CORPUSCULAR HGB CONC 29.4 g/dl (32.0-36.5); MEAN CORPUSCULAR VOLUME 96.5 fl (80.0-96.0); MONO # 0.5 10^3/uL (0.0-0.8); MONO % 8.4 % (0.0-5.0); NEUTROPHILS # 3.6 10^3/uL (1.5-8.5); NEUTROPHILS % 62.4 % (36.0-66.0); PLATELET COUNT, AUTOMATED 207 10^3/uL (150-450); RED BLOOD COUNT 3.99 10^6/uL (4.00-5.40); WHITE BLOOD COUNT 5.8 10^3/uL (4.0-10.0)
[2019-09-09 13:28] LABS: ALBUMIN 3.6 GM/DL (3.2-5.2); ALT/SGPT 25 U/L (12-78); BILIRUBIN,TOTAL 0.4 MG/DL (0.2-1.0); BLOOD UREA NITROGEN 11 MG/DL (7-18); CARBON DIOXIDE LEVEL 31 MEQ/L (21-32); CHLORIDE LEVEL 108 MEQ/L (98-107); CREATININE FOR GFR 0.64 MG/DL (0.55-1.30); FERRITIN 20 NG/ML (8-252); GLOMERULAR FILTRATION RATE > 60.0 (>51); GLUCOSE, FASTING 106 MG/DL (70-100); IRON (FE) 51 UG/DL (50-170); MAGNESIUM LEVEL 1.7 MG/DL (1.8-2.4); POTASSIUM SERUM 3.8 MEQ/L (3.5-5.1); PTH INTACT 59.7 PG/ML (18.5-88.0); SODIUM LEVEL 142 MEQ/L (136-145); TOTAL 25(OH) VITAMIN D 30.3 NG/ML (30.0-100.0); TOTAL PROTEIN 6.8 GM/DL (6.4-8.2)
[2019-09-09 13:29] LABS: VITAMIN B12 LEVEL 151 PG/ML (247-911)
== END ==
LOC: M SFHCPLAZ 09:01
PROVIDERS: ATTEND Physician Assistant Medical
DX: E53.8 Deficiency of other specified B group vitamins (principal); E78.2 Mixed hyperlipidemia; E03.9 Hypothyroidism, unspecified; E55.9 Vitamin D deficiency, unspecified; G25.81 Restless legs syndrome

== ENCOUNTER 2019-10-03 11:37 | Day surgery (SDC) | payer OTHER ==
[~2019-10-03] VITALS: Ht 172.7 cm; Wt 127.0 kg
[~2019-10-03 11:37] MED LIST changes: +ACETAMINOPHEN 1000MG 100ML IV BTL (OFIRMEV) (J0131 PER 10MG) As Ordered ONE; +BENA25CA4 PO; +CLINDAMYCIN 600 MG in IV 1 EA IV ONE; +KETOROLAC 60 MG/2 ML VIAL (J1885) As Ordered ONE; +LEVO25TA5 PO; +LIDOCAINE 2% INJ 100 MG/5 ML SDV (FOR ANES.) As Ordered ONE; +LR 1,000 ML IV ONE; +METH750T2 PO; +MIDAZOLAM INJ 2 MG/2 ML VIAL (J2250) As Ordered ONE; +NS IV ONE; +ONDANSETRON 4MG/2ML VIAL (J2405) As Ordered ONE; +PROPOFOL 200 MG/20 ML VIAL As Ordered ONE; +ROCURONIUM BROMIDE 50 MG/5 ML VIAL As Ordered ONE; +ROPI0.5T PO; +SUGAMMADEX SODIUM 500 MG/5 ML VIAL (BRIDION) As Ordered ONE; +TRANEXAMIC ACID IV ONE; +VENTAER INH; +dexameTHASONE 4 MG/ML 1ML VIAL (J1100) As Ordered ONE; +fentaNYL 100 MCG/2 ML INJECTION (J3010) As Ordered ONE
[2019-10-03] MEDS ORDERED: LIDOCAINE 1% MDV 20ML VIAL ONE (11:38)
[2019-10-03] MEDS ORDERED: dexameTHASONE 10 MG/1 ML VIAL PRES.FREE (J1100) ONE (11:38)
[2019-10-03] MEDS ORDERED: BUPIVACAINE HCL 0.25% 30 ML VIAL As Ordered ONE (13:51)
[2019-10-03] MEDS ORDERED: fentaNYL 100 MCG/2 ML INJECTION (J3010) As Ordered ONE (13:51)
[2019-10-03] MEDS ORDERED: MIDAZOLAM INJ 2 MG/2 ML VIAL (J2250) As Ordered ONE (13:51)
[2019-10-03] MEDS ORDERED: EPINEPHrine 1MG/ML INJ 30ML MD-VIAL As Ordered ONE (13:56)
[2019-10-03] MEDS ORDERED: MIDAZOLAM INJ 2 MG/2 ML VIAL (J2250) IV ONE (14:45)
[2019-10-03] MEDS ORDERED: fentaNYL 100 MCG/2 ML INJECTION (J3010) IV ONE (14:45)
[2019-10-03] MEDS ORDERED: ePHEDrine SULFATE 25 MG/5 ML(5MG/ML) SYRINGE As Ordered ONE (16:12)
[2019-10-03] MEDS ORDERED: fentaNYL 100 MCG/2 ML INJECTION (J3010) IV PRN (17:00)
[2019-10-03] MEDS ORDERED: LR 1,000 ML IV SCH ×2 (17:00)
[2019-10-03] MEDS ORDERED: oxyCODONE 5MG TAB PO PRN (17:00)
[2019-10-03] MEDS ORDERED: ACETAMINOPHEN TAB 650MG DOSE (2X325MG) PO PRN (17:00)
[2019-10-03] MEDS ORDERED: ONDANSETRON 4MG/2ML VIAL (J2405) IV PRN ×2 (17:00→17:15)
[2019-10-03] MEDS ORDERED: HYDROMORPHONE HCL 0.5 MG/ 0.5 ML SYRINGE (J1170 PER 1) IV PRN (17:00)
[2019-10-03] MEDS ORDERED: MORPHINE 2 MG/ML 1ML VIAL (J2270) IV PRN (17:00)
[2019-10-03] MEDS ORDERED: ALBUTEROL SULFATE 2.5 MG/0.5 ML INH NEB SOLN As Ordered ONE (17:07)
[2019-10-03] MEDS ORDERED: PERCOCET 5MG/325MG TAB PO PRN (17:15)
[2019-10-03] MEDS ORDERED: ALBUTEROL SULFATE 2.5 MG/0.5 ML INH NEB SOLN INH ONE (17:15)
[2019-10-03 18:50] VITALS: BP 124/66
--- NOTE | 2019-10-03 21:10 | RO ---
DATE OF PROCEDURE: 10/03/2019 PREOPERATIVE DIAGNOSIS: Right shoulder impingement syndrome. Acromioclavicular (AC) joint arthrosis. POSTOPERATIVE DIAGNOSIS: Right shoulder impingement syndrome. Acromioclavicular joint arthrosis. Small anterior border supraspinatus tendon tear and impingement. PLANNED PROCEDURE: Right shoulder arthroscopy, intra-articular surgery. PROCEDURE PERFORMED: Right shoulder arthroscopy, subacromial decompression, debridement, distal clavicle excision, subacromial decompression, and rotator cuff repair. SURGEON: Dr. Pete Harris LINER HELPER: ANESTHESIA: OPERATIVE PREAMBLE: This 54-year-old female had right shoulder pain that did not respond to nonsurgical management. We talked about the pros and cons, the risks and benefits of doing nothing versus shoulder arthroscopy and intra-articular surgery. I reiterated these risks in preoperative holding and marked the right upper extremity, and we proceeded to surgery after a block was administered by the anesthetic team. DESCRIPTION OF PROCEDURE: The patient was brought to the operating theater. She was placed supine on the table with a beanbag. She was administered general anesthetic. Two grams of IV Ancef and 2 grams of IV tranexamic acid was administered. She was placed right lateral decubitus. All bony prominences were padded including an axillary roll utilized. Limb was prepped and draped in the usual sterile fashion. 15 pounds of traction was used in line with the arm in slight abduction. Prep solution allowed to thoroughly dry prior to draping. Preoperative time-out was performed to confirm the site, the patient, and the surgery. Began by inserting the arthroscope into the intra-articular portion of the right shoulder through a standard posterior working portal. The joint was examined. No obvious arthritis or thinning of the cartilage of the glenohumeral joint. Biceps appeared normal. Subscapularis appeared normal. Labrum was a little bit frayed. Inside-out spinal needle localization technique was used to perform an anterior portal through the rotator interval just posterior to the biceps tendon. Biceps was stable along its length. No obvious synovitis, hypertrophy or tearing. Small amount of labrum fraying was debrided using a shaving instrument. There was obvious fraying along the anterior border of the rotator cuff. This was debrided gently. This was marked with a spinal needle. Arthroscope was withdrawn and placed in the subacromial space. There was obvious full-thickness anterior border tear at supraspinatus tendon. This measured 5 mm anterior to posterior and 1 cm medial to lateral. It was a crescent-shaped tear. The edges were debrided. Subacromial debridement was performed. Distal clavicle excision was then performed up to a distance of 1 centimeter. There was a small osteophyte in the inferior margin of the distal clavicle that was resected as well. Subacromial decompression was then performed to flat border using a bur instrument as well. CA ligament was taken down. Tear was then fully characterized. Lateral portal was created using again inside-out spinal needle localization in line with the tear. Posterolateral viewing portal was created. Arthroscope was inserted into that viewing portal. Gentle debridement was performed along the tear edges. The tear was mobile. At the base of the tear, this was again debrided using a bur down to bleeding bone. I then planned to place a SwiveLock anchor at the articular margin; however, upon tapping, this bone was extremely soft and highly unlikely to hold an anchor. As such, I selected a more lateral knotless anchor configuration. I tapped using half a tap and the bone was again soft, but I did not seek to tap fully. I passed one #2 FiberWire in an inverted horizontal mattress technique and then placed that into a SwiveLock and brought the repair laterally. Repair was solid; however, bone was extremely soft. Scope was withdrawn. Arthroscopy pictures were taken throughout the case and saved onto the system. The portal sites were closed with interrupted #3-0 Monocryl sutures. Skin was cleaned with a wet and dry dressing, followed by application of Steri-Strips, Adaptic, 4x8 gauze and ABD dressing with cloth tape. Right upper extremity was placed into a sling after having been removed from the traction setup. The patient was woken up from general anesthetic, transferred off of the operating table, and taken to the post-anesthesia care unit in stable condition. All sponge, needle, and instrument counts were correct. Estimated blood loss 150 mL. PLAN: The patient is to do gentle pendulums but do a rather slow rehab given the quality of her bone and the small rotator cuff repair. She will be discharged home according to day-surgery criteria and followup in the office in 2 weeks. I tawanna like her to change the bandage at home either in 2 days time or leave it on and I will change in the clinic for her. Prescription will be sent electronically to her pharmacy of choice. GEGE
== END 2019-10-03 19:10 | disposition home or self-care (01) ==
LOC: M SDC 11:37
PROVIDERS: ATTEND Orthopaedic Surgery Sports Medicine
DX: M75.41 Impingement syndrome of right shoulder (principal); M19.011 Primary osteoarthritis, right shoulder; I10 Essential (primary) hypertension; E78.5 Hyperlipidemia, unspecified; E03.9 Hypothyroidism, unspecified; K21.9 Gastro-esophageal reflux disease without esophagitis; D64.9 Anemia, unspecified; Z87.891 Personal history of nicotine dependence; Z88.1 Allergy status to other antibiotic agents; Z79.899 Other long term (current) drug therapy; Z91.040 Latex allergy status; Z88.8 Allergy status to other drugs, medicaments and biological substances
CPT/HCPCS: 29823; 29824; 29826; 29827; 64415; J0131; J1100; J1885; J2250; J2405; J3010

== ENCOUNTER → 2019-10-22 | Outpatient (CLI) | payer OTHER ==
[~2019-10-22] MED LIST changes: -ACETAMINOPHEN 1000MG 100ML IV BTL (OFIRMEV) (J0131 PER 10MG) As Ordered ONE; +BUPIVACAINE HCL 0.25% 30 ML VIAL As Ordered ONE; -CLINDAMYCIN 600 MG in IV 1 EA IV ONE; +ISOVUE-M 300 61% 15ML VIAL (Q9967) As Ordered ONE; -KETOROLAC 60 MG/2 ML VIAL (J1885) As Ordered ONE; +LIDOCAINE 1% SDV INJ 30 ML VIAL As Ordered ONE; -LIDOCAINE 2% INJ 100 MG/5 ML SDV (FOR ANES.) As Ordered ONE; -LR 1,000 ML IV ONE; -MIDAZOLAM INJ 2 MG/2 ML VIAL (J2250) As Ordered ONE; -NS IV ONE; -ONDANSETRON 4MG/2ML VIAL (J2405) As Ordered ONE; -PROPOFOL 200 MG/20 ML VIAL As Ordered ONE; -ROCURONIUM BROMIDE 50 MG/5 ML VIAL As Ordered ONE; -SUGAMMADEX SODIUM 500 MG/5 ML VIAL (BRIDION) As Ordered ONE; -TRANEXAMIC ACID IV ONE; +TRIAMCINOLONE ACETONIDE SUSP 40 MG/ML VIAL (J3301) As Ordered ONE; -dexameTHASONE 4 MG/ML 1ML VIAL (J1100) As Ordered ONE; +diazePAM 5 MG TAB As Ordered ONE; -fentaNYL 100 MCG/2 ML INJECTION (J3010) As Ordered ONE; +oxyCODONE 5MG TAB As Ordered ONE
--- NOTE | 2019-10-22 17:25 | REP ---
SI joint series: Seven views. History: Bilateral SI joint injection for pain. 20 seconds of fluoroscopy time is reported. Findings: A sequence of seven last image hold fluoroscopically obtained spot radiographs document needle position for injection procedure. Electronically Signed by Melchor Rolon MD 10/22/2019 05:16 P
--- NOTE | 2019-11-05 03:50 | ECWPNPC ---
PATIENT NAME: AKBAR MOODY : 1965 GENDER: FEMALE VISIT DATE: 10/22/2019 DISCHARGE DATE: 10/22/19 1259 VISIT LOCKED DATE TIME: PHYSICIAN: HAIDER COSTELLO MD RESOURCE: HAIDER COSTELLO MD REASON FOR APPOINTMENT 1. BILATERAL SIJ HISTORY OF PRESENT ILLNESS HISTORY OF PRESENT ILLNESS: PAIN THE PATIENT DESCRIBES THE PAIN... FALL RISK SCREENING: SCREENING :NO FALLS REPORTED IN THE LAST YEAR CURRENT MEDICATIONS TAKING MIRALAX - POWDER 1-2 CAPFULS DAILY ORALLY DAILY, NOTES: LAST WEEK TAKING OMEPRAZOLE 40 MG CAPSULE DELAYED RELEASE 1 CAPSULE ORALLY BID, NOTES: 10-21-192329 TAKING MAY HAVE - - TENS UNIT PADS TOPICALLY DAILY PRN TAKING GABAPENTIN 800 MG TABLET 1 CAPSULE ORALLY THREE TIMES A DAY, NOTES: 10-21-192329 TAKING ALEVE 220 MG TABLET 1-2 TABLETS NEEDED ORALLY EVERY 12 HRS, NOTES: 10-21-192329 TAKING NEBULIZER/TUBING/MOUTHPIECE _ KIT DIRECTED DX:493 DIRECTED TAKING SINGULAIR 10 MG TABLET 1 TABLET IN THE EVENING ORALLY ONCE A DAY, NOTES: 10-21-192329 TAKING LORATADINE 10 MG TABLET 1 TABLET ORALLY ONCE A DAY, NOTES: 10-21-19629 TAKING AIRDUO RESPICLICK 113/14 113-14 MCG/ACT AEROSOL POWDER BREATH ACTIVATED 1 PUFF INHALATION TWICE A DAY, NOTES: 10-21-192329 TAKING LASIX 20 MG TABLET 1 TABLET ORALLY ONCE A DAY, NOTES: NONE RECENTLY TAKING LEVOTHYROXINE SODIUM 25 MCG TABLET 1 TABLET ON AN EMPTY STOMACH IN THE MORNING ORALLY ONCE A DAY, NOTES: 10-21-19399 TAKING ALBUTEROL SULFATE (2.5 MG/3ML) 0.083% NEBULIZATION SOLUTION 3 ML INHALATION THREE TIMES A DAY NEEDED, NOTES: 2 WEEKS AGO TAKING FLONASE 50 MCG/ACT SUSPENSION 2 SPRAYS IN EACH NOSTRIL NASALLY ONCE A DAY, NOTES: LAST WEEK TAKING METHOCARBAMOL 500 MG TABLET 1 TABLETS ORALLY EVERY 6 HRS, NOTES: 10-21-192329 TAKING VENTOLIN HFA 108 (90 BASE) MCG/ACT AEROSOL SOLUTION 2 PUFFS NEEDED INHALATION EVERY 4 HRS, NOTES: 2-3 DAYS AGO TAKING ROPINIROLE HCL 0.5 MG TABLET TAKE ONE TABLET BY MOUTH THREE TIMES A DAY ORAL THREE TIMES A DAY, NOTES: 10-21-19 2330 TAKING HM VITAMIN D3 2000 UNIT CAPSULE 2 CAPSULES ORALLY ONCE A DAY, NOTES: NOT YET STARTED TAKING NORCO 5-325 MG TABLET 1 TABLET NEEDED ORALLY Q4-6 HR PRN MDD6, NOTES: 10-21-19 0630 NOT-TAKING LIPITOR 10 MG TABLET 1 TABLET ORALLY ONCE A DAY NOT-TAKING CYANOCOBALAMIN 1000 MCG/ML SOLUTION 1 ML INJECTION ONCE MONTHLY NOT-TAKING LEVOTHYROXINE SODIUM 25 MCG TABLET 1 TABLET IN THE MORNING ON AN EMPTY STOMACH ORALLY ONCE A DAY NOT-TAKING CYANOCOBALAMIN 1000 MCG/ML SOLUTION 1 ML INJECTION MONTHLY MEDICATION LIST REVIEWED AND RECONCILED WITH THE PATIENT PAST MEDICAL HISTORY ASTHMA, MILD INTERMITTENT OSTEOARTHRITIS - DDD - FOLLOWS WITH [facility] ENVIRONMENTAL ALLERGIES HL VIT D DEF OBESITY B HIP OA S/P COLONOSCOPY NEG. 01/07/2016-DR. CHAPMAN F/U 10YR.S VENOUS INSUFFICIENCY RIGHT SHOULDER PAIN- MRI DONE ON Sunday08/11/19 BILATERAL HIP PAIN HYPOTHYROIDISM PENELOPE GERD VITAMIN B 12 DEFICIENCY ALLERGIES LATEX (FOR ALLERGY USE ONLY): HIVES - ALLERGY KEFLEX: ANAPHYLAXIS - ALLERGY NSAIDS: KIDNEY ISSUES - CONTRAINDICATION ENVIRONMENTAL: COUGH - ALLERGY SURGICAL HISTORY MADHAV DUE TO BLEEDING--- 07/2008 ARTHROSCOPIC KNEE SURGERY LEFT X 3 ARTHROSCOPIC KNEE SURGERY RIGHT X 1 CARPAL TUNNEL RELEASE BILATERAL ARTHROSCOPY SHOULDER RIGHT SHOULDER SURGERY LEFT BIOPSY MOLE- BACK LEFT HIP SURGERY 01/2016 CARPAL TUNNEL RELEASE BILATERAL LEFT HIP SURGERY 01/2016 HERNIA REPAIR X 5 ABDOMINAL SURGERY FOR GANGRENOUS INFECTION POST BTL SHOULDER SURGERY LEFT BIOPSY MOLE- BACK LEFT LEG SURGERY- RELEASED NERVES 10/11/16 BIOPSY MOLE- BACK LEFT HIP SURGERY 01/2016 TUBAL LIGATION HERNIA REPAIR X 5 ABDOMINAL SURGERY FOR GANGRENOUS INFECTION POST BTL BELLY BUTTON REMOVED LEFT LEG SURGERY- RELEASED NERVES 10/11/16 RIGHT SHOULDER SURGERY 10/2019 FAMILY HISTORY FATHER: 60 YRS, DIAGNOSED WITH OTHER MALIGNANT NEOPLASM OF UNSPECIFIED SITE MOTHER: ALIVE 72 YRS, HYPERTENSION 4 BROTHER(S) , 1 SISTER(S) - HEALTHY. 2 SON(S) , 3 DAUGHTER(S) - HEALTHY. SOCIAL HISTORY GENERAL: TOBACCO USE ARE YOU A:FORMER SMOKER HOW LONG HAS IT BEEN SINCE YOU LAST SMOKED?> 10 YEARS HIV / HEP-C SCREENING HIV TEST OFFERED TO PATIENT:YES DATE OFFERED:03/19/2019 TEST ACCEPTED:NO HEP-C TEST OFFERED TO PATIENT:YES N/A DATE OFFERED:03/19/2019 REASON:PATIENT DECLINED TEST ACCEPTED:NO REASON:PATIENT DECLINED BROCHURE PROVIDED TO PATIENTYES EDUCATION LEVEL OF EDUCATION:NOT FINISHED HIGH SCHOOL DIET: REGULAR. LANGUAGE LANGUAGES SPOKEN:CHADIAN DOMESTIC VIOLENCE DO YOU FEEL SAFE IN YOUR ENVIRONMENT?YES BMI CARE GOAL FOLLOW-UP ABOVE NORMAL BMI FOLLOW-UPDIETARY MANAGEMENT EDUCATION, GUIDANCE, AND COUNSELING RECREATIONAL DRUG USE DRUG USE?NO LEARNING BARRIERS / SPECIAL NEEDS CHANGE FROM LAST VISIT?NO BARRIERS TO LEARNING?NO HEARING IMPAIRED?NO VISION IMPAIRED?YES COGNITIVELY IMPAIRED?NO :CORRECTIVE LENSES READING READINESS TO LEARN?YES LEARNING PREFERENCES?NO LEARNING CAPABILITIES PRESENT?YES EMOTIONAL BARRIERS?NO SPECIAL DEVICES?YES :[employer] SUPPORT ANALYST NEEDED?NO PAIN CLINIC PFS, CLERGY, PUBLIC HEALTH REFERRALS PFS REFERRAL NEEDED?NO CLERGY REFERRAL NEEDED?NO PUBLIC HEALTH REFERRAL NEEDED?NO WAS THE PROVIDER NOTIFIED OF ANY PERTINENT INFO?YES NA HAS THE PATIENT BEEN EDUCATED REGARDING HIS/HER PLAN OF CARE?YES HAS THE PATIENT BEEN EDUCATED REGARDING PAIN, THE RISK FOR PAIN, THE IMPORTANCE OF EFFECTIVE PAIN MANAGEMENT, AND THE PAIN ASSESSMENT PROCESS?YES LATEX QUESTIONNAIRE LATEX ALLERGY : HAVE YOU EVER DEVELOPED ANY TYPE OF REACTION AFTER HANDLING LATEX PRODUCTS SUCH RUBBER GLOVES, CONDOMS, DIAPHRAGMS, BALLOONS, SOCKS, OR UNDERWEAR?YES - PLEASE INDICATE :RUBBER GLOVES LATEX ALLERGY : HAVE YOU EVER DEVELOPED ANY TYPE OF REACTION DURING OR AFTER DENTAL APPOINTMENT, VAGINAL/RECTAL EXAMINATION, SURGICAL PROCEDURE, OR ANY OTHER EXPOSURE?NO LATEX RISK : HAVE YOU EVER HAD ANY DIFFICULTY BREATHING OR HIVES AFTER EATING OR HANDLING ANY FRUITS, OR VEGETABLES; SUCH KIWI, BANANAS, STONE FRUITS, OR CHESTNUTSNO LATEX RISK : DO YOU HAVE A PREVIOUS PERSONAL HISTORY OF MORE THAN NINE SURGERIES, SPINA BIFIDA, OR REPEATED CATHERIZATIONS? NO LATEX RISK : ARE YOU FREQUENTLY EXPOSED TO LATEX PRODUCTS IN YOUR OCCUPATION?NO DATE ASKED : 03/19/2019 ACTIVE LATEX ALLERGY CAFFEINE CAFFEINE USE?YES 1 SODA ADVANCE DIRECTIVE ADVANCE DIRECTIVE DISCUSSED WITH PATIENT:YES HCP CARLA DILLON [phone], PRASH[facility] CONG[facility]ATIONAL [id number] NONE MARITAL STATUS: SINGLE. ALCOHOL SCREENING DID YOU HAVE A DRINK CONTAINING ALCOHOL IN THE PAST YEAR?YES HOW OFTEN DID YOU HAVE SIX OR MORE DRINKS ON ONE OCCASION IN THE PAST YEAR?NEVER (0 POINTS) HOW MANY DRINKS DID YOU HAVE ON A TYPICAL DAY WHEN YOU WERE DRINKING IN THE PAST YEAR?7 TO 9 (3 POINTS) HOW OFTEN DID YOU HAVE A DRINK CONTAINING ALCOHOL IN THE PAST YEAR?TWO TO FOUR TIMES A MONTH (2 POINTS) POINTS5 INTERPRETATIONPOSITIVE OCCUPATION: UNEMPLOYED. SEXUAL HX HAD SEX IN THE LAST 12 MONTHS (VAGINAL, ORAL, OR ANAL)?YES WITHMEN ONLY USE PROTECTION?YES IS GOING TO GET LEFT HIP REPLACEMENT ON January. IS GOING TO GET LEFT HIP REPLACEMENT ON January. 03/07/18 0935 REVIEWED WITH PT. AD03/26/18 1140 RECVIEWED WITH PT. AD IS GOING TO GET LEFT HIP REPLACEMENT ON January. IS GOING TO GET LEFT HIP REPLACEMENT ON January. 03/07/18 0935 REVIEWED WITH PT. AD05/29/18 REVIEWED WITH PT LAS04/29/19 REVIEWED WITH PT 0910 BV03/20/19 REVIEWED WITH PATIENT NLJREVIEWED WITH PATIENT 07/08/18 1109 JSREVIEWED WITH PATIENT 07/09/19 0926 NLJREVIEWED WITH PATIENT 08/12/19 1340 NLJREVIEWED WITH PATIENT 09/04/19 1158 JS. HOSPITALIZATION/MAJOR DIAGNOSTIC PROCEDURE SURGERY CHILDBIRTH X 6 REVIEW OF SYSTEMS REVIEWED BY: PROVIDER: . CONSTITUTIONAL: ANY CHANGE IN YOUR MEDICAL CONDITION? YES - RIGHT SHOULDER SURGERY 10-03-2019; BEING TESTED FOR POSSIBLE OSTEOPOROSIS . CHILLS NO . FEVER NO . INFECTION: DO YOU HAVE NEW INFECTIONS? NO . DO YOU HAVE HISTORY OF MRSA? NO . MUSCULOSKELETAL: ANY NEW PATTERNS OF PAIN OR NUMBNESS? NO . GASTROENTEROLOGY: ANY NEW CHANGE IN BOWEL CONTROL? NO . GENITOURINARY: ANY NEW CHANGE IN BLADDER CONTROL? NO . IS THERE A CHANCE YOU COULD BE ? NO . HEMATOLOGY/LYMPH: DO YOU TAKE ANY BLOOD THINNERS? (FOR EXAMPLE- COUMADIN, PLAVIX, AGGRENOX, PLATEL, PRADAXA, OR XARELTO) NO . WHEN WAS YOUR LAST DOSE? DATE: TIME: . NEUROLOGY: HAVE YOU FALLEN IN THE PAST 12 MONTHS? NO . ANY NEW EXTREMITY NUMBNESS OR WEAKNESS? NO . CARDIOLOGY: DO YOU HAVE A PACEMAKER OR DEFIBRILLATOR? NO . RESPIRATORY: HAVE YOU BEEN SICK IN THE PAST WEEK? NO . FEVER NO . FLU LIKE SYMPTOMS? NO . COUGH NO . INTEGUMENTARY: DO YOU HAVE ANY RASHES OR OPEN SORES? NO . ALLERGIC/IMMUNO: ARE YOU ALLERGIC TO IV DYE? NO . ANY NEW ALLERGIES? NO . PSYCHIATRIC: DO YOU HAVE THOUGHTS OF HURTING YOURSELF OR SOMEONE ELSE? NO . ARE YOU ABUSED, NEGLECTED, OR IN AN UNSAFE ENVIRONMENT? NO . ENDOCRINOLOGY: ARE YOU DIABETIC? NO . OTHER: DO YOU NEED ANY PRESCRIPTIONS? NO . IF YES, PLEASE LIST: ____ . ANY NEW PROBLEMS WITH YOUR MEDICATIONS? NO . WHEN DID YOU LAST EAT? 10-21-19 1630 . WHEN DID YOU LAST DRINK? 10-21-19 2330 . WHAT DID YOU LAST DRINK? TEA . NAME OF PERSON DRIVING YOU HOME? CARLA WILMA . DO YOU HAVE ANY OTHER QUESTIONS OR CONCERNS NO . VITAL SIGNS WT 285.4 LBS, HT 68 IN, BMI 43.39 INDEX, BP 128/85 MM HG, HR 94 /MIN, RR 18 /MIN, TEMP 97.4 F, OXYGEN SAT % 95% RA, BLOOD GLUCOSE LEVEL N/A, SAFE IN ENV? (Y/N) YES, REVIEWED BY: LSA. LINDY CMA. ASSESSMENTS SACROILIITIS, NOT ELSEWHERE CLASSIFIED - M46.1 (PRIMARY) TREATMENT SACROILIITIS, NOT ELSEWHERE CLASSIFIED [facility] FLUORO GUIDANCE (PAIN)[id number] PROCEDURES PN SI PRE PROCEDURE DIAGNOSIS SACROILIITIS, SACROILIAC JOINT DYSFUNCTION POST PROCEDURE DIAGNOSIS SACROILIITIS, SACROILIAC JOINT DYSFUNCTION PROCEDURE BILATERAL SACROILIAC JOINT BLOCK SURGEON DR. HAIDER COSTELLO HAND WEAVER NONE ANESTHESIA LOCAL PRE PROCEDURE NOTE PATIENT WITH HISTORY OF CHRONIC LOW BACK PAIN. I EVALUATED THE PATIENT AND REVIEWED THE CHART. I WENT OVER THE RISKS, ALTERNATIVES, AND BENEFITS ASSOCIATED WITH THIS PROCEDURE. THE PATIENT WOULD LIKE TO PROCEED AND GAVE CONSENT TO PERFORM THE PROCEDURE. THE PATIENT DENIES UNEXPLAINABLE WEIGHT LOSS, FEVER, CHILLS, OR NEW CHANGES IN URINARY OR BOWEL CONTROL DESCRIPTION OF PROCEDURE THE PATIENT WAS BROUGHT TO THE PROCEDURE ROOM AND PLACED IN THE PRONE POSITION. THE LUMBOSACRAL AREA WAS CLEANED WITH CHLORAPREP SOLUTION AND DRAPED ASEPTICALLY. THE PROCEDURE WAS DONE UNDER STERILE CONDITIONS. I CHECKED LATERALITY AND THE LEVEL WHERE THE PROCEDURE WAS GOING TO BE PERFORMED WITH THE PATIENT AND THE SUPPORTING STAFF AT THE MOMENT OF THE TIME OUT IN THE PROCEDURE ROOM. UNDER FLUOROSCOPIC GUIDANCE, TARGET POINT WAS SELECTED AT THE LOWER BORDER OF THE RIGHT AND LEFT SACROILIAC JOINT. TARGET POINT WAS SELECTED AFTER MEDIAL ROTATION AND TILT OF THE MAGNIFIER OF THE C-ARM. LIDOCAINE WAS USED TO NUMB THE SKIN AND SUBCUTANEOUS TISSUE BELOW IT. A SPINAL NEEDLE, 22-GAUGE, WAS ADVANCED UNDER FLUOROSCOPIC GUIDANCE AND FOLLOWING PATIENT FEEDBACK UNTIL THE TARGET AREA WAS TOUCHED. THE POSITION OF THE NEEDLE WAS VERIFIED WITH AP AND LATERAL VIEWS. AFTER PROPER POSITION OF THE NEEDLE WAS ACHIEVED, ISOVUE M DYE 30%, 0.25 ML, WAS INJECTED SHOWING SPREAD OF THE DYE. THEN, A SOLUTION OF 30 MG OF KENALOG WAS INJECTED IN RIGHT AND LEFT JOINT WITH 3 ML OF BUPIVACAINE 0.125%. THERE WAS NO EVIDENCE OF BLOOD, PARESTHESIA OR CEREBROSPINAL FLUID DURING THE PROCEDURE. THE PATIENT WAS SENT TO THE RECOVERY ROOM. THE PATIENT WAS MOVING THE EXTREMITIES AND DOING WELL. THERE WAS NO COMPLICATION DURING THE PROCEDURE. FLUOROSCOPY TIME WAS 20 SECONDS POST PROCEDURE NOTE THE PATIENT WILL BE SEEN IN A FOLLOW UP IN THE NEXT FEW WEEKS. I AM LOOKING FOR LONG LASTING PAIN RELIEF WITH THIS INJECTION. INSTRUCTIONS WERE GIVEN, QUESTIONS WERE ANSWERED, AND THE PATIENT EXPRESSED UNDERSTANDING AND AGREED WITH THE PLAN. I, CARLA WARE, DOCUMENTED THE ABOVE INFORMATION ACTING A SCRIBE FOR DR. COSTELLO. I HAVE REVIEWED THE ABOVE DOCUMENT, WRITTEN BY CARLA MCKEE AND I VERIFY THAT IT IS ACCURATE. PROCEDURE CODES 27746 INJECT SACROILIAC JOINT, MODIFIERS: 50 [id number] RADXPS IN END [id number] PXD DISPOSITION & COMMUNICATION FOLLOW UP 3 WEEKS ELECTRONICALLY SIGNED BY HAIDER COSTELLO MD, MD ON 11/04/2019 AT 08:54 AM EST DISCLAIMER : THIS IS A VISIT SUMMARY EXTRACTED FROM THE [employer] CHART. IT IS NOT A COPY OF THE [employer] PROGRESS NOTE. MTDD
== END ==
LOC: M PAIN 09:45
PROVIDERS: ATTEND Anesthesiology
DX: M46.1 Sacroiliitis, not elsewhere classified (principal); J45.20 Mild intermittent asthma, uncomplicated; E55.9 Vitamin D deficiency, unspecified; E03.9 Hypothyroidism, unspecified; G47.33 Obstructive sleep apnea (adult) (pediatric); K21.9 Gastro-esophageal reflux disease without esophagitis; Z87.891 Personal history of nicotine dependence; Z88.1 Allergy status to other antibiotic agents; Z88.6 Allergy status to analgesic agent; Z91.040 Latex allergy status; E66.01 Morbid (severe) obesity due to excess calories; Z68.41 Body mass index [BMI] 40.0-44.9, adult; Z79.899 Other long term (current) drug therapy
CPT/HCPCS: 27096; J3301; Q9967

== ENCOUNTER → 2019-11-04 | Outpatient (CLI) | payer OTHER ==
[~2019-11-04] MED LIST changes: -BUPIVACAINE HCL 0.25% 30 ML VIAL As Ordered ONE; -ISOVUE-M 300 61% 15ML VIAL (Q9967) As Ordered ONE; -LIDOCAINE 1% SDV INJ 30 ML VIAL As Ordered ONE; -TRIAMCINOLONE ACETONIDE SUSP 40 MG/ML VIAL (J3301) As Ordered ONE; -diazePAM 5 MG TAB As Ordered ONE; -oxyCODONE 5MG TAB As Ordered ONE
== END ==
LOC: M WHC 08:04
PROVIDERS: ATTEND Orthopaedic Surgery Sports Medicine
DX: Z47.89 Encounter for other orthopedic aftercare (principal)

== ENCOUNTER → 2019-11-04 | Outpatient (CLI) | payer OTHER ==
--- NOTE | 2019-11-04 10:02 | REP ---
BILATERAL SCREENING DIGITAL MAMMOGRAM WITH 3D TOMOSYNTHESIS: There are no palpable abnormalities or other breast complaints. The the patient states she has not had a clinical breast examination over a year. The Tyrer-Cuzick Lifetime Breast Cancer Risk Score is: 13.5%. Comparisons are 12/24/2014 and 07/06/2008 and 01/16/2007 and left breast ultrasound dated 01/29/2007. There are scattered areas of fibroglandular density. There are four small sharply circumscribed nodules in the upper outer quadrant of the left breast measuring up to 5 mm in diameter, unchanged from all prior studies including 01/16/2007. By ultrasound, these are small solid nodules, compatible with fibroadenomas. They are unchanged in size and number. There are no additional findings on 3D tomosynthesiss. There is no change from the prior studies. Impression: BIRADS/ACR category II mammogram. Benign findings. Recommendation: Routine annual screening mammography. This mammogram was interpreted with the aid of a FDA approved computer-aided detection system. A. Negative mammogram reports should not delay biopsy if a dominant or clinically suspicious mass is present. B. Not all breast cancers are identified by mammography or tomosynthesis. C. Adenosis and dense breasts may obscure an underlying neoplasm. Patient letter M1. Electronically Signed by Max Mckeon MD 11/04/2019 09:53 A
== END ==
LOC: M WHC 07:58
PROVIDERS: ATTEND Physician Assistant Medical
DX: Z12.31 Encounter for screening mammogram for malignant neoplasm of breast (principal)

== ENCOUNTER → 2019-11-05 | Outpatient (CLI) | payer OTHER ==
[~2019-11-05] MED LIST changes: +ISOVUE-M 300 61% 15ML VIAL (Q9967) As Ordered ONE; +LIDOCAINE 1% SDV INJ 30 ML VIAL As Ordered ONE; -ROPI0.5T PO; +ROPI0.5T3 PO; +diazePAM 5 MG TAB As Ordered ONE; +methylPREDNISolone SUSP 40 MG/ML (DEPO-medrol) VIAL (J1030) As Ordered ONE; +oxyCODONE 5MG TAB As Ordered ONE
--- NOTE | 2019-11-05 14:25 | REP ---
Partial cervical spine series: Four views. History: Cervical epidural injection for pain. 15 seconds of fluoroscopy time is reported. Findings: A sequence of four last image hold fluoroscopically obtained spot radiographs of the cervicothoracic junction document needle position and contrast injection associated with injection procedure. Electronically Signed by Melchor Rolon MD 11/05/2019 02:16 P
--- NOTE | 2019-11-14 06:13 | ECWPNPC ---
PATIENT NAME: AKBAR MOODY : 1965 GENDER: FEMALE VISIT DATE: 11/05/2019 DISCHARGE DATE: 11/05/19 1153 VISIT LOCKED DATE TIME: PHYSICIAN: HAIDER COSTELLO MD RESOURCE: HAIDER COSTELLO MD REASON FOR APPOINTMENT 1. CRIS HISTORY OF PRESENT ILLNESS HISTORY OF PRESENT ILLNESS: PAIN THE PATIENT DESCRIBES THE PAIN... FALL RISK SCREENING: SCREENING :NO FALLS REPORTED IN THE LAST YEAR CURRENT MEDICATIONS TAKING MIRALAX - POWDER 1-2 CAPFULS DAILY ORALLY DAILY, NOTES: NONE RECENT TAKING MAY HAVE - - TENS UNIT PADS TOPICALLY DAILY PRN TAKING ALEVE 220 MG TABLET 1-2 TABLETS NEEDED ORALLY EVERY 12 HRS, NOTES: 2 AM TAKING NEBULIZER/TUBING/MOUTHPIECE _ KIT DIRECTED DX:493 DIRECTED TAKING SINGULAIR 10 MG TABLET 1 TABLET IN THE EVENING ORALLY ONCE A DAY, NOTES: 2 PM TAKING LORATADINE 10 MG TABLET 1 TABLET ORALLY ONCE A DAY, NOTES: 2 AM TAKING AIRDUO RESPICLICK 113/14 113-14 MCG/ACT AEROSOL POWDER BREATH ACTIVATED 1 PUFF INHALATION TWICE A DAY, NOTES: 11/04 PM TAKING LEVOTHYROXINE SODIUM 25 MCG TABLET 1 TABLET ON AN EMPTY STOMACH IN THE MORNING ORALLY ONCE A DAY, NOTES: 11/05 429 TAKING ALBUTEROL SULFATE (2.5 MG/3ML) 0.083% NEBULIZATION SOLUTION 3 ML INHALATION THREE TIMES A DAY NEEDED, NOTES: NONE RECENT TAKING FLONASE 50 MCG/ACT SUSPENSION 2 SPRAYS IN EACH NOSTRIL NASALLY ONCE A DAY, NOTES: WEEK AGO TAKING METHOCARBAMOL 500 MG TABLET 1 TABLETS ORALLY EVERY 6 HRS, NOTES: 2 PM TAKING VENTOLIN HFA 108 (90 BASE) MCG/ACT AEROSOL SOLUTION 2 PUFFS NEEDED INHALATION EVERY 4 HRS, NOTES: 2 DAYS AGO TAKING ROPINIROLE HCL 0.5 MG TABLET TAKE ONE TABLET BY MOUTH THREE TIMES A DAY ORAL THREE TIMES A DAY, NOTES: 2 PM TAKING OMEPRAZOLE 40 MG CAPSULE DELAYED RELEASE 1 CAPSULE ORALLY BID, NOTES: 2 PM TAKING GABAPENTIN 800 MG TABLET 1 CAPSULE ORALLY THREE TIMES A DAY, NOTES: 11/04 PM TAKING LASIX 20 MG TABLET 1 TABLET ORALLY ONCE A DAY, NOTES: A MONTH AGO TAKING NORCO 5-325 MG TABLET 1 TABLET NEEDED ORALLY Q4-6 HR PRN MDD6, NOTES: 2/4 PM NOT-TAKING HM VITAMIN D3 2000 UNIT CAPSULE 2 CAPSULES ORALLY ONCE A DAY NOT-TAKING LIPITOR 10 MG TABLET 1 TABLET ORALLY ONCE A DAY NOT-TAKING CYANOCOBALAMIN 1000 MCG/ML SOLUTION 1 ML INJECTION ONCE MONTHLY NOT-TAKING LEVOTHYROXINE SODIUM 25 MCG TABLET 1 TABLET IN THE MORNING ON AN EMPTY STOMACH ORALLY ONCE A DAY NOT-TAKING CYANOCOBALAMIN 1000 MCG/ML SOLUTION 1 ML INJECTION MONTHLY MEDICATION LIST REVIEWED AND RECONCILED WITH THE PATIENT PAST MEDICAL HISTORY ASTHMA, MILD INTERMITTENT OSTEOARTHRITIS - DDD - FOLLOWS WITH [facility] ENVIRONMENTAL ALLERGIES HL VIT D DEF OBESITY B HIP OA S/P COLONOSCOPY NEG. 01/07/2016-DR. CHAPMAN F/U 10YR.S VENOUS INSUFFICIENCY RIGHT SHOULDER PAIN- MRI DONE ON Sunday08/11/19 BILATERAL HIP PAIN HYPOTHYROIDISM PENELOPE GERD VITAMIN B 12 DEFICIENCY ALLERGIES LATEX (FOR ALLERGY USE ONLY): HIVES - ALLERGY KEFLEX: ANAPHYLAXIS - ALLERGY NSAIDS: KIDNEY ISSUES - CONTRAINDICATION ENVIRONMENTAL: COUGH - ALLERGY SURGICAL HISTORY MADHAV DUE TO BLEEDING--- 07/2008 ARTHROSCOPIC KNEE SURGERY LEFT X 3 ARTHROSCOPIC KNEE SURGERY RIGHT X 1 CARPAL TUNNEL RELEASE BILATERAL ARTHROSCOPY SHOULDER RIGHT SHOULDER SURGERY LEFT BIOPSY MOLE- BACK LEFT HIP SURGERY 01/2016 CARPAL TUNNEL RELEASE BILATERAL LEFT HIP SURGERY 01/2016 HERNIA REPAIR X 5 ABDOMINAL SURGERY FOR GANGRENOUS INFECTION POST BTL SHOULDER SURGERY LEFT BIOPSY MOLE- BACK LEFT LEG SURGERY- RELEASED NERVES 10/11/16 BIOPSY MOLE- BACK LEFT HIP SURGERY 01/2016 TUBAL LIGATION HERNIA REPAIR X 5 ABDOMINAL SURGERY FOR GANGRENOUS INFECTION POST BTL BELLY BUTTON REMOVED LEFT LEG SURGERY- RELEASED NERVES 10/11/16 RIGHT SHOULDER SURGERY 10/2019 FAMILY HISTORY FATHER: 60 YRS, DIAGNOSED WITH OTHER MALIGNANT NEOPLASM OF UNSPECIFIED SITE MOTHER: ALIVE 72 YRS, HYPERTENSION 4 BROTHER(S) , 1 SISTER(S) - HEALTHY. 2 SON(S) , 3 DAUGHTER(S) - HEALTHY. SOCIAL HISTORY GENERAL: TOBACCO USE ARE YOU A:FORMER SMOKER HOW LONG HAS IT BEEN SINCE YOU LAST SMOKED?> 10 YEARS HIV / HEP-C SCREENING HIV TEST OFFERED TO PATIENT:YES DATE OFFERED:03/19/2019 TEST ACCEPTED:NO HEP-C TEST OFFERED TO PATIENT:YES N/A DATE OFFERED:03/19/2019 REASON:PATIENT DECLINED TEST ACCEPTED:NO REASON:PATIENT DECLINED BROCHURE PROVIDED TO PATIENTYES EDUCATION LEVEL OF EDUCATION:NOT FINISHED HIGH SCHOOL DIET: REGULAR. LANGUAGE LANGUAGES SPOKEN:IRISH DOMESTIC VIOLENCE DO YOU FEEL SAFE IN YOUR ENVIRONMENT?YES BMI CARE GOAL FOLLOW-UP ABOVE NORMAL BMI FOLLOW-UPDIETARY MANAGEMENT EDUCATION, GUIDANCE, AND COUNSELING RECREATIONAL DRUG USE DRUG USE?NO LEARNING BARRIERS / SPECIAL NEEDS CHANGE FROM LAST VISIT?NO BARRIERS TO LEARNING?NO HEARING IMPAIRED?NO VISION IMPAIRED?YES COGNITIVELY IMPAIRED?NO :CORRECTIVE LENSES READING READINESS TO LEARN?YES LEARNING PREFERENCES?NO LEARNING CAPABILITIES PRESENT?YES EMOTIONAL BARRIERS?NO SPECIAL DEVICES?YES :WALKER FURNACE MECHANIC NEEDED?NO PAIN CLINIC PFS, CLERGY, PUBLIC HEALTH REFERRALS PFS REFERRAL NEEDED?NO CLERGY REFERRAL NEEDED?NO PUBLIC HEALTH REFERRAL NEEDED?NO WAS THE PROVIDER NOTIFIED OF ANY PERTINENT INFO?YES NA HAS THE PATIENT BEEN EDUCATED REGARDING HIS/HER PLAN OF CARE?YES HAS THE PATIENT BEEN EDUCATED REGARDING PAIN, THE RISK FOR PAIN, THE IMPORTANCE OF EFFECTIVE PAIN MANAGEMENT, AND THE PAIN ASSESSMENT PROCESS?YES LATEX QUESTIONNAIRE LATEX ALLERGY : HAVE YOU EVER DEVELOPED ANY TYPE OF REACTION AFTER HANDLING LATEX PRODUCTS SUCH RUBBER GLOVES, CONDOMS, DIAPHRAGMS, BALLOONS, SOCKS, OR UNDERWEAR?YES LATEX ALLERGY : HAVE YOU EVER DEVELOPED ANY TYPE OF REACTION DURING OR AFTER DENTAL APPOINTMENT, VAGINAL/RECTAL EXAMINATION, SURGICAL PROCEDURE, OR ANY OTHER EXPOSURE?NO - PLEASE INDICATE :RUBBER GLOVES DATE ASKED : 03/19/2019 ACTIVE LATEX ALLERGY LATEX RISK : HAVE YOU EVER HAD ANY DIFFICULTY BREATHING OR HIVES AFTER EATING OR HANDLING ANY FRUITS, OR VEGETABLES; SUCH KIWI, BANANAS, STONE FRUITS, OR CHESTNUTSNO LATEX RISK : DO YOU HAVE A PREVIOUS PERSONAL HISTORY OF MORE THAN NINE SURGERIES, SPINA BIFIDA, OR REPEATED CATHERIZATIONS? NO LATEX RISK : ARE YOU FREQUENTLY EXPOSED TO LATEX PRODUCTS IN YOUR OCCUPATION?NO CAFFEINE CAFFEINE USE?YES 1 SODA ADVANCE DIRECTIVE ADVANCE DIRECTIVE DISCUSSED WITH PATIENT:YES HCP CARLA DILLON [phone], PRASHANT NONDENOMINATIONAL [id number] NONE MARITAL STATUS: SINGLE. ALCOHOL SCREENING DID YOU HAVE A DRINK CONTAINING ALCOHOL IN THE PAST YEAR?YES HOW OFTEN DID YOU HAVE SIX OR MORE DRINKS ON ONE OCCASION IN THE PAST YEAR?NEVER (0 POINTS) HOW MANY DRINKS DID YOU HAVE ON A TYPICAL DAY WHEN YOU WERE DRINKING IN THE PAST YEAR?7 TO 9 (3 POINTS) HOW OFTEN DID YOU HAVE A DRINK CONTAINING ALCOHOL IN THE PAST YEAR?TWO TO FOUR TIMES A MONTH (2 POINTS) POINTS5 INTERPRETATIONPOSITIVE OCCUPATION: UNEMPLOYED. SEXUAL HX HAD SEX IN THE LAST 12 MONTHS (VAGINAL, ORAL, OR ANAL)?YES WITHMEN ONLY USE PROTECTION?YES IS GOING TO GET LEFT HIP REPLACEMENT ON January. IS GOING TO GET LEFT HIP REPLACEMENT ON January. 03/07/18 0935 REVIEWED WITH PT. AD03/26/18 1140 RECVIEWED WITH PT. AD IS GOING TO GET LEFT HIP REPLACEMENT ON January. IS GOING TO GET LEFT HIP REPLACEMENT ON January. 03/07/18 0935 REVIEWED WITH PT. AD05/29/18 REVIEWED WITH PT LAS04/29/19 REVIEWED WITH PT 0910 BV03/20/19 REVIEWED WITH PATIENT NLJREVIEWED WITH PATIENT 07/08/18 1109 JSREVIEWED WITH PATIENT 07/09/19 NLJREVIEWED WITH PATIENT 08/12/19 1340 NLJREVIEWED WITH PATIENT 09/04/19 1158 JSPRE SCREENING PHONE CALL DONE 11/04/19 0920 BV. HOSPITALIZATION/MAJOR DIAGNOSTIC PROCEDURE SURGERY CHILDBIRTH X 6 REVIEW OF SYSTEMS REVIEWED BY: PROVIDER: . CONSTITUTIONAL: ANY CHANGE IN YOUR MEDICAL CONDITION? NO . CHILLS NO . FEVER NO . INFECTION: DO YOU HAVE NEW INFECTIONS? NO . DO YOU HAVE HISTORY OF MRSA? NO . MUSCULOSKELETAL: ANY NEW PATTERNS OF PAIN OR NUMBNESS? NO . GASTROENTEROLOGY: ANY NEW CHANGE IN BOWEL CONTROL? NO . GENITOURINARY: ANY NEW CHANGE IN BLADDER CONTROL? NO . IS THERE A CHANCE YOU COULD BE ? NO . HEMATOLOGY/LYMPH: DO YOU TAKE ANY BLOOD THINNERS? (FOR EXAMPLE- COUMADIN, PLAVIX, AGGRENOX, PLATEL, PRADAXA, OR XARELTO) NO . WHEN WAS YOUR LAST DOSE? DATE: TIME: . NEUROLOGY: HAVE YOU FALLEN IN THE PAST 12 MONTHS? NO . ANY NEW EXTREMITY NUMBNESS OR WEAKNESS? NO . CARDIOLOGY: DO YOU HAVE A PACEMAKER OR DEFIBRILLATOR? NO . RESPIRATORY: HAVE YOU BEEN SICK IN THE PAST WEEK? NO . FEVER NO . FLU LIKE SYMPTOMS? NO . COUGH NO . INTEGUMENTARY: DO YOU HAVE ANY RASHES OR OPEN SORES? NO . ALLERGIC/IMMUNO: ARE YOU ALLERGIC TO IV DYE? NO . ANY NEW ALLERGIES? NO . PSYCHIATRIC: DO YOU HAVE THOUGHTS OF HURTING YOURSELF OR SOMEONE ELSE? NO . ARE YOU ABUSED, NEGLECTED, OR IN AN UNSAFE ENVIRONMENT? NO . ENDOCRINOLOGY: ARE YOU DIABETIC? NO . OTHER: DO YOU NEED ANY PRESCRIPTIONS? NO . IF YES, PLEASE LIST: ____ . ANY NEW PROBLEMS WITH YOUR MEDICATIONS? NO . WHEN DID YOU LAST EAT? 11/04/190 . WHEN DID YOU LAST DRINK? 11/05/19 0430 . WHAT DID YOU LAST DRINK? WATER . NAME OF PERSON DRIVING YOU HOME? CARLA DILLON . DO YOU HAVE ANY OTHER QUESTIONS OR CONCERNS NO . VITAL SIGNS WT 285 LBS, HT 68 IN, BMI 43.33 INDEX, BP 134/83 MM HG, HR 78 /MIN, RR 18 /MIN, TEMP 98.7 F, OXYGEN SAT % 99%, NA INITIALS AW 0947, REVIEWED BY: BV. ASSESSMENTS CERVICAL DISC DISORDER WITH RADICULOPATHY, UNSPECIFIED CERVICAL REGION - M50.10 (PRIMARY) PROCEDURES PN CERVICAL EPIDURAL PRE PROCEDURE DIAGNOSIS CERVICAL DISC DISORDER WITH RADICULOPATHY POST PROCEDURE DIAGNOSIS CERVICAL DISC DISORDER WITH RADICULOPATHY PROCEDURE CERVICAL EPIDURAL STEROID INJECTION UNDER FLUOROSCOPIC GUIDANCE SURGEON DR. HAIDER COSTELLO CLINICAL RESOURCE DIRECTOR NONE ANESTHESIA LOCAL PRE PROCEDURE NOTE THE PATIENT HAS A HISTORY OF CHRONIC CERVICAL PAIN. I EVALUATED THE PATIENT AND REVIEWED THE CHART. I WENT OVER THE RISKS, ALTERNATIVES, AND BENEFITS ASSOCIATED WITH THIS PROCEDURE. THE PATIENT WOULD LIKE TO PROCEED AND GIVES CONSENT TO PERFORM THE PROCEDURE. THE PATIENT DENIES UNEXPLAINABLE WEIGHT LOSS, FEVER, CHILLS, OR NEW CHANGES IN URINARY OR BOWEL CONTROL DESCRIPTION OF PROCEDURE THE PATIENT WAS BROUGHT TO THE PROCEDURE ROOM AND PLACED IN THE PRONE POSITION. THE CERVICOTHORACIC AREA WAS CLEANED WITH BETADINE SOLUTION AND DRAPED ASEPTICALLY. THE PROCEDURE WAS DONE UNDER STERILE CONDITIONS. I CHECKED LATERALITY AND THE LEVEL WHERE THE PROCEDURE WAS GOING TO BE PERFORMED WITH THE PATIENT AND THE SUPPORTING STAFF AT THE MOMENT OF THE TIME OUT IN THE PROCEDURE ROOM. UNDER FLUOROSCOPIC GUIDANCE, THE TARGET WAS SELECTED AT THE INTERLAMINAR LEVEL OF C7-T1. LIDOCAINE WAS USED TO NUMB THE SKIN AND THE SUBCUTANEOUS TISSUE BELOW IT. EPIDURAL TUOHY NEEDLE 17-GAUGE WAS ADVANCED UNDER FLUOROSCOPIC GUIDANCE AND FOLLOWING PATIENT FEEDBACK UNTIL THE EPIDURAL SPACE WAS REACHED 6 CM DEEP INTO THE SKIN BY THE LOSS OF RESISTANCE TECHNIQUE. ISOVUE M DYE 30%, 0.25 ML, WAS INJECTED SHOWING ADEQUATE SPREAD OF THE DYE. THEN, A SOLUTION OF 3 ML OF NORMAL SALINE WITH DEPO-MEDROL 60 MG WAS INJECTED SLOWLY FOLLOWING PATIENT FEEDBACK. THERE WAS NO EVIDENCE OF BLOOD, PARESTHESIA OR CEREBROSPINAL FLUID DURING THE PROCEDURE. THE PATIENT WAS SENT TO THE RECOVERY ROOM. THE PATIENT WAS MOVING THE EXTREMITIES AND DOING WELL. THERE WAS NO COMPLICATION DURING THE PROCEDURE. FLUOROSCOPY TIME WAS 15 SECONDS POST PROCEDURE NOTE THE PATIENT WILL BE SEEN IN A FOLLOW UP IN THE NEXT FEW WEEKS. I AM LOOKING FOR LONG LASTING PAIN RELIEF WITH THIS INJECTION. INSTRUCTIONS WERE GIVEN, QUESTIONS WERE ANSWERED, AND THE PATIENT EXPRESSED UNDERSTANDING AND AGREES WITH THE PLAN. I, CARLA WARE, DOCUMENTED THE ABOVE INFORMATION ACTING A SCRIBE FOR DR. COSTELLO. I HAVE REVIEWED THE ABOVE DOCUMENT, WRITTEN BY CARLA WARE SCRIBE AND I VERIFY THAT IT IS ACCURATE. DIAGNOSTIC IMAGING [facility] FLUORO GUIDE SPINE INJECTION (PAIN)[id number] PROCEDURE CODES 97954 CERVICAL/THORACIC W/ IMAGING 6045F RADXPS IN END [id number] PXD DISPOSITION & COMMUNICATION FOLLOW UP 3 WEEKS ELECTRONICALLY SIGNED BY HAIDER COSTELLO MD, MD ON 11/13/2019 AT 01:46 PM EST DISCLAIMER : THIS IS A VISIT SUMMARY EXTRACTED FROM THE [facility] CHART. IT IS NOT A COPY OF THE [facility] PROGRESS NOTE. MTDD
== END ==
LOC: M PAIN 09:45
PROVIDERS: ATTEND Anesthesiology
DX: M50.10 Cervical disc disorder with radiculopathy, unspecified cervical region (principal); J45.20 Mild intermittent asthma, uncomplicated; E03.9 Hypothyroidism, unspecified; G47.33 Obstructive sleep apnea (adult) (pediatric); K21.9 Gastro-esophageal reflux disease without esophagitis; Z87.891 Personal history of nicotine dependence; Z88.1 Allergy status to other antibiotic agents; Z88.6 Allergy status to analgesic agent; Z91.040 Latex allergy status; E66.01 Morbid (severe) obesity due to excess calories; Z68.41 Body mass index [BMI] 40.0-44.9, adult; Z79.899 Other long term (current) drug therapy
CPT/HCPCS: 62321; J1030; Q9967

== ENCOUNTER → 2019-12-09 | Outpatient (CLI) | payer OTHER ==
[~2019-12-09] MED LIST changes: -ISOVUE-M 300 61% 15ML VIAL (Q9967) As Ordered ONE; -LIDOCAINE 1% SDV INJ 30 ML VIAL As Ordered ONE; -diazePAM 5 MG TAB As Ordered ONE; -methylPREDNISolone SUSP 40 MG/ML (DEPO-medrol) VIAL (J1030) As Ordered ONE; -oxyCODONE 5MG TAB As Ordered ONE
--- NOTE | 2019-12-25 02:55 | ECWPNPC ---
PATIENT NAME: AKBAR MOODY : 1965 GENDER: FEMALE VISIT DATE: 12/09/2019 DISCHARGE DATE: 12/09/19 1204 VISIT LOCKED DATE TIME: PHYSICIAN: RABIA WATTERS RESOURCE: RABIA WATTERS REASON FOR APPOINTMENT 1. POST SIJ & CRIS PER LB HISTORY OF PRESENT ILLNESS HISTORY OF PRESENT ILLNESS: HERE FOR POST PROCEDURE FOLLOW-UP AND MEDICINE MANAGEMENT OF PERSISTENT NECK AND LOW BACK PAIN. HAD CERVICAL EPIDURAL STEROID INJECTION ON 11/05/2019. REPORTING 0/10 PAIN IN THE NECK REGION TODAY. CHIEF AREA OF PAIN IS LOW BACK RADIATING INTO LEFT POSTERIOR THIGH. THIS HAS BEEN AGGRAVATED FOR ONE MONTH. RATING PAIN IN THIS REGION A 7/10. HISTORY OF BILATERAL SIJ ON 10/22/2019. REPORTED 100% IMPROVEMENT IN PAIN FOR 1 MONTH POST PROCEDURE. REVIEWED TREATMENT OPTIONS. PAIN THE PATIENT DESCRIBES THE PAIN... FALL RISK SCREENING: SCREENING :NO FALLS REPORTED IN THE LAST YEAR CURRENT MEDICATIONS TAKING MIRALAX - POWDER 1-2 CAPFULS DAILY ORALLY DAILY TAKING MAY HAVE - - TENS UNIT PADS TOPICALLY DAILY PRN TAKING ALEVE 220 MG TABLET 1-2 TABLETS NEEDED ORALLY EVERY 12 HRS TAKING NEBULIZER/TUBING/MOUTHPIECE _ KIT DIRECTED DX:493 DIRECTED TAKING SINGULAIR 10 MG TABLET 1 TABLET IN THE EVENING ORALLY ONCE A DAY TAKING LORATADINE 10 MG TABLET 1 TABLET ORALLY ONCE A DAY TAKING AIRDUO RESPICLICK 113/14 113-14 MCG/ACT AEROSOL POWDER BREATH ACTIVATED 1 PUFF INHALATION TWICE A DAY TAKING LEVOTHYROXINE SODIUM 25 MCG TABLET 1 TABLET ON AN EMPTY STOMACH IN THE MORNING ORALLY ONCE A DAY TAKING ALBUTEROL SULFATE (2.5 MG/3ML) 0.083% NEBULIZATION SOLUTION 3 ML INHALATION THREE TIMES A DAY NEEDED TAKING FLONASE 50 MCG/ACT SUSPENSION 2 SPRAYS IN EACH NOSTRIL NASALLY ONCE A DAY TAKING METHOCARBAMOL 500 MG TABLET 1 TABLETS ORALLY EVERY 6 HRS TAKING VENTOLIN HFA 108 (90 BASE) MCG/ACT AEROSOL SOLUTION 2 PUFFS NEEDED INHALATION EVERY 4 HRS TAKING ROPINIROLE HCL 0.5 MG TABLET TAKE ONE TABLET BY MOUTH THREE TIMES A DAY ORAL THREE TIMES A DAY TAKING OMEPRAZOLE 40 MG CAPSULE DELAYED RELEASE 1 CAPSULE ORALLY BID TAKING GABAPENTIN 800 MG TABLET 1 CAPSULE ORALLY THREE TIMES A DAY TAKING NORCO 5-325 MG TABLET 1 TABLET NEEDED ORALLY Q4-6 HR PRN MDD6 NOT-TAKING LASIX 20 MG TABLET 1 TABLET ORALLY ONCE A DAY NOT-TAKING HM VITAMIN D3 2000 UNIT CAPSULE 2 CAPSULES ORALLY ONCE A DAY NOT-TAKING LIPITOR 10 MG TABLET 1 TABLET ORALLY ONCE A DAY NOT-TAKING CYANOCOBALAMIN 1000 MCG/ML SOLUTION 1 ML INJECTION ONCE MONTHLY NOT-TAKING LEVOTHYROXINE SODIUM 25 MCG TABLET 1 TABLET IN THE MORNING ON AN EMPTY STOMACH ORALLY ONCE A DAY NOT-TAKING CYANOCOBALAMIN 1000 MCG/ML SOLUTION 1 ML INJECTION MONTHLY MEDICATION LIST REVIEWED AND RECONCILED WITH THE PATIENT PAST MEDICAL HISTORY ASTHMA, MILD INTERMITTENT OSTEOARTHRITIS - DDD - FOLLOWS WITH [facility]G ENVIRONMENTAL ALLERGIES HL VIT D DEF OBESITY B HIP OA S/P COLONOSCOPY NEG. 01/07/2016-DR. CHAPMAN F/U 10YR.S VENOUS INSUFFICIENCY RIGHT SHOULDER PAIN- MRI DONE ON Sunday08/11/19 BILATERAL HIP PAIN HYPOTHYROIDISM PENELOPE GERD VITAMIN B 12 DEFICIENCY ALLERGIES LATEX (FOR ALLERGY USE ONLY): HIVES - ALLERGY KEFLEX: ANAPHYLAXIS - ALLERGY NSAIDS: KIDNEY ISSUES - CONTRAINDICATION ENVIRONMENTAL: COUGH - ALLERGY SURGICAL HISTORY MADHAV DUE TO BLEEDING--- 07/2008 ARTHROSCOPIC KNEE SURGERY LEFT X 3 ARTHROSCOPIC KNEE SURGERY RIGHT X 1 CARPAL TUNNEL RELEASE BILATERAL ARTHROSCOPY SHOULDER RIGHT SHOULDER SURGERY LEFT BIOPSY MOLE- BACK LEFT HIP SURGERY 01/2016 CARPAL TUNNEL RELEASE BILATERAL LEFT HIP SURGERY 01/2016 HERNIA REPAIR X 5 ABDOMINAL SURGERY FOR GANGRENOUS INFECTION POST BTL SHOULDER SURGERY LEFT BIOPSY MOLE- BACK LEFT LEG SURGERY- RELEASED NERVES 10/11/16 BIOPSY MOLE- BACK LEFT HIP SURGERY 01/2016 TUBAL LIGATION HERNIA REPAIR X 5 ABDOMINAL SURGERY FOR GANGRENOUS INFECTION POST BTL BELLY BUTTON REMOVED LEFT LEG SURGERY- RELEASED NERVES 10/11/16 RIGHT SHOULDER SURGERY 10/2019 FAMILY HISTORY FATHER: 60 YRS, DIAGNOSED WITH OTHER MALIGNANT NEOPLASM OF UNSPECIFIED SITE MOTHER: ALIVE 72 YRS, HYPERTENSION 4 BROTHER(S) , 1 SISTER(S) - HEALTHY. 2 SON(S) , 3 DAUGHTER(S) - HEALTHY. SOCIAL HISTORY GENERAL: TOBACCO USE ARE YOU A:FORMER SMOKER HOW LONG HAS IT BEEN SINCE YOU LAST SMOKED?> 10 YEARS HIV / HEP-C SCREENING HIV TEST OFFERED TO PATIENT:YES DATE OFFERED:03/19/2019 TEST ACCEPTED:NO HEP-C TEST OFFERED TO PATIENT:YES N/A DATE OFFERED:03/19/2019 REASON:PATIENT DECLINED TEST ACCEPTED:NO REASON:PATIENT DECLINED BROCHURE PROVIDED TO PATIENTYES EDUCATION LEVEL OF EDUCATION:NOT FINISHED HIGH SCHOOL DIET: REGULAR. LANGUAGE LANGUAGES SPOKEN:THAI DOMESTIC VIOLENCE DO YOU FEEL SAFE IN YOUR ENVIRONMENT?YES BMI CARE GOAL FOLLOW-UP ABOVE NORMAL BMI FOLLOW-UPDIETARY MANAGEMENT EDUCATION, GUIDANCE, AND COUNSELING RECREATIONAL DRUG USE DRUG USE?NO LEARNING BARRIERS / SPECIAL NEEDS CHANGE FROM LAST VISIT?NO BARRIERS TO LEARNING?NO HEARING IMPAIRED?NO VISION IMPAIRED?YES COGNITIVELY IMPAIRED?NO :CORRECTIVE LENSES READING READINESS TO LEARN?YES LEARNING PREFERENCES?NO LEARNING CAPABILITIES PRESENT?YES EMOTIONAL BARRIERS?NO SPECIAL DEVICES?YES :WALKER COORDINATOR INTEGRATED MARKETING NEEDED?NO PAIN CLINIC PFS, CLERGY, PUBLIC HEALTH REFERRALS PFS REFERRAL NEEDED?NO CLERGY REFERRAL NEEDED?NO PUBLIC HEALTH REFERRAL NEEDED?NO WAS THE PROVIDER NOTIFIED OF ANY PERTINENT INFO?YES NA HAS THE PATIENT BEEN EDUCATED REGARDING HIS/HER PLAN OF CARE?YES HAS THE PATIENT BEEN EDUCATED REGARDING PAIN, THE RISK FOR PAIN, THE IMPORTANCE OF EFFECTIVE PAIN MANAGEMENT, AND THE PAIN ASSESSMENT PROCESS?YES LATEX QUESTIONNAIRE LATEX ALLERGY : HAVE YOU EVER DEVELOPED ANY TYPE OF REACTION AFTER HANDLING LATEX PRODUCTS SUCH RUBBER GLOVES, CONDOMS, DIAPHRAGMS, BALLOONS, SOCKS, OR UNDERWEAR?YES LATEX ALLERGY : HAVE YOU EVER DEVELOPED ANY TYPE OF REACTION DURING OR AFTER DENTAL APPOINTMENT, VAGINAL/RECTAL EXAMINATION, SURGICAL PROCEDURE, OR ANY OTHER EXPOSURE?NO - PLEASE INDICATE :RUBBER GLOVES DATE ASKED : 03/19/2019 ACTIVE LATEX ALLERGY LATEX RISK : HAVE YOU EVER HAD ANY DIFFICULTY BREATHING OR HIVES AFTER EATING OR HANDLING ANY FRUITS, OR VEGETABLES; SUCH KIWI, BANANAS, STONE FRUITS, OR CHESTNUTSNO LATEX RISK : DO YOU HAVE A PREVIOUS PERSONAL HISTORY OF MORE THAN NINE SURGERIES, SPINA BIFIDA, OR REPEATED CATHERIZATIONS? NO LATEX RISK : ARE YOU FREQUENTLY EXPOSED TO LATEX PRODUCTS IN YOUR OCCUPATION?NO CAFFEINE CAFFEINE USE?YES 1 SODA ADVANCE DIRECTIVE ADVANCE DIRECTIVE DISCUSSED WITH PATIENT:YES HCP CARLA DILLON [phone], MORMON [id number] NONE MARITAL STATUS: SINGLE. ALCOHOL SCREENING DID YOU HAVE A DRINK CONTAINING ALCOHOL IN THE PAST YEAR?YES HOW OFTEN DID YOU HAVE SIX OR MORE DRINKS ON ONE OCCASION IN THE PAST YEAR?NEVER (0 POINTS) HOW MANY DRINKS DID YOU HAVE ON A TYPICAL DAY WHEN YOU WERE DRINKING IN THE PAST YEAR?7 TO 9 (3 POINTS) HOW OFTEN DID YOU HAVE A DRINK CONTAINING ALCOHOL IN THE PAST YEAR?TWO TO FOUR TIMES A MONTH (2 POINTS) POINTS5 INTERPRETATIONPOSITIVE OCCUPATION: UNEMPLOYED. SEXUAL HX HAD SEX IN THE LAST 12 MONTHS (VAGINAL, ORAL, OR ANAL)?YES WITHMEN ONLY USE PROTECTION?YES IS GOING TO GET LEFT HIP REPLACEMENT ON January. IS GOING TO GET LEFT HIP REPLACEMENT ON January. 03/07/18 0935 REVIEWED WITH PT. AD03/26/18 1140 RECVIEWED WITH PT. AD IS GOING TO GET LEFT HIP REPLACEMENT ON January. IS GOING TO GET LEFT HIP REPLACEMENT ON January. 03/07/18 0935 REVIEWED WITH PT. AD05/29/18 REVIEWED WITH PT LAS04/29/19 REVIEWED WITH PT 0910 BV03/20/19 REVIEWED WITH PATIENT NLJREVIEWED WITH PATIENT 07/08/18 1109 JSREVIEWED WITH PATIENT 07/09/19 NLJREVIEWED WITH PATIENT 08/12/19 1340 NLJREVIEWED WITH PATIENT 09/04/19 1158 JSPRE SCREENING PHONE CALL DONE 11/04/19 0920 BV. HOSPITALIZATION/MAJOR DIAGNOSTIC PROCEDURE SURGERY CHILDBIRTH X 6 REVIEW OF SYSTEMS REVIEWED BY: PROVIDER: RABIA CARRERO . CONSTITUTIONAL: ANY CHANGE IN YOUR MEDICAL CONDITION? NO . CHILLS NO . FEVER NO . INFECTION: DO YOU HAVE NEW INFECTIONS? NO . DO YOU HAVE HISTORY OF MRSA? NO . MUSCULOSKELETAL: ANY NEW PATTERNS OF PAIN OR NUMBNESS? NO . GASTROENTEROLOGY: ANY NEW CHANGE IN BOWEL CONTROL? NO . GENITOURINARY: ANY NEW CHANGE IN BLADDER CONTROL? NO . IS THERE A CHANCE YOU COULD BE ? NO . HEMATOLOGY/LYMPH: DO YOU TAKE ANY BLOOD THINNERS? (FOR EXAMPLE- COUMADIN, PLAVIX, AGGRENOX, PLATEL, PRADAXA, OR XARELTO) NO . WHEN WAS YOUR LAST DOSE? DATE: TIME: . NEUROLOGY: HAVE YOU FALLEN IN THE PAST 12 MONTHS? NO . ANY NEW EXTREMITY NUMBNESS OR WEAKNESS? NO . CARDIOLOGY: DO YOU HAVE A PACEMAKER OR DEFIBRILLATOR? NO . RESPIRATORY: HAVE YOU BEEN SICK IN THE PAST WEEK? NO . FEVER NO . FLU LIKE SYMPTOMS? NO . COUGH NO . INTEGUMENTARY: DO YOU HAVE ANY RASHES OR OPEN SORES? NO . ALLERGIC/IMMUNO: ARE YOU ALLERGIC TO IV DYE? NO . ANY NEW ALLERGIES? NO . PSYCHIATRIC: DO YOU HAVE THOUGHTS OF HURTING YOURSELF OR SOMEONE ELSE? NO . ARE YOU ABUSED, NEGLECTED, OR IN AN UNSAFE ENVIRONMENT? NO . ENDOCRINOLOGY: ARE YOU DIABETIC? NO . OTHER: DO YOU NEED ANY PRESCRIPTIONS? NO . IF YES, PLEASE LIST: ____ . ANY NEW PROBLEMS WITH YOUR MEDICATIONS? NO . WHEN DID YOU LAST EAT? ____ . WHEN DID YOU LAST DRINK? ____ . WHAT DID YOU LAST DRINK? ____ . NAME OF PERSON DRIVING YOU HOME? ____ . DO YOU HAVE ANY OTHER QUESTIONS OR CONCERNS NO . VITAL SIGNS WT 283 LBS, HT 68 IN, BMI 43.03 INDEX, BP 138/79 MM HG, HR 96 /MIN, RR 16 /MIN, TEMP 97.5 F, OXYGEN SAT % 96, SAFE IN ENV? (Y/N) Y, REVIEWED BY: CECELIA. EXAMINATION GENERAL EXAMINATION: GENERAL AWAKE,ALERT ,PLEASANT . PSYCH AFFECT NORMAL . LUNGS: LUNG HANNAH ARE CLEAR TO AUSCULTATION BILATERALLY. GOOD MOVEMENT OF AIR . HEART: S1, S2 IN A REGULAR RATE AND RHYTHM. NO SIGNIFICANT MURMURS, RUBS OR GALLOPS NOTED . LUMBAR: PALPATION: + FOR PAIN OVER L/S SPINE. + FOR PAIN OVER L/S PARASPINALS SLIGHTLY WEAK OVER LEFT LEG. DIAGNOSTIC TESTS REVIEWED MRI L/S SPINE-12/29/17. ASSESSMENTS LUMBOSACRAL RADICULOPATHY - M54.17 (PRIMARY) SACROILIITIS, NOT ELSEWHERE CLASSIFIED - M46.1 CERVICAL DISC DISORDER WITH RADICULOPATHY OF CERVICOTHORACIC REGION - M50.13 TREATMENT LUMBOSACRAL RADICULOPATHY CONTINUE GABAPENTIN TABLET, 800 MG, 1 CAPSULE, ORALLY, THREE TIMES A DAY REFILL NORCO TABLET, 5-325 MG, 1 TABLET NEEDED, ORALLY, Q4-6 HR PRN MDD6, 30 DAYS, 180, REFILLS 0 NOTES: L4/5 LESI, ISTOP REGISTRY REVIEWED AND DEMONSTRATES COMPLLIANCE. BRINGS IN MEDICATIONS WHICH IS APPROPRIATE FOR WHAT WAS DISPENSED. RECENT URINE TOXICOLOGY REVIEWED. NO UNAUTHORIZED MEDICATIONS. NO ILLICIT SUBSTANCES AND PRESCRIBED MEDICATIONS WERE PRESENT. URINE TOX TODAY, RISKS OF NARCOTIC/OPIOD MEDICATIONS INCLUDES BUT IS NOT LIMITED TO RISK OF DEPENDANCE/DEVELOPMENT OF ADDICTION, MOOD DISTURBANCE AND DEPRESSION, OSTEOPOROSIS, HORMONAL AND LABIDAL CHANGES, RESPIRATORY DEPRESSION AND . PATIENT IS ADVISED NOT TO DRIVE OR DRINK ALCOHOL WHILE ON THESE MEDICATIONS. PROCEDURE CODES [id number] ESTABILISHED PATIENT [facility] FACILITY CHARGE DISPOSITION & COMMUNICATION FOLLOW UP POST (REASON: L4/5 LESI) ELECTRONICALLY SIGNED BY MAGAN PURI ON 12/24/2019 AT 10:11 AM EDT DISCLAIMER : THIS IS A VISIT SUMMARY EXTRACTED FROM THE [employer] CHART. IT IS NOT A COPY OF THE [employer] PROGRESS NOTE. GEGE
== END ==
LOC: M PAIN 10:45
PROVIDERS: ATTEND Nurse Practitioner Family
DX: M54.17 Radiculopathy, lumbosacral region (principal); M46.1 Sacroiliitis, not elsewhere classified; Z79.891 Long term (current) use of opiate analgesic; Z79.899 Other long term (current) drug therapy; Z87.891 Personal history of nicotine dependence; Z88.8 Allergy status to other drugs, medicaments and biological substances; Z91.040 Latex allergy status

== ENCOUNTER → 2020-02-02 | Outpatient (CLI) | payer OTHER ==
[~2020-02-02] MED LIST changes: +CYCL-707 PO; -CYCL10TA PO
== END ==
LOC: M LABSMTC 09:52
PROVIDERS: ATTEND Family Medicine
DX: Z11.59 Encounter for screening for other viral diseases (principal)

== ENCOUNTER → 2020-02-04 | Outpatient (CLI) | payer OTHER ==
[~2020-02-04] MED LIST changes: +ISOVUE-M 300 61% 15ML VIAL As Ordered ONE; +LIDOCAINE 1% SDV 30ML VIAL As Ordered ONE; +dexameTHASONE 10MG/1ML VIAL PRES.FREE (J1100 PER 1MG) As Ordered ONE; +diazePAM 5 MG TAB As Ordered ONE; +oxyCODONE 5MG TAB As Ordered ONE
--- NOTE | 2020-02-04 10:26 | REP ---
Partial lumbar spine series: Three views . History: Injection procedure for pain. 23 seconds of fluoroscopy time is reported. Findings: A sequence of three fluoroscopically obtained last image hold procedural spot radiographs of the lumbar spine document needle position and contrast injection associated with injection procedure. Electronically Signed by Melchor Rolon MD 02/04/2020 10:18 A
--- NOTE | 2020-02-05 01:56 | ECWPNPC ---
PATIENT NAME: AKBAR MOODY : 1965 GENDER: FEMALE VISIT DATE: 02/04/2020 DISCHARGE DATE: 02/04/20 1028 VISIT LOCKED DATE TIME: PHYSICIAN: HAIDER COSTELLO MD RESOURCE: HAIDER COSTELLO MD REASON FOR APPOINTMENT 1. L4/5 LESI HISTORY OF PRESENT ILLNESS HISTORY OF PRESENT ILLNESS: PAIN THE PATIENT DESCRIBES THE PAIN... FALL RISK SCREENING: SCREENING :NO FALLS REPORTED IN THE LAST YEAR CURRENT MEDICATIONS TAKING OMEPRAZOLE 40 MG CAPSULE DELAYED RELEASE 1 CAPSULE ORALLY BID, NOTES: 02/02 2200 TAKING MAY HAVE - - TENS UNIT PADS TOPICALLY DAILY PRN TAKING GABAPENTIN 800 MG TABLET 1 CAPSULE ORALLY THREE TIMES A DAY, NOTES: 02/02 2200 TAKING LEVOTHYROXINE SODIUM 25 MCG TABLET 1 TABLET IN THE MORNING ON AN EMPTY STOMACH ORALLY ONCE A DAY, NOTES: 02/03 400 TAKING MIRALAX - POWDER 1 CAPFUL ORALLY DAILY NEEDED, NOTES: APPROX 1 WEEK AGO TAKING SINGULAIR 10 MG TABLET 1 TABLET IN THE EVENING ORALLY ONCE A DAY, NOTES: 02/02 2200 TAKING AIRDUO RESPICLICK 113/14 113-14 MCG/ACT AEROSOL POWDER BREATH ACTIVATED 1 PUFF INHALATION TWICE A DAY, NOTES: 02/02 2200 TAKING FLONASE 50 MCG/ACT SUSPENSION 2 SPRAYS IN EACH NOSTRIL NASALLY ONCE A DAY-TAKES NEEDED, NOTES: 2 DAYS AGO TAKING LORATADINE 10 MG TABLET TAKE ONE TABLET BY MOUTH EVERY DAY , NOTES: 02/02 630 TAKING NORCO 5-325 MG TABLET 1 TABLET NEEDED ORALLY Q4-6 HR PRN MDD6, NOTES: 02/02 630 TAKING ALBUTEROL SULFATE HFA 108 (90 BASE) MCG/ACT AEROSOL SOLUTION 1 PUFF NEEDED INHALATION EVERY 4 HRS, NOTES: 02/03 530 NOT-TAKING LIPITOR 10 MG TABLET 1 TABLET ORALLY ONCE A DAY, NOTES: 02/03 400 NOT-TAKING POTASSIUM CHLORIDE ER 10 MEQ TABLET EXTENDED RELEASE 1 TABLET WITH FOOD ORALLY DAILY MEDICATION LIST REVIEWED AND RECONCILED WITH THE PATIENT PAST MEDICAL HISTORY ASTHMA, MILD INTERMITTENT OSTEOARTHRITIS - DDD - FOLLOWS WITH [facility]COG ENVIRONMENTAL ALLERGIES HL VIT D DEF OBESITY B HIP OA S/P COLONOSCOPY NEG. 01/07/2016-DR. CHAPMAN F/U 10YR.S VENOUS INSUFFICIENCY RIGHT SHOULDER PAIN- MRI DONE ON Sunday08/11/19 BILATERAL HIP PAIN HYPOTHYROIDISM PENELOPE GERD VITAMIN B 12 DEFICIENCY ALLERGIES LATEX (FOR ALLERGY USE ONLY): HIVES - ALLERGY KEFLEX: ANAPHYLAXIS - ALLERGY NSAIDS: KIDNEY ISSUES - CONTRAINDICATION ENVIRONMENTAL: COUGH - ALLERGY SURGICAL HISTORY MADHAV DUE TO BLEEDING--- 07/2008 ARTHROSCOPIC KNEE SURGERY LEFT X 3 ARTHROSCOPIC KNEE SURGERY RIGHT X 1 CARPAL TUNNEL RELEASE BILATERAL ARTHROSCOPY SHOULDER RIGHT SHOULDER SURGERY LEFT BIOPSY MOLE- BACK LEFT HIP SURGERY 01/2016 CARPAL TUNNEL RELEASE BILATERAL LEFT HIP SURGERY 01/2016 HERNIA REPAIR X 5 ABDOMINAL SURGERY FOR GANGRENOUS INFECTION POST BTL SHOULDER SURGERY LEFT BIOPSY MOLE- BACK LEFT LEG SURGERY- RELEASED NERVES 10/11/16 BIOPSY MOLE- BACK LEFT HIP SURGERY 01/2016 TUBAL LIGATION HERNIA REPAIR X 5 ABDOMINAL SURGERY FOR GANGRENOUS INFECTION POST BTL BELLY BUTTON REMOVED LEFT LEG SURGERY- RELEASED NERVES 10/11/16 RIGHT SHOULDER SURGERY 10/2019 FAMILY HISTORY FATHER: 60 YRS, DIAGNOSED WITH OTHER MALIGNANT NEOPLASM OF UNSPECIFIED SITE MOTHER: ALIVE 72 YRS, HYPERTENSION 4 BROTHER(S) , 1 SISTER(S) - HEALTHY. 2 SON(S) , 3 DAUGHTER(S) - HEALTHY. SOCIAL HISTORY GENERAL: TOBACCO USE ARE YOU A:FORMER SMOKER HOW LONG HAS IT BEEN SINCE YOU LAST SMOKED?> 10 YEARS LATEX QUESTIONNAIRE LATEX ALLERGY : HAVE YOU EVER DEVELOPED ANY TYPE OF REACTION AFTER HANDLING LATEX PRODUCTS SUCH RUBBER GLOVES, CONDOMS, DIAPHRAGMS, BALLOONS, SOCKS, OR UNDERWEAR?YES - PLEASE INDICATE :RUBBER GLOVES LATEX ALLERGY : HAVE YOU EVER DEVELOPED ANY TYPE OF REACTION DURING OR AFTER DENTAL APPOINTMENT, VAGINAL/RECTAL EXAMINATION, SURGICAL PROCEDURE, OR ANY OTHER EXPOSURE?NO LATEX RISK : HAVE YOU EVER HAD ANY DIFFICULTY BREATHING OR HIVES AFTER EATING OR HANDLING ANY FRUITS, OR VEGETABLES; SUCH KIWI, BANANAS, STONE FRUITS, OR CHESTNUTSNO LATEX RISK : DO YOU HAVE A PREVIOUS PERSONAL HISTORY OF MORE THAN NINE SURGERIES, SPINA BIFIDA, OR REPEATED CATHERIZATIONS? NO LATEX RISK : ARE YOU FREQUENTLY EXPOSED TO LATEX PRODUCTS IN YOUR OCCUPATION?NO DATE ASKED : 02/03/2020 ACTIVE LATEX ALLERGY BMI CARE GOAL FOLLOW-UP ABOVE NORMAL BMI FOLLOW-UPDIETARY MANAGEMENT EDUCATION, GUIDANCE, AND COUNSELING ALCOHOL SCREENING DID YOU HAVE A DRINK CONTAINING ALCOHOL IN THE PAST YEAR?YES HOW OFTEN DID YOU HAVE A DRINK CONTAINING ALCOHOL IN THE PAST YEAR?TWO TO FOUR TIMES A MONTH (2 POINTS) HOW MANY DRINKS DID YOU HAVE ON A TYPICAL DAY WHEN YOU WERE DRINKING IN THE PAST YEAR?7 TO 9 (3 POINTS) HOW OFTEN DID YOU HAVE SIX OR MORE DRINKS ON ONE OCCASION IN THE PAST YEAR?MONTHLY (2 POINTS) POINTS7 INTERPRETATIONPOSITIVE RECREATIONAL DRUG USE DRUG USE?NO CAFFEINE CAFFEINE USE?YES 1 SODA SEXUAL HX HAD SEX IN THE LAST 12 MONTHS (VAGINAL, ORAL, OR ANAL)?YES WITHMEN ONLY USE PROTECTION?YES HIV / HEP-C SCREENING HIV TEST OFFERED TO PATIENT:YES DATE OFFERED:03/19/2019 TEST ACCEPTED:NO HEP-C TEST OFFERED TO PATIENT:YES N/A DATE OFFERED:03/19/2019 REASON:PATIENT DECLINED TEST ACCEPTED:NO REASON:PATIENT DECLINED BROCHURE PROVIDED TO PATIENTYES VOODOO [id number] NONE LANGUAGE LANGUAGES SPOKEN:BELARUSIAN EDUCATION LEVEL OF EDUCATION:NOT FINISHED HIGH SCHOOL LEARNING BARRIERS / SPECIAL NEEDS CHANGE FROM LAST VISIT?NO BARRIERS TO LEARNING?NO HEARING IMPAIRED?NO VISION IMPAIRED?YES :CORRECTIVE LENSES READING COGNITIVELY IMPAIRED?NO READINESS TO LEARN?YES LEARNING PREFERENCES?NO LEARNING CAPABILITIES PRESENT?YES EMOTIONAL BARRIERS?NO SPECIAL DEVICES?YES :CANE, WALKER WINDOWS APPLICATION DEVELOPER NEEDED?NO DOMESTIC VIOLENCE DO YOU FEEL SAFE IN YOUR ENVIRONMENT?YES OCCUPATION: UNEMPLOYED. DIET: REGULAR. MARITAL STATUS: SINGLE. NEW PATIENT PAIN DIARY TODAY'S VISIT 02/03/20 PATIENT DESCRIBES PAIN :ACHING, BURNING, HAVE IT ALL THE TIME, SHARP, STABBING, TENDER, THROBBING, SORE, SHOOTING FROM 0-10, WHAT LEVEL IS YOUR PAIN TODAY?9 9-10 PRECIPITATING FACTORS SITTING, STANDING A LOT, BENDING AND WEATHER ALLEVIATING FACTORS HEATING PAD AND LYING DOWN WITH LEGS SLIGHTLY ELEVATED AND NOT MOVING IMPACT ON FUNCTION LIMITS HER ON WHAT SHE IS ABLE TO DO PAIN CLINIC PFS, CLERGY, PUBLIC HEALTH REFERRALS PFS REFERRAL NEEDED?NO CLERGY REFERRAL NEEDED?NO PUBLIC HEALTH REFERRAL NEEDED?NO HAS THE PATIENT BEEN EDUCATED REGARDING HIS/HER PLAN OF CARE?YES HAS THE PATIENT BEEN EDUCATED REGARDING PAIN, THE RISK FOR PAIN, THE IMPORTANCE OF EFFECTIVE PAIN MANAGEMENT, AND THE PAIN ASSESSMENT PROCESS?YES ADVANCE DIRECTIVE ADVANCE DIRECTIVE DISCUSSED WITH PATIENT:YES HCP CARLA DILLON [phone], 02/03/20 PRE-PROCEDURE CALL COMPLETED. AD. HOSPITALIZATION/MAJOR DIAGNOSTIC PROCEDURE SURGERY CHILDBIRTH X 6 REVIEW OF SYSTEMS REVIEWED BY: PROVIDER: HAIDER COSTELLO MD . CONSTITUTIONAL: ANY CHANGE IN YOUR MEDICAL CONDITION? NO . CHILLS NO . FEVER NO . INFECTION: DO YOU HAVE NEW INFECTIONS? NO . DO YOU HAVE HISTORY OF MRSA? NO . MUSCULOSKELETAL: ANY NEW PATTERNS OF PAIN OR NUMBNESS? NO . GASTROENTEROLOGY: ANY NEW CHANGE IN BOWEL CONTROL? NO . GENITOURINARY: ANY NEW CHANGE IN BLADDER CONTROL? NO . IS THERE A CHANCE YOU COULD BE ? NO . HEMATOLOGY/LYMPH: DO YOU TAKE ANY BLOOD THINNERS? (FOR EXAMPLE- COUMADIN, PLAVIX, AGGRENOX, PLATEL, PRADAXA, OR XARELTO) NO . WHEN WAS YOUR LAST DOSE? DATE: TIME: . NEUROLOGY: HAVE YOU FALLEN IN THE PAST 12 MONTHS? NO . ANY NEW EXTREMITY NUMBNESS OR WEAKNESS? NO . CARDIOLOGY: DO YOU HAVE A PACEMAKER OR DEFIBRILLATOR? NO . RESPIRATORY: HAVE YOU BEEN SICK IN THE PAST WEEK? NO . FEVER NO . FLU LIKE SYMPTOMS? NO . COUGH NO . INTEGUMENTARY: DO YOU HAVE ANY RASHES OR OPEN SORES? NO . ALLERGIC/IMMUNO: ARE YOU ALLERGIC TO IV DYE? NO . ANY NEW ALLERGIES? NO . PSYCHIATRIC: DO YOU HAVE THOUGHTS OF HURTING YOURSELF OR SOMEONE ELSE? NO . ARE YOU ABUSED, NEGLECTED, OR IN AN UNSAFE ENVIRONMENT? NO . ENDOCRINOLOGY: ARE YOU DIABETIC? NO . OTHER: DO YOU NEED ANY PRESCRIPTIONS? NO . IF YES, PLEASE LIST: ____ . ANY NEW PROBLEMS WITH YOUR MEDICATIONS? NO . WHEN DID YOU LAST EAT? 02/02 1830 . WHEN DID YOU LAST DRINK? 02/02 2200 . WHAT DID YOU LAST DRINK? WATER . NAME OF PERSON DRIVING YOU HOME? SANJUANITA . DO YOU HAVE ANY OTHER QUESTIONS OR CONCERNS NO, BILATERAL LOWER EXTREMITIES ARE EDEMATOUS AND SLIGHTLY RED-DR. COSTELLO AWARE AND VISUALIZED AREA. PT STATES PCP IS AWARE OF THIS. PT HAS NOT HAD ANY VACCINES IN THE PAST 30 DAYS . VITAL SIGNS WT 288.4 LBS, HT 68 IN, BMI 43.85 INDEX, BP 146/86 MM HG, HR 101 /MIN, RR 18 /MIN, TEMP 97.3 F, OXYGEN SAT % 98%, SAFE IN ENV? (Y/N) Y, NA INITIALS AW 0953, REVIEWED BY: AD. ASSESSMENTS INTERVERTEBRAL DISC DISORDER WITH RADICULOPATHY OF LUMBAR REGION - M51.16 (PRIMARY) LUMBOSACRAL RADICULOPATHY - M54.17 TREATMENT INTERVERTEBRAL DISC DISORDER WITH RADICULOPATHY OF LUMBAR REGION [facility] FLUORO GUIDE SPINE INJECTION (PAIN)[id number] PROCEDURES PRE PROCEDURE DIAGNOSIS LUMBAR DISC DISORDER WITH RADICULOPATHY POST PROCEDURE DIAGNOSIS LUMBAR DISC DISORDER WITH RADICULOPATHY PROCEDURE LUMBAR EPIDURAL STEROID INJECTION UNDER FLUOROSCOPIC GUIDANCE SURGEON DR. HAIDER COSTELLO ABORIGINAL EDUCATION WORKER COORDINATOR NONE ANESTHESIA LOCAL PRE PROCEDURE NOTE THE PATIENT HAS A HISTORY OF CHRONIC LOW BACK PAIN. I EVALUATED THE PATIENT AND REVIEWED THE CHART. I WENT OVER THE RISKS, ALTERNATIVES, AND BENEFITS ASSOCIATED WITH THIS PROCEDURE. I DISCUSSED WITH THE PATIENT THAT THE USE OF STEROIDS MAY CONTRIBUTE TO IMMUNOSUPPRESSION OF HER BODY AGAINST INFECTIONS SUCH THE GALICIA VIRUS, COVID-19. SHE IS AWARE OF THE POTENTIAL COMPLICATIONS ASSOCIATED WITH AN INFECTION OF THIS VIRUS INCLUDING . THE PATIENT WOULD LIKE TO PROCEED AND GIVE CONSENT TO PERFORMED THE PROCEDURE. THE PATIENT DENIES UNEXPLAINABLE WEIGHT LOSS, FEVER, CHILLS, OR NEW CHANGES IN URINARY OR BOWEL CONTROL. THE PATIENT IS COVID-19 NEGATIVE DESCRIPTION OF PROCEDURE THE PATIENT WAS BROUGHT TO THE PROCEDURE ROOM AND PLACED IN THE PRONE POSITION. THE LUMBOSACRAL AREA WAS CLEANED WITH BETADINE SOLUTION AND DRAPED ASEPTICALLY. THE PROCEDURE WAS DONE UNDER STERILE CONDITIONS. I CHECKED LATERALITY AND THE LEVEL WHERE THE PROCEDURE WAS GOING TO BE PERFORMED WITH THE PATIENT AND THE SUPPORTING STAFF AT THE MOMENT OF THE TIME OUT IN THE PROCEDURE ROOM. UNDER FLUOROSCOPIC GUIDANCE, THE TARGET POINT WAS SELECTED AT THE INTERLAMINAR LEVEL OF L4-L5. LIDOCAINE WAS USED TO NUMB THE SKIN AND THE SUBCUTANEOUS TISSUE BELOW IT. EPIDURAL TUOHY NEEDLE, 5 INCH 17-GAUGE, WAS ADVANCED UNDER FLUOROSCOPIC GUIDANCE AND FOLLOWING PATIENT FEEDBACK UNTIL THE EPIDURAL SPACE WAS REACHED, 11 CM DEEP INTO THE SKIN BY THE LOSS OF RESISTANCE TECHNIQUE. ISOVUE M DYE 30%, 0.25 ML, WAS INJECTED SHOWING ADEQUATE SPREAD OF THE DYE. THEN, A SOLUTION OF 3 ML OF NORMAL SALINE WITH DEXAMETHASONE 10 MG WAS INJECTED SLOWLY FOLLOWING PATIENT FEEDBACK. THERE WAS NO EVIDENCE OF BLOOD, PARESTHESIA OR CEREBROSPINAL FLUID DURING THE PROCEDURE. THE PATIENT WAS SENT TO THE RECOVERY ROOM. THE PATIENT WAS MOVING THE EXTREMITIES AND DOING WELL. THERE WAS NO COMPLICATION DURING THE PROCEDURE. FLUOROSCOPY TIME WAS 23 SECONDS POST PROCEDURE NOTE THE PATIENT WILL BE SEEN IN A FOLLOW UP IN THE NEXT FEW WEEKS. I AM LOOKING FOR LONG LASTING PAIN RELIEF FOR THE PATIENT WITH THIS INJECTION. INSTRUCTIONS WERE GIVEN, QUESTIONS WERE ANSWERED, AND THE PATIENT EXPRESSED UNDERSTANDING AND AGREES WITH THE PLAN. I INSTRUCTED THE PATIENT TO STAY HOME, IF POSSIBLE, FOR A WEEK DUE TO COVID-19. I, GERA FINK, DOCUMENTED THE ABOVE INFORMATION ACTING A SCRIBE FOR DR. COSTELLO. 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 IT IS NOT A COPY OF THE [employer] PROGRESS NOTE. GEGE
== END ==
LOC: M PAIN 09:00
PROVIDERS: ATTEND Anesthesiology
DX: M51.16 Intervertebral disc disorders with radiculopathy, lumbar region (principal); Z79.891 Long term (current) use of opiate analgesic; Z79.899 Other long term (current) drug therapy; Z87.891 Personal history of nicotine dependence; Z88.8 Allergy status to other drugs, medicaments and biological substances; Z91.040 Latex allergy status
CPT/HCPCS: 62323; J1100; Q9967

== ENCOUNTER → 2020-02-24 | Outpatient (CLI) | payer OTHER ==
[~2020-02-24] MED LIST changes: -ISOVUE-M 300 61% 15ML VIAL As Ordered ONE; -LIDOCAINE 1% SDV 30ML VIAL As Ordered ONE; -dexameTHASONE 10MG/1ML VIAL PRES.FREE (J1100 PER 1MG) As Ordered ONE; -diazePAM 5 MG TAB As Ordered ONE; -oxyCODONE 5MG TAB As Ordered ONE
--- NOTE | 2020-02-26 02:58 | ECWPNPC ---
PATIENT NAME: AKBAR MOODY : 1965 GENDER: FEMALE VISIT DATE: 02/24/2020 DISCHARGE DATE: 02/24/20907 VISIT LOCKED DATE TIME: PHYSICIAN: RABIA WATTERS RESOURCE: RABIA WATTERS REASON FOR APPOINTMENT 1. POST LESI PAT DONE HISTORY OF PRESENT ILLNESS HISTORY OF PRESENT ILLNESS: PATIENT IS AGREEABLE TO TELEPHONE VISIT TODAY. THIS IS A POST PROCEDURE FOLLOW-UP. HAD LUMBAR EPIDURAL STEROID INJECTION ON 02/04/2020. REPORTING MARKED REDUCTION IN LOW BACK PAIN THAT RADIATES INTO LEFT POSTERIOR THIGH. RATING PAIN LEVEL A 2/10 VAS. FINDS CURRENT CHRONIC PAIN MEDICATION EFFECTIVE AT REDUCING PAIN AND KEEPING HER FUNCTIONAL. REPORTS IMPROVED ABILITY TO TOLERATE GARDENING. PAIN THE PATIENT DESCRIBES THE PAIN... FALL RISK SCREENING: SCREENING :NO FALLS REPORTED IN THE LAST YEAR CURRENT MEDICATIONS TAKING OMEPRAZOLE 40 MG CAPSULE DELAYED RELEASE 1 CAPSULE ORALLY BID, NOTES: 02/02 2200 TAKING MAY HAVE - - TENS UNIT PADS TOPICALLY DAILY PRN TAKING GABAPENTIN 800 MG TABLET 1 CAPSULE ORALLY THREE TIMES A DAY, NOTES: 02/02 2200 TAKING LEVOTHYROXINE SODIUM 25 MCG TABLET 1 TABLET IN THE MORNING ON AN EMPTY STOMACH ORALLY ONCE A DAY, NOTES: 02/03 400 TAKING MIRALAX - POWDER 1 CAPFUL ORALLY DAILY NEEDED, NOTES: APPROX 1 WEEK AGO TAKING SINGULAIR 10 MG TABLET 1 TABLET IN THE EVENING ORALLY ONCE A DAY, NOTES: 02/02 2200 TAKING AIRDUO RESPICLICK 113/14 113-14 MCG/ACT AEROSOL POWDER BREATH ACTIVATED 1 PUFF INHALATION TWICE A DAY, NOTES: 02/02 2200 TAKING FLONASE 50 MCG/ACT SUSPENSION 2 SPRAYS IN EACH NOSTRIL NASALLY ONCE A DAY-TAKES NEEDED, NOTES: 2 DAYS AGO TAKING LORATADINE 10 MG TABLET TAKE ONE TABLET BY MOUTH EVERY DAY , NOTES: 02/02 630 TAKING NORCO 5-325 MG TABLET 1 TABLET NEEDED ORALLY Q4-6 HR PRN MDD6, NOTES: 02/02 630 TAKING ALBUTEROL SULFATE HFA 108 (90 BASE) MCG/ACT AEROSOL SOLUTION 1 PUFF NEEDED INHALATION EVERY 4 HRS, NOTES: 02/03 530 NOT-TAKING LIPITOR 10 MG TABLET 1 TABLET ORALLY ONCE A DAY, NOTES: 02/03 400 NOT-TAKING POTASSIUM CHLORIDE ER 10 MEQ TABLET EXTENDED RELEASE 1 TABLET WITH FOOD ORALLY DAILY PAST MEDICAL HISTORY ASTHMA, MILD INTERMITTENT OSTEOARTHRITIS - DDD - FOLLOWS WITH NCOG ENVIRONMENTAL ALLERGIES HL VIT D DEF OBESITY B HIP OA S/P COLONOSCOPY NEG. 01/07/2016-DR. CHAPMAN F/U 10YR.S VENOUS INSUFFICIENCY RIGHT SHOULDER PAIN- MRI DONE ON Sunday08/11/19 BILATERAL HIP PAIN HYPOTHYROIDISM PENELOPE GERD VITAMIN B 12 DEFICIENCY ALLERGIES LATEX (FOR ALLERGY USE ONLY): HIVES - ALLERGY KEFLEX: ANAPHYLAXIS - ALLERGY NSAIDS: KIDNEY ISSUES - CONTRAINDICATION ENVIRONMENTAL: COUGH - ALLERGY SURGICAL HISTORY MADHAV DUE TO BLEEDING--- 07/2008 ARTHROSCOPIC KNEE SURGERY LEFT X 3 ARTHROSCOPIC KNEE SURGERY RIGHT X 1 CARPAL TUNNEL RELEASE BILATERAL ARTHROSCOPY SHOULDER RIGHT SHOULDER SURGERY LEFT BIOPSY MOLE- BACK LEFT HIP SURGERY 01/2016 CARPAL TUNNEL RELEASE BILATERAL LEFT HIP SURGERY 01/2016 HERNIA REPAIR X 5 ABDOMINAL SURGERY FOR GANGRENOUS INFECTION POST BTL SHOULDER SURGERY LEFT BIOPSY MOLE- BACK LEFT LEG SURGERY- RELEASED NERVES 10/11/16 BIOPSY MOLE- BACK LEFT HIP SURGERY 01/2016 TUBAL LIGATION HERNIA REPAIR X 5 ABDOMINAL SURGERY FOR GANGRENOUS INFECTION POST BTL BELLY BUTTON REMOVED LEFT LEG SURGERY- RELEASED NERVES 10/11/16 RIGHT SHOULDER SURGERY 10/2019 FAMILY HISTORY FATHER: 60 YRS, DIAGNOSED WITH OTHER MALIGNANT NEOPLASM OF UNSPECIFIED SITE MOTHER: ALIVE 72 YRS, HYPERTENSION 4 BROTHER(S) , 1 SISTER(S) - HEALTHY. 2 SON(S) , 3 DAUGHTER(S) - HEALTHY. SOCIAL HISTORY GENERAL: TOBACCO USE ARE YOU A:FORMER SMOKER HOW LONG HAS IT BEEN SINCE YOU LAST SMOKED?> 10 YEARS 8 YEARS SINCE SHE SMOKED LATEX QUESTIONNAIRE LATEX ALLERGY : HAVE YOU EVER DEVELOPED ANY TYPE OF REACTION AFTER HANDLING LATEX PRODUCTS SUCH RUBBER GLOVES, CONDOMS, DIAPHRAGMS, BALLOONS, SOCKS, OR UNDERWEAR?YES HIVES, BLISTERS AND BLEEDS. DATE ASKED : 02/20/2020 BMI CARE GOAL FOLLOW-UP ABOVE NORMAL BMI FOLLOW-UPDIETARY MANAGEMENT EDUCATION, GUIDANCE, AND COUNSELING ALCOHOL SCREENING DID YOU HAVE A DRINK CONTAINING ALCOHOL IN THE PAST YEAR?YES HOW OFTEN DID YOU HAVE SIX OR MORE DRINKS ON ONE OCCASION IN THE PAST YEAR?MONTHLY (2 POINTS) HOW MANY DRINKS DID YOU HAVE ON A TYPICAL DAY WHEN YOU WERE DRINKING IN THE PAST YEAR?7 TO 9 (3 POINTS) HOW OFTEN DID YOU HAVE A DRINK CONTAINING ALCOHOL IN THE PAST YEAR?TWO TO FOUR TIMES A MONTH (2 POINTS) POINTS7 INTERPRETATIONPOSITIVE RECREATIONAL DRUG USE DRUG USE?NO CAFFEINE CAFFEINE USE?YES 1 SODA SEXUAL HX HAD SEX IN THE LAST 12 MONTHS (VAGINAL, ORAL, OR ANAL)?YES WITHMEN ONLY USE PROTECTION?YES HIV / HEP-C SCREENING HIV TEST OFFERED TO PATIENT:YES DATE OFFERED:03/19/2019 TEST ACCEPTED:NO HEP-C TEST OFFERED TO PATIENT:YES N/A DATE OFFERED:03/19/2019 REASON:PATIENT DECLINED TEST ACCEPTED:NO REASON:PATIENT DECLINED BROCHURE PROVIDED TO PATIENTYES [place] [id number] NONE LANGUAGE LANGUAGES SPOKEN:BRITISH VIRGIN ISLANDER EDUCATION LEVEL OF EDUCATION:NOT FINISHED HIGH SCHOOL LEARNING BARRIERS / SPECIAL NEEDS CHANGE FROM LAST VISIT?NO BARRIERS TO LEARNING?NO HEARING IMPAIRED?NO VISION IMPAIRED?YES COGNITIVELY IMPAIRED?NO :CORRECTIVE LENSES READING READINESS TO LEARN?YES LEARNING PREFERENCES?NO LEARNING CAPABILITIES PRESENT?YES EMOTIONAL BARRIERS?NO SPECIAL DEVICES?YES :CANE, WALKER HOSE MAKER NEEDED?NO DOMESTIC VIOLENCE DO YOU FEEL SAFE IN YOUR ENVIRONMENT?YES OCCUPATION: UNEMPLOYED. DIET: REGULAR. MARITAL STATUS: SINGLE. NEW PATIENT PAIN DIARY TODAY'S VISIT 02/03/20 PATIENT DESCRIBES PAIN :ACHING, BURNING, HAVE IT ALL THE TIME, SHARP, STABBING, TENDER, THROBBING, SORE, SHOOTING FROM 0-10, WHAT LEVEL IS YOUR PAIN TODAY?9 9-10 PRECIPITATING FACTORS SITTING, STANDING A LOT, BENDING AND WEATHER ALLEVIATING FACTORS HEATING PAD AND LYING DOWN WITH LEGS SLIGHTLY ELEVATED AND NOT MOVING IMPACT ON FUNCTION LIMITS HER ON WHAT SHE IS ABLE TO DO PAIN CLINIC PFS, CLERGY, PUBLIC HEALTH REFERRALS PFS REFERRAL NEEDED?NO CLERGY REFERRAL NEEDED?NO PUBLIC HEALTH REFERRAL NEEDED?NO HAS THE PATIENT BEEN EDUCATED REGARDING HIS/HER PLAN OF CARE?YES HAS THE PATIENT BEEN EDUCATED REGARDING PAIN, THE RISK FOR PAIN, THE IMPORTANCE OF EFFECTIVE PAIN MANAGEMENT, AND THE PAIN ASSESSMENT PROCESS?YES ADVANCE DIRECTIVE ADVANCE DIRECTIVE DISCUSSED WITH PATIENT:YES HCP CARLA DILLON [phone], 02/03/20 PRE-PROCEDURE CALL COMPLETED. AD. HOSPITALIZATION/MAJOR DIAGNOSTIC PROCEDURE SURGERY CHILDBIRTH X 6 REVIEW OF SYSTEMS REVIEWED BY: PROVIDER: RABIA CARRERO . CONSTITUTIONAL: ANY CHANGE IN YOUR MEDICAL CONDITION? NO . CHILLS NO . FEVER NO . INFECTION: DO YOU HAVE NEW INFECTIONS? NO . DO YOU HAVE HISTORY OF MRSA? NO . MUSCULOSKELETAL: ANY NEW PATTERNS OF PAIN OR NUMBNESS? NO . GASTROENTEROLOGY: ANY NEW CHANGE IN BOWEL CONTROL? NO . GENITOURINARY: ANY NEW CHANGE IN BLADDER CONTROL? NO . IS THERE A CHANCE YOU COULD BE ? NO . HEMATOLOGY/LYMPH: DO YOU TAKE ANY BLOOD THINNERS? (FOR EXAMPLE- COUMADIN, PLAVIX, AGGRENOX, PLATEL, PRADAXA, OR XARELTO) NO . WHEN WAS YOUR LAST DOSE? DATE: TIME: . NEUROLOGY: HAVE YOU FALLEN IN THE PAST 12 MONTHS? NO . ANY NEW EXTREMITY NUMBNESS OR WEAKNESS? NO . CARDIOLOGY: DO YOU HAVE A PACEMAKER OR DEFIBRILLATOR? NO . RESPIRATORY: HAVE YOU BEEN SICK IN THE PAST WEEK? NO . FEVER NO . FLU LIKE SYMPTOMS? NO . COUGH NO . INTEGUMENTARY: DO YOU HAVE ANY RASHES OR OPEN SORES? NO . ALLERGIC/IMMUNO: ARE YOU ALLERGIC TO IV DYE? NO . ANY NEW ALLERGIES? NO . PSYCHIATRIC: DO YOU HAVE THOUGHTS OF HURTING YOURSELF OR SOMEONE ELSE? NO . ARE YOU ABUSED, NEGLECTED, OR IN AN UNSAFE ENVIRONMENT? NO . ENDOCRINOLOGY: ARE YOU DIABETIC? NO . OTHER: DO YOU NEED ANY PRESCRIPTIONS? NO . IF YES, PLEASE LIST: ____ . ANY NEW PROBLEMS WITH YOUR MEDICATIONS? NO . WHEN DID YOU LAST EAT? ____ . WHEN DID YOU LAST DRINK? ____ . WHAT DID YOU LAST DRINK? ____ . NAME OF PERSON DRIVING YOU HOME? ____ . DO YOU HAVE ANY OTHER QUESTIONS OR CONCERNS NO . ASSESSMENTS LUMBOSACRAL RADICULOPATHY - M54.17 (PRIMARY) TREATMENT LUMBOSACRAL RADICULOPATHY REFILL NORCO TABLET, 5-325 MG, 1 TABLET NEEDED, ORALLY, Q4-6 HR PRN MDD6, 30 DAYS, 180, REFILLS 0, NOTES: 02/02 0630 NOTES: DISCUSSED HOLDING OFF ON ANY PROCEDURES AND STEROID USE FOR A FEW MONTHS. PATIENT IS AGREEABLE. STATES HER PAIN IS TOLERABLE. SHE WILL NOTIFY US IF HER PAIN CHANGES. TOTAL TIME SPENT DURING TELEPHONE VISIT WAS APPROXIMATELY 12 MINUTES. , ISTOP REGISTRY REVIEWED AND DEMONSTRATES COMPLLIANCE. RECENT URINE TOXICOLOGY REVIEWED. NO UNAUTHORIZED MEDICATIONS. NO ILLICIT SUBSTANCES AND PRESCRIBED MEDICATIONS WERE PRESENT. DISPOSITION & COMMUNICATION FOLLOW UP 3 MONTHS (REASON: MED MGMNT/LBP/NECK PAIN) ELECTRONICALLY SIGNED BY MAGAN PURI ON 02/25/2020 AT 05:07 PM EDT DISCLAIMER : THIS IS A VISIT SUMMARY EXTRACTED FROM THE [employer] CHART. IT IS NOT A COPY OF THE [employer] PROGRESS NOTE. GEGE
== END ==
LOC: M PAIN 10:15
PROVIDERS: ATTEND Nurse Practitioner Family
DX: M54.17 Radiculopathy, lumbosacral region (principal)

== ENCOUNTER → 2020-09-10 | Outpatient (CLI) | payer OTHER ==
--- NOTE | 2020-09-15 00:04 | ECWPNPC ---
PATIENT NAME: AKBAR MOODY : 1965 GENDER: FEMALE VISIT DATE: 09/10/2020 DISCHARGE DATE: 09/10/20 1029 VISIT LOCKED DATE TIME: PHYSICIAN: RABIA WATTERS PHYSICIAN PAGER NO: ACTIVE RESOURCE: RABIA WATTERS REASON FOR APPOINTMENT 1. MED MGMT HISTORY OF PRESENT ILLNESS DEPRESSION SCREENING: PHQ-2 (2015 EDITION) LITTLE INTEREST OR PLEASURE IN DOING THINGS?NOT AT ALL FEELING DOWN, DEPRESSED, OR HOPELESS?NOT AT ALL TOTAL SCORE0 GENERAL: HERE FOR FOLLOW-UP OF CHRONIC LOW BACK PAIN. PAIN HAS INCREASED OVER THE PAST FEW MONTHS. CHIEF AREA OF PAIN IS LOW BACK LEFT GREATER THAN RIGHT. PAIN RADIATES INTO THE LEFT THIGH. HAS RESPONDED WELL TO SACROILIAC JOINT BLOCKS IN THE PAST. PATIENT HAS MISSED SEVERAL APPOINTMENTS OVER THE COURSE OF THE YEAR AND LAST VISIT HERE WAS IN JANUARY 2020. NURSE CASE MANAGER CONTACTED PATIENT IN REGARDS TO THIS AND MEDICATION MANAGEMENT. WE DECIDED TO DISCONTINUE PRESCRIBING NARCOTIC PAIN MEDICATIONS. SHE WAS GIVEN A WEANING DOWN DOSAGE OF PERCOCET. SHE IS HERE TODAY TO DISCUSS INJECTIONS THAT HAVE BEEN HELPFUL FOR HER IN THE PAST. -. FALL RISK SCREENING: SCREENING :TWO OR MORE FALLS WITH INJURY IN THE PAST YEAR PAIN SCREENING: PATIENT HAS A COMPLAINT OF ACUTE OR CHRONIC PAIN :YES LOCATION OF PAIN:LOW BACK, LEFT HIP, LEG(S) INTENSITY OF PAIN (SCALE OF 1 TO 10):10 WHAT DOES YOUR PAIN FEEL LIKE:ACHING, SHARP, SHOOTING DURATION:CONTINOUS PAIN IS INCREASED BY:ACTIVITIES, PROLONGED STANDING PAIN IS DECREASED BY:USE OF PAIN MEDICATIONS, SITTING NURSING NOTE: -. PAIN CENTER INTAKE QUESTIONS: DO YOU HAVE A HISTORY OF MRSA? :NO DO YOU TAKE A BLOOD THINNERS? :NO DO YOU HAVE ANY BLEEDING DISORDERS? :NO HAS ANEMIA - CAUSE UNKNOWN, TENDS TO BLEED EASILY ANY NEW NUMBNESS OR WEAKNESS IN YOUR LEGS OR ARMS? :NO ANY PACEMAKER,DEFIBRILLATOR, OR DORSAL COLUMN STIMULATOR? :NO DO YOU HAVE ANY RASHES OR OPEN SORES? :NO ARE YOU ALLERGIC TO IV DYE? :NO ARE YOU DIABETIC? :NO ANY NEW PROBLEMS WITH YOUR MEDICATIONS? :NO HAVE YOU RECEIVED A VACCINE IN THE PAST 30 DAYS? :NO DO YOU PLAN TO RECEIVE A VACCINE IN THE NEXT 21 DAYS? :NO DO YOU NEED ANY PRESCRIPTION? :NO DO YOU TAKE ANY IMMUNOSUPPRESSIVE MEDICATIONS? :NO IS THERE A CHANCE YOU COULD BE ? :NO ARE YOU BREAST FEEDING? :NO CURRENT MEDICATIONS TAKING OMEPRAZOLE 40 MG CAPSULE DELAYED RELEASE 1 CAPSULE ORALLY BID TAKING LEVOTHYROXINE SODIUM 25 MCG TABLET 1 TABLET IN THE MORNING ON AN EMPTY STOMACH ORALLY ONCE A DAY TAKING LIPITOR 10 MG TABLET 1 TABLET ORALLY ONCE A DAY TAKING MIRALAX - POWDER 1-2 CAPFULS DAILY ORALLY DAILY NEEDED TAKING LORATADINE 10 MG TABLET TAKE ONE TABLET BY MOUTH EVERY DAY ORALLY DAILY TAKING ALBUTEROL SULFATE HFA 108 (90 BASE) MCG/ACT AEROSOL SOLUTION 1 PUFF NEEDED INHALATION EVERY 4 HRS TAKING METHOCARBAMOL 500 MG TABLET 1 TABLETS ORALLY EVERY 6 HRS TAKING ALBUTEROL SULFATE (2.5 MG/3ML) 0.083% NEBULIZATION SOLUTION INHALE 1 VIAL VIA NEBULIZER THREE TIMES A DAY NEEDED TAKING AIRDUO RESPICLICK 113/14 113-14 MCG/ACT AEROSOL POWDER BREATH ACTIVATED 1 PUFF INHALATION TWICE A DAY TAKING FUROSEMIDE 20 MG TABLET 1 TABLET ORALLY DAILY NEEDED TAKING FLONASE 50 MCG/ACT SUSPENSION 2 SPRAYS IN EACH NOSTRIL NASALLY ONCE A DAY TAKING NORCO 5-325 MG TABLET 1 TABLET NEEDED ORALLY ON A WEANING SCHEDULE TAKING MAY HAVE - - TENS UNIT PADS TOPICALLY DAILY PRN TAKING GABAPENTIN 800 MG TABLET 1 CAPSULE ORALLY THREE TIMES A DAY TAKING SINGULAIR 10 MG TABLET 1 TABLET IN THE EVENING ORALLY ONCE A DAY TAKING ROPINIROLE HCL 5 MG TABLET 1 TABLET ORALLY THREE TIMES A DAY, NOTES: UNSURE OF DOSE MEDICATION LIST REVIEWED AND RECONCILED WITH THE PATIENT PAST MEDICAL HISTORY ASTHMA, MILD INTERMITTENT OSTEOARTHRITIS - DDD - FOLLOWS WITH [facility]G ENVIRONMENTAL ALLERGIES HL VIT D DEF OBESITY B HIP OA S/P COLONOSCOPY NEG. 01/07/2016-DR. CHAPMAN F/U 10YR.S VENOUS INSUFFICIENCY RIGHT SHOULDER PAIN- MRI DONE ON Sunday08/11/19 BILATERAL HIP PAIN HYPOTHYROIDISM PENELOPE GERD VITAMIN B 12 DEFICIENCY ABNORMAL MRI LEFT FEMUR PER PT ALLERGIES LATEX (FOR ALLERGY USE ONLY): HIVES - ALLERGY KEFLEX: ANAPHYLAXIS - ALLERGY NSAIDS: KIDNEY ISSUES - CONTRAINDICATION ENVIRONMENTAL: COUGH - ALLERGY SURGICAL HISTORY MADHAV DUE TO BLEEDING--- 07/2008 ARTHROSCOPIC KNEE SURGERY LEFT X 3 ARTHROSCOPIC KNEE SURGERY RIGHT X 1 CARPAL TUNNEL RELEASE BILATERAL ARTHROSCOPY SHOULDER RIGHT SHOULDER SURGERY LEFT BIOPSY MOLE- BACK LEFT HIP SURGERY 01/2016 CARPAL TUNNEL RELEASE BILATERAL LEFT HIP SURGERY 01/2016 HERNIA REPAIR X 5 ABDOMINAL SURGERY FOR GANGRENOUS INFECTION POST BTL SHOULDER SURGERY LEFT BIOPSY MOLE- BACK LEFT LEG SURGERY- RELEASED NERVES 10/11/16 BIOPSY MOLE- BACK LEFT HIP SURGERY 01/2016 TUBAL LIGATION HERNIA REPAIR X 5 ABDOMINAL SURGERY FOR GANGRENOUS INFECTION POST BTL BELLY [place]TON REMOVED LEFT LEG SURGERY- RELEASED NERVES 10/11/16 RIGHT SHOULDER SURGERY 10/2019 FAMILY HISTORY FATHER: 60 YRS, DIAGNOSED WITH OTHER MALIGNANT NEOPLASM OF UNSPECIFIED SITE MOTHER: ALIVE 72 YRS, HYPERTENSION 4 BROTHER(S) , 1 SISTER(S) - HEALTHY. 2 SON(S) , 3 DAUGHTER(S) - HEALTHY. SOCIAL HISTORY GENERAL: TOBACCO USE ARE YOU A:FORMER SMOKER HOW LONG HAS IT BEEN SINCE YOU LAST SMOKED?> 10 YEARS 8 YEARS SINCE SHE SMOKED LATEX QUESTIONNAIRE LATEX ALLERGY : HAVE YOU EVER DEVELOPED ANY TYPE OF REACTION AFTER HANDLING LATEX PRODUCTS SUCH RUBBER GLOVES, CONDOMS, DIAPHRAGMS, BALLOONS, SOCKS, OR UNDERWEAR?YES HIVES, BLISTERS AND BLEEDS. DATE ASKED : 09/09/2020 BMI CARE GOAL FOLLOW-UP ABOVE NORMAL BMI FOLLOW-UPDIETARY MANAGEMENT EDUCATION, GUIDANCE, AND COUNSELING ALCOHOL SCREENING DID YOU HAVE A DRINK CONTAINING ALCOHOL IN THE PAST YEAR?YES HOW OFTEN DID YOU HAVE SIX OR MORE DRINKS ON ONE OCCASION IN THE PAST YEAR?MONTHLY (2 POINTS) HOW MANY DRINKS DID YOU HAVE ON A TYPICAL DAY WHEN YOU WERE DRINKING IN THE PAST YEAR?7 TO 9 (3 POINTS) HOW OFTEN DID YOU HAVE A DRINK CONTAINING ALCOHOL IN THE PAST YEAR?TWO TO FOUR TIMES A MONTH (2 POINTS) POINTS7 INTERPRETATIONPOSITIVE RECREATIONAL DRUG USE DRUG USE?NO CAFFEINE CAFFEINE USE?YES 1 SODA SEXUAL HX HAD SEX IN THE LAST 12 MONTHS (VAGINAL, ORAL, OR ANAL)?YES WITHMEN ONLY USE PROTECTION?YES HIV / HEP-C SCREENING HIV TEST OFFERED TO PATIENT:YES DATE OFFERED:03/19/2019 TEST ACCEPTED:NO HEP-C TEST OFFERED TO PATIENT:YES N/A DATE OFFERED:03/19/2019 REASON:PATIENT DECLINED TEST ACCEPTED:NO REASON:PATIENT DECLINED BROCHURE PROVIDED TO PATIENTYES EPISCOPAL [id number] NONE LANGUAGE LANGUAGES SPOKEN:YI EDUCATION LEVEL OF EDUCATION:NOT FINISHED HIGH SCHOOL LEARNING BARRIERS / SPECIAL NEEDS CHANGE FROM LAST VISIT?NO BARRIERS TO LEARNING?NO HEARING IMPAIRED?NO VISION IMPAIRED?YES COGNITIVELY IMPAIRED?NO :CORRECTIVE LENSES READING READINESS TO LEARN?YES LEARNING PREFERENCES?NO LEARNING CAPABILITIES PRESENT?YES EMOTIONAL BARRIERS?NO SPECIAL DEVICES?YES :CANE, WALKER SILK SCREEN ETCHER NEEDED?NO DOMESTIC VIOLENCE DO YOU FEEL SAFE IN YOUR ENVIRONMENT?YES OCCUPATION: UNEMPLOYED. DIET: REGULAR. MARITAL STATUS: SINGLE. TODAY'S VISIT 02/03/20 PATIENT DESCRIBES PAIN :ACHING, BURNING, HAVE IT ALL THE TIME, SHARP, STABBING, TENDER, THROBBING, SORE, SHOOTING FROM 0-10, WHAT LEVEL IS YOUR PAIN TODAY?9 9-10 PRECIPITATING FACTORS SITTING, STANDING A LOT, BENDING AND WEATHER ALLEVIATING FACTORS HEATING PAD AND LYING DOWN WITH LEGS SLIGHTLY ELEVATED AND NOT MOVING IMPACT ON FUNCTION LIMITS HER ON WHAT SHE IS ABLE TO DO PAIN CLINIC PFS, CLERGY, PUBLIC HEALTH REFERRALS PFS REFERRAL NEEDED?NO CLERGY REFERRAL NEEDED?NO PUBLIC HEALTH REFERRAL NEEDED?NO HAS THE PATIENT BEEN EDUCATED REGARDING HIS/HER PLAN OF CARE?YES HAS THE PATIENT BEEN EDUCATED REGARDING PAIN, THE RISK FOR PAIN, THE IMPORTANCE OF EFFECTIVE PAIN MANAGEMENT, AND THE PAIN ASSESSMENT PROCESS?YES ADVANCE DIRECTIVE ADVANCE DIRECTIVE DISCUSSED WITH PATIENT:YES HCP CARLA DILLON [phone], 02/03/20 PRE-PROCEDURE CALL COMPLETED. AD. HOSPITALIZATION/MAJOR DIAGNOSTIC PROCEDURE SURGERY CHILDBIRTH X 6 REVIEW OF SYSTEMS CONSTITUTIONAL: ANY RECENT FEVER NO . CHILLS NO . WEIGHT CHANGE OF UNKNOWN REASONS NO . GASTROENTEROLOGY: NEW UNEXPLAINABLE CHANGES IN BOWEL CONTROL NO . CONSTIPATION NO . GENITOURINARY: ANY NEW CHANGE IN BLADDER CONTROL? NO . NEUROLOGY: NEW ONSET DIZZINESS OR NEUROLOGICAL CHANGES NOT MENTIONED NO . NEW NUMBNESS OR PAIN PATTERNS NOT MENTIONED AND PERTINENT TO TODAY'S VISIT NO . CARDIOLOGY: NEW CHEST PRESSURE NO . NEW CHEST PAIN NO . RESPIRATORY: UNEXPLAINABLE COUGH NO . NEW SHORTNESS OF BREATH NO . VITAL SIGNS WT 295 LBS, HT 68 IN, BMI 44.85 INDEX, BP 145/79 MM HG, HR 98 /MIN, RR 18 /MIN, TEMP 97.3 F, OXYGEN SAT % 99%, SAFE IN ENV? (Y/N) YES, NA INITIALS SD 09: 0953 REVIEWED. Benigno MENDOSA RN. EXAMINATION GENERAL EXAMINATION: GENERAL ALERT,NO DISTRESS . PSYCH AFFECT NORMAL . LUNGS: LUNG SOUNDS ARE CLEAR . HEART: HEART RATE REGULAR . MUSCULOSKELETAL: MST 5 BILAT. LOWER EXTREMITIES . LUMBAR: TENDERNESS BILAT. SIJ L>R. ASSESSMENTS SACROILIITIS, NOT ELSEWHERE CLASSIFIED - M46.1 (PRIMARY) TREATMENT SACROILIITIS, NOT ELSEWHERE CLASSIFIED NOTES: BILATERAL SACROILIAC JOINT BLOCK PRE-PROCEDURE INSTRUCTIONS REVIEWED WITH PT. VERBALIZED UNDERSTANDING. PROCEDURE CODES FA211 ESTABILISHED PATIENT [facility] CHARGE DISPOSITION & COMMUNICATION FOLLOW UP POST PROCEDURE (REASON: BILATERAL SACROILIAC JOINT BLOCK) ELECTRONICALLY SIGNED BY MAGAN PURI ON 09/14/2020 AT 09:02 AM EST DISCLAIMER : THIS IS A VISIT SUMMARY EXTRACTED FROM THE [employer] CHART. IT IS NOT A COPY OF THE [employer] PROGRESS NOTE. GEGE
== END ==
LOC: M PAIN 09:15
PROVIDERS: ATTEND Nurse Practitioner Family
DX: M46.1 Sacroiliitis, not elsewhere classified (principal); G89.29 Other chronic pain; J45.20 Mild intermittent asthma, uncomplicated; E03.9 Hypothyroidism, unspecified; G47.33 Obstructive sleep apnea (adult) (pediatric); K21.9 Gastro-esophageal reflux disease without esophagitis; Z87.891 Personal history of nicotine dependence; Z88.1 Allergy status to other antibiotic agents; Z88.6 Allergy status to analgesic agent; Z91.040 Latex allergy status; E66.01 Morbid (severe) obesity due to excess calories; Z68.41 Body mass index [BMI] 40.0-44.9, adult; Z79.899 Other long term (current) drug therapy

== ENCOUNTER → 2020-10-29 | Outpatient (CLI) | payer OTHER ==
[~2020-10-29] MED LIST changes: +METH-1165 PO; -METH750T2 PO
== END ==
LOC: M LABSMTC 12:48
PROVIDERS: ATTEND Anesthesiology
DX: Z20.822 Contact with and (suspected) exposure to COVID-19 (principal)

== ENCOUNTER → 2020-11-03 | Outpatient (CLI) | payer OTHER ==
[~2020-11-03] MED LIST changes: +BUPIVACAINE HCL 0.25% 30ML VIAL As Ordered ONE; +ISOVUE-M 300 61% 15ML VIAL As Ordered ONE; +LIDOCAINE 1% SDV 30ML VIAL As Ordered ONE; -METH-1165 PO; +METH750T2 PO; +TRIAMCINOLONE ACETONIDE SUSP 40 MG/ML VIAL (J3301) As Ordered ONE; +diazePAM 5MG TABLET As Ordered ONE; +oxyCODONE 5MG TAB As Ordered ONE
--- NOTE | 2020-11-03 12:37 | REP ---
INDICATION: SIJ BLOCK. COMPARISON: None. TECHNIQUE: Two views. 30.1 seconds of fluoroscopy time is reported. FINDINGS: A sequence of 2 last image hold fluoroscopically obtained spot radiographs the SI joints document needle position associated with injection procedure. IMPRESSION: Procedural imaging. <Electronically signed by Binh Rolon > 11/03/20 [id number]
--- NOTE | 2020-11-04 02:32 | ECWPNPC ---
PATIENT NAME: AKBAR MOODY : 1965 GENDER: FEMALE VISIT DATE: 11/03/2020 DISCHARGE DATE: 11/03/20 1157 VISIT LOCKED DATE TIME: PHYSICIAN: HAIDER COSTELLO MD PHYSICIAN PAGER NO: ACTIVE RESOURCE: HAIDER COSTELLO MD REASON FOR APPOINTMENT 1. BILATERAL SACROILIAC JOINT BLOCK HISTORY OF PRESENT ILLNESS GENERAL: --. FALL RISK SCREENING: SCREENING :TWO OR MORE FALLS WITH INJURY IN THE PAST YEAR PAIN SCREENING: PATIENT HAS A COMPLAINT OF ACUTE OR CHRONIC PAIN :YES LOCATION OF PAIN:LOW BACK, LEFT HIP, LEG(S) INTENSITY OF PAIN (SCALE OF 1 TO 10):8 WHAT DOES YOUR PAIN FEEL LIKE:ACHING, SHARP, SHOOTING DURATION:CONTINOUS, AWAKENS FROM SLEEP PAIN IS INCREASED BY:ACTIVITIES, PROLONGED STANDING PAIN IS DECREASED BY:USE OF PAIN MEDICATIONS, SITTING PLAN/GOALS/TREATMENT/INTERVENTION/FOLLOW UP:SEE PLAN NURSING NOTE: -. PAIN CENTER INTAKE QUESTIONS: DO YOU HAVE A HISTORY OF MRSA? :NO DO YOU TAKE A BLOOD THINNERS? :NO DO YOU HAVE ANY BLEEDING DISORDERS? :NO HAS ANEMIA - CAUSE UNKNOWN, TENDS TO BLEED EASILY ANY NEW NUMBNESS OR WEAKNESS IN YOUR LEGS OR ARMS? :NO ANY PACEMAKER,DEFIBRILLATOR, OR DORSAL COLUMN STIMULATOR? :NO DO YOU HAVE ANY RASHES OR OPEN SORES? :YES DRY SKIN ACROSS ABDOMEN, RELATED TO ELASTIC AND WEATHER. ARE YOU ALLERGIC TO IV DYE? :NO ARE YOU DIABETIC? :NO ANY NEW PROBLEMS WITH YOUR MEDICATIONS? :NO HAVE YOU RECEIVED A VACCINE IN THE PAST 30 DAYS? :NO DO YOU NEED ANY PRESCRIPTION? :NO DO YOU TAKE ANY IMMUNOSUPPRESSIVE MEDICATIONS? :NO ANY HISTORY OF SEIZURES? :NO ANY HISTORY OF CARDIAC ISSUES OR EVENTS? :NO DO YOU HAVE SLEEP APNEA? :YES DO YOU WEAR A CPAP?YES ANY RECENT HEAD INJURY? :NO DO YOU HAVE ANY NEW INFECTIONS? :NO IS THERE A CHANCE YOU COULD BE ? :NO ARE YOU BREAST FEEDING? :NO WHEN DID YOU LAST EAT? : ----11/02/20 WHEN DID YOU LAST DRINK? : ----11/02/20 [place] AT WHAT DID YOU LAST DRINK? : ------ NAME OF PERSON DRIVING YOU HOME? : (DAUGHTER) SANJUANITA DO YOU HAVE ANY OTHER QUESTIONS OR CONCERNS? : NO CURRENT MEDICATIONS TAKING GABAPENTIN 100 MG CAPSULE 1 CAPSULE C 800MG ORALLY THREE TIMES DAILY TAKING OMEPRAZOLE 40 MG CAPSULE DELAYED RELEASE 1 CAPSULE ORALLY BID TAKING LEVOTHYROXINE SODIUM 25 MCG TABLET 1 TABLET IN THE MORNING ON AN EMPTY STOMACH ORALLY ONCE A DAY TAKING MIRALAX - POWDER 1-2 CAPFULS DAILY ORALLY DAILY NEEDED TAKING LORATADINE 10 MG TABLET TAKE ONE TABLET BY MOUTH EVERY DAY ORALLY DAILY TAKING ALBUTEROL SULFATE HFA 108 (90 BASE) MCG/ACT AEROSOL SOLUTION 1 PUFF NEEDED INHALATION EVERY 4 HRS TAKING ALBUTEROL SULFATE (2.5 MG/3ML) 0.083% NEBULIZATION SOLUTION INHALE 1 VIAL VIA NEBULIZER THREE TIMES A DAY NEEDED TAKING FUROSEMIDE 20 MG TABLET 1 TABLET ORALLY DAILY NEEDED TAKING MAY HAVE - - TENS UNIT PADS TOPICALLY DAILY PRN TAKING SINGULAIR 10 MG TABLET 1 TABLET IN THE EVENING ORALLY ONCE A DAY TAKING ROPINIROLE HCL 5 MG TABLET 1 TABLET ORALLY THREE TIMES A DAY, NOTES: UNSURE OF DOSE TAKING GABAPENTIN 800 MG TABLET 1 CAPSULE ORALLY THREE TIMES A DAY TAKING GABAPENTIN 100 MG CAPSULE 1 CAPSULE ORALLY THREE TIMES DAILY TAKING METHOCARBAMOL 500 MG TABLET 1 TABLETS ORALLY EVERY 6 HRS TAKING FLONASE 50 MCG/ACT SUSPENSION 2 SPRAYS IN EACH NOSTRIL NASALLY ONCE A DAY TAKING AIRDUO RESPICLICK 113/14 113-14 MCG/ACT AEROSOL POWDER BREATH ACTIVATED 1 PUFF INHALATION TWICE A DAY NOT-TAKING LIPITOR 10 MG TABLET 1 TABLET ORALLY ONCE A DAY NOT-TAKING NORCO 5-325 MG TABLET 1 TABLET NEEDED ORALLY ON A WEANING SCHEDULE MEDICATION LIST REVIEWED AND RECONCILED WITH THE PATIENT PAST MEDICAL HISTORY ASTHMA, MILD INTERMITTENT OSTEOARTHRITIS - DDD - FOLLOWS WITH NCOG ENVIRONMENTAL ALLERGIES HL VIT D DEF OBESITY B HIP OA S/P COLONOSCOPY NEG. 01/07/2016-DR. CHAPMAN F/U 10YR.S VENOUS INSUFFICIENCY RIGHT SHOULDER PAIN- MRI DONE ON Sunday08/11/19 BILATERAL HIP PAIN HYPOTHYROIDISM PENELOPE GERD VITAMIN B 12 DEFICIENCY ABNORMAL MRI LEFT FEMUR PER PT ALLERGIES LATEX (FOR ALLERGY USE ONLY): HIVES - ALLERGY KEFLEX: ANAPHYLAXIS - ALLERGY NSAIDS: KIDNEY ISSUES - CONTRAINDICATION ENVIRONMENTAL: COUGH - ALLERGY SOCIAL HISTORY GENERAL: TOBACCO USE ARE YOU A:FORMER SMOKER HOW LONG HAS IT BEEN SINCE YOU LAST SMOKED?> 10 YEARS 8 YEARS SINCE SHE SMOKED LATEX QUESTIONNAIRE LATEX ALLERGY : HAVE YOU EVER DEVELOPED ANY TYPE OF REACTION AFTER HANDLING LATEX PRODUCTS SUCH RUBBER GLOVES, CONDOMS, DIAPHRAGMS, BALLOONS, SOCKS, OR UNDERWEAR?YES HIVES, BLISTERS AND BLEEDS. - PLEASE INDICATE :RUBBER GLOVES, OTHER (DOCUMENT IN NOTES) ELASTIC IN CLOTHING DATE ASKED : 11/02/2020 BMI CARE GOAL FOLLOW-UP ABOVE NORMAL BMI FOLLOW-UPDIETARY MANAGEMENT EDUCATION, GUIDANCE, AND COUNSELING ALCOHOL SCREENING DID YOU HAVE A DRINK CONTAINING ALCOHOL IN THE PAST YEAR?YES HOW OFTEN DID YOU HAVE SIX OR MORE DRINKS ON ONE OCCASION IN THE PAST YEAR?MONTHLY (2 POINTS) HOW MANY DRINKS DID YOU HAVE ON A TYPICAL DAY WHEN YOU WERE DRINKING IN THE PAST YEAR?7 TO 9 (3 POINTS) HOW OFTEN DID YOU HAVE A DRINK CONTAINING ALCOHOL IN THE PAST YEAR?TWO TO FOUR TIMES A MONTH (2 POINTS) POINTS7 INTERPRETATIONPOSITIVE RECREATIONAL DRUG USE DRUG USE?NO CAFFEINE CAFFEINE USE?YES 1 SODA SEXUAL HX HAD SEX IN THE LAST 12 MONTHS (VAGINAL, ORAL, OR ANAL)?YES WITHMEN ONLY USE PROTECTION?YES HIV / HEP-C SCREENING HIV TEST OFFERED TO PATIENT:YES DATE OFFERED:03/19/2019 TEST ACCEPTED:NO HEP-C TEST OFFERED TO PATIENT:YES N/A DATE OFFERED:03/19/2019 REASON:PATIENT DECLINED TEST ACCEPTED:NO REASON:PATIENT DECLINED BROCHURE PROVIDED TO PATIENTYES EPISCOPALIAN [id number] NONE LANGUAGE LANGUAGES SPOKEN:PASHTO EDUCATION LEVEL OF EDUCATION:NOT FINISHED HIGH SCHOOL LEARNING BARRIERS / SPECIAL NEEDS CHANGE FROM LAST VISIT?NO BARRIERS TO LEARNING?NO HEARING IMPAIRED?NO VISION IMPAIRED?YES COGNITIVELY IMPAIRED?NO :CORRECTIVE LENSES READING READINESS TO LEARN?YES LEARNING PREFERENCES?NO LEARNING CAPABILITIES PRESENT?YES EMOTIONAL BARRIERS?NO SPECIAL DEVICES?YES :CANE, WALKER SPOTTER DRIVER NEEDED?NO DOMESTIC VIOLENCE DO YOU FEEL SAFE IN YOUR ENVIRONMENT?YES OCCUPATION: UNEMPLOYED. DIET: REGULAR. MARITAL STATUS: SINGLE. TODAY'S VISIT 02/03/20 PATIENT DESCRIBES PAIN :ACHING, BURNING, HAVE IT ALL THE TIME, SHARP, STABBING, TENDER, THROBBING, SORE, SHOOTING FROM 0-10, WHAT LEVEL IS YOUR PAIN TODAY?9 9-10 PRECIPITATING FACTORS SITTING, STANDING A LOT, BENDING AND WEATHER ALLEVIATING FACTORS HEATING PAD AND LYING DOWN WITH LEGS SLIGHTLY ELEVATED AND NOT MOVING IMPACT ON FUNCTION LIMITS HER ON WHAT SHE IS ABLE TO DO - PFS REFERRAL NEEDED?NO CLERGY REFERRAL NEEDED?NO PUBLIC HEALTH REFERRAL NEEDED?NO HAS THE PATIENT BEEN EDUCATED REGARDING HIS/HER PLAN OF CARE?YES HAS THE PATIENT BEEN EDUCATED REGARDING PAIN, THE RISK FOR PAIN, THE IMPORTANCE OF EFFECTIVE PAIN MANAGEMENT, AND THE PAIN ASSESSMENT PROCESS?YES ADVANCE DIRECTIVE ADVANCE DIRECTIVE DISCUSSED WITH PATIENT:YES HCP CARLA DILLON [phone], 02/03/20 PRE-PROCEDURE CALL COMPLETED. AD. VITAL SIGNS WT 299.6 LBS, HT 68 IN, BMI 45.55 INDEX, BP 140/85 MM HG, HR 96 /MIN, RR 18 /MIN, TEMP 98.3 F, OXYGEN SAT % 96%, SAFE IN ENV? (Y/N) YES, NA INITIALS SC 10:26, REVIEWED BY: LIANG. EXAMINATION GENERAL EXAMINATION: THE PATIENT IS ALERT, ORIENTED TIMES THREE AND COOPERATIVE. LUNGS ARE CLEAR TO AUSCULTATION. HEART SHOWS REGULAR RHYTHM, NO MURMURS AND NO GALLOPS. ASSESSMENTS SACROILIITIS, NOT ELSEWHERE CLASSIFIED - M46.1 (PRIMARY) TREATMENT SACROILIITIS, NOT ELSEWHERE CLASSIFIED [facility] FLUORO GUIDANCE (PAIN)[id number] MEDICATION: VALIUM TAB 10MG ORALLY (DIAZEPAM)CASSIDY CRUZ 11/03/2020 10:58:08 AM > VERIFIED LEONIDAS SPENCER 11/03/2020 10:59:51 AM > ADMINISTERED MEDICATION: OXYCODONE HCL TAB 10MG ORALLYCASSIDY CRUZ 11/03/2020 10:58:20 AM > VERIFIED LEONIDAS SPENCER 11/03/2020 11:00:47 AM > ADMINISTERED COMPLETION OF PROCEDURAL VISIT WHEN MEETS CRITERIALEONIDAS SPENCER 11/03/2020 12:02:58 PM > CRITERIA MET OTHERS NOTES: 11/02/20 1551 PAT COMPLETED. Peggy [place] JAVA DEVELOPER WITH SECURITY CLEARANCE. PROCEDURES PAIN NURSING RECORD PROCEDURE IN ROOM 1115 , PHYSICIAN IN ROOM 1130 , START 1134 , FINISH 1136 , PHYSICIAN OUT OF ROOM 1139 , OUT OF ROOM 1144 , ECG NORMAL SINUS , PATIENT SHIELDED YES , SAFETY STRAP YES , PREP CHLOROPREP BY LIANG, DRESSING TEGADERM BY DR COSTELLO LOC: 1. ALERT, ORIENTEDTJ TOM 11/03/2020 11:36:58 AM > RESP: 1. REGULAR, NO DYSPNEATJ TOM 11/03/2020 11:37:04 AM > COLOR: 1. PINKTJ TOM 11/03/2020 11:37 AM > SKIN: 1. WARM, DRYTJ TOM 11/03/2020 11:37AM > POSITION: 1. PRONETJ TOM 11/03/2020 11:37:13 AM > VITALS: 1121 93 HR , 98% , 134/94 TBRADLEYRN 1130 91 HR, 97 %, 137/94 TBRADLEYRN EXIT VITALS 94 HR, 97%, 141/74 NOTES Mónica SPENCER RN COMPLETION OF PROCEDURE APPOINTMENT: POST PAIN 4 LOWER BACK AND GLUTEAL CLEFT, DRESSING SITE DRY AND INTACT BY DR PRAVIN IV N/A, GAIT STEADY, TEACHING COMPLETED, PATIENT ACKNOWLEDGES UNDERSTANDING YES V/U OF TEACHING, PROCEDURE APPOINTMENT COMPLETED AT 1154 PN SI PRE PROCEDURE DIAGNOSIS SACROILIITIS, SACROILIAC JOINT DYSFUNCTION POST PROCEDURE DIAGNOSIS SACROILIITIS, SACROILIAC JOINT DYSFUNCTION PROCEDURE BILATERAL SACROILIAC JOINT BLOCK SURGEON DR. HAIDER COSTELLO OFFICER CAPTAIN NONE ANESTHESIA LOCAL PRE PROCEDURE NOTE THE PATIENT WITH HISTORY OF CHRONIC LOW BACK PAIN. I EVALUATED THE PATIENT AND REVIEWED THE CHART. I WENT OVER THE RISKS, ALTERNATIVES, AND BENEFITS ASSOCIATED WITH THIS PROCEDURE. THE PATIENT WOULD LIKE TO PROCEED AND GAVE CONSENT TO PERFORM THE PROCEDURE. THE PATIENT DENIES UNEXPLAINABLE WEIGHT LOSS, FEVER, CHILLS, OR NEW CHANGES IN URINARY OR BOWEL CONTROL. THE PATIENT IS COVID-19 NEGATIVE DESCRIPTION OF PROCEDURE THE PATIENT WAS BROUGHT TO THE PROCEDURE ROOM AND PLACED IN THE PRONE POSITION. THE LUMBOSACRAL AREA WAS CLEANED WITH CHLORAPREP SOLUTION AND DRAPED ASEPTICALLY. THE PROCEDURE WAS DONE UNDER STERILE CONDITIONS. A TIMEOUT WAS PERFORMED WHERE THE CONSENTED SITE WAS VERIFIED WITH EVERYONE IN THE ROOM. UNDER FLUOROSCOPIC GUIDANCE, THE TARGET POINT WAS SELECTED AT THE LOWER BORDER OF THE RIGHT AND LEFT SACROILIAC JOINT. TARGET POINT WAS SELECTED AFTER MEDIAL ROTATION AND TILT OF THE MAGNIFIER OR THE C-ARM. I CONFIRMED AGAIN THE SITE OF THE TARGET. LIDOCAINE 0.5% WAS USED TO NUMB THE SKIN AND THE SUBCUTANEOUS TISSUE BELOW IT. SPINAL NEEDLES, 22-GAUGE, WERE ADVANCED UNDER FLUOROSCOPIC GUIDANCE AND FOLLOWING PATIENT FEEDBACK UNTIL THE TARGETS WERE TOUCHED. THE POSITION OF THE NEEDLES WAS VERIFIED WITH AP AND OBLIQUE VIEWS. AFTER PROPER POSITION OF THE NEEDLES WAS ACHIEVED, ISOVUE-M DYE 30%, 0.1 ML, WAS INJECTED SHOWING ADEQUATE SPREAD OF THE DYE. KENALOG 20 MG WAS INJECTED AT EACH SITE. THEN, A SOLUTION OF 3.0 ML OF BUPIVACAINE 0.125% WAS USED TO FLUSH EACH NEEDLE. THE MEDICATIONS WERE VERIFIED WITH THE NURSE. THERE WAS NO EVIDENCE OF BLOOD, PARESTHESIA OR CEREBROSPINAL FLUID DURING THE PROCEDURE. THE PATIENT WAS SENT TO THE RECOVERY ROOM. THE PATIENT WAS MOVING THE EXTREMITIES AND DOING WELL. THERE WERE NO COMPLICATIONS DURING THE PROCEDURE. ESTIMATED BLOOD LOSS WAS LESS THAN 5 ML. FLUOROSCOPIC TIME WAS 30 SECONDS POST PROCEDURE NOTE THE PROCEDURE DONE WAS DISCUSSED WITH THE PATIENT. THE PATIENT WILL BE SEEN IN A FOLLOW UP IN THE NEXT FEW WEEKS. I AM LOOKING FOR LONG LASTING PAIN RELIEF FOR THE PATIENT WITH THIS INTERVENTION. INSTRUCTIONS WERE GIVEN, QUESTIONS WERE ANSWERED, AND THE PATIENT EXPRESSED UNDERSTANDING AND AGREES WITH THE PLAN. I, GERA FINK, DOCUMENTED THE ABOVE INFORMATION ACTING A SCRIBE FOR DR. COSTELLO. I HAVE REVIEWED THE ABOVE DOCUMENT, WRITTEN BY GERA FINK, HARMONICA MAKER, AND I VERIFY THAT IT IS ACCURATE PROCEDURE CODES 08180 INJECT SACROILIAC JOINT, MODIFIERS: 50 DISPOSITION & COMMUNICATION FOLLOW UP FOLLOW UP WITH HOME CARE GIVER (REASON: POST BILATERAL SACROILIAC JOINT BLOCK) ELECTRONICALLY SIGNED BY HAIDER COSTELLO MD, MD ON 11/03/2020 AT 01:12 PM EST DISCLAIMER : THIS IS A VISIT SUMMARY EXTRACTED FROM THE [employer] CHART. IT IS NOT A COPY OF THE [facility] PROGRESS NOTE. MTDD
== END ==
LOC: M PAIN 10:00
PROVIDERS: ATTEND Anesthesiology
DX: M46.1 Sacroiliitis, not elsewhere classified (principal); G47.33 Obstructive sleep apnea (adult) (pediatric); J45.20 Mild intermittent asthma, uncomplicated; E03.9 Hypothyroidism, unspecified; K21.9 Gastro-esophageal reflux disease without esophagitis; Z87.891 Personal history of nicotine dependence; Z88.1 Allergy status to other antibiotic agents; Z88.6 Allergy status to analgesic agent; Z91.040 Latex allergy status; E66.01 Morbid (severe) obesity due to excess calories; Z68.42 Body mass index [BMI] 45.0-49.9, adult; Z79.899 Other long term (current) drug therapy
CPT/HCPCS: 27096; J3301; Q9967

== ENCOUNTER → 2020-11-24 | Outpatient (CLI) | payer OTHER ==
[~2020-11-24] MED LIST changes: -BUPIVACAINE HCL 0.25% 30ML VIAL As Ordered ONE; -ISOVUE-M 300 61% 15ML VIAL As Ordered ONE; -LIDOCAINE 1% SDV 30ML VIAL As Ordered ONE; +METH-1165 PO; -METH750T2 PO; -TRIAMCINOLONE ACETONIDE SUSP 40 MG/ML VIAL (J3301) As Ordered ONE; -diazePAM 5MG TABLET As Ordered ONE; -oxyCODONE 5MG TAB As Ordered ONE
--- NOTE | 2020-11-28 23:31 | ECWPNPC ---
PATIENT NAME: AKBAR MOODY : 1965 GENDER: FEMALE VISIT DATE: 11/24/2020 DISCHARGE DATE: 11/24/20 1158 VISIT LOCKED DATE TIME: PHYSICIAN: RABIA WATTERS PHYSICIAN PAGER NO: ACTIVE RESOURCE: RABIA WATTERS REASON FOR APPOINTMENT 1. POST BILATERAL SACROILIAC JOINT BLOCK HISTORY OF PRESENT ILLNESS GENERAL: HERE FOR POST PROCEDURE F/U.HAD BILATERAL SIJ ON 11/03/2020.REPORTING MARKED REDUCTION IN PAIN POST PROCEDURE THAT CONTINUES TODAY.CHIEF AREA OF PAIN IS NECK AND UPPER BACK.REVIEWED MRI-CERVICAL AND DISCUSSED TREATMENT OPTIONS. -. FALL RISK SCREENING: SCREENING :NO FALLS REPORTED IN THE LAST YEAR PAIN SCREENING: PATIENT HAS A COMPLAINT OF ACUTE OR CHRONIC PAIN :YES LOCATION OF PAIN:NECK, BOTH SHOULDERS INTENSITY OF PAIN (SCALE OF 1 TO 10):10 WHAT DOES YOUR PAIN FEEL LIKE:SHARP, STABBING DURATION:CONTINOUS, CONSTANT, STEADY, ALL DAY PAIN IS INCREASED BY:ACTIVITIES WALKING PAIN IS DECREASED BY:OTHERS ICE/HEAT NURSING NOTE: -. PAIN CENTER INTAKE QUESTIONS: DO YOU HAVE A HISTORY OF MRSA? :NO DO YOU TAKE A BLOOD THINNERS? :NO DO YOU HAVE ANY BLEEDING DISORDERS? :NO HAS ANEMIA - CAUSE UNKNOWN, TENDS TO BLEED EASILY ANY NEW NUMBNESS OR WEAKNESS IN YOUR LEGS OR ARMS? :NO ANY PACEMAKER,DEFIBRILLATOR, OR DORSAL COLUMN STIMULATOR? :NO DO YOU HAVE ANY RASHES OR OPEN SORES? :NO ARE YOU ALLERGIC TO IV DYE? :NO ARE YOU DIABETIC? :NO ANY NEW PROBLEMS WITH YOUR MEDICATIONS? :NO HAVE YOU RECEIVED A VACCINE IN THE PAST 30 DAYS? :NO DO YOU PLAN TO RECEIVE A VACCINE IN THE NEXT 21 DAYS? :NO DO YOU NEED ANY PRESCRIPTION? :NO DO YOU TAKE ANY IMMUNOSUPPRESSIVE MEDICATIONS? :NO IS THERE A CHANCE YOU COULD BE ? :NO ARE YOU BREAST FEEDING? :NO CURRENT MEDICATIONS TAKING GABAPENTIN 100 MG CAPSULE 1 CAPSULE C 800MG ORALLY THREE TIMES DAILY TAKING LEVOTHYROXINE SODIUM 25 MCG TABLET 1 TABLET IN THE MORNING ON AN EMPTY STOMACH ORALLY ONCE A DAY TAKING MIRALAX - POWDER 1-2 CAPFULS DAILY ORALLY DAILY NEEDED TAKING LORATADINE 10 MG TABLET TAKE ONE TABLET BY MOUTH EVERY DAY ORALLY DAILY TAKING ALBUTEROL SULFATE HFA 108 (90 BASE) MCG/ACT AEROSOL SOLUTION 1 PUFF NEEDED INHALATION EVERY 4 HRS TAKING ALBUTEROL SULFATE (2.5 MG/3ML) 0.083% NEBULIZATION SOLUTION INHALE 1 VIAL VIA NEBULIZER THREE TIMES A DAY NEEDED TAKING FUROSEMIDE 20 MG TABLET 1 TABLET ORALLY DAILY NEEDED TAKING MAY HAVE - - TENS UNIT PADS TOPICALLY DAILY PRN TAKING SINGULAIR 10 MG TABLET 1 TABLET IN THE EVENING ORALLY ONCE A DAY TAKING ROPINIROLE HCL 5 MG TABLET 1 TABLET ORALLY THREE TIMES A DAY, NOTES: UNSURE OF DOSE TAKING METHOCARBAMOL 500 MG TABLET 1 TABLETS ORALLY EVERY 6 HRS TAKING FLONASE 50 MCG/ACT SUSPENSION 2 SPRAYS IN EACH NOSTRIL NASALLY ONCE A DAY TAKING AIRDUO RESPICLICK 113/14 113-14 MCG/ACT AEROSOL POWDER BREATH ACTIVATED 1 PUFF INHALATION TWICE A DAY TAKING OMEPRAZOLE 40 MG CAPSULE DELAYED RELEASE 1 CAPSULE ORALLY BID TAKING NAPROXEN 250 MG TABLET 1 TABLET WITH FOOD OR MILK ORALLY TWICE A DAY NOT-TAKING GABAPENTIN 100 MG CAPSULE 1 CAPSULE ORALLY THREE TIMES DAILY, NOTES: DUPLICATE NOT-TAKING GABAPENTIN 800 MG TABLET 1 CAPSULE ORALLY THREE TIMES A DAY, NOTES: DUPLICATE NOT-TAKING LIPITOR 10 MG TABLET 1 TABLET ORALLY ONCE A DAY NOT-TAKING NORCO 5-325 MG TABLET 1 TABLET NEEDED ORALLY ON A WEANING SCHEDULE MEDICATION LIST REVIEWED AND RECONCILED WITH THE PATIENT PAST MEDICAL HISTORY ASTHMA, MILD INTERMITTENT OSTEOARTHRITIS - DDD - FOLLOWS WITH NCOG ENVIRONMENTAL ALLERGIES HL VIT D DEF OBESITY B HIP OA S/P COLONOSCOPY NEG. 01/07/2016-DR. CHAPMAN F/U 10YR.S VENOUS INSUFFICIENCY RIGHT SHOULDER PAIN- MRI DONE ON Sunday08/11/19 BILATERAL HIP PAIN HYPOTHYROIDISM PENELOPE GERD VITAMIN B 12 DEFICIENCY ABNORMAL MRI LEFT FEMUR PER PT SYNCOPAL EPISODES- WILL USE HOLTER MONITOR IN DECEMBER ALLERGIES LATEX (FOR ALLERGY USE ONLY): HIVES - ALLERGY KEFLEX: ANAPHYLAXIS - ALLERGY NSAIDS: KIDNEY ISSUES - CONTRAINDICATION ENVIRONMENTAL: COUGH - ALLERGY SOCIAL HISTORY GENERAL: TOBACCO USE ARE YOU A:FORMER SMOKER HOW LONG HAS IT BEEN SINCE YOU LAST SMOKED?> 10 YEARS 8 YEARS SINCE SHE SMOKED LATEX QUESTIONNAIRE LATEX ALLERGY : HAVE YOU EVER DEVELOPED ANY TYPE OF REACTION AFTER HANDLING LATEX PRODUCTS SUCH RUBBER GLOVES, CONDOMS, DIAPHRAGMS, BALLOONS, SOCKS, OR UNDERWEAR?YES HIVES, BLISTERS AND BLEEDS. - PLEASE INDICATE :RUBBER GLOVES, OTHER (DOCUMENT IN NOTES) ELASTIC IN CLOTHING DATE ASKED : 11/02/2020 ALCOHOL USE: YES; VERY MINIMAL. BMI CARE GOAL FOLLOW-UP ABOVE NORMAL BMI FOLLOW-UPDIETARY MANAGEMENT EDUCATION, GUIDANCE, AND COUNSELING ALCOHOL SCREENING DID YOU HAVE A DRINK CONTAINING ALCOHOL IN THE PAST YEAR?YES HOW OFTEN DID YOU HAVE SIX OR MORE DRINKS ON ONE OCCASION IN THE PAST YEAR?MONTHLY (2 POINTS) HOW MANY DRINKS DID YOU HAVE ON A TYPICAL DAY WHEN YOU WERE DRINKING IN THE PAST YEAR?7 TO 9 (3 POINTS) HOW OFTEN DID YOU HAVE A DRINK CONTAINING ALCOHOL IN THE PAST YEAR?TWO TO FOUR TIMES A MONTH (2 POINTS) POINTS7 INTERPRETATIONPOSITIVE RECREATIONAL DRUG USE DRUG USE?NO CAFFEINE CAFFEINE USE?YES 1 SODA SEXUAL HX HAD SEX IN THE LAST 12 MONTHS (VAGINAL, ORAL, OR ANAL)?YES WITHMEN ONLY USE PROTECTION?YES HIV / HEP-C SCREENING HIV TEST OFFERED TO PATIENT:YES DATE OFFERED:03/19/2019 TEST ACCEPTED:NO HEP-C TEST OFFERED TO PATIENT:YES N/A DATE OFFERED:03/19/2019 REASON:PATIENT DECLINED TEST ACCEPTED:NO REASON:PATIENT DECLINED BROCHURE PROVIDED TO PATIENTYES YAZDANISM [id number] NONE LANGUAGE LANGUAGES SPOKEN:TAMAZIGHT EDUCATION LEVEL OF EDUCATION:NOT FINISHED HIGH SCHOOL LEARNING BARRIERS / SPECIAL NEEDS CHANGE FROM LAST VISIT?NO BARRIERS TO LEARNING?NO HEARING IMPAIRED?NO VISION IMPAIRED?YES :CORRECTIVE LENSES READING COGNITIVELY IMPAIRED?NO READINESS TO LEARN?YES LEARNING PREFERENCES?NO LEARNING CAPABILITIES PRESENT?YES EMOTIONAL BARRIERS?NO SPECIAL DEVICES?YES :CANE, WALKER ICT PROGRAMMER NEEDED?NO DOMESTIC VIOLENCE DO YOU FEEL SAFE IN YOUR ENVIRONMENT?YES OCCUPATION: UNEMPLOYED. DIET: REGULAR. MARITAL STATUS: SINGLE. TODAY'S VISIT 02/03/20 PATIENT DESCRIBES PAIN :ACHING, BURNING, HAVE IT ALL THE TIME, SHARP, STABBING, TENDER, THROBBING, SORE, SHOOTING FROM 0-10, WHAT LEVEL IS YOUR PAIN TODAY?9 9-10 PRECIPITATING FACTORS SITTING, STANDING A LOT, BENDING AND WEATHER ALLEVIATING FACTORS HEATING PAD AND LYING DOWN WITH LEGS SLIGHTLY ELEVATED AND NOT MOVING IMPACT ON FUNCTION LIMITS HER ON WHAT SHE IS ABLE TO DO - PFS REFERRAL NEEDED?NO CLERGY REFERRAL NEEDED?NO PUBLIC HEALTH REFERRAL NEEDED?NO HAS THE PATIENT BEEN EDUCATED REGARDING HIS/HER PLAN OF CARE?YES HAS THE PATIENT BEEN EDUCATED REGARDING PAIN, THE RISK FOR PAIN, THE IMPORTANCE OF EFFECTIVE PAIN MANAGEMENT, AND THE PAIN ASSESSMENT PROCESS?YES ADVANCE DIRECTIVE ADVANCE DIRECTIVE DISCUSSED WITH PATIENT:YES HCP CARLA DILLON [phone], 02/03/20 PRE-PROCEDURE CALL COMPLETED. AD. REVIEW OF SYSTEMS CONSTITUTIONAL: ANY RECENT FEVER NO . CHILLS NO . WEIGHT CHANGE OF UNKNOWN REASONS NO . GASTROENTEROLOGY: NEW UNEXPLAINABLE CHANGES IN BOWEL CONTROL NO . CONSTIPATION NO . GENITOURINARY: ANY NEW CHANGE IN BLADDER CONTROL? NO . NEUROLOGY: NEW ONSET DIZZINESS OR NEUROLOGICAL CHANGES NOT MENTIONED NO . NEW NUMBNESS OR PAIN PATTERNS NOT MENTIONED AND PERTINENT TO TODAY'S VISIT NO . CARDIOLOGY: NEW CHEST PRESSURE NO . PATIENT DENIES NO . RESPIRATORY: UNEXPLAINABLE COUGH NO . NEW SHORTNESS OF BREATH NO . VITAL SIGNS WT 294.4 LBS, HT 68 IN, BMI 44.76 INDEX, BP 135/73 MM HG, HR 82 /MIN, RR 18 /MIN, TEMP 98.1 F, OXYGEN SAT % 98%, SAFE IN ENV? (Y/N) YES, NA INITIALS SC 10:55T.KINJAL OWUSU. EXAMINATION GENERAL EXAMINATION: LUNGS:LUNG SOUNDS ARE CLEAR . HEART:HEART RATE REGULAR . MUSCULOSKELETAL:*, MUSCLE STRENGTH TESTING 5/5 BILATERAL UPPER EXTREMITIES. . CERVICAL:+ FOR PAIN WITH PALPATION OF CERVICAL SPINE. + FOR PAIN WITH PALPATION OF CERVICAL PARASPINALS. . DIAGNOSTIC TESTS REVIEWEDCERVICAL MRI. ASSESSMENTS OTHER CHRONIC PAIN - G89.29 (PRIMARY) CHRONIC PRESCRIPTION OPIATE USE - Z79.891 CERVICAL DISC DISPLACEMENT - M50.20 TREATMENT OTHER CHRONIC PAIN START HYDROCODONE-ACETAMINOPHEN TABLET, 10-325 MG, 1 TAB, ORALLY, EVERY 6 HRS PRN MDD4, 30 DAYS, 120, REFILLS 0 PAIN PROCEDURE LOGDATE OF PROCEDURE1PROCEDURE:BILATERAL SACROILIAC JOINT BLOCKAMOUNT OF PRE SEDATEVALIUM 10MG,OXYCODONE 10MGRESULT:MARKED REDUCTION IN PAIN CONTINUES TODAY MEDICATION: VALIUM TAB 10MG ORALLY (DIAZEPAM) (ORDERED FOR 12/01/2020) MEDICATION: OXYCODONE HCL TAB 10MG ORALLY (ORDERED FOR 12/01/2020) NOTES: CERVICAL EPIDURAL STERIOD INJECTION PRINTED AND REVIEWED PRE PROCEDURE WITH PATIENT RAJAT OWUSU. CHRONIC PRESCRIPTION OPIATE USE LAB: URINE TEST GROUP CERVICAL DISC DISPLACEMENT NOTES: CERVICAL EPIDURAL STERIOD INJECTION. PROCEDURE CODES FA211 ESTABILISHED PATIENT [facility] CHARGE DISPOSITION & COMMUNICATION FOLLOW UP POST PROCEDURE (REASON: CERVICAL EPIDURAL STERIOD INJECTION) ELECTRONICALLY SIGNED BY MAGAN PURI ON 11/28/2020 AT 03:45 PM EST DISCLAIMER : THIS IS A VISIT SUMMARY EXTRACTED FROM THE [employer] CHART. IT IS NOT A COPY OF THE [employer] PROGRESS NOTE. GEGE
== END ==
LOC: M PAIN 11:00
PROVIDERS: ATTEND Nurse Practitioner Family
DX: M50.20 Other cervical disc displacement, unspecified cervical region (principal); G89.29 Other chronic pain; J45.20 Mild intermittent asthma, uncomplicated; E03.9 Hypothyroidism, unspecified; G47.33 Obstructive sleep apnea (adult) (pediatric); K21.9 Gastro-esophageal reflux disease without esophagitis; Z87.891 Personal history of nicotine dependence; Z88.1 Allergy status to other antibiotic agents; Z88.6 Allergy status to analgesic agent; Z91.040 Latex allergy status; E66.01 Morbid (severe) obesity due to excess calories; Z68.41 Body mass index [BMI] 40.0-44.9, adult; Z79.899 Other long term (current) drug therapy

== ENCOUNTER → 2020-11-25 | Outpatient (REF) | payer OTHER ==
[2020-11-25 13:33] LABS: BASO % 0.4 % (0.0-1.0); EOS # 0.2 10^3/uL (0.0-0.5); EOS % 2.1 % (0.0-3.0); HEMATOCRIT 40.2 % (36.0-47.0); HEMOGLOBIN 11.9 g/dl (12.0-15.5); LYMPH # 1.8 10^3/uL (1.5-5.0); MEAN CORPUSCULAR HEMOGLOBIN 27.5 pg (27.0-33.0); MEAN CORPUSCULAR HGB CONC 29.6 g/dl (32.0-36.5); MEAN CORPUSCULAR VOLUME 92.8 fl (80.0-96.0); MONO # 0.6 10^3/uL (0.0-0.8); MONO % 7.3 % (2.0-8.0); NEUTROPHILS % 65.8 % (36.0-66.0); PLATELET COUNT, AUTOMATED 223 10^3/uL (150-450); RED BLOOD COUNT 4.33 10^6/uL (4.00-5.40); WHITE BLOOD COUNT 7.6 10^3/uL (4.0-10.0)
[2020-11-25 14:25] LABS: ALBUMIN 4.1 GM/DL (3.2-5.2); ALT/SGPT 42 U/L (12-78); BILIRUBIN,TOTAL 0.5 MG/DL (0.2-1.0); BLOOD UREA NITROGEN 18 MG/DL (7-18); CALCIUM LEVEL 9.3 MG/DL (8.5-10.1); CARBON DIOXIDE LEVEL 31 MEQ/L (21-32); CHLORIDE LEVEL 104 MEQ/L (98-107); CHOLESTEROL LEVEL 266 MG/DL (<200); CREATININE FOR GFR 0.85 MG/DL (0.55-1.30); FREE T4 0.99 NG/DL (0.76-1.46); GLOMERULAR FILTRATION RATE > 60.0 (>51); GLUCOSE, FASTING 103 MG/DL (70-100); HDL CHOLESTEROL 61 MG/DL (>40); LDL CHOLESTEROL 172 MG/DL (<100); MAGNESIUM LEVEL 1.8 MG/DL (1.8-2.4); NON-HDL-C 205 MG/DL; POTASSIUM SERUM 4.2 MEQ/L (3.5-5.1); PTH INTACT 75.5 PG/ML (18.5-88.0); SODIUM LEVEL 140 MEQ/L (136-145); TOTAL 25(OH) VITAMIN D 18.8 NG/ML (30.0-100.0); TOTAL PROTEIN 7.8 GM/DL (6.4-8.2); TRIGLYCERIDES LEVEL 167 MG/DL (<150); VITAMIN B12 LEVEL 245 PG/ML (247-911)
== END ==
LOC: M SFHCPLAZ 09:39
PROVIDERS: ATTEND Physician Assistant Medical
DX: E03.9 Hypothyroidism, unspecified (principal); I10 Essential (primary) hypertension; E78.2 Mixed hyperlipidemia; E83.42 Hypomagnesemia; E53.8 Deficiency of other specified B group vitamins

== ENCOUNTER → 2020-11-25 | Outpatient (CLI) | payer OTHER | LOC: M LABSMTC 09:33 | PROVIDERS: ATTEND Anesthesiology | DX: Z11.52 Encounter for screening for COVID-19 (principal) ==

== ENCOUNTER → 2020-11-29 | Outpatient (CLI) | payer OTHER ==
[~2020-11-29] MED LIST changes: +ISOVUE-M 300 61% 15ML VIAL As Ordered ONE; +LIDOCAINE 1% SDV 30ML VIAL As Ordered ONE; +diazePAM 5MG TABLET As Ordered ONE; +methylPREDNISolone SUSP 40MG/ML 1ML VIAL (DEPO MEDROL) As Ordered ONE; +oxyCODONE 5MG TAB As Ordered ONE
--- NOTE | 2020-11-29 15:17 | REP ---
INDICATION: CRIS. COMPARISON: None. TECHNIQUE: Three C-arm views cervical spine. FINDINGS: A needle is seen at the cervicothoracic junction. A small amount of contrast is injected. IMPRESSION: 12 seconds fluoroscopy time utilized. <Electronically signed by Max Kilgore > 11/29/20 5035
--- NOTE | 2020-11-29 23:30 | ECWPNPC ---
PATIENT NAME: AKBAR MOODY : 1965 GENDER: FEMALE VISIT DATE: 11/29/2020 DISCHARGE DATE: 11/29/20 1543 VISIT LOCKED DATE TIME: PHYSICIAN: HAIDER COSTELLO MD PHYSICIAN PAGER NO: ACTIVE RESOURCE: HAIDER COSTELLO MD REASON FOR APPOINTMENT 1. CERVICAL EPIDURAL STERIOD INJECTION HISTORY OF PRESENT ILLNESS GENERAL: -----. -. FALL RISK SCREENING: SCREENING :NO FALLS REPORTED IN THE LAST YEAR PAIN SCREENING: PATIENT HAS A COMPLAINT OF ACUTE OR CHRONIC PAIN :YES LOCATION OF PAIN:HEAD, NECK, BOTH SHOULDERS INTENSITY OF PAIN (SCALE OF 1 TO 10):10 VARIES IN SEVERITY UP TO 10/10. WHAT DOES YOUR PAIN FEEL LIKE:SHARP, STABBING, OTHER DULL DURATION:CONTINOUS, AWAKENS FROM SLEEP PAIN IS INCREASED BY:ACTIVITIES WALKING PAIN IS DECREASED BY:USE OF PAIN MEDICATIONS, OTHERS ICE/HEAT PLAN/GOALS/TREATMENT/INTERVENTION/FOLLOW UP:SEE PLAN NURSING NOTE: -. PAIN CENTER INTAKE QUESTIONS: DO YOU HAVE A HISTORY OF MRSA? :NO DO YOU TAKE A BLOOD THINNERS? :NO DO YOU HAVE ANY BLEEDING DISORDERS? :NO HAS ANEMIA - CAUSE UNKNOWN, TENDS TO BLEED EASILY ANY NEW NUMBNESS OR WEAKNESS IN YOUR LEGS OR ARMS? :NO ANY PACEMAKER,DEFIBRILLATOR, OR DORSAL COLUMN STIMULATOR? :NO DO YOU HAVE ANY RASHES OR OPEN SORES? :NO ARE YOU ALLERGIC TO IV DYE? :NO ARE YOU DIABETIC? :NO ANY NEW PROBLEMS WITH YOUR MEDICATIONS? :NO HAVE YOU RECEIVED A VACCINE IN THE PAST 30 DAYS? :NO DO YOU PLAN TO RECEIVE A VACCINE IN THE NEXT 21 DAYS? :NO DO YOU NEED ANY PRESCRIPTION? :NO DO YOU TAKE ANY IMMUNOSUPPRESSIVE MEDICATIONS? :NO ANY HISTORY OF SEIZURES? :NO ANY HISTORY OF CARDIAC ISSUES OR EVENTS? :NO DO YOU HAVE SLEEP APNEA? :YES DO YOU WEAR A CPAP?YES ANY RECENT HEAD INJURY? :NO DO YOU HAVE ANY NEW INFECTIONS? :NO IS THERE A CHANCE YOU COULD BE ? :NO ARE YOU BREAST FEEDING? :NO WHEN DID YOU LAST EAT? : ----199911/28/20 WHEN DID YOU LAST DRINK? : ----69911/29/20 WHAT DID YOU LAST DRINK? : ------WATER NAME OF PERSON DRIVING YOU HOME? : (DAUGHTER) SANJUANITA DO YOU HAVE ANY OTHER QUESTIONS OR CONCERNS? : NO CURRENT MEDICATIONS TAKING GABAPENTIN 100 MG CAPSULE 900MG ORALLY THREE TIMES DAILY TAKING LEVOTHYROXINE SODIUM 25 MCG TABLET 1 TABLET IN THE MORNING ON AN EMPTY STOMACH ORALLY ONCE A DAY TAKING MIRALAX - POWDER 1-2 CAPFULS DAILY ORALLY DAILY NEEDED TAKING LORATADINE 10 MG TABLET TAKE ONE TABLET BY MOUTH EVERY DAY ORALLY DAILY TAKING ALBUTEROL SULFATE HFA 108 (90 BASE) MCG/ACT AEROSOL SOLUTION 1 PUFF NEEDED INHALATION EVERY 4 HRS TAKING ALBUTEROL SULFATE (2.5 MG/3ML) 0.083% NEBULIZATION SOLUTION INHALE 1 VIAL VIA NEBULIZER THREE TIMES A DAY NEEDED TAKING FUROSEMIDE 20 MG TABLET 1 TABLET ORALLY DAILY NEEDED TAKING MAY HAVE - - TENS UNIT PADS TOPICALLY DAILY PRN TAKING SINGULAIR 10 MG TABLET 1 TABLET IN THE EVENING ORALLY ONCE A DAY TAKING ROPINIROLE HCL 5 MG TABLET 1 TABLET ORALLY THREE TIMES A DAY, NOTES: UNSURE OF DOSE TAKING METHOCARBAMOL 500 MG TABLET 1 TABLETS ORALLY EVERY 6 HRS TAKING FLONASE 50 MCG/ACT SUSPENSION 2 SPRAYS IN EACH NOSTRIL NASALLY ONCE A DAY TAKING AIRDUO RESPICLICK 113/14 113-14 MCG/ACT AEROSOL POWDER BREATH ACTIVATED 1 PUFF INHALATION TWICE A DAY TAKING OMEPRAZOLE 40 MG CAPSULE DELAYED RELEASE 1 CAPSULE ORALLY BID TAKING NAPROXEN 250 MG TABLET 1 TABLET WITH FOOD OR MILK ORALLY TWICE A DAY TAKING HYDROCODONE-ACETAMINOPHEN 10-325 MG TABLET 1 TAB ORALLY EVERY 6 HRS PRN MDD4, NOTES: 11/28/20 2300 TAKING DRISDOL 1.25 MG (50241 UT) CAPSULE 1 CAPSULE ORALLY WEEKLY NOT-TAKING CYANOCOBALAMIN 500 MCG LOZENGE 1 LOZENGE ORALLY ONCE A DAY NOT-TAKING GABAPENTIN 100 MG CAPSULE 1 CAPSULE ORALLY THREE TIMES DAILY, NOTES: DUPLICATE NOT-TAKING GABAPENTIN 800 MG TABLET 1 CAPSULE ORALLY THREE TIMES A DAY, NOTES: DUPLICATE NOT-TAKING LIPITOR 10 MG TABLET 1 TABLET ORALLY ONCE A DAY NOT-TAKING NORCO 5-325 MG TABLET 1 TABLET NEEDED ORALLY ON A WEANING SCHEDULE MEDICATION LIST REVIEWED AND RECONCILED WITH THE PATIENT PAST MEDICAL HISTORY ASTHMA, MILD INTERMITTENT OSTEOARTHRITIS - DDD - FOLLOWS WITH NCOG ENVIRONMENTAL ALLERGIES HL VIT D DEF OBESITY B HIP OA S/P COLONOSCOPY NEG. 01/07/2016-DR. CHAPMAN F/U 10YR.S VENOUS INSUFFICIENCY RIGHT SHOULDER PAIN- MRI DONE ON Sunday08/11/19 BILATERAL HIP PAIN HYPOTHYROIDISM PENELOPE GERD VITAMIN B 12 DEFICIENCY ABNORMAL MRI LEFT FEMUR PER PT SYNCOPAL EPISODES- WILL USE HOLTER MONITOR IN DECEMBER ALLERGIES LATEX (FOR ALLERGY USE ONLY): HIVES - ALLERGY KEFLEX: ANAPHYLAXIS - ALLERGY NSAIDS: KIDNEY ISSUES - CONTRAINDICATION ENVIRONMENTAL: COUGH - ALLERGY SURGICAL HISTORY MADHAV DUE TO BLEEDING--- 07/2008 ARTHROSCOPIC KNEE SURGERY LEFT X 3 ARTHROSCOPIC KNEE SURGERY RIGHT X 1 CARPAL TUNNEL RELEASE BILATERAL ARTHROSCOPY SHOULDER RIGHT SHOULDER SURGERY LEFT BIOPSY MOLE- BACK LEFT HIP SURGERY 01/2016 CARPAL TUNNEL RELEASE BILATERAL LEFT HIP SURGERY 01/2016 HERNIA REPAIR X 5 ABDOMINAL SURGERY FOR GANGRENOUS INFECTION POST BTL SHOULDER SURGERY LEFT BIOPSY MOLE- BACK LEFT LEG SURGERY- RELEASED NERVES 10/11/16 BIOPSY MOLE- BACK LEFT HIP SURGERY 01/2016 TUBAL LIGATION HERNIA REPAIR X 5 ABDOMINAL SURGERY FOR GANGRENOUS INFECTION POST BTL BELLY [place]TON REMOVED LEFT LEG SURGERY- RELEASED NERVES 10/11/16 RIGHT SHOULDER SURGERY 10/2019 SOCIAL HISTORY GENERAL: TOBACCO USE ARE YOU A:FORMER SMOKER HOW LONG HAS IT BEEN SINCE YOU LAST SMOKED?> 10 YEARS 8 YEARS SINCE SHE SMOKED LATEX QUESTIONNAIRE LATEX ALLERGY : HAVE YOU EVER DEVELOPED ANY TYPE OF REACTION AFTER HANDLING LATEX PRODUCTS SUCH RUBBER GLOVES, CONDOMS, DIAPHRAGMS, BALLOONS, SOCKS, OR UNDERWEAR?YES HIVES, BLISTERS AND BLEEDS. - PLEASE INDICATE :RUBBER GLOVES, OTHER (DOCUMENT IN NOTES) ELASTIC IN CLOTHING DATE ASKED : 11/19/2020 ALCOHOL USE: YES; VERY MINIMAL. BMI CARE GOAL FOLLOW-UP ABOVE NORMAL BMI FOLLOW-UPDIETARY MANAGEMENT EDUCATION, GUIDANCE, AND COUNSELING ALCOHOL SCREENING DID YOU HAVE A DRINK CONTAINING ALCOHOL IN THE PAST YEAR?YES HOW OFTEN DID YOU HAVE SIX OR MORE DRINKS ON ONE OCCASION IN THE PAST YEAR?MONTHLY (2 POINTS) HOW MANY DRINKS DID YOU HAVE ON A TYPICAL DAY WHEN YOU WERE DRINKING IN THE PAST YEAR?7 TO 9 (3 POINTS) HOW OFTEN DID YOU HAVE A DRINK CONTAINING ALCOHOL IN THE PAST YEAR?TWO TO FOUR TIMES A MONTH (2 POINTS) POINTS7 INTERPRETATIONPOSITIVE RECREATIONAL DRUG USE DRUG USE?NO CAFFEINE CAFFEINE USE?YES 1 SODA SEXUAL HX HAD SEX IN THE LAST 12 MONTHS (VAGINAL, ORAL, OR ANAL)?YES WITHMEN ONLY USE PROTECTION?YES HIV / HEP-C SCREENING HIV TEST OFFERED TO PATIENT:YES DATE OFFERED:03/19/2019 TEST ACCEPTED:NO HEP-C TEST OFFERED TO PATIENT:YES N/A DATE OFFERED:03/19/2019 REASON:PATIENT DECLINED TEST ACCEPTED:NO REASON:PATIENT DECLINED BROCHURE PROVIDED TO PATIENTYES GNOSTICIST [id number] NONE LANGUAGE LANGUAGES SPOKEN:GERMAN EDUCATION LEVEL OF EDUCATION:NOT FINISHED HIGH SCHOOL LEARNING BARRIERS / SPECIAL NEEDS CHANGE FROM LAST VISIT?NO BARRIERS TO LEARNING?NO HEARING IMPAIRED?NO VISION IMPAIRED?YES COGNITIVELY IMPAIRED?NO :CORRECTIVE LENSES READING READINESS TO LEARN?YES LEARNING PREFERENCES?NO LEARNING CAPABILITIES PRESENT?YES EMOTIONAL BARRIERS?NO SPECIAL DEVICES?YES :CANE, WALKER ROUTE PROCESS ADMINISTRATOR NEEDED?NO DOMESTIC VIOLENCE DO YOU FEEL SAFE IN YOUR ENVIRONMENT?YES OCCUPATION: UNEMPLOYED. DIET: REGULAR. MARITAL STATUS: SINGLE. TODAY'S VISIT 02/03/20 PATIENT DESCRIBES PAIN :ACHING, BURNING, HAVE IT ALL THE TIME, SHARP, STABBING, TENDER, THROBBING, SORE, SHOOTING FROM 0-10, WHAT LEVEL IS YOUR PAIN TODAY?9 9-10 PRECIPITATING FACTORS SITTING, STANDING A LOT, BENDING AND WEATHER ALLEVIATING FACTORS HEATING PAD AND LYING DOWN WITH LEGS SLIGHTLY ELEVATED AND NOT MOVING IMPACT ON FUNCTION LIMITS HER ON WHAT SHE IS ABLE TO DO - PFS REFERRAL NEEDED?NO CLERGY REFERRAL NEEDED?NO PUBLIC HEALTH REFERRAL NEEDED?NO HAS THE PATIENT BEEN EDUCATED REGARDING HIS/HER PLAN OF CARE?YES HAS THE PATIENT BEEN EDUCATED REGARDING PAIN, THE RISK FOR PAIN, THE IMPORTANCE OF EFFECTIVE PAIN MANAGEMENT, AND THE PAIN ASSESSMENT PROCESS?YES ADVANCE DIRECTIVE ADVANCE DIRECTIVE DISCUSSED WITH PATIENT:YES HCP CARLA DILLON [phone], 02/03/20 PRE-PROCEDURE CALL COMPLETED. AD. VITAL SIGNS WT 97.0 LBS, HT 68 IN, BMI 14.75 INDEX, BP 152/76 MM HG, HR 87 /MIN, RR 18 /MIN, TEMP 97.0 F, OXYGEN SAT % 99%, NA INITIALS AW 1326. EXAMINATION GENERAL EXAMINATION: THE PATIENT IS ALERT, ORIENTED TIMES THREE AND COOPERATIVE. LUNGS ARE CLEAR TO AUSCULTATION. HEART SHOWS REGULAR RHYTHM, NO MURMURS AND NO GALLOPS. ASSESSMENTS CERVICAL DISC DISORDER WITH RADICULOPATHY, UNSPECIFIED CERVICAL REGION - M50.10 (PRIMARY) TREATMENT CERVICAL DISC DISORDER WITH RADICULOPATHY, UNSPECIFIED CERVICAL REGION [facility] FLUORO GUIDE SPINE INJECTION (PAIN)[id number] LEONIDAS MOORE 11/29/2020 3:29:17 PM > 1430- IV ACCESS OBTAINED IN RFA BY Mickie JOHNSON ON FIRST ATTEMPT. PATIENT TOLERATED WELL COMPLETION OF PROCEDURAL VISIT WHEN MEETS CRITERIA MEDICATION: VALIUM TAB 10MG ORALLY (DIAZEPAM)ANTHONYCASSIDY 11/29/2020 2:30:16 PM > VERIFIED VIKI JOHNSON 11/29/2020 2:32:11 PM > ADMINISTERED THIS PROCEDURE WAS REVIEWED BY JONY IRELAND ON 11/29/2020 AT 17:02 PM EST MEDICATION: OXYCODONE HCL TAB 10MG ORALLYYANCICASSIDY ARAUJO 11/29/2020 2:30:32 PM > VERIFIED VIKI JOHNSON 11/29/2020 2:32:30 PM > ADMINISTERED THIS PROCEDURE WAS REVIEWED BY JONY IRELAND ON 11/29/2020 AT 17:02 PM EST OTHERS NOTES: 11/26/20 1542 PAT COMPLETED. Peggy IRELAND VOCATIONAL REHABILITATION COUNSELOR. PROCEDURES PAIN NURSING RECORD PROCEDURE IN ROOM 1448, PHYSICIAN IN ROOM 1500, START 1503, FINISH 1512, PHYSICIAN OUT OF ROOM 1512, OUT OF ROOM 1523, ECG NORMAL SINUS, PATIENT SHIELDED YES, SAFETY STRAP YES, PREP BETADINE BY JADA SALGADO, DRESSING TEGADERM BY DR COSTELLO LOC: LEONIDAS SPENCER 11/29/2020@ 1502 RESP: 1. REGULAR, NO DYSPNEA 11/29/2020@ 1502 COLOR: 1. PINK 11/29/2020@ 1502 SKIN: 1. WARM, DRY 11/29/2020@ 1502 POSITION: 1. PRONE 11/29/2020@ 1502 VITALS: LEONIDAS SPENCER 11/29/2020 1450 HR 77, 156/76, 98%, R 16 LEONIDAS SPENCER 11/29/2020 1505 HR 85, 153/89, 88, R16 LEONIDAS SPENCER 11/29/2020 @ 1513 HR 82, 144/84, 91% R16 EXIT VITALS HR 86, 91%, 144/86, R16 NOTES Mónica SPENCER RN COMPLETION OF PROCEDURE APPOINTMENT: POST PAIN 3, DRESSING SITE DRY AND INTACT, IV DISCONTINUED, SITE CLEAR, CATHETER INTACT, GAIT STEADY, TEACHING COMPLETED, PATIENT ACKNOWLEDGES UNDERSTANDING YES, PROCEDURE APPOINTMENT COMPLETED AT 1540 PN CERVICAL EPIDURAL PRE PROCEDURE DIAGNOSIS CERVICAL DISC DISORDER WITH RADICULOPATHY POST PROCEDURE DIAGNOSIS CERVICAL DISC DISORDER WITH RADICULOPATHY PROCEDURE CERVICAL EPIDURAL STEROID INJECTION UNDER FLUOROSCOPIC GUIDANCE SURGEON DR. HAIDER COSTELLO DRYWALL CARRIER NONE ANESTHESIA LOCAL PRE PROCEDURE NOTE THE PATIENT HAS A HISTORY OF CHRONIC CERVICAL PAIN. I EVALUATED THE PATIENT AND REVIEWED THE CHART. I WENT OVER THE RISKS, ALTERNATIVES, AND BENEFITS ASSOCIATED WITH THIS PROCEDURE. THE PATIENT WOULD LIKE TO PROCEED AND GIVE CONSENT TO PERFORMED THE PROCEDURE. THE PATIENT DENIES UNEXPLAINABLE WEIGHT LOSS, FEVER, CHILLS, OR NEW CHANGES IN URINARY OR BOWEL CONTROL. THE PATIENT IS COVID-19 NEGATIVE DESCRIPTION OF PROCEDURE THE PATIENT WAS BROUGHT TO THE PROCEDURE ROOM AND PLACED IN THE PRONE POSITION. THE CERVICOTHORACIC AREA WAS CLEANED WITH BETADINE SOLUTION AND DRAPED ASEPTICALLY. THE PROCEDURE WAS DONE UNDER STERILE CONDITIONS. A TIMEOUT WAS PERFORMED WHERE THE CONSENTED SITE WAS VERIFIED WITH EVERYONE IN THE ROOM. UNDER FLUOROSCOPIC GUIDANCE, THE TARGET WAS SELECTED AT THE INTERLAMINAR LEVEL OF C7-T1. I CONFIRMED AGAIN THE SITE OF TARGET. LIDOCAINE WAS USED TO NUMB THE SKIN AND THE SUBCUTANEOUS TISSUE BELOW IT. EPIDURAL TUOHY NEEDLE, 17-GAUGE, WAS ADVANCED UNDER FLUOROSCOPIC GUIDANCE AND FOLLOWING PATIENT FEEDBACK UNTIL THE EPIDURAL SPACE WAS REACHED 8 CM DEEP INTO THE SKIN BY THE LOSS OF RESISTANCE TECHNIQUE. ISOVUE-M DYE 30%, 0.25 ML, WAS INJECTED SHOWING ADEQUATE SPREAD OF THE DYE. THEN, A SOLUTION OF 3 ML OF NORMAL SALINE WITH DEPO-MEDROL 40MG WAS INJECTED SLOWLY FOLLOWING PATIENT FEEDBACK. THE MEDICATIONS WERE VERIFIED WITH THE NURSE. THERE WAS NO EVIDENCE OF BLOOD, PARESTHESIA OR CEREBROSPINAL FLUID DURING THE PROCEDURE. ESTIMATED BLOOD LOSS WAS LESS THAN 5 ML. THE PATIENT WAS SENT TO THE RECOVERY ROOM. THE PATIENT WAS MOVING THE EXTREMITIES AND DOING WELL. THERE WERE NO COMPLICATIONS DURING THE PROCEDURE. FLUOROSCOPY TIME WAS 11 SECONDS POST PROCEDURE NOTE THE PATIENT WILL BE SEEN IN A FOLLOW UP IN THE NEXT FEW WEEKS. I AM LOOKING FOR LONG LASTING RELIEF FOR THE PATIENT WITH THIS INTERVENTION. INSTRUCTIONS WERE GIVEN, QUESTIONS WERE ANSWERED, AND THE PATIENT EXPRESSED UNDERSTANDING AND AGREES WITH THE PLAN. I, GERA FINK, DOCUMENTED THE ABOVE INFORMATION ACTING A SCRIBE FOR DR. COSTELLO. I HAVE REVIEWED THE ABOVE DOCUMENT, WRITTEN BY GERA FINK, OIL LEASE BROKER, AND I VERIFY THAT IT IS ACCURATE PROCEDURE CODES 16023 CERVICAL/THORACIC W/ IMAGING DISPOSITION & COMMUNICATION FOLLOW UP FOLLOW UP WITH EMU FARM WORKER (REASON: POST CERVICAL EPIDURAL STEROID INJECTION) ELECTRONICALLY SIGNED BY HAIDER COSTELLO MD, MD ON 11/29/2020 AT 04:44 PM EST DISCLAIMER : THIS IS A VISIT SUMMARY EXTRACTED FROM THE [employer] CHART. IT IS NOT A COPY OF THE [employer] PROGRESS NOTE. GEGE
== END ==
LOC: M PAIN 13:40
PROVIDERS: ATTEND Anesthesiology
DX: M50.10 Cervical disc disorder with radiculopathy, unspecified cervical region (principal); G47.33 Obstructive sleep apnea (adult) (pediatric); J45.20 Mild intermittent asthma, uncomplicated; E55.9 Vitamin D deficiency, unspecified; E03.9 Hypothyroidism, unspecified; K21.9 Gastro-esophageal reflux disease without esophagitis; Z87.891 Personal history of nicotine dependence; Z88.1 Allergy status to other antibiotic agents; Z88.6 Allergy status to analgesic agent; Z91.040 Latex allergy status; Z79.891 Long term (current) use of opiate analgesic; Z79.899 Other long term (current) drug therapy
CPT/HCPCS: 62321; J1030; Q9967

== ENCOUNTER → 2021-01-07 | Outpatient (CLI) | payer OTHER ==
[~2021-01-07] MED LIST changes: -ISOVUE-M 300 61% 15ML VIAL As Ordered ONE; -LIDOCAINE 1% SDV 30ML VIAL As Ordered ONE; -diazePAM 5MG TABLET As Ordered ONE; -methylPREDNISolone SUSP 40MG/ML 1ML VIAL (DEPO MEDROL) As Ordered ONE; -oxyCODONE 5MG TAB As Ordered ONE
--- NOTE | 2021-01-11 00:27 | ECWPNPC ---
PATIENT NAME: AKBAR MOODY : 1965 GENDER: FEMALE VISIT DATE: 01/07/2021 DISCHARGE DATE: 01/07/21 1129 VISIT LOCKED DATE TIME: PHYSICIAN: RABIA WATTERS PHYSICIAN PAGER NO: ACTIVE RESOURCE: RABIA WATTERS REASON FOR APPOINTMENT 1. POST CERVICAL EPIDURAL STEROID INJECTION HISTORY OF PRESENT ILLNESS GENERAL: HERE FOR POST PROCEDURE F/U.HAD CRIS ON11/29/20.REPORTING MARKED IMPROVEMENT POST PROCEDURE.CURRENTLY BEING MEDICALLY EVALUATED FOR FLUID RETENTION,FAINTING SPELLS WITH PRIMARY CARE.IS SCHEDULED FOR AN ECHOCARDIOGRAM SOON.-. FALL RISK SCREENING: SCREENING : NO FALLS REPORTED IN THE LAST YEAR. PAIN SCREENING: PATIENT HAS A COMPLAINT OF ACUTE OR CHRONIC PAIN :YES LOCATION OF PAIN:NECK INTENSITY OF PAIN (SCALE OF 1 TO 10):2 WHAT DOES YOUR PAIN FEEL LIKE:ACHING, BURNING, SHARP, STABBING, TENDER, THROBBING, SHOOTING DURATION:CONTINOUS, CONSTANT, ALL DAY PAIN IS INCREASED BY:ACTIVITIES PAIN IS DECREASED BY:USE OF PAIN MEDICATIONS NURSING NOTE: -. PAIN CENTER INTAKE QUESTIONS: DO YOU HAVE A HISTORY OF MRSA? :NO DO YOU TAKE A BLOOD THINNERS? :NO DO YOU HAVE ANY BLEEDING DISORDERS? :NO HAS ANEMIA - CAUSE UNKNOWN, TENDS TO BLEED EASILY ANY NEW NUMBNESS OR WEAKNESS IN YOUR LEGS OR ARMS? :NO ANY PACEMAKER,DEFIBRILLATOR, OR DORSAL COLUMN STIMULATOR? :NO DO YOU HAVE ANY RASHES OR OPEN SORES? :NO ARE YOU ALLERGIC TO IV DYE? :NO ARE YOU DIABETIC? :NO ANY NEW PROBLEMS WITH YOUR MEDICATIONS? :NO HAVE YOU RECEIVED A VACCINE IN THE PAST 30 DAYS? :NO DO YOU PLAN TO RECEIVE A VACCINE IN THE NEXT 21 DAYS? :NO DO YOU NEED ANY PRESCRIPTION? :NO DO YOU TAKE ANY IMMUNOSUPPRESSIVE MEDICATIONS? :NO IS THERE A CHANCE YOU COULD BE ? :NO ARE YOU BREAST FEEDING? :NO CURRENT MEDICATIONS TAKING MIRALAX - POWDER 1-2 CAPFULS DAILY ORALLY DAILY NEEDED TAKING LORATADINE 10 MG TABLET TAKE ONE TABLET BY MOUTH EVERY DAY ORALLY DAILY TAKING ALBUTEROL SULFATE HFA 108 (90 BASE) MCG/ACT AEROSOL SOLUTION 1 PUFF NEEDED INHALATION EVERY 4 HRS TAKING ALBUTEROL SULFATE (2.5 MG/3ML) 0.083% NEBULIZATION SOLUTION INHALE 1 VIAL VIA NEBULIZER THREE TIMES A DAY NEEDED TAKING FUROSEMIDE 20 MG TABLET 1 TABLET ORALLY DAILY NEEDED TAKING MAY HAVE - - TENS UNIT PADS TOPICALLY DAILY PRN TAKING SINGULAIR 10 MG TABLET 1 TABLET IN THE EVENING ORALLY ONCE A DAY TAKING ROPINIROLE HCL 5 MG TABLET 1 TABLET ORALLY THREE TIMES A DAY, NOTES: UNSURE OF DOSE TAKING FLONASE 50 MCG/ACT SUSPENSION 2 SPRAYS IN EACH NOSTRIL NASALLY ONCE A DAY TAKING AIRDUO RESPICLICK 113/14 113-14 MCG/ACT AEROSOL POWDER BREATH ACTIVATED 1 PUFF INHALATION TWICE A DAY TAKING OMEPRAZOLE 40 MG CAPSULE DELAYED RELEASE 1 CAPSULE ORALLY BID TAKING NAPROXEN 250 MG TABLET 1 TABLET WITH FOOD OR MILK ORALLY TWICE A DAY TAKING DRISDOL 1.25 MG (84647 UT) CAPSULE 1 CAPSULE ORALLY WEEKLY TAKING METHOCARBAMOL 500 MG TABLET 1 TABLETS ORALLY EVERY 6 HRS TAKING LEVOTHYROXINE SODIUM 25 MCG TABLET 1 TABLET IN THE MORNING ON AN EMPTY STOMACH ORALLY ONCE A DAY TAKING GABAPENTIN 100 MG CAPSULE 1 CAPSULE ORALLY THREE TIMES DAILY TAKING LIPITOR 10 MG TABLET 1 TABLET ORALLY ONCE A DAY TAKING HYDROCODONE-ACETAMINOPHEN 10-325 MG TABLET 1 TAB ORALLY EVERY 6 HRS PRN MDD4, NOTES: 11/28/20 2300 TAKING VITAMIN D 50 MCG (2000 UT) TABLET 1 TABLET ORALLY ONCE A DAY NOT-TAKING CYANOCOBALAMIN 500 MCG LOZENGE 1 LOZENGE ORALLY ONCE A DAY NOT-TAKING GABAPENTIN 100 MG CAPSULE 1 CAPSULE ORALLY THREE TIMES DAILY, NOTES: DUPLICATE NOT-TAKING GABAPENTIN 800 MG TABLET 1 CAPSULE ORALLY THREE TIMES A DAY, NOTES: DUPLICATE NOT-TAKING NORCO 5-325 MG TABLET 1 TABLET NEEDED ORALLY ON A WEANING SCHEDULE MEDICATION LIST REVIEWED AND RECONCILED WITH THE PATIENT PAST MEDICAL HISTORY ASTHMA, MILD INTERMITTENT OSTEOARTHRITIS - DDD - FOLLOWS WITH NCOG ENVIRONMENTAL ALLERGIES HL VIT D DEF OBESITY B HIP OA S/P COLONOSCOPY NEG. 01/07/2016-DR. CHAPMAN F/U 10YR.S VENOUS INSUFFICIENCY RIGHT SHOULDER PAIN- MRI DONE ON Sunday08/11/19 BILATERAL HIP PAIN HYPOTHYROIDISM PENELOPE GERD VITAMIN B 12 DEFICIENCY ABNORMAL MRI LEFT FEMUR PER PT SYNCOPAL EPISODES- WILL USE HOLTER MONITOR IN DECEMBER ALLERGIES LATEX (FOR ALLERGY USE ONLY): HIVES - ALLERGY KEFLEX: ANAPHYLAXIS - ALLERGY NSAIDS: KIDNEY ISSUES - CONTRAINDICATION ENVIRONMENTAL: COUGH - ALLERGY SOCIAL HISTORY GENERAL: TOBACCO USE ARE YOU A:FORMER SMOKER HOW LONG HAS IT BEEN SINCE YOU LAST SMOKED?> 10 YEARS 8 YEARS SINCE SHE SMOKED LATEX QUESTIONNAIRE LATEX ALLERGY : HAVE YOU EVER DEVELOPED ANY TYPE OF REACTION AFTER HANDLING LATEX PRODUCTS SUCH RUBBER GLOVES, CONDOMS, DIAPHRAGMS, BALLOONS, SOCKS, OR UNDERWEAR?YES HIVES, BLISTERS AND BLEEDS. - PLEASE INDICATE :RUBBER GLOVES, OTHER (DOCUMENT IN NOTES) ELASTIC IN CLOTHING DATE ASKED : 01/07/2021 ALCOHOL USE: YES; VERY MINIMAL. BMI CARE GOAL FOLLOW-UP ABOVE NORMAL BMI FOLLOW-UPDIETARY MANAGEMENT EDUCATION, GUIDANCE, AND COUNSELING ALCOHOL SCREENING DID YOU HAVE A DRINK CONTAINING ALCOHOL IN THE PAST YEAR?YES HOW OFTEN DID YOU HAVE SIX OR MORE DRINKS ON ONE OCCASION IN THE PAST YEAR?MONTHLY (2 POINTS) HOW MANY DRINKS DID YOU HAVE ON A TYPICAL DAY WHEN YOU WERE DRINKING IN THE PAST YEAR?7 TO 9 (3 POINTS) HOW OFTEN DID YOU HAVE A DRINK CONTAINING ALCOHOL IN THE PAST YEAR?TWO TO FOUR TIMES A MONTH (2 POINTS) POINTS7 INTERPRETATIONPOSITIVE RECREATIONAL DRUG USE DRUG USE?NO CAFFEINE CAFFEINE USE?YES 1 SODA SEXUAL HX HAD SEX IN THE LAST 12 MONTHS (VAGINAL, ORAL, OR ANAL)?YES WITHMEN ONLY USE PROTECTION?YES HIV / HEP-C SCREENING HIV TEST OFFERED TO PATIENT:YES DATE OFFERED:03/19/2019 TEST ACCEPTED:NO HEP-C TEST OFFERED TO PATIENT:YES N/A DATE OFFERED:03/19/2019 REASON:PATIENT DECLINED TEST ACCEPTED:NO REASON:PATIENT DECLINED BROCHURE PROVIDED TO PATIENTYES SPIRITISM [id number] NONE LANGUAGE LANGUAGES SPOKEN:ANDORRAN EDUCATION LEVEL OF EDUCATION:NOT FINISHED HIGH SCHOOL LEARNING BARRIERS / SPECIAL NEEDS CHANGE FROM LAST VISIT?NO BARRIERS TO LEARNING?NO HEARING IMPAIRED?NO VISION IMPAIRED?YES :CORRECTIVE LENSES READING COGNITIVELY IMPAIRED?NO READINESS TO LEARN?YES LEARNING PREFERENCES?NO LEARNING CAPABILITIES PRESENT?YES EMOTIONAL BARRIERS?NO SPECIAL DEVICES?YES :CANE, WALKER NEEDED CONTACT AND SERVICE CLERKS SUPERVISOR NEEDED?NO DOMESTIC VIOLENCE DO YOU FEEL SAFE IN YOUR ENVIRONMENT?YES OCCUPATION: UNEMPLOYED. DIET: REGULAR. MARITAL STATUS: SINGLE. TODAY'S VISIT 02/03/20 PATIENT DESCRIBES PAIN :ACHING, BURNING, HAVE IT ALL THE TIME, SHARP, STABBING, TENDER, THROBBING, SORE, SHOOTING FROM 0-10, WHAT LEVEL IS YOUR PAIN TODAY?9 9-10 PRECIPITATING FACTORS SITTING, STANDING A LOT, BENDING AND WEATHER ALLEVIATING FACTORS HEATING PAD AND LYING DOWN WITH LEGS SLIGHTLY ELEVATED AND NOT MOVING IMPACT ON FUNCTION LIMITS HER ON WHAT SHE IS ABLE TO DO - PFS REFERRAL NEEDED?NO CLERGY REFERRAL NEEDED?NO PUBLIC HEALTH REFERRAL NEEDED?NO HAS THE PATIENT BEEN EDUCATED REGARDING HIS/HER PLAN OF CARE?YES HAS THE PATIENT BEEN EDUCATED REGARDING PAIN, THE RISK FOR PAIN, THE IMPORTANCE OF EFFECTIVE PAIN MANAGEMENT, AND THE PAIN ASSESSMENT PROCESS?YES ADVANCE DIRECTIVE ADVANCE DIRECTIVE DISCUSSED WITH PATIENT:YES HCP CARLA DILLON [phone], 02/03/20 PRE-PROCEDURE CALL COMPLETED. AD. REVIEW OF SYSTEMS CONSTITUTIONAL: ANY RECENT FEVER NO . CHILLS NO . WEIGHT CHANGE OF UNKNOWN REASONS NO . GASTROENTEROLOGY: NEW UNEXPLAINABLE CHANGES IN BOWEL CONTROL NO . CONSTIPATION NO . GENITOURINARY: ANY NEW CHANGE IN BLADDER CONTROL? NO . NEUROLOGY: NEW ONSET DIZZINESS OR NEUROLOGICAL CHANGES NOT MENTIONED NO . NEW NUMBNESS OR PAIN PATTERNS NOT MENTIONED AND PERTINENT TO TODAY'S VISIT NO . CARDIOLOGY: NEW CHEST PRESSURE NO . PATIENT DENIES NO . RESPIRATORY: UNEXPLAINABLE COUGH NO . NEW SHORTNESS OF BREATH NO . VITAL SIGNS WT 315 LBS, HT 68 IN, BMI 47.89 INDEX, BP 179/97 MM HG, HR 99 /MIN, RR 18 /MIN, TEMP 97.3 F, OXYGEN SAT % 96%, SAFE IN ENV? (Y/N) YES, NA INITIALS SC 10:51T.KINJAL OWUSU. EXAMINATION GENERAL EXAMINATION: GENERAL ALERT,NO DISTRESS . PSYCH AFFECT NORMAL . LUNGS: LUNG SOUNDS ARE CLEAR . HEART: HEART RATE REGULAR . MUSCULOSKELETAL: MST 5/5 BILAT. LOWER EXTREMITIES . LUMBAR: TENDERNESS BILAT. SIJ L>R. ASSESSMENTS OTHER CHRONIC PAIN - G89.29 (PRIMARY) SPONDYLOSIS OF LUMBAR REGION WITHOUT MYELOPATHY OR RADICULOPATHY - M47.816 CERVICAL DISC DISPLACEMENT - M50.20 TREATMENT OTHER CHRONIC PAIN PAIN PROCEDURE LOGDATE OF PROCEDURE1PROCEDURE:CERVICAL EPIDURAL STEROID INJECTIONAMOUNT OF PRE SEDATEVALIUM 10MG, OXYCODONE 10MGRESULT:MARKED IMPROVEMENT CONTINUES TODAY PROCEDURE CODES FA211 ESTABILISHED PATIENT [facility] FACILITY CHARGE DISPOSITION & COMMUNICATION FOLLOW UP 3 MONTHS (REASON: MED MGMNT/LBP RSPONDS WELL TO SIJ/NECK PAIN RESPONDS WELL TO CRIS) ELECTRONICALLY SIGNED BY MAGAN PURI ON 01/10/2021 AT 01:22 PM EDT DISCLAIMER : THIS IS A VISIT SUMMARY EXTRACTED FROM THE [employer] CHART. IT IS NOT A COPY OF THE [employer] PROGRESS NOTE. GEGE
== END ==
LOC: M PAIN 10:45
PROVIDERS: ATTEND Nurse Practitioner Family
DX: M47.816 Spondylosis without myelopathy or radiculopathy, lumbar region (principal); M50.20 Other cervical disc displacement, unspecified cervical region; G89.29 Other chronic pain; J45.20 Mild intermittent asthma, uncomplicated; E55.9 Vitamin D deficiency, unspecified; E03.9 Hypothyroidism, unspecified; G47.33 Obstructive sleep apnea (adult) (pediatric); K21.9 Gastro-esophageal reflux disease without esophagitis; Z87.891 Personal history of nicotine dependence; Z88.1 Allergy status to other antibiotic agents; Z88.6 Allergy status to analgesic agent; Z91.040 Latex allergy status; E66.01 Morbid (severe) obesity due to excess calories; Z68.42 Body mass index [BMI] 45.0-49.9, adult; Z79.891 Long term (current) use of opiate analgesic; Z79.899 Other long term (current) drug therapy

== ENCOUNTER → 2021-03-25 | Outpatient (CLI) | payer OTHER ==
[~2021-03-25] MED LIST changes: +OMEP40CA4 PO; -OMEP40CA97 PO
--- NOTE | 2021-03-29 04:38 | ECWPNPC ---
PATIENT NAME: AKBAR MOODY : 1965 GENDER: FEMALE VISIT DATE: 03/25/2021 DISCHARGE DATE: 03/25/21 1033 VISIT LOCKED DATE TIME: PHYSICIAN: RABIA WATTERS PHYSICIAN PAGER NO: ACTIVE RESOURCE: RABIA WATTERS REASON FOR APPOINTMENT 1. MED MGMNT/LBP RSPONDS WELL TO SIJ/NECK PAIN RESPONDS WELL TO CRIS HISTORY OF PRESENT ILLNESS DEPRESSION SCREENING: PHQ-2 (2015 EDITION) LITTLE INTEREST OR PLEASURE IN DOING THINGS?NOT AT ALL FEELING DOWN, DEPRESSED, OR HOPELESS?NOT AT ALL TOTAL SCORE0 GENERAL: HERE FOR FOLLOW-UP OF CHRONIC NECK AND LOW BACK PAIN. THIS IS A MEDICATION MANAGEMENT VISIT. PATIENT BRINGS IN HER MEDICATION WHICH IS APPROPRIATE FOR WHAT WAS DISPENSED. PAIN ACROSS THE LOWER BACK AND LEFT ANTERIOR THIGH HAS BEEN AGGRAVATED OVER THE PAST FEW WEEKS. HAS RESPONDED WELL TO SACROILIAC JOINT BLOCK IN THE PAST FOR LOW BACK PAIN. REVIEWED MRI OF THE LS SPINE AND DISCUSSED TREATMENT PLAN. -. FALL RISK SCREENING: SCREENING : NO FALLS REPORTED IN THE LAST YEAR. PAIN SCREENING: PATIENT HAS A COMPLAINT OF ACUTE OR CHRONIC PAIN :YES LOCATION OF PAIN:LOW BACK INTENSITY OF PAIN (SCALE OF 1 TO 10):6 WHAT DOES YOUR PAIN FEEL LIKE:CONTINOUS, SHOOTING DURATION:CONTINOUS, CONSTANT, ALL DAY PAIN IS INCREASED BY:ACTIVITIES, PROLONGED STANDING PAIN IS DECREASED BY:USE OF PAIN MEDICATIONS, SITTING NURSING NOTE: -. PAIN CENTER INTAKE QUESTIONS: DO YOU HAVE A HISTORY OF MRSA? :NO DO YOU TAKE A BLOOD THINNERS? :NO DO YOU HAVE ANY BLEEDING DISORDERS? :NO HAS ANEMIA - CAUSE UNKNOWN, TENDS TO BLEED EASILY ANY NEW NUMBNESS OR WEAKNESS IN YOUR LEGS OR ARMS? :NO ANY PACEMAKER,DEFIBRILLATOR, OR DORSAL COLUMN STIMULATOR? :NO DO YOU HAVE ANY RASHES OR OPEN SORES? :NO ARE YOU ALLERGIC TO IV DYE? :NO ARE YOU DIABETIC? :NO ANY NEW PROBLEMS WITH YOUR MEDICATIONS? :NO HAVE YOU RECEIVED A VACCINE IN THE PAST 30 DAYS? :NO DO YOU PLAN TO RECEIVE A VACCINE IN THE NEXT 21 DAYS? :NO DO YOU NEED ANY PRESCRIPTION? :NO DO YOU TAKE ANY IMMUNOSUPPRESSIVE MEDICATIONS? :NO IS THERE A CHANCE YOU COULD BE ? :NO ARE YOU BREAST FEEDING? :NO CURRENT MEDICATIONS TAKING MIRALAX - POWDER 1-2 CAPFULS DAILY ORALLY DAILY NEEDED TAKING ALBUTEROL SULFATE (2.5 MG/3ML) 0.083% NEBULIZATION SOLUTION INHALE 1 VIAL VIA NEBULIZER THREE TIMES A DAY NEEDED TAKING FUROSEMIDE 20 MG TABLET 1 TABLET ORALLY DAILY NEEDED TAKING MAY HAVE - - TENS UNIT PADS TOPICALLY DAILY PRN TAKING ROPINIROLE HCL 5 MG TABLET 1 TABLET ORALLY THREE TIMES A DAY, NOTES: UNSURE OF DOSE TAKING FLONASE 50 MCG/ACT SUSPENSION 2 SPRAYS IN EACH NOSTRIL NASALLY ONCE A DAY TAKING OMEPRAZOLE 40 MG CAPSULE DELAYED RELEASE 1 CAPSULE ORALLY BID TAKING NAPROXEN 250 MG TABLET 1 TABLET WITH FOOD OR MILK ORALLY TWICE A DAY TAKING LIPITOR 10 MG TABLET 1 TABLET ORALLY ONCE A DAY TAKING VITAMIN D 50 MCG (2000 UT) TABLET 1 TABLET ORALLY ONCE A DAY TAKING HYDROCODONE-ACETAMINOPHEN 10-325 MG TABLET 1 TAB ORALLY EVERY 6 HRS PRN MDD4 TAKING SINGULAIR 10 MG TABLET TAKE 1 TABLET BY MOUTH EVERY EVENING TAKING GABAPENTIN 800 MG TABLET TAKE ONE TABLET BY MOUTH THREE TIMES A DAY TAKING METHOCARBAMOL 500 MG TABLET 1 TABLETS ORALLY EVERY 6 HRS TAKING LORATADINE 10 MG TABLET TAKE ONE TABLET BY MOUTH EVERY DAY TAKING GABAPENTIN 100 MG CAPSULE 1 CAPSULE ORALLY THREE TIMES DAILY TAKING LEVOTHYROXINE SODIUM 25 MCG TABLET 1 TABLET IN THE MORNING ON AN EMPTY STOMACH ORALLY ONCE A DAY TAKING AIRDUO RESPICLICK 113/14 113-14 MCG/ACT AEROSOL POWDER BREATH ACTIVATED INHALE ONE PUFF BY MOUTH TWICE A DAY NOT-TAKING DRISDOL 1.25 MG (97190 UT) CAPSULE 1 CAPSULE ORALLY WEEKLY NOT-TAKING ALBUTEROL SULFATE HFA 108 (90 BASE) MCG/ACT AEROSOL SOLUTION INHALE 1 PUFF BY MOUTH EVERY 4 HOURS NEEDED NOT-TAKING FLUTICASONE PROPIONATE 50 MCG/ACT SUSPENSION SPRAY TWO SPRAYS IN EACH NOSTRIL EVERY DAY NOT-TAKING OMEPRAZOLE 40 MG CAPSULE DELAYED RELEASE TAKE ONE CAPSULE BY MOUTH TWICE A DAY NOT-TAKING CYANOCOBALAMIN 500 MCG LOZENGE 1 LOZENGE ORALLY ONCE A DAY NOT-TAKING GABAPENTIN 100 MG CAPSULE 1 CAPSULE ORALLY THREE TIMES DAILY, NOTES: DUPLICATE NOT-TAKING GABAPENTIN 800 MG TABLET 1 CAPSULE ORALLY THREE TIMES A DAY, NOTES: DUPLICATE NOT-TAKING NORCO 5-325 MG TABLET 1 TABLET NEEDED ORALLY ON A WEANING SCHEDULE MEDICATION LIST REVIEWED AND RECONCILED WITH THE PATIENT PAST MEDICAL HISTORY ASTHMA, MILD INTERMITTENT OSTEOARTHRITIS - DDD - FOLLOWS WITH NCOG ENVIRONMENTAL ALLERGIES HL VIT D DEF OBESITY B HIP OA S/P COLONOSCOPY NEG. 01/07/2016-DR. CHAPMAN F/U 10YR.S VENOUS INSUFFICIENCY RIGHT SHOULDER PAIN- MRI DONE ON Sunday08/11/19 BILATERAL HIP PAIN HYPOTHYROIDISM PENELOPE GERD VITAMIN B 12 DEFICIENCY ABNORMAL MRI LEFT FEMUR PER PT SYNCOPAL EPISODES- WILL USE HOLTER MONITOR IN DECEMBER ALLERGIES LATEX (FOR ALLERGY USE ONLY): HIVES - ALLERGY KEFLEX: ANAPHYLAXIS - ALLERGY NSAIDS: KIDNEY ISSUES - CONTRAINDICATION ENVIRONMENTAL: COUGH - ALLERGY SOCIAL HISTORY GENERAL: TOBACCO USE ARE YOU A:FORMER SMOKER HOW LONG HAS IT BEEN SINCE YOU LAST SMOKED?> 10 YEARS 8 YEARS SINCE SHE SMOKED LATEX QUESTIONNAIRE LATEX ALLERGY : HAVE YOU EVER DEVELOPED ANY TYPE OF REACTION AFTER HANDLING LATEX PRODUCTS SUCH RUBBER GLOVES, CONDOMS, DIAPHRAGMS, BALLOONS, SOCKS, OR UNDERWEAR?YES HIVES, BLISTERS AND BLEEDS. - PLEASE INDICATE :RUBBER GLOVES, OTHER (DOCUMENT IN NOTES) ELASTIC IN CLOTHING LATEX ALLERGY : HAVE YOU EVER DEVELOPED ANY TYPE OF REACTION DURING OR AFTER DENTAL APPOINTMENT, VAGINAL/RECTAL EXAMINATION, SURGICAL PROCEDURE, OR ANY OTHER EXPOSURE?NO LATEX RISK : HAVE YOU EVER HAD ANY DIFFICULTY BREATHING OR HIVES AFTER EATING OR HANDLING ANY FRUITS, OR VEGETABLES; SUCH KIWI, BANANAS, STONE FRUITS, OR CHESTNUTSNO LATEX RISK : DO YOU HAVE A PREVIOUS PERSONAL HISTORY OF MORE THAN NINE SURGERIES, SPINA BIFIDA, OR REPEATED CATHERIZATIONS? NO LATEX RISK : ARE YOU FREQUENTLY EXPOSED TO LATEX PRODUCTS IN YOUR OCCUPATION?NO DATE ASKED : 03/25/2021 ALCOHOL USE: YES; VERY MINIMAL. BMI CARE GOAL FOLLOW-UP ABOVE NORMAL BMI FOLLOW-UPDIETARY MANAGEMENT EDUCATION, GUIDANCE, AND COUNSELING ALCOHOL SCREENING DID YOU HAVE A DRINK CONTAINING ALCOHOL IN THE PAST YEAR?YES HOW OFTEN DID YOU HAVE SIX OR MORE DRINKS ON ONE OCCASION IN THE PAST YEAR?MONTHLY (2 POINTS) HOW MANY DRINKS DID YOU HAVE ON A TYPICAL DAY WHEN YOU WERE DRINKING IN THE PAST YEAR?7 TO 9 (3 POINTS) HOW OFTEN DID YOU HAVE A DRINK CONTAINING ALCOHOL IN THE PAST YEAR?TWO TO FOUR TIMES A MONTH (2 POINTS) POINTS7 INTERPRETATIONPOSITIVE RECREATIONAL DRUG USE DRUG USE?NO CAFFEINE CAFFEINE USE?YES 1 SODA SEXUAL HX HAD SEX IN THE LAST 12 MONTHS (VAGINAL, ORAL, OR ANAL)?YES WITHMEN ONLY USE PROTECTION?YES HIV / HEP-C SCREENING HIV TEST OFFERED TO PATIENT:YES DATE OFFERED:03/19/2019 TEST ACCEPTED:NO HEP-C TEST OFFERED TO PATIENT:YES N/A DATE OFFERED:03/19/2019 REASON:PATIENT DECLINED TEST ACCEPTED:NO REASON:PATIENT DECLINED BROCHURE PROVIDED TO PATIENTYES JUDAISM [id number] NONE LANGUAGE LANGUAGES SPOKEN:SLOVENIAN EDUCATION LEVEL OF EDUCATION:NOT FINISHED HIGH SCHOOL LEARNING BARRIERS / SPECIAL NEEDS CHANGE FROM LAST VISIT?NO BARRIERS TO LEARNING?NO HEARING IMPAIRED?NO VISION IMPAIRED?YES :CORRECTIVE LENSES READING COGNITIVELY IMPAIRED?NO READINESS TO LEARN?YES LEARNING PREFERENCES?NO LEARNING CAPABILITIES PRESENT?YES EMOTIONAL BARRIERS?NO SPECIAL DEVICES?YES :CANE, WALKER NEEDED DRUM DRIER NEEDED?NO DOMESTIC VIOLENCE DO YOU FEEL SAFE IN YOUR ENVIRONMENT?YES OCCUPATION: UNEMPLOYED. DIET: REGULAR. MARITAL STATUS: SINGLE. TODAY'S VISIT 02/03/20 PATIENT DESCRIBES PAIN :ACHING, BURNING, HAVE IT ALL THE TIME, SHARP, STABBING, TENDER, THROBBING, SORE, SHOOTING FROM 0-10, WHAT LEVEL IS YOUR PAIN TODAY?9 9-10 PRECIPITATING FACTORS SITTING, STANDING A LOT, BENDING AND WEATHER ALLEVIATING FACTORS HEATING PAD AND LYING DOWN WITH LEGS SLIGHTLY ELEVATED AND NOT MOVING IMPACT ON FUNCTION LIMITS HER ON WHAT SHE IS ABLE TO DO - PFS REFERRAL NEEDED?NO CLERGY REFERRAL NEEDED?NO PUBLIC HEALTH REFERRAL NEEDED?NO HAS THE PATIENT BEEN EDUCATED REGARDING HIS/HER PLAN OF CARE?YES HAS THE PATIENT BEEN EDUCATED REGARDING PAIN, THE RISK FOR PAIN, THE IMPORTANCE OF EFFECTIVE PAIN MANAGEMENT, AND THE PAIN ASSESSMENT PROCESS?YES ADVANCE DIRECTIVE ADVANCE DIRECTIVE DISCUSSED WITH PATIENT:YES HCP CARLA DILLON [phone], 02/03/20 PRE-PROCEDURE CALL COMPLETED. AD. REVIEW OF SYSTEMS CONSTITUTIONAL: ANY RECENT FEVER NO . CHILLS NO . WEIGHT CHANGE OF UNKNOWN REASONS NO . GASTROENTEROLOGY: NEW UNEXPLAINABLE CHANGES IN BOWEL CONTROL NO . CONSTIPATION NO . GENITOURINARY: ANY NEW CHANGE IN BLADDER CONTROL? NO . NEUROLOGY: NEW ONSET DIZZINESS OR NEUROLOGICAL CHANGES NOT MENTIONED NO . NEW NUMBNESS OR PAIN PATTERNS NOT MENTIONED AND PERTINENT TO TODAY'S VISIT NO . CARDIOLOGY: NEW CHEST PRESSURE NO . PATIENT DENIES NO . RESPIRATORY: UNEXPLAINABLE COUGH NO . NEW SHORTNESS OF BREATH NO . VITAL SIGNS WT 303.4 LBS, HT 68 IN, BMI 46.13 INDEX, BP 148/64 MM HG, REPEAT BP 138/74 MM HG, HR 107 /MIN, RR 18 /MIN, TEMP 97.4 F, OXYGEN SAT % 97%, SAFE IN ENV? (Y/N) YES, NA INITIALS WV 09:44T.KINJAL OWUSU. EXAMINATION GENERAL EXAMINATION: GENERAL ALERT,NO DISTRESS . PSYCH AFFECT NORMAL . LUNGS: LUNG SOUNDS ARE CLEAR . HEART: HEART RATE REGULAR . MUSCULOSKELETAL: MST 5/5 BILAT. LOWER EXTREMITIES . LUMBAR: TENDERNESS BILAT. SIJ L>R. ASSESSMENTS SACROILIITIS, NOT ELSEWHERE CLASSIFIED - M46.1 (PRIMARY) TREATMENT SACROILIITIS, NOT ELSEWHERE CLASSIFIED REFILL HYDROCODONE-ACETAMINOPHEN TABLET, 10-325 MG, 1 TAB, ORALLY, EVERY 6 HRS PRN MDD4, 30 DAYS, 120, REFILLS 0 MEDICATION: VALIUM TAB 10MG ORALLY (DIAZEPAM) (ORDERED FOR 04/08/2021) MEDICATION: OXYCODONE HCL TAB 10MG ORALLY (ORDERED FOR 04/08/2021) NOTES: BILATERAL SACROILIAC JOINT BLOCK. PROCEDURE CODES FA211 ESTABILISHED PATIENT [facility] CHARGE DISPOSITION & COMMUNICATION FOLLOW UP POST (REASON: BILATERAL SACROILIAC JOINT BLOCK ) ELECTRONICALLY SIGNED BY MAGAN PURI ON 03/28/2021 AT 12:42 PM EDT DISCLAIMER : THIS IS A VISIT SUMMARY EXTRACTED FROM THE [employer] CHART. IT IS NOT A COPY OF THE [employer] PROGRESS NOTE. GEGE
== END ==
LOC: M PAIN 09:30
PROVIDERS: ATTEND Nurse Practitioner Family
DX: M46.1 Sacroiliitis, not elsewhere classified (principal); G89.29 Other chronic pain; J45.20 Mild intermittent asthma, uncomplicated; E55.9 Vitamin D deficiency, unspecified; G47.33 Obstructive sleep apnea (adult) (pediatric); K21.9 Gastro-esophageal reflux disease without esophagitis; Z87.891 Personal history of nicotine dependence; Z88.1 Allergy status to other antibiotic agents; Z88.6 Allergy status to analgesic agent; Z91.040 Latex allergy status; E66.01 Morbid (severe) obesity due to excess calories; Z68.42 Body mass index [BMI] 45.0-49.9, adult; Z79.891 Long term (current) use of opiate analgesic; Z79.899 Other long term (current) drug therapy

== ENCOUNTER → 2021-04-29 | Outpatient (CLI) | payer OTHER | LOC: M LABSMTC 13:53 | PROVIDERS: ATTEND Anesthesiology | DX: Z01.812 Encounter for preprocedural laboratory examination (principal); Z20.822 Contact with and (suspected) exposure to COVID-19 ==

== ENCOUNTER → 2021-04-29 | Outpatient (CLI) | payer OTHER ==
[2021-04-29 16:24] LABS: CHOLESTEROL RISK RATIO 6.2 (<5)
[2021-04-29 16:29] LABS: TOTAL 25(OH) VITAMIN D 17.5 NG/ML (30.0-100.0)
== END ==
LOC: M PLALAB 13:37
PROVIDERS: ATTEND Physician Assistant Medical
DX: E78.2 Mixed hyperlipidemia (principal); E53.8 Deficiency of other specified B group vitamins; E55.9 Vitamin D deficiency, unspecified

== ENCOUNTER → 2021-05-04 | Outpatient (CLI) | payer OTHER ==
[~2021-05-04] MED LIST changes: +BUPIVACAINE HCL 0.25% 30ML VIAL As Ordered ONE; +ISOVUE-M 300 61% 15ML VIAL As Ordered ONE; +LIDOCAINE 1% SDV 30ML VIAL As Ordered ONE; +TRIAMCINOLONE ACETONIDE SUSP 40 MG/ML VIAL (J3301) As Ordered ONE; +diazePAM 5MG TABLET As Ordered ONE; +oxyCODONE 5MG TAB As Ordered ONE
--- NOTE | 2021-05-04 15:48 | REP ---
INDICATION: BILATERAL SACROILIAC. COMPARISON: None. TECHNIQUE: Three C-arm views sacroiliac joints. FINDINGS: A needle overlies each sacroiliac joint. Small amount of contrast is injected. IMPRESSION: 40 seconds of fluoroscopy time was utilized. <Electronically signed by Max Kilgore > 05/04/21 2921
--- NOTE | 2021-05-06 00:41 | ECWPNPC ---
PATIENT NAME: AKBAR MOODY : 1965 GENDER: FEMALE VISIT DATE: 05/04/2021 DISCHARGE DATE: 05/04/21 1550 VISIT LOCKED DATE TIME: PHYSICIAN: HAIDER COSTELLO MD PHYSICIAN PAGER NO: ACTIVE RESOURCE: HAIDER COSTELLO MD REASON FOR APPOINTMENT 1. BILATERAL SACROILIAC JOINT BLOCK HISTORY OF PRESENT ILLNESS GENERAL: -. FALL RISK SCREENING: SCREENING : NO FALLS REPORTED IN THE LAST YEAR. PAIN SCREENING: PATIENT HAS A COMPLAINT OF ACUTE OR CHRONIC PAIN :YES LOCATION OF PAIN:LOW BACK, LEFT HIP, RIGHT HIP INTENSITY OF PAIN (SCALE OF 1 TO 10):4 WHAT DOES YOUR PAIN FEEL LIKE:ACHING, CONTINOUS, SHARP, TENDER, SORE DURATION:CONTINOUS, CONSTANT, AWAKENS FROM SLEEP HAS TROUBLE GETTING TO SLEEP PAIN IS INCREASED BY:ACTIVITIES, PROLONGED STANDING, OTHERS PROLONGED SITTING PAIN IS DECREASED BY:USE OF PAIN MEDICATIONS, OTHERS REST, ICE, HEAT, CHANGING POSITIONS PAIN HAS INTERFERED WITH THE FOLLOWING: EVERYTHING NURSING NOTE: -. PAIN CENTER INTAKE QUESTIONS: DO YOU HAVE A HISTORY OF MRSA? :NO DO YOU TAKE A BLOOD THINNERS? :NO DO YOU HAVE ANY BLEEDING DISORDERS? :YES ANEMIA ANY NEW NUMBNESS OR WEAKNESS IN YOUR LEGS OR ARMS? :NO ANY PACEMAKER,DEFIBRILLATOR, OR DORSAL COLUMN STIMULATOR? :NO DO YOU HAVE ANY RASHES OR OPEN SORES? :NO ARE YOU ALLERGIC TO IV DYE? :NO ARE YOU DIABETIC? :NO ANY NEW PROBLEMS WITH YOUR MEDICATIONS? :NO HAVE YOU RECEIVED A VACCINE IN THE PAST 30 DAYS? :NO DO YOU PLAN TO RECEIVE A VACCINE IN THE NEXT 21 DAYS? :NO DO YOU TAKE ANY IMMUNOSUPPRESSIVE MEDICATIONS? :NO ANY HISTORY OF SEIZURES? :NO ANY HISTORY OF CARDIAC ISSUES OR EVENTS? :NO DO YOU HAVE ANY KIDNEY OR LIVER DISEASE? :NO DO YOU HAVE SLEEP APNEA? :YES DO YOU WEAR A CPAP?YES ANY RECENT HEAD INJURY? :NO DO YOU HAVE ANY NEW INFECTIONS? :NO IS THERE A CHANCE YOU COULD BE ? :NO ARE YOU BREAST FEEDING? :NO WHEN DID YOU LAST EAT? : -LAST NIGHT 1030 PM WHEN DID YOU LAST DRINK? : -THIS MORNING AT 730 WHAT DID YOU LAST DRINK? : -WATER NAME OF PERSON DRIVING YOU HOME? : DAUGHTER-CARLA DO YOU HAVE ANY OTHER QUESTIONS OR CONCERNS? : NONE CURRENT MEDICATIONS TAKING OMEPRAZOLE 40 MG CAPSULE DELAYED RELEASE 1 CAPSULE ORALLY BID TAKING LEVOTHYROXINE SODIUM 25 MCG TABLET 1 TABLET IN THE MORNING ON AN EMPTY STOMACH ORALLY ONCE A DAY TAKING LIPITOR 10 MG TABLET 1 TABLET ORALLY ONCE A DAY TAKING MIRALAX - POWDER 1-2 CAPFULS DAILY ORALLY DAILY-TAKES NEEDED TAKING SINGULAIR 10 MG TABLET 1 TABLET IN THE EVENING ORALLY ONCE A DAY, NOTES: 02/02 2200 TAKING MAY HAVE - - TENS UNIT PADS TOPICALLY DAILY PRN TAKING GABAPENTIN 600 MG TABLET 1 TABLET ORALLY THREE TIMES DAILY TAKING ROPINIROLE HCL 1 MG TABLET 1 TABLET ORALLY TID TAKING HYDROCODONE-ACETAMINOPHEN 10-325 MG TABLET 1 TAB ORALLY EVERY 6 HRS PRN MDD4 TAKING CYANOCOBALAMIN 1000 MCG/ML SOLUTION 1 ML INJECTION MONTHLY, NOTES: HASN'T STARTED YET-05/02/21 TAKING DRISDOL 1.25 MG (07593 UT) CAPSULE 1 CAPSULE ORALLY WEEKLY, NOTES: HASN'T STARTED YET-05/02/21 TAKING ALBUTEROL SULFATE (2.5 MG/3ML) 0.083% NEBULIZATION SOLUTION INHALE 1 VIAL VIA NEBULIZER THREE TIMES A DAY NEEDED TAKING FUROSEMIDE 20 MG TABLET 1 TABLET ORALLY DAILY NEEDED TAKING FLONASE 50 MCG/ACT SUSPENSION 2 SPRAYS IN EACH NOSTRIL NASALLY ONCE A DAY-TAKES NEEDED TAKING NAPROXEN 250 MG TABLET 1 TABLET WITH FOOD OR MILK ORALLY TWICE A DAY-TAJKES NEEDED TAKING METHOCARBAMOL 500 MG TABLET 1 TABLETS ORALLY EVERY 6 HRS, NOTES: TAKES TID TAKING LORATADINE 10 MG TABLET TAKE ONE TABLET BY MOUTH EVERY DAY TAKING AIRDUO RESPICLICK 113/14 113-14 MCG/ACT AEROSOL POWDER BREATH ACTIVATED INHALE ONE PUFF BY MOUTH TWICE A DAY NOT-TAKING ROPINIROLE HCL 5 MG TABLET 1 TABLET ORALLY THREE TIMES A DAY, NOTES: UNSURE OF DOSE NOT-TAKING SINGULAIR 10 MG TABLET TAKE 1 TABLET BY MOUTH EVERY EVENING , NOTES: DUPLICATE NOT-TAKING GABAPENTIN 800 MG TABLET TAKE ONE TABLET BY MOUTH THREE TIMES A DAY NOT-TAKING LEVOTHYROXINE SODIUM 25 MCG TABLET 1 TABLET IN THE MORNING ON AN EMPTY STOMACH ORALLY ONCE A DAY, NOTES: DUPLICATE MEDICATION LIST REVIEWED AND RECONCILED WITH THE PATIENT PAST MEDICAL HISTORY ASTHMA, MILD INTERMITTENT OSTEOARTHRITIS - DDD - FOLLOWS WITH [facility] ENVIRONMENTAL ALLERGIES HL VIT D DEF OBESITY B HIP OA S/P COLONOSCOPY NEG. 01/07/2016-DR. CHAPMAN F/U 10YR.S VENOUS INSUFFICIENCY RIGHT SHOULDER PAIN- MRI DONE ON Sunday08/11/19 BILATERAL HIP PAIN HYPOTHYROIDISM PENELOPE GERD VITAMIN B 12 DEFICIENCY ABNORMAL MRI LEFT FEMUR PER PT SYNCOPAL EPISODES- WILL USE HOLTER MONITOR IN DECEMBER ALLERGIES LATEX (FOR ALLERGY USE ONLY): HIVES - ALLERGY KEFLEX: ANAPHYLAXIS - ALLERGY NSAIDS: KIDNEY ISSUES - CONTRAINDICATION ENVIRONMENTAL: COUGH - ALLERGY SOCIAL HISTORY GENERAL: TOBACCO USE ARE YOU A:FORMER SMOKER HOW LONG HAS IT BEEN SINCE YOU LAST SMOKED?> 10 YEARS 8 YEARS SINCE SHE SMOKED LATEX QUESTIONNAIRE LATEX ALLERGY : HAVE YOU EVER DEVELOPED ANY TYPE OF REACTION AFTER HANDLING LATEX PRODUCTS SUCH RUBBER GLOVES, CONDOMS, DIAPHRAGMS, BALLOONS, SOCKS, OR UNDERWEAR?YES HIVES, BLISTERS AND BLEEDS. - PLEASE INDICATE :RUBBER GLOVES, OTHER (DOCUMENT IN NOTES) ELASTIC IN CLOTHING LATEX ALLERGY : HAVE YOU EVER DEVELOPED ANY TYPE OF REACTION DURING OR AFTER DENTAL APPOINTMENT, VAGINAL/RECTAL EXAMINATION, SURGICAL PROCEDURE, OR ANY OTHER EXPOSURE?NO LATEX RISK : HAVE YOU EVER HAD ANY DIFFICULTY BREATHING OR HIVES AFTER EATING OR HANDLING ANY FRUITS, OR VEGETABLES; SUCH KIWI, BANANAS, STONE FRUITS, OR CHESTNUTSNO LATEX RISK : DO YOU HAVE A PREVIOUS PERSONAL HISTORY OF MORE THAN NINE SURGERIES, SPINA BIFIDA, OR REPEATED CATHERIZATIONS? NO LATEX RISK : ARE YOU FREQUENTLY EXPOSED TO LATEX PRODUCTS IN YOUR OCCUPATION?NO DATE ASKED : 05/03/2021 ALCOHOL USE: YES; VERY MINIMAL. BMI CARE GOAL FOLLOW-UP ABOVE NORMAL BMI FOLLOW-UPDIETARY MANAGEMENT EDUCATION, GUIDANCE, AND COUNSELING ALCOHOL SCREENING DID YOU HAVE A DRINK CONTAINING ALCOHOL IN THE PAST YEAR?YES HOW OFTEN DID YOU HAVE A DRINK CONTAINING ALCOHOL IN THE PAST YEAR?TWO TO FOUR TIMES A MONTH (2 POINTS) HOW MANY DRINKS DID YOU HAVE ON A TYPICAL DAY WHEN YOU WERE DRINKING IN THE PAST YEAR?7 TO 9 (3 POINTS) HOW OFTEN DID YOU HAVE SIX OR MORE DRINKS ON ONE OCCASION IN THE PAST YEAR?MONTHLY (2 POINTS) POINTS7 INTERPRETATIONPOSITIVE RECREATIONAL DRUG USE DRUG USE?NO CAFFEINE CAFFEINE USE?YES 1 SODA SEXUAL HX HAD SEX IN THE LAST 12 MONTHS (VAGINAL, ORAL, OR ANAL)?YES WITHMEN ONLY USE PROTECTION?YES HIV / HEP-C SCREENING HIV TEST OFFERED TO PATIENT:YES DATE OFFERED:03/19/2019 TEST ACCEPTED:NO REASON:PATIENT DECLINED BROCHURE PROVIDED TO PATIENTYES HEP-C TEST OFFERED TO PATIENT:YES N/A DATE OFFERED:03/19/2019 TEST ACCEPTED:NO REASON:PATIENT DECLINED SHINTO [id number] NONE LANGUAGE LANGUAGES SPOKEN:SPANISH EDUCATION LEVEL OF EDUCATION:NOT FINISHED HIGH SCHOOL LEARNING BARRIERS / SPECIAL NEEDS CHANGE FROM LAST VISIT?NO BARRIERS TO LEARNING?NO HEARING IMPAIRED?NO VISION IMPAIRED?YES :CORRECTIVE LENSES READING COGNITIVELY IMPAIRED?NO READINESS TO LEARN?YES LEARNING PREFERENCES?NO LEARNING CAPABILITIES PRESENT?YES EMOTIONAL BARRIERS?NO SPECIAL DEVICES?YES :CANE, WALKER NEEDED MULE SPINNER NEEDED?NO DOMESTIC VIOLENCE DO YOU FEEL SAFE IN YOUR ENVIRONMENT?YES OCCUPATION: UNEMPLOYED. DIET: REGULAR. MARITAL STATUS: SINGLE. - PFS REFERRAL NEEDED?NO CLERGY REFERRAL NEEDED?NO PUBLIC HEALTH REFERRAL NEEDED?NO HAS THE PATIENT BEEN EDUCATED REGARDING HIS/HER PLAN OF CARE?YES HAS THE PATIENT BEEN EDUCATED REGARDING PAIN, THE RISK FOR PAIN, THE IMPORTANCE OF EFFECTIVE PAIN MANAGEMENT, AND THE PAIN ASSESSMENT PROCESS?YES ADVANCE DIRECTIVE ADVANCE DIRECTIVE DISCUSSED WITH PATIENT:YES HCP CARLA DILLON [phone], 02/03/20 PRE-PROCEDURE CALL COMPLETED. AD. VITAL SIGNS WT 301.2 LBS, WT-KG 136.62 KG, HT 68 IN, BMI 45.79 INDEX, BP 133/82 MM HG, HR 105 /MIN, RR 18 /MIN, TEMP 97.4 F, OXYGEN SAT % 97%, SAFE IN ENV? (Y/N) YES, NA INITIALS AW 1348, REVIEWED BY: KG. EXAMINATION GENERAL: THE PATIENT IS ALERT, ORIENTED TIMES THREE AND COOPERATIVE. LUNGS ARE CLEAR TO AUSCULTATION. HEART SHOWS REGULAR RHYTHM, NO MURMURS AND NO GALLOPS. ASSESSMENTS SACROILIITIS, NOT ELSEWHERE CLASSIFIED - M46.1 (PRIMARY) TREATMENT SACROILIITIS, NOT ELSEWHERE CLASSIFIED [facility] FLUORO GUIDANCE (PAIN)[id number] COMPLETION OF PROCEDURAL VISIT WHEN MEETS [id number] MEDICATION: PAIN VALIUM TAB 10MG ORALLY (DIAZEPAM)[id number] MCCOY 05/04/2021 2:22:59 PM > VERIFIED. MARTI HAMEED 05/04/2021 2:24:33 PM > GIVEN MEDICATION: PAIN OXYCODONE HCL TAB 10MG [id number],JAMIE L 05/04/2021 2:23:11 PM > VERIFIED. MARTI HAMEED 05/04/2021 2:24:56 PM > GIVEN OTHERS NOTES: 05/03/21 1745 PRE-PROCEDURE CALL COMPLETED. Jorge BOGGS RN. PROCEDURES PAIN NURSING RECORD PROCEDURE IN ROOM 1450, PHYSICIAN IN ROOM 1500, START 1508, FINISH 1516, PHYSICIAN OUT OF ROOM 1518, OUT OF ROOM 1525, PATIENT SHIELDED YES, SAFETY STRAP YES, PREP CHLOROPREP LOC: 1. ALERT, ORIENTED RESP: 1. REGULAR, NO DYSPNEA COLOR: 1. PINK SKIN: 1. WARM, DRY POSITION: 1. PRONE VITALS: 1440 P98 02 100% BP152/106 R18 AW LET NURSE KNOW ABOUT BP% O 1500 144/86 88 93% ON 18 RA 18 RESP 1515 146/86 89 92% ON RA 18 RESP 1530 1535 POST PROCEDURE IN RECOVERY AREA 167/68 88 94% ON RA 18 RESP PN SI PRE PROCEDURE DIAGNOSIS SACROILIITIS, SACROILIAC JOINT DYSFUNCTION POST PROCEDURE DIAGNOSIS SACROILIITIS, SACROILIAC JOINT DYSFUNCTION PROCEDURE BILATERAL SACROILIAC JOINT BLOCK SURGEON DR. HAIDER COSTELLO BARTENDERS NONE ANESTHESIA LOCAL PRE PROCEDURE NOTE THE PATIENT WITH HISTORY OF CHRONIC LOW BACK PAIN. I EVALUATED THE PATIENT AND REVIEWED THE CHART. I WENT OVER THE RISKS, ALTERNATIVES, AND BENEFITS ASSOCIATED WITH THIS PROCEDURE. THE PATIENT WOULD LIKE TO PROCEED AND GAVE CONSENT TO PERFORM THE PROCEDURE. THE PATIENT DENIES UNEXPLAINABLE WEIGHT LOSS, FEVER, CHILLS, OR NEW CHANGES IN URINARY OR BOWEL CONTROL. THE PATIENT IS COVID-19 NEGATIVE DESCRIPTION OF PROCEDURE THE PATIENT WAS BROUGHT TO THE PROCEDURE ROOM AND PLACED IN THE PRONE POSITION. THE LUMBOSACRAL AREA WAS CLEANED WITH CHLORAPREP SOLUTION AND DRAPED ASEPTICALLY. THE PROCEDURE WAS DONE UNDER STERILE CONDITIONS. A TIMEOUT WAS PERFORMED WHERE THE CONSENTED SITE WAS VERIFIED WITH EVERYONE IN THE ROOM. UNDER FLUOROSCOPIC GUIDANCE, THE TARGET POINT WAS SELECTED AT THE LOWER BORDER OF THE RIGHT AND LEFT SACROILIAC JOINT. TARGET POINT WAS SELECTED AFTER MEDIAL ROTATION AND TILT OF THE MAGNIFIER OR THE C-ARM. I CONFIRMED AGAIN THE SITE OF TARGET. LIDOCAINE 0.5% WAS USED TO NUMB THE SKIN AND THE SUBCUTANEOUS TISSUE BELOW IT. SPINAL NEEDLES, 22-GAUGE, WERE ADVANCED UNDER FLUOROSCOPIC GUIDANCE AND FOLLOWING PATIENT FEEDBACK UNTIL THE TARGETS WERE TOUCHED. THE POSITION OF THE NEEDLES WAS VERIFIED WITH AP AND OBLIQUE VIEWS. AFTER PROPER POSITION OF THE NEEDLES WAS ACHIEVED, ISOVUE-M DYE 30%, 0.1 ML, WAS INJECTED SHOWING ADEQUATE SPREAD OF THE DYE. KENALOG 20 MG WAS INJECTED AT EACH SITE. THEN, A SOLUTION OF 3.0 ML OF BUPIVACAINE 0.125% WAS USED TO FLUSH EACH NEEDLE. THE MEDICATIONS WERE VERIFIED WITH THE NURSE. THERE WAS NO EVIDENCE OF BLOOD, PARESTHESIA OR CEREBROSPINAL FLUID DURING THE PROCEDURE. THE PATIENT WAS SENT TO THE RECOVERY ROOM. THE PATIENT WAS MOVING THE EXTREMITIES AND DOING WELL. THERE WERE NO COMPLICATIONS DURING THE PROCEDURE. ESTIMATED BLOOD LOSS WAS LESS THAN 5 ML. FLUOROSCOPIC TIME WAS 40 SECONDS. POST PROCEDURE NOTE THE PROCEDURE DONE WAS DISCUSSED WITH THE PATIENT. THE PATIENT WILL BE SEEN IN A FOLLOW UP IN THE NEXT FEW WEEKS. I AM LOOKING FOR LONG LASTING PAIN RELIEF FOR THE PATIENT WITH THIS INTERVENTION. INSTRUCTIONS WERE GIVEN, QUESTIONS WERE ANSWERED, AND THE PATIENT EXPRESSED UNDERSTANDING AND AGREES WITH THE PLAN. I, GERA FINK, DOCUMENTED THE ABOVE INFORMATION ACTING A SCRIBE FOR DR. COSTELLO. I HAVE REVIEWED THE ABOVE DOCUMENT, WRITTEN BY GERA FINK, [employer] DEAN, AND I VERIFY THAT IT IS ACCURATE PROCEDURE CODES 54969 INJECT SACROILIAC JOINT, MODIFIERS: 50 DISPOSITION & COMMUNICATION FOLLOW UP FOLLOW UP WITH GLASS WOOL BLANKET MACHINE FEEDER (REASON: POST BILATERAL SACROILIAC JOINT BLOCK) ELECTRONICALLY SIGNED BY HAIDER COSTELLO MD, MD ON 05/05/2021 AT 12:38 PM EDT DISCLAIMER : THIS IS A VISIT SUMMARY EXTRACTED FROM THE [employer] CHART. IT IS NOT A COPY OF THE [employer] PROGRESS NOTE. [email or web address]
== END ==
LOC: M PAIN 14:20
PROVIDERS: ATTEND Anesthesiology
DX: M46.1 Sacroiliitis, not elsewhere classified (principal); G47.33 Obstructive sleep apnea (adult) (pediatric); J45.20 Mild intermittent asthma, uncomplicated; E55.9 Vitamin D deficiency, unspecified; E03.9 Hypothyroidism, unspecified; K21.9 Gastro-esophageal reflux disease without esophagitis; Z87.891 Personal history of nicotine dependence; Z88.1 Allergy status to other antibiotic agents; Z88.6 Allergy status to analgesic agent; Z91.040 Latex allergy status; Z79.891 Long term (current) use of opiate analgesic; Z79.899 Other long term (current) drug therapy
CPT/HCPCS: 27096; J3301; Q9967

== ENCOUNTER → 2021-07-27 | Outpatient (CLI) | payer OTHER ==
[~2021-07-27] MED LIST changes: -BUPIVACAINE HCL 0.25% 30ML VIAL As Ordered ONE; -ISOVUE-M 300 61% 15ML VIAL As Ordered ONE; -LIDOCAINE 1% SDV 30ML VIAL As Ordered ONE; -TRIAMCINOLONE ACETONIDE SUSP 40 MG/ML VIAL (J3301) As Ordered ONE; -diazePAM 5MG TABLET As Ordered ONE; -oxyCODONE 5MG TAB As Ordered ONE
== END ==
LOC: M PAIN 11:15
PROVIDERS: ATTEND Anesthesiology
DX: M50.10 Cervical disc disorder with radiculopathy, unspecified cervical region (principal); G89.29 Other chronic pain; J45.20 Mild intermittent asthma, uncomplicated; E55.9 Vitamin D deficiency, unspecified; E03.9 Hypothyroidism, unspecified; G47.33 Obstructive sleep apnea (adult) (pediatric); K21.9 Gastro-esophageal reflux disease without esophagitis; Z87.891 Personal history of nicotine dependence; Z88.1 Allergy status to other antibiotic agents; Z88.6 Allergy status to analgesic agent; Z91.040 Latex allergy status; E66.01 Morbid (severe) obesity due to excess calories; Z68.42 Body mass index [BMI] 45.0-49.9, adult; Z79.891 Long term (current) use of opiate analgesic; Z79.899 Other long term (current) drug therapy

== ENCOUNTER → 2021-08-30 | Outpatient (CLI) | payer OTHER ==
[~2021-08-30] MED LIST changes: +BENA1TAB23 PO; -BENA5TA PO
== END ==
LOC: M PLAIMG 10:43
PROVIDERS: ATTEND Anesthesiology
DX: M50.11 Cervical disc disorder with radiculopathy, high cervical region (principal); M50.121 Cervical disc disorder at C4-C5 level with radiculopathy; M50.122 Cervical disc disorder at C5-C6 level with radiculopathy; M50.123 Cervical disc disorder at C6-C7 level with radiculopathy; M47.22 Other spondylosis with radiculopathy, cervical region

== ENCOUNTER → 2021-08-31 | Outpatient (CLI) | payer OTHER | LOC: M LABSMTC 09:14 | PROVIDERS: ATTEND Anesthesiology | DX: Z01.812 Encounter for preprocedural laboratory examination (principal); Z20.822 Contact with and (suspected) exposure to COVID-19 ==

== ENCOUNTER → 2021-09-05 | Outpatient (CLI) | payer OTHER ==
[~2021-09-05] MED LIST changes: -BENA1TAB23 PO; +BENA5TA PO; +ISOVUE-M 300 61% 15ML VIAL As Ordered ONE; +LIDOCAINE 1% SDV 30ML VIAL As Ordered ONE; +diazePAM 5MG TABLET As Ordered ONE; +diphenhydrAMINE 50MG/ML VIAL (J1200) As Ordered ONE; +methylPREDNISolone SUSP 40MG/ML 1ML VIAL (DEPO MEDROL) As Ordered ONE; +oxyCODONE 5MG TAB As Ordered ONE
--- NOTE | 2021-09-05 10:58 | REP ---
INDICATION: CERVICAL EPIDURAL STEROID INJECTION. COMPARISON: None. TECHNIQUE: Two C-arm views cervical spine. FINDINGS: A needle overlies the junction of the cervical and thoracic spine. IMPRESSION: 7 seconds of fluoroscopy time was utilized. <Electronically signed by Max Kilgore > 09/05/21 7392
== END ==
LOC: M PAIN 08:30
PROVIDERS: ATTEND Anesthesiology
DX: M50.10 Cervical disc disorder with radiculopathy, unspecified cervical region (principal); J45.20 Mild intermittent asthma, uncomplicated; E55.9 Vitamin D deficiency, unspecified; E03.9 Hypothyroidism, unspecified; G47.33 Obstructive sleep apnea (adult) (pediatric); K21.9 Gastro-esophageal reflux disease without esophagitis; Z87.891 Personal history of nicotine dependence; Z88.1 Allergy status to other antibiotic agents; Z88.6 Allergy status to analgesic agent; Z91.040 Latex allergy status; E66.01 Morbid (severe) obesity due to excess calories; Z68.41 Body mass index [BMI] 40.0-44.9, adult; Z79.891 Long term (current) use of opiate analgesic; Z79.899 Other long term (current) drug therapy
CPT/HCPCS: 62321; J1030; J1200; Q9967

== ENCOUNTER → 2021-10-04 | Outpatient (CLI) | payer OTHER ==
[~2021-10-04] MED LIST changes: +BENA1TAB23 PO; -BENA5TA PO; -ISOVUE-M 300 61% 15ML VIAL As Ordered ONE; -LIDOCAINE 1% SDV 30ML VIAL As Ordered ONE; -diazePAM 5MG TABLET As Ordered ONE; -diphenhydrAMINE 50MG/ML VIAL (J1200) As Ordered ONE; -methylPREDNISolone SUSP 40MG/ML 1ML VIAL (DEPO MEDROL) As Ordered ONE; -oxyCODONE 5MG TAB As Ordered ONE
== END ==
LOC: M PAIN 11:00
PROVIDERS: ATTEND Nurse Practitioner Family
DX: G57.92 Unspecified mononeuropathy of left lower limb (principal); G89.29 Other chronic pain; G47.30 Sleep apnea, unspecified; J45.20 Mild intermittent asthma, uncomplicated; E55.9 Vitamin D deficiency, unspecified; E03.9 Hypothyroidism, unspecified; K21.9 Gastro-esophageal reflux disease without esophagitis; Z87.891 Personal history of nicotine dependence; Z88.1 Allergy status to other antibiotic agents; Z88.6 Allergy status to analgesic agent; Z91.040 Latex allergy status; Z79.891 Long term (current) use of opiate analgesic; Z79.899 Other long term (current) drug therapy

== ENCOUNTER → 2021-11-01 | Outpatient (CLI) | payer OTHER | LOC: M WHC 12:04 | PROVIDERS: ATTEND Physician Assistant Medical | DX: Z12.31 Encounter for screening mammogram for malignant neoplasm of breast (principal); Z80.0 Family history of malignant neoplasm of digestive organs ==

== ENCOUNTER → 2022-03-06 | Outpatient (CLI) | payer OTHER | LOC: M PAIN 09:00 | PROVIDERS: ATTEND Anesthesiology | DX: M48.02 Spinal stenosis, cervical region (principal); M50.10 Cervical disc disorder with radiculopathy, unspecified cervical region; G89.29 Other chronic pain; J45.20 Mild intermittent asthma, uncomplicated; E55.9 Vitamin D deficiency, unspecified; E03.9 Hypothyroidism, unspecified; G47.33 Obstructive sleep apnea (adult) (pediatric); K21.9 Gastro-esophageal reflux disease without esophagitis; Z88.1 Allergy status to other antibiotic agents; Z88.6 Allergy status to analgesic agent; Z91.040 Latex allergy status; E66.01 Morbid (severe) obesity due to excess calories; Z68.41 Body mass index [BMI] 40.0-44.9, adult; Z79.891 Long term (current) use of opiate analgesic; Z79.899 Other long term (current) drug therapy ==

== ENCOUNTER → 2022-03-06 | Outpatient (CLI) | payer OTHER | LOC: M PAIN 11:15 | PROVIDERS: ATTEND Anesthesiology | DX: M48.02 Spinal stenosis, cervical region (principal) ==

== ENCOUNTER → 2022-05-29 | Outpatient (CLI) | payer OTHER | LOC: M PLAIMG 12:53 | PROVIDERS: ATTEND Physician Assistant | DX: S82.65XD Nondisplaced fracture of lateral malleolus of left fibula, subsequent encounter for closed fracture with routine healing (principal); M85.872 Other specified disorders of bone density and structure, left ankle and foot ==

== ENCOUNTER → 2022-07-04 | Outpatient (CLI) | payer OTHER ==
[2022-07-04 17:49] LABS: BASO % 0.4 % (0.0-1.0); EOS # 0.1 10^3/uL (0.0-0.5); EOS % 1.3 % (0.0-3.0); HEMOGLOBIN 12.2 g/dl (12.0-15.5); LYMPH % 26.9 % (24.0-44.0); MEAN CORPUSCULAR HEMOGLOBIN 28.9 pg (27.0-33.0); MEAN CORPUSCULAR HGB CONC 31.3 g/dl (32.0-36.5); MEAN CORPUSCULAR VOLUME 92.4 fl (80.0-96.0); MONO # 0.5 10^3/uL (0.0-0.8); NEUTROPHILS # 4.8 10^3/uL (1.5-8.5); PLATELET COUNT, AUTOMATED 209 10^3/uL (150-450); RED BLOOD COUNT 4.22 10^6/uL (4.00-5.40); WHITE BLOOD COUNT 7.5 10^3/uL (4.0-10.0)
[2022-07-04 17:53] LABS: HEMATOCRIT 39.5 % (36.0-47.0)
[2022-07-04 18:28] LABS: ALBUMIN 3.7 GM/DL (3.2-5.2); ALT/SGPT 33 U/L (12-78); BILIRUBIN,TOTAL 0.3 MG/DL (0.2-1.0); BLOOD UREA NITROGEN 10 MG/DL (7-18); CALCIUM LEVEL 9.1 MG/DL (8.5-10.1); CARBON DIOXIDE LEVEL 28 MEQ/L (21-32); CHLORIDE LEVEL 104 MEQ/L (98-107); CHOLESTEROL LEVEL 178 MG/DL (<200); CHOLESTEROL RISK RATIO 3.955 (<5); CREATININE FOR GFR 0.78 MG/DL (0.55-1.30); FREE T4 0.89 NG/DL (0.76-1.46); GLOMERULAR FILTRATION RATE > 60.0 (>51); GLUCOSE, FASTING 105 MG/DL (70-100); HDL CHOLESTEROL 45 MG/DL (>40); LDL CHOLESTEROL 83 MG/DL (<100); MAGNESIUM LEVEL 1.9 MG/DL (1.8-2.4); NON-HDL-C 133 MG/DL; POTASSIUM SERUM 4.3 MEQ/L (3.5-5.1); SODIUM LEVEL 138 MEQ/L (136-145); TOTAL PROTEIN 7.3 GM/DL (6.4-8.2); TRIGLYCERIDES LEVEL 250 MG/DL (<150)
[2022-07-06 00:07] LABS: TOTAL 25(OH) VITAMIN D 37.6 NG/ML (30.0-100.0)
== END ==
LOC: M PLALAB 14:37
PROVIDERS: ATTEND Physician Assistant Medical
DX: E53.8 Deficiency of other specified B group vitamins (principal); E83.42 Hypomagnesemia; E78.2 Mixed hyperlipidemia; K21.9 Gastro-esophageal reflux disease without esophagitis; E03.9 Hypothyroidism, unspecified; E55.9 Vitamin D deficiency, unspecified

== ENCOUNTER → 2022-08-02 | Outpatient (CLI) | payer OTHER ==
[~2022-08-02] MED LIST changes: +ISOVUE-300 61% 50ML VIAL ONE; +LIDOCAINE 1% MDV 20ML VIAL ONE; +methylPREDNISolone SUSP 40MG/ML 1ML VIAL (DEPO MEDROL) ONE
== END ==
LOC: M PLAIMG 13:12
PROVIDERS: ATTEND Physician Assistant
DX: M19.172 Post-traumatic osteoarthritis, left ankle and foot (principal)
CPT/HCPCS: 20605; 76000; J1030; Q9967

== ENCOUNTER → 2022-08-03 | Outpatient (CLI) | payer OTHER ==
[~2022-08-03] MED LIST changes: -ISOVUE-300 61% 50ML VIAL ONE; -LIDOCAINE 1% MDV 20ML VIAL ONE; -methylPREDNISolone SUSP 40MG/ML 1ML VIAL (DEPO MEDROL) ONE
== END ==
LOC: M PLAIMG 15:19
PROVIDERS: ATTEND Physician Assistant
DX: R07.81 Pleurodynia (principal); W19.XXXA Unspecified fall, initial encounter

== ENCOUNTER → 2022-08-10 | Outpatient (CLI) | payer OTHER ==
[2022-08-10 17:16] LABS: BASO % 0.4 % (0.0-1.0); EOS # 0.1 10^3/uL (0.0-0.5); EOS % 1.5 % (0.0-3.0); HEMATOCRIT 39.5 % (36.0-47.0); LYMPH # 1.2 10^3/uL (1.5-5.0); LYMPH % 21.8 % (24.0-44.0); MEAN CORPUSCULAR HEMOGLOBIN 28.5 pg (27.0-33.0); MEAN CORPUSCULAR HGB CONC 30.4 g/dl (32.0-36.5); MEAN CORPUSCULAR VOLUME 93.8 fl (80.0-96.0); MONO # 0.5 10^3/uL (0.0-0.8); MONO % 9.5 % (2.0-8.0); NEUTROPHILS # 3.6 10^3/uL (1.5-8.5); NEUTROPHILS % 66.4 % (36.0-66.0); PLATELET COUNT, AUTOMATED 188 10^3/uL (150-450); RED BLOOD COUNT 4.21 10^6/uL (4.00-5.40); WHITE BLOOD COUNT 5.5 10^3/uL (4.0-10.0)
[2022-08-10 17:42] LABS: ERYTHROCYTE SEDIMENTATION RATE 41 mm/hr (0-30)
[2022-08-10 17:55] LABS: ALBUMIN 3.6 GM/DL (3.2-5.2); ALT/SGPT 35 U/L (12-78); BILIRUBIN,TOTAL 0.3 MG/DL (0.2-1.0); BLOOD UREA NITROGEN 9 MG/DL (7-18); C REACTIVE PROTEIN QUANTITATIV 2.23 MG/DL (0.00-0.30); CALCIUM LEVEL 8.5 MG/DL (8.5-10.1); CARBON DIOXIDE LEVEL 28 MEQ/L (21-32); CHLORIDE LEVEL 106 MEQ/L (98-107); CREATININE FOR GFR 0.91 MG/DL (0.55-1.30); GLOMERULAR FILTRATION RATE > 60.0 (>51); GLUCOSE, FASTING 123 MG/DL (70-100); LIPASE 97 U/L (73-393); POTASSIUM SERUM 3.9 MEQ/L (3.5-5.1); SODIUM LEVEL 141 MEQ/L (136-145); TOTAL PROTEIN 6.9 GM/DL (6.4-8.2)
== END ==
LOC: M PLALAB 14:45
PROVIDERS: ATTEND Physician Assistant
DX: R10.84 Generalized abdominal pain (principal); R07.81 Pleurodynia; W19.XXXA Unspecified fall, initial encounter

== ENCOUNTER → 2022-08-14 | Outpatient (CLI) | payer OTHER | LOC: M LABSMTC 11:32 | PROVIDERS: ATTEND Anesthesiology | DX: Z01.812 Encounter for preprocedural laboratory examination (principal); Z20.822 Contact with and (suspected) exposure to COVID-19 ==

== ENCOUNTER → 2022-08-16 | Outpatient (CLI) | payer OTHER ==
[~2022-08-16] MED LIST changes: +GASTROGRAFIN SOLUTION 30ML As Ordered ONE; +ISOVUE-370 76% 100ML VIAL As Ordered ONE
== END ==
LOC: M RAD 16:10
PROVIDERS: ATTEND Surgery
DX: R10.84 Generalized abdominal pain (principal); R16.0 Hepatomegaly, not elsewhere classified; K76.0 Fatty (change of) liver, not elsewhere classified

== ENCOUNTER → 2022-08-17 | Outpatient (CLI) | payer OTHER ==
[~2022-08-17] MED LIST changes: -GASTROGRAFIN SOLUTION 30ML As Ordered ONE; -ISOVUE-370 76% 100ML VIAL As Ordered ONE; +ISOVUE-M 300 61% 15ML VIAL As Ordered ONE; +LIDOCAINE 1% SDV 30ML VIAL As Ordered ONE; +diazePAM 5MG TABLET As Ordered ONE; +diphenhydrAMINE 25MG CAP As Ordered ONE; +methylPREDNISolone SUSP 40MG/ML 1ML VIAL (DEPO MEDROL) As Ordered ONE; +oxyCODONE 5MG TAB As Ordered ONE
== END ==
LOC: M PAIN 14:00
PROVIDERS: ATTEND Anesthesiology
DX: M50.10 Cervical disc disorder with radiculopathy, unspecified cervical region (principal); G89.29 Other chronic pain; J45.20 Mild intermittent asthma, uncomplicated; E55.9 Vitamin D deficiency, unspecified; E03.9 Hypothyroidism, unspecified; G47.33 Obstructive sleep apnea (adult) (pediatric); K21.9 Gastro-esophageal reflux disease without esophagitis; Z87.891 Personal history of nicotine dependence; Z88.1 Allergy status to other antibiotic agents; Z88.6 Allergy status to analgesic agent; Z91.040 Latex allergy status; E66.01 Morbid (severe) obesity due to excess calories; Z68.41 Body mass index [BMI] 40.0-44.9, adult; Z79.890 Hormone replacement therapy; Z79.899 Other long term (current) drug therapy
CPT/HCPCS: 62321; J1030

== ENCOUNTER → 2022-08-28 | Outpatient (CLI) | payer OTHER ==
[~2022-08-28] MED LIST changes: -ISOVUE-M 300 61% 15ML VIAL As Ordered ONE; -LIDOCAINE 1% SDV 30ML VIAL As Ordered ONE; -diazePAM 5MG TABLET As Ordered ONE; -diphenhydrAMINE 25MG CAP As Ordered ONE; -methylPREDNISolone SUSP 40MG/ML 1ML VIAL (DEPO MEDROL) As Ordered ONE; -oxyCODONE 5MG TAB As Ordered ONE
== END ==
LOC: M PAIN 10:00
PROVIDERS: ATTEND Anesthesiology
DX: G57.82 Other specified mononeuropathies of left lower limb (principal); M25.552 Pain in left hip; M54.50 Low back pain, unspecified; M54.2 Cervicalgia; J45.20 Mild intermittent asthma, uncomplicated; E55.9 Vitamin D deficiency, unspecified; E66.9 Obesity, unspecified; M16.0 Bilateral primary osteoarthritis of hip; I87.2 Venous insufficiency (chronic) (peripheral); M25.511 Pain in right shoulder; E03.9 Hypothyroidism, unspecified; G47.33 Obstructive sleep apnea (adult) (pediatric); K21.9 Gastro-esophageal reflux disease without esophagitis; E53.8 Deficiency of other specified B group vitamins; Z87.891 Personal history of nicotine dependence; Z68.41 Body mass index [BMI] 40.0-44.9, adult; Z79.890 Hormone replacement therapy; Z79.899 Other long term (current) drug therapy; Z79.891 Long term (current) use of opiate analgesic; Z88.1 Allergy status to other antibiotic agents; Z88.6 Allergy status to analgesic agent; Z91.040 Latex allergy status

== ENCOUNTER → 2022-09-04 | Outpatient (CLI) | payer OTHER | LOC: M RAD 08:47 | PROVIDERS: ATTEND Anesthesiology | DX: M51.26 Other intervertebral disc displacement, lumbar region (principal); M47.816 Spondylosis without myelopathy or radiculopathy, lumbar region; M43.17 Spondylolisthesis, lumbosacral region ==

== ENCOUNTER → 2022-10-30 | Outpatient (CLI) | payer OTHER ==
[~2022-10-30] MED LIST changes: +BUPIVACAINE HCL 0.25% 30ML VIAL As Ordered ONE; +LIDOCAINE 1% SDV 30ML VIAL As Ordered ONE; +TRIAMCINOLONE ACETONIDE SUSP 40MG/ML 1ML VIAL As Ordered ONE; +diazePAM 5MG TABLET As Ordered ONE; +oxyCODONE 5MG TAB As Ordered ONE
== END ==
LOC: M PAIN 11:00
PROVIDERS: ATTEND Anesthesiology
DX: G57.92 Unspecified mononeuropathy of left lower limb (principal); J45.20 Mild intermittent asthma, uncomplicated; M19.90 Unspecified osteoarthritis, unspecified site; E55.9 Vitamin D deficiency, unspecified; E66.9 Obesity, unspecified; M16.0 Bilateral primary osteoarthritis of hip; I87.2 Venous insufficiency (chronic) (peripheral); M25.511 Pain in right shoulder; E03.9 Hypothyroidism, unspecified; G47.33 Obstructive sleep apnea (adult) (pediatric); K21.9 Gastro-esophageal reflux disease without esophagitis; E53.8 Deficiency of other specified B group vitamins; Z87.891 Personal history of nicotine dependence; Z79.890 Hormone replacement therapy; Z79.891 Long term (current) use of opiate analgesic; Z79.899 Other long term (current) drug therapy; Z68.41 Body mass index [BMI] 40.0-44.9, adult

== ENCOUNTER → 2022-10-30 | Outpatient (CLI) | payer OTHER ==
[~2022-10-30] MED LIST changes: -BUPIVACAINE HCL 0.25% 30ML VIAL As Ordered ONE; -LIDOCAINE 1% SDV 30ML VIAL As Ordered ONE; -TRIAMCINOLONE ACETONIDE SUSP 40MG/ML 1ML VIAL As Ordered ONE; -diazePAM 5MG TABLET As Ordered ONE; -oxyCODONE 5MG TAB As Ordered ONE
== END ==
LOC: M LABSMTC 11:10
PROVIDERS: ATTEND Anesthesiology
DX: Z01.818 Encounter for other preprocedural examination (principal)

== ENCOUNTER → 2022-11-15 | Outpatient (CLI) | payer OTHER | LOC: M PAIN 09:30 | PROVIDERS: ATTEND Anesthesiology | DX: G89.29 Other chronic pain (principal); M51.36 Other intervertebral disc degeneration, lumbar region; M25.552 Pain in left hip; M54.50 Low back pain, unspecified; J45.20 Mild intermittent asthma, uncomplicated; E55.9 Vitamin D deficiency, unspecified; E03.9 Hypothyroidism, unspecified; G47.33 Obstructive sleep apnea (adult) (pediatric); K21.9 Gastro-esophageal reflux disease without esophagitis; Z87.891 Personal history of nicotine dependence; Z88.1 Allergy status to other antibiotic agents; Z88.6 Allergy status to analgesic agent; Z91.040 Latex allergy status; Z79.890 Hormone replacement therapy; Z79.899 Other long term (current) drug therapy ==

== ENCOUNTER → 2022-12-19 | Outpatient (CLI) | payer OTHER ==
[~2022-12-19] MED LIST changes: +MONT-5 PO; -SING10TA32 PO
== END ==
LOC: M PAIN 15:45
PROVIDERS: ATTEND Anesthesiology
DX: M79.10 Myalgia, unspecified site (principal); M54.2 Cervicalgia; M25.552 Pain in left hip; M53.3 Sacrococcygeal disorders, not elsewhere classified; J45.20 Mild intermittent asthma, uncomplicated; E55.9 Vitamin D deficiency, unspecified; E03.9 Hypothyroidism, unspecified; G47.33 Obstructive sleep apnea (adult) (pediatric); K21.9 Gastro-esophageal reflux disease without esophagitis; Z87.891 Personal history of nicotine dependence; Z88.2 Allergy status to sulfonamides; Z88.6 Allergy status to analgesic agent; Z91.040 Latex allergy status; E66.01 Morbid (severe) obesity due to excess calories; Z68.42 Body mass index [BMI] 45.0-49.9, adult; Z79.890 Hormone replacement therapy; Z79.899 Other long term (current) drug therapy
CPT/HCPCS: 76000; G0463

== ENCOUNTER → 2023-03-21 | Outpatient (CLI) | payer OTHER | LOC: M PAIN 13:45 → M TMPAIN 13:45 | PROVIDERS: ATTEND Anesthesiology | DX: M79.10 Myalgia, unspecified site (principal); M79.18 Myalgia, other site; M54.2 Cervicalgia; J45.20 Mild intermittent asthma, uncomplicated; E55.9 Vitamin D deficiency, unspecified; E66.9 Obesity, unspecified; M16.0 Bilateral primary osteoarthritis of hip; E03.9 Hypothyroidism, unspecified; G47.33 Obstructive sleep apnea (adult) (pediatric); K21.9 Gastro-esophageal reflux disease without esophagitis; E53.8 Deficiency of other specified B group vitamins; Z79.890 Hormone replacement therapy; Z87.891 Personal history of nicotine dependence; Z91.040 Latex allergy status; Z88.1 Allergy status to other antibiotic agents; Z88.6 Allergy status to analgesic agent ==

== ENCOUNTER → 2023-04-10 | Outpatient (CLI) | payer OTHER ==
[~2023-04-10] MED LIST changes: -ROPI0.5T3 PO; +ROPI0.5T33 PO
== END ==
LOC: M RAD 07:19
PROVIDERS: ATTEND Anesthesiology
DX: M25.452 Effusion, left hip (principal); M47.817 Spondylosis without myelopathy or radiculopathy, lumbosacral region

== ENCOUNTER → 2023-04-26 | Outpatient (CLI) | payer OTHER ==
[~2023-04-26] MED LIST changes: +TRIAMCINOLONE ACETONIDE SUSP 40MG/ML 1ML VIAL As Ordered ONE; +diazePAM 5MG TABLET As Ordered ONE; +oxyCODONE 5MG TAB As Ordered ONE
== END ==
LOC: M PAIN 13:00
PROVIDERS: ATTEND Anesthesiology
DX: M79.18 Myalgia, other site (principal); G89.29 Other chronic pain; J45.20 Mild intermittent asthma, uncomplicated; E55.9 Vitamin D deficiency, unspecified; E66.9 Obesity, unspecified; M16.0 Bilateral primary osteoarthritis of hip; E03.9 Hypothyroidism, unspecified; K21.9 Gastro-esophageal reflux disease without esophagitis; E53.8 Deficiency of other specified B group vitamins; Z87.891 Personal history of nicotine dependence; Z79.891 Long term (current) use of opiate analgesic; Z79.899 Other long term (current) drug therapy; Z88.1 Allergy status to other antibiotic agents; Z88.6 Allergy status to analgesic agent; Z91.040 Latex allergy status; Z68.41 Body mass index [BMI] 40.0-44.9, adult
CPT/HCPCS: 20552; J0665; J3301

== ENCOUNTER → 2023-06-22 | Outpatient (CLI) | payer OTHER ==
[~2023-06-22] MED LIST changes: -TRIAMCINOLONE ACETONIDE SUSP 40MG/ML 1ML VIAL As Ordered ONE; -diazePAM 5MG TABLET As Ordered ONE; -oxyCODONE 5MG TAB As Ordered ONE
== END ==
LOC: M PAIN 11:00
PROVIDERS: ATTEND Nurse Practitioner Family
DX: G57.92 Unspecified mononeuropathy of left lower limb (principal); G89.29 Other chronic pain; Z87.891 Personal history of nicotine dependence; Z88.1 Allergy status to other antibiotic agents; Z88.6 Allergy status to analgesic agent; Z91.040 Latex allergy status; E66.01 Morbid (severe) obesity due to excess calories; Z68.41 Body mass index [BMI] 40.0-44.9, adult; Z79.899 Other long term (current) drug therapy

== ENCOUNTER → 2023-07-31 | Outpatient (CLI) | payer OTHER ==
[~2023-07-31] MED LIST changes: +ISOVUE-M 300 61% 15ML VIAL As Ordered ONE; +LIDOCAINE 1% SDV 30ML VIAL As Ordered ONE; +TRIAMCINOLONE ACETONIDE SUSP 40MG/ML 1ML VIAL As Ordered ONE; +diazePAM 5MG TABLET As Ordered ONE; +oxyCODONE 5MG TAB As Ordered ONE
== END ==
LOC: M PAIN 11:30
PROVIDERS: ATTEND Anesthesiology
DX: G57.92 Unspecified mononeuropathy of left lower limb (principal); Z87.891 Personal history of nicotine dependence; Z88.1 Allergy status to other antibiotic agents; Z88.6 Allergy status to analgesic agent; Z91.040 Latex allergy status; E66.01 Morbid (severe) obesity due to excess calories; Z68.41 Body mass index [BMI] 40.0-44.9, adult; Z79.899 Other long term (current) drug therapy
CPT/HCPCS: 64425; J0665; J3301; Q9967

== ENCOUNTER → 2023-08-16 | Outpatient (CLI) | payer OTHER ==
[~2023-08-16] MED LIST changes: -ISOVUE-M 300 61% 15ML VIAL As Ordered ONE; -LIDOCAINE 1% SDV 30ML VIAL As Ordered ONE; -TRIAMCINOLONE ACETONIDE SUSP 40MG/ML 1ML VIAL As Ordered ONE; -diazePAM 5MG TABLET As Ordered ONE; -oxyCODONE 5MG TAB As Ordered ONE
== END ==
LOC: M PAIN 13:00
PROVIDERS: ATTEND Anesthesiology
DX: M53.3 Sacrococcygeal disorders, not elsewhere classified (principal); G89.29 Other chronic pain; G57.92 Unspecified mononeuropathy of left lower limb; R10.2 Pelvic and perineal pain; Z87.891 Personal history of nicotine dependence; Z88.1 Allergy status to other antibiotic agents; Z88.6 Allergy status to analgesic agent; Z91.040 Latex allergy status; E66.01 Morbid (severe) obesity due to excess calories; Z68.41 Body mass index [BMI] 40.0-44.9, adult; Z79.899 Other long term (current) drug therapy

== ENCOUNTER → 2023-09-18 | Outpatient (CLI) | payer OTHER ==
[~2023-09-18] MED LIST changes: +ISOVUE-M 300 61% 15ML VIAL As Ordered ONE; +LIDOCAINE 1% SDV 30ML VIAL As Ordered ONE; +TRIAMCINOLONE ACETONIDE SUSP 40MG/ML 1ML VIAL As Ordered ONE; +diazePAM 5MG TABLET As Ordered ONE; +oxyCODONE 5MG TAB As Ordered ONE
== END ==
LOC: M PAIN 12:45
PROVIDERS: ATTEND Anesthesiology
DX: M46.1 Sacroiliitis, not elsewhere classified (principal); G89.29 Other chronic pain; Z87.891 Personal history of nicotine dependence; Z88.1 Allergy status to other antibiotic agents; Z88.6 Allergy status to analgesic agent; Z91.040 Latex allergy status; E66.01 Morbid (severe) obesity due to excess calories; Z68.41 Body mass index [BMI] 40.0-44.9, adult; Z79.899 Other long term (current) drug therapy
CPT/HCPCS: 27096; J0665; J3301; Q9967

== ENCOUNTER → 2023-10-18 | Outpatient (CLI) | payer OTHER ==
[~2023-10-18] MED LIST changes: -ISOVUE-M 300 61% 15ML VIAL As Ordered ONE; -LIDOCAINE 1% SDV 30ML VIAL As Ordered ONE; -TRIAMCINOLONE ACETONIDE SUSP 40MG/ML 1ML VIAL As Ordered ONE; -diazePAM 5MG TABLET As Ordered ONE; -oxyCODONE 5MG TAB As Ordered ONE
== END ==
LOC: M PAIN 15:45
PROVIDERS: ATTEND Anesthesiology
DX: M53.3 Sacrococcygeal disorders, not elsewhere classified (principal); M54.2 Cervicalgia; R10.2 Pelvic and perineal pain; J45.20 Mild intermittent asthma, uncomplicated; E55.9 Vitamin D deficiency, unspecified; E66.9 Obesity, unspecified; M16.0 Bilateral primary osteoarthritis of hip; E03.9 Hypothyroidism, unspecified; K21.9 Gastro-esophageal reflux disease without esophagitis; E53.8 Deficiency of other specified B group vitamins; Z87.891 Personal history of nicotine dependence; Z79.890 Hormone replacement therapy; Z79.891 Long term (current) use of opiate analgesic; Z79.899 Other long term (current) drug therapy; Z88.1 Allergy status to other antibiotic agents; Z88.6 Allergy status to analgesic agent; Z91.040 Latex allergy status

== ENCOUNTER → 2023-10-22 | Outpatient (CLI) | payer OTHER | LOC: M PAIN 12:15 | PROVIDERS: ATTEND Nurse Practitioner Family | DX: Z79.891 Long term (current) use of opiate analgesic (principal) ==

== ENCOUNTER → 2023-11-28 | Outpatient (CLI) | payer OTHER | LOC: M PAIN 14:15 | PROVIDERS: ATTEND Anesthesiology | DX: M53.3 Sacrococcygeal disorders, not elsewhere classified (principal); G57.02 Lesion of sciatic nerve, left lower limb; G89.29 Other chronic pain; M25.552 Pain in left hip; J45.20 Mild intermittent asthma, uncomplicated; E55.9 Vitamin D deficiency, unspecified; E66.9 Obesity, unspecified; M16.0 Bilateral primary osteoarthritis of hip; E03.9 Hypothyroidism, unspecified; G47.33 Obstructive sleep apnea (adult) (pediatric); K21.9 Gastro-esophageal reflux disease without esophagitis; E53.8 Deficiency of other specified B group vitamins; Z87.891 Personal history of nicotine dependence; Z79.890 Hormone replacement therapy; Z79.891 Long term (current) use of opiate analgesic; Z79.899 Other long term (current) drug therapy; Z88.1 Allergy status to other antibiotic agents; Z88.6 Allergy status to analgesic agent; Z91.040 Latex allergy status; Z68.41 Body mass index [BMI] 40.0-44.9, adult ==

== ENCOUNTER → 2023-11-30 | Outpatient (CLI) | payer OTHER ==
[2023-11-30 14:35] LABS: BASO % 0.5 % (0.0-1.0); EOS # 0.1 10^3/uL (0.0-0.5); EOS % 1.3 % (0.0-3.0); HEMATOCRIT 40.4 % (36.0-47.0); HEMOGLOBIN 12.9 g/dl (12.0-15.5); LYMPH % 26.2 % (24.0-44.0); MEAN CORPUSCULAR HEMOGLOBIN 30.8 pg (27.0-33.0); MEAN CORPUSCULAR HGB CONC 31.9 g/dl (32.0-36.5); MEAN CORPUSCULAR VOLUME 96.4 fl (80.0-96.0); MONO # 0.7 10^3/uL (0.0-0.8); MONO % 8.6 % (2.0-8.0); NEUTROPHILS # 4.9 10^3/uL (1.5-8.5); PLATELET COUNT, AUTOMATED 219 10^3/uL (150-450); RED BLOOD COUNT 4.19 10^6/uL (4.00-5.40); WHITE BLOOD COUNT 7.8 10^3/uL (4.0-10.0)
[2023-11-30 15:09] LABS: ALBUMIN 3.4 G/DL (3.2-5.2); ALKALINE PHOSPHATASE 109 U/L (46-116); ALT/SGPT 23 U/L (7.0-40); AST/SGOT 16 U/L (<34); BILIRUBIN,TOTAL 0.5 MG/DL (0.3-1.2); BLOOD UREA NITROGEN 11 MG/DL (9-23); CALCIUM LEVEL 8.9 MG/DL (8.5-10.1); CARBON DIOXIDE LEVEL 32 MMOL/L (20-31); CHLORIDE LEVEL 102 MMOL/L (98-107); CHOLESTEROL LEVEL 180 MG/DL (<200); CHOLESTEROL RISK RATIO 4.53 (<5); CREATININE FOR GFR 0.74 MG/DL (0.55-1.30); GLOMERULAR FILTRATION RATE > 60.0 (>51); GLUCOSE, FASTING 97 MG/DL (60-100); HDL CHOLESTEROL 39.7 MG/DL (>40); LDL CHOLESTEROL 91.5 MG/DL (<100); NON-HDL-C 140.3 MG/DL; POTASSIUM SERUM 4.7 MMOL/L (3.5-5.1); SODIUM LEVEL 140 MMOL/L (136-145); TOTAL PROTEIN 6.8 G/DL (5.7-8.2); TRIGLYCERIDES LEVEL 244 MG/DL (<150)
[2023-11-30 15:12] LABS: TOTAL 25(OH) VITAMIN D 48.6 NG/ML (20.0-100.0)
[2023-11-30 15:13] LABS: PTH INTACT 60.3 PG/ML (18.5-88.0); THYROID STIMULATING HORMONE 2.252 uIU/ML (0.55-4.78)
[2023-11-30 15:14] LABS: VITAMIN B12 LEVEL 201 PG/ML (211-911)
[2023-11-30 15:15] LABS: FREE T4 0.96 NG/DL (0.89-1.76)
== END ==
LOC: M PLALAB 11:09
PROVIDERS: ATTEND Physician Assistant Medical
DX: I10 Essential (primary) hypertension (principal); E53.8 Deficiency of other specified B group vitamins; E78.2 Mixed hyperlipidemia; E55.9 Vitamin D deficiency, unspecified; G47.33 Obstructive sleep apnea (adult) (pediatric); E66.1 Drug-induced obesity

== ENCOUNTER → 2024-02-19 | Outpatient (CLI) | payer OTHER ==
[~2024-02-19] MED LIST changes: +ISOVUE-M 300 61% 15ML VIAL As Ordered ONE; +LIDOCAINE 1% SDV 30ML VIAL As Ordered ONE; +TRIAMCINOLONE ACETONIDE SUSP 40MG/ML 1ML VIAL As Ordered ONE; +diazePAM 5MG TABLET As Ordered ONE; +oxyCODONE 5MG TAB As Ordered ONE
== END ==
LOC: M PAIN 08:30
PROVIDERS: ATTEND Anesthesiology
DX: G57.02 Lesion of sciatic nerve, left lower limb (principal); M54.50 Low back pain, unspecified; G89.29 Other chronic pain; J45.20 Mild intermittent asthma, uncomplicated; E55.9 Vitamin D deficiency, unspecified; E66.9 Obesity, unspecified; M16.0 Bilateral primary osteoarthritis of hip; E03.9 Hypothyroidism, unspecified; G47.33 Obstructive sleep apnea (adult) (pediatric); K21.9 Gastro-esophageal reflux disease without esophagitis; E53.8 Deficiency of other specified B group vitamins; Z87.891 Personal history of nicotine dependence; Z79.891 Long term (current) use of opiate analgesic; Z79.899 Other long term (current) drug therapy; Z91.040 Latex allergy status; Z88.1 Allergy status to other antibiotic agents; Z88.6 Allergy status to analgesic agent; Z68.41 Body mass index [BMI] 40.0-44.9, adult
CPT/HCPCS: 20552; 77002; J0665; J3301; Q9967

== ENCOUNTER → 2024-03-31 | Outpatient (CLI) | payer OTHER ==
[~2024-03-31] MED LIST changes: -ISOVUE-M 300 61% 15ML VIAL As Ordered ONE; -LIDOCAINE 1% SDV 30ML VIAL As Ordered ONE; -TRIAMCINOLONE ACETONIDE SUSP 40MG/ML 1ML VIAL As Ordered ONE; -diazePAM 5MG TABLET As Ordered ONE; -oxyCODONE 5MG TAB As Ordered ONE
== END ==
LOC: M PAIN 09:45
PROVIDERS: ATTEND Nurse Practitioner Family
DX: M79.10 Myalgia, unspecified site (principal); G57.02 Lesion of sciatic nerve, left lower limb; Z79.891 Long term (current) use of opiate analgesic; J45.909 Unspecified asthma, uncomplicated; E03.9 Hypothyroidism, unspecified; Z79.02 Long term (current) use of antithrombotics/antiplatelets; Z79.1 Long term (current) use of non-steroidal anti-inflammatories (NSAID); Z79.51 Long term (current) use of inhaled steroids; Z79.890 Hormone replacement therapy; Z79.899 Other long term (current) drug therapy; Z88.1 Allergy status to other antibiotic agents; Z88.6 Allergy status to analgesic agent; Z91.040 Latex allergy status

== ENCOUNTER → 2024-06-05 | Outpatient (CLI) | payer OTHER ==
[~2024-06-05] MED LIST changes: +TRIAMCINOLONE ACETONIDE SUSP 40MG/ML 1ML VIAL As Ordered ONE; +diazePAM 5MG TABLET As Ordered ONE; +oxyCODONE 5MG TAB As Ordered ONE
== END ==
LOC: M PAIN 08:30
PROVIDERS: ATTEND Anesthesiology
DX: M79.12 Myalgia of auxiliary muscles, head and neck (principal); G89.29 Other chronic pain; J45.20 Mild intermittent asthma, uncomplicated; E55.9 Vitamin D deficiency, unspecified; E66.9 Obesity, unspecified; M16.0 Bilateral primary osteoarthritis of hip; I87.2 Venous insufficiency (chronic) (peripheral); E03.9 Hypothyroidism, unspecified; G47.33 Obstructive sleep apnea (adult) (pediatric); M25.511 Pain in right shoulder; K21.9 Gastro-esophageal reflux disease without esophagitis; E53.8 Deficiency of other specified B group vitamins; Z87.891 Personal history of nicotine dependence; Z79.890 Hormone replacement therapy; Z79.899 Other long term (current) drug therapy; Z91.040 Latex allergy status; Z88.1 Allergy status to other antibiotic agents; Z88.6 Allergy status to analgesic agent; Z68.41 Body mass index [BMI] 40.0-44.9, adult
CPT/HCPCS: 20552; J0665; J3301

== ENCOUNTER → 2024-06-23 | Outpatient (CLI) | payer OTHER ==
[~2024-06-23] MED LIST changes: -TRIAMCINOLONE ACETONIDE SUSP 40MG/ML 1ML VIAL As Ordered ONE; -diazePAM 5MG TABLET As Ordered ONE; -oxyCODONE 5MG TAB As Ordered ONE
[2024-06-23 15:21] LABS: ALBUMIN 3.7 G/DL (3.2-5.2); ALKALINE PHOSPHATASE 118 U/L (46-116); ALT/SGPT 19 U/L (7.0-40); AST/SGOT 9 U/L (<34); BILIRUBIN,TOTAL 0.3 MG/DL (0.3-1.2); BLOOD UREA NITROGEN 14 MG/DL (9-23); CALCIUM LEVEL 8.8 MG/DL (8.5-10.1); CARBON DIOXIDE LEVEL 29 MMOL/L (20-31); CHLORIDE LEVEL 109 MMOL/L (98-107); CHOLESTEROL LEVEL 173 MG/DL (<200); CREATININE FOR GFR 0.74 MG/DL (0.55-1.30); GLOMERULAR FILTRATION RATE > 60.0 (>51); GLUCOSE, FASTING 103 MG/DL (60-100); HDL CHOLESTEROL 49.3 MG/DL (>40); LDL CHOLESTEROL 94.9 MG/DL (<100); NON-HDL-C 123.7 MG/DL; POTASSIUM SERUM 4.5 MMOL/L (3.5-5.1); SODIUM LEVEL 143 MMOL/L (136-145); TRIGLYCERIDES LEVEL 144 MG/DL (<150)
[2024-06-23 15:23] LABS: BASO % 0.4 % (0.0-1.0); EOS # 0.1 10^3/uL (0.0-0.5); EOS % 1.2 % (0.0-3.0); HEMATOCRIT 40.1 % (36.0-47.0); HEMOGLOBIN 12.4 g/dl (12.0-15.5); LYMPH # 1.5 10^3/uL (1.5-5.0); LYMPH % 19.4 % (24.0-44.0); MEAN CORPUSCULAR HEMOGLOBIN 29.7 pg (27.0-33.0); MEAN CORPUSCULAR HGB CONC 30.9 g/dl (32.0-36.5); MEAN CORPUSCULAR VOLUME 96.2 fl (80.0-96.0); MONO # 0.6 10^3/uL (0.0-0.8); MONO % 7.7 % (2.0-8.0); NEUTROPHILS # 5.4 10^3/uL (1.5-8.5); NEUTROPHILS % 70.9 % (36.0-66.0); PLATELET COUNT, AUTOMATED 200 10^3/uL (150-450); RED BLOOD COUNT 4.17 10^6/uL (4.00-5.40); TOTAL 25(OH) VITAMIN D 45.2 NG/ML (20.0-100.0); WHITE BLOOD COUNT 7.5 10^3/uL (4.0-10.0)
[2024-06-23 15:25] LABS: PTH INTACT 76.3 PG/ML (18.5-88.0)
[2024-06-23 16:12] LABS: HEMOGLOBIN A1c 5.3 % (4.0-6.0)
== END ==
LOC: M PLALAB 11:59
PROVIDERS: ATTEND Physician Assistant Medical
DX: E78.2 Mixed hyperlipidemia (principal); I10 Essential (primary) hypertension; E55.9 Vitamin D deficiency, unspecified; E66.1 Drug-induced obesity; Z68.41 Body mass index [BMI] 40.0-44.9, adult

== ENCOUNTER → 2024-07-08 | Outpatient (CLI) | payer OTHER | LOC: M PAIN 16:45 | PROVIDERS: ATTEND Nurse Practitioner Family | DX: M46.1 Sacroiliitis, not elsewhere classified (principal); G89.29 Other chronic pain; J45.20 Mild intermittent asthma, uncomplicated; E55.9 Vitamin D deficiency, unspecified; E66.9 Obesity, unspecified; M16.0 Bilateral primary osteoarthritis of hip; E03.9 Hypothyroidism, unspecified; G47.33 Obstructive sleep apnea (adult) (pediatric); K21.9 Gastro-esophageal reflux disease without esophagitis; Z87.891 Personal history of nicotine dependence; Z79.890 Hormone replacement therapy; Z79.891 Long term (current) use of opiate analgesic; Z79.899 Other long term (current) drug therapy; Z88.1 Allergy status to other antibiotic agents; Z88.6 Allergy status to analgesic agent; Z91.040 Latex allergy status; Z68.41 Body mass index [BMI] 40.0-44.9, adult ==

== ENCOUNTER → 2024-09-09 | Outpatient (CLI) | payer OTHER ==
[~2024-09-09] MED LIST changes: +ISOVUE-M 300 61% 15ML VIAL As Ordered ONE; +LIDOCAINE 1% SDV 30ML VIAL As Ordered ONE; +TRIAMCINOLONE ACETONIDE SUSP 40MG/ML 1ML VIAL As Ordered ONE; +diazePAM 5MG TABLET As Ordered ONE; +oxyCODONE 5MG TAB As Ordered ONE
== END ==
LOC: M PAIN 10:00
PROVIDERS: ATTEND Anesthesiology
DX: M46.1 Sacroiliitis, not elsewhere classified (principal); G89.29 Other chronic pain; M54.50 Low back pain, unspecified; J45.20 Mild intermittent asthma, uncomplicated; E55.9 Vitamin D deficiency, unspecified; E66.9 Obesity, unspecified; M16.0 Bilateral primary osteoarthritis of hip; E03.9 Hypothyroidism, unspecified; G47.33 Obstructive sleep apnea (adult) (pediatric); E53.8 Deficiency of other specified B group vitamins; Z87.891 Personal history of nicotine dependence; Z79.890 Hormone replacement therapy; Z79.891 Long term (current) use of opiate analgesic; Z79.899 Other long term (current) drug therapy
CPT/HCPCS: 27096; J0665; J3301; Q9967

== ENCOUNTER → 2024-11-03 | Outpatient (CLI) | payer OTHER ==
[~2024-11-03] MED LIST changes: -ISOVUE-M 300 61% 15ML VIAL As Ordered ONE; -LIDOCAINE 1% SDV 30ML VIAL As Ordered ONE; -TRIAMCINOLONE ACETONIDE SUSP 40MG/ML 1ML VIAL As Ordered ONE; -diazePAM 5MG TABLET As Ordered ONE; -oxyCODONE 5MG TAB As Ordered ONE
== END ==
LOC: M PAIN 09:45
PROVIDERS: ATTEND Nurse Practitioner Family
DX: M46.1 Sacroiliitis, not elsewhere classified (principal); M79.18 Myalgia, other site; G89.29 Other chronic pain; M54.2 Cervicalgia; J45.20 Mild intermittent asthma, uncomplicated; M16.0 Bilateral primary osteoarthritis of hip; E03.9 Hypothyroidism, unspecified; K21.9 Gastro-esophageal reflux disease without esophagitis; Z87.891 Personal history of nicotine dependence; Z79.890 Hormone replacement therapy; Z79.891 Long term (current) use of opiate analgesic; Z79.899 Other long term (current) drug therapy; Z88.6 Allergy status to analgesic agent; Z88.1 Allergy status to other antibiotic agents; Z91.040 Latex allergy status

== ENCOUNTER → 2025-07-30 | Outpatient (CLI) | payer OTHER | LOC: M PLALAB 11:21 | PROVIDERS: ATTEND Nurse Practitioner Family | DX: Z79.891 Long term (current) use of opiate analgesic (principal); Z51.81 Encounter for therapeutic drug level monitoring | CPT/HCPCS: 36415; 80307; G0480 ==